=== PATIENT | female | born 1955 | race Caucasian/White ===

== ENCOUNTER 2017-06-11 20:12 | Inpatient (IN) | payer MEDICAID ==
[~2017-06-11] VITALS: Ht 162.6 cm; Wt 59.0 kg
[~2017-06-11 20:12] MED LIST: AMLO-512 PO; ASPI-825 PO; ATOR20TA86 PO; CITA20TA9 PO; DOCU100C33 PO
[2017-06-11 20:52] LABS: GLUCOSE,POINT OF CARE 261 MG/DL (70-110)
[2017-06-11 21:36] LABS: AMPHET/METH SCREEN,URINE NEGATIVE (NEGATIVE); BARBITURATE SCREEN, URINE NEGATIVE (NEGATIVE); BENZODIAZEPINES SCREEN,URINE NEGATIVE (NEGATIVE); CANNABINOID SCREEN,URINE NEGATIVE (NEGATIVE); COCAINE SCREEN,URINE NEGATIVE (NEGATIVE); METHADONE SCREEN, URINE NEGATIVE (NEGATIVE); OPIATE SCREEN,URINE NEGATIVE (NEGATIVE)
[2017-06-11 21:36] LABS: BASOPHILS % (AUTO) 1.1 % (0.0-2.0); EOSINOPHILS % (AUTO) 0.8 % (1.0-6.0); HEMATOCRIT 38.9 % (36-46); HEMOGLOBIN 12.9 g/dL (12.0-16.0); LYMPHOCYTES # (AUTO) 2.1 K/uL (1.0-4.8); LYMPHOCYTES % (AUTO) 23.9 % (22.0-44.0); MEAN CORPUSCULAR HEMOGLOBIN 28.7 pg (26.0-34.0); MEAN CORPUSCULAR HGB CONC 33.2 G/dL (31.0-37.0); MEAN CORPUSCULAR VOLUME 87 fL (80-100); MONOCYTES # (AUTO) 0.6 K/uL (0.1-1.0); MONOCYTES % (AUTO) 6.6 % (2.0-9.0); NEUTROPHILS # (AUTO) 5.8 K/uL (1.8-7.7); NEUTROPHILS % (AUTO) 67.6 % (40.0-70.0); PLATELET COUNT (AUTO) 253 K/uL (150-450); RED BLOOD CELL COUNT(AUTO) 4.49 MIL/uL (4.00-5.20); RED CELL DISTRIBUTION WIDTH 13.9 % (11.5-14.5)
[2017-06-11 21:40] LABS: PHENCYCLIDINE SCREEN,URINE NEGATIVE (NEGATIVE)
[2017-06-11 21:57] LABS: ANION GAP 9 mmol/L (8-16); CARBON DIOXIDE 27 mmol/L (22-29); CHLORIDE 102 mmol/L (98-107); CREATININE 0.93 mg/dL (0.60-1.30); GLOMERULAR FILTR. RATE CALC > 60 mL/min (>60); GLUCOSE,RANDOM 253 mg/dL (70-110); POTASSIUM 3.8 mmol/L (3.5-5.1); SODIUM SERUM 138 mmol/L (136-145); UREA NITROGEN, BLOOD 14 mg/dL (7-18)
[2017-06-11 22:01] LABS: ALANINE AMINOTRANSFERASE 14 U/L (12-78); ALBUMIN 3.6 g/dL (3.4-5.0); ALKALINE PHOSPHATASE 107 U/L (46-116); ASPARTATE AMINOTRANSFERASE 17 U/L (15-37); BILIRUBIN,TOTAL 0.3 mg/dL (0.1-1.0); TOTAL PROTEIN, SERUM 7.7 g/dL (6.4-8.2)
[2017-06-11 23:35] LABS: APPEARANCE,URINE CLOUDY (CLEAR); BILIRUBIN,URINE NEGATIVE (NEGATIVE); GLUCOSE, URINE (UA) >=1000 mg/dL (NEGATIVE); KETONES,URINE TRACE mg/dL (NEGATIVE); NITRATE,URINE POSITIVE (NEGATIVE); PROTEIN,URINE SEE CONFIRM (NEGATIVE); UROBILINOGEN,URINE 0.2 mg/dL (<=1.0)
[2017-06-11 23:38] LABS: GLUCOSE,POINT OF CARE 238 MG/DL (70-110)
[2017-06-11 23:38] LABS: LEUKOCYTE ESTERASE ,URINE MODERATE (NEGATIVE); OCCULT BLOOD,URINE SMALL (NEGATIVE)
[2017-06-11 23:39] LABS: BACTERIA,URINE Many /HPF (None Seen); SQUAMOUS EPITHELIAL CELL,UR Moderate /LPF (None Seen); SULFOSALICYLIC ACID,URINE 3+ (Negative); WBC,URINE 26-50 /HPF (0-5)
[2017-06-12] MEDS ORDERED: CefTRIAXone SODIUM 1 GM/VIAL IM ONE (00:15)
[2017-06-12] MEDS ORDERED: LIDOCAINE HCL/PF 1% 2 ML VIAL IM ONE (00:15)
[2017-06-12 00:31] LABS: CHOL/HDL RATIO 3.8 (3.9-5.7); CHOLESTEROL 227 mg/dL (131-200); FREE T4 (FREE THYROXINE) 0.98 ng/dL (0.76-1.46); HDL CHOLESTEROL 60 mg/dL (40-60); LDL CHOL (CALC.) 144 mg/dL (0-130); THYROID STIMULATING HORMONE 5.51 uIU/mL (0.36-3.74); TRIGLYCERIDES 115 mg/dL (15-150)
[2017-06-12 05:37] LABS: GLUCOSE,POINT OF CARE 245 MG/DL (70-110)
[2017-06-12] MEDS ORDERED: INSULIN REGULAR, HUMAN 100 UNITS/ML SQ ONE (05:45)
[2017-06-12 06:49] VITALS: BP 128/76
[2017-06-12] MEDS ORDERED: -PHARMACY VACCINE NOTE- MISC ONE (07:30)
[2017-06-12] MEDS ORDERED: PNEUMOCOCCAL VACCINE POLYVALENT 0.5 ML VIAL [PPSV23] IM ONE (07:30)
[2017-06-12] MEDS ORDERED: INFLUENZA VIRUS VACCINE QVS 2017-18 (3YR+)/PF 60 MCG/0.5 ML SYRINGE IM ONE (07:30)
[2017-06-12 08:06] VITALS: BP 104/68
[2017-06-12] MEDS ORDERED: MAG HYDROX/AL HYDROX/SIMETH ES 30 ML SUSPENSION UDCUP PO PRN (09:30)
[2017-06-12] MEDS ORDERED: ALBUTEROL SULFATE HFA 90 MCG/PUFF 8 GM INHALER IH PRN (09:30)
[2017-06-12] MEDS ORDERED: IBUPROFEN 600 MG TABLET PO PRN (09:30)
[2017-06-12] MEDS ORDERED: PETROLATUM,WHITE 71 GM JELLY TP PRN (09:30)
[2017-06-12] MEDS ORDERED: GLUCAGON,HUMAN RECOMBINANT 1 MG VIAL IM PRN (09:30)
[2017-06-12] MEDS ORDERED: ONDANSETRON HCL 4 MG TABLET PO PRN (09:30)
[2017-06-12] MEDS ORDERED: ACETAMINOPHEN 325 MG TABLET PO PRN (09:30)
[2017-06-12] MEDS ORDERED: BACITRACIN 28.4 GM OINTMENT TP PRN (09:30)
[2017-06-12] MEDS ORDERED: MAGNESIUM HYDROXIDE SUSPENSION 30 ML UDCUP PO PRN (09:30)
[2017-06-12] MEDS ORDERED: CloNIDine HCL 0.1 MG TABLET PO PRN (09:30)
[2017-06-12] MEDS ORDERED: BENZOCAINE/MENTHOL LOZENGE MM PRN (09:30)
[2017-06-12] MEDS: AmLODIPine BESYLATE 10 MG TABLET PO SCH (09:56)
[2017-06-12] MEDS: CIPROFLOXACIN HCL 500 MG TABLET PO SCH ×2 (09:56→17:00)
[2017-06-12] MEDS: ASPIRIN 81 MG CHEWABLE TABLET PO SCH (09:56)
[2017-06-12] MEDS: INSULIN ASPART 100 UNITS/ML - NON-FORMULARY SQ PRN ×3 (10:55→20:47)
[2017-06-12 12:43] LABS: GLUCOMETER DEV NAME(LOC) BV2N3; GLUCOSE,POINT OF CARE 338 MG/DL (70-110)
[2017-06-12] MEDS: CITALOPRAM HYDROBROMIDE 20 MG TABLET PO SCH (13:52)
[2017-06-12 16:00] VITALS: BP 130/66
[2017-06-12 16:32] LABS: GLUCOMETER DEV NAME(LOC) BV2N3; GLUCOSE,POINT OF CARE 256 MG/DL (70-110)
[2017-06-12] MEDS: MetFORMIN HCL 500 MG TABLET PO SCH (17:00)
[2017-06-12] MEDS: ATORVASTATIN CALCIUM 20 MG TABLET PO SCH (20:38)
[2017-06-12 20:57] LABS: GLUCOMETER DEV NAME(LOC) BV2N3; GLUCOSE,POINT OF CARE 336 MG/DL (70-110)
[2017-06-13] MEDS: INSULIN ASPART 100 UNITS/ML - NON-FORMULARY SQ PRN ×4 (06:21→20:46)
[2017-06-13 06:22] LABS: GLUCOMETER DEV NAME(LOC) BV2N3; GLUCOSE,POINT OF CARE 333 MG/DL (70-110)
[2017-06-13] MEDS: LEVOTHYROXINE SODIUM 50 MCG TABLET PO SCH (06:41)
[2017-06-13 07:02] VITALS: BP 140/86
[2017-06-13] MEDS: MetFORMIN HCL 500 MG TABLET PO SCH ×2 (07:07→16:31)
[2017-06-13 08:07] VITALS: BP 106/73
[2017-06-13] MEDS: CIPROFLOXACIN HCL 500 MG TABLET PO SCH ×2 (08:18→16:31)
[2017-06-13] MEDS: ASPIRIN 81 MG CHEWABLE TABLET PO SCH (08:18)
[2017-06-13] MEDS: OMEPRAZOLE 20 MG CAPSULE PO SCH (08:18)
[2017-06-13] MEDS: DOCUSATE SODIUM 100 MG CAPSULE PO SCH (08:18)
[2017-06-13] MEDS: CITALOPRAM HYDROBROMIDE 20 MG TABLET PO SCH (08:18)
[2017-06-13] MEDS: AmLODIPine BESYLATE 10 MG TABLET PO SCH (08:18)
[2017-06-13 11:02] LABS: GLUCOMETER DEV NAME(LOC) BV2N3; GLUCOSE,POINT OF CARE 306 MG/DL (70-110)
[2017-06-13 16:05] VITALS: BP 106/60
[2017-06-13 18:57] LABS: GLUCOMETER DEV NAME(LOC) BV2N3; GLUCOSE,POINT OF CARE 284 MG/DL (70-110)
[2017-06-13 20:33] LABS: GLUCOMETER DEV NAME(LOC) BV2N3; GLUCOSE,POINT OF CARE 231 MG/DL (70-110)
[2017-06-13] MEDS: ATORVASTATIN CALCIUM 20 MG TABLET PO SCH (20:39)
[2017-06-14 05:10] VITALS: BP 105/70
[2017-06-14] MEDS: LEVOTHYROXINE SODIUM 50 MCG TABLET PO SCH (06:27)
[2017-06-14] MEDS: MetFORMIN HCL 500 MG TABLET PO SCH ×2 (06:27→17:05)
[2017-06-14 06:33] LABS: GLUCOMETER DEV NAME(LOC) BV2N3; GLUCOSE,POINT OF CARE 242 MG/DL (70-110)
[2017-06-14] MEDS: INSULIN ASPART 100 UNITS/ML - NON-FORMULARY SQ PRN ×3 (06:39→16:46)
[2017-06-14] MEDS: AmLODIPine BESYLATE 10 MG TABLET PO SCH (08:23)
[2017-06-14] MEDS: CIPROFLOXACIN HCL 500 MG TABLET PO SCH ×2 (08:23→17:05)
[2017-06-14] MEDS: CITALOPRAM HYDROBROMIDE 20 MG TABLET PO SCH (08:23)
[2017-06-14] MEDS: OMEPRAZOLE 20 MG CAPSULE PO SCH (08:23)
[2017-06-14] MEDS: ASPIRIN 81 MG CHEWABLE TABLET PO SCH (08:23)
[2017-06-14] MEDS: DOCUSATE SODIUM 100 MG CAPSULE PO SCH (08:23)
[2017-06-14 08:37] VITALS: BP 105/60
[2017-06-14 11:43] LABS: GLUCOMETER DEV NAME(LOC) BV2S; GLUCOSE,POINT OF CARE 197 MG/DL (70-110)
[2017-06-14 16:01] VITALS: BP 135/69
[2017-06-14 16:48] LABS: GLUCOMETER DEV NAME(LOC) BV2N3; GLUCOSE,POINT OF CARE 209 MG/DL (70-110)
[2017-06-14] MEDS: ATORVASTATIN CALCIUM 20 MG TABLET PO SCH (20:22)
[2017-06-14 20:38] LABS: GLUCOMETER DEV NAME(LOC) BV2N3; GLUCOSE,POINT OF CARE 136 MG/DL (70-110)
[2017-06-15 05:15] VITALS: BP 122/61
[2017-06-15] MEDS: LEVOTHYROXINE SODIUM 50 MCG TABLET PO SCH (06:35)
[2017-06-15] MEDS: MetFORMIN HCL 500 MG TABLET PO SCH ×2 (06:36→16:21)
[2017-06-15] MEDS: INSULIN ASPART 100 UNITS/ML - NON-FORMULARY SQ PRN ×3 (06:43→17:09)
[2017-06-15 07:07] LABS: GLUCOMETER DEV NAME(LOC) BV2N3; GLUCOSE,POINT OF CARE 213 MG/DL (70-110)
[2017-06-15 08:18] VITALS: BP 118/67
[2017-06-15] MEDS: ASPIRIN 81 MG CHEWABLE TABLET PO SCH (08:30)
[2017-06-15] MEDS: OMEPRAZOLE 20 MG CAPSULE PO SCH (08:30)
[2017-06-15] MEDS: DOCUSATE SODIUM 100 MG CAPSULE PO SCH (08:30)
[2017-06-15] MEDS: CIPROFLOXACIN HCL 500 MG TABLET PO SCH ×2 (08:30→16:09)
[2017-06-15] MEDS: CITALOPRAM HYDROBROMIDE 20 MG TABLET PO SCH (08:30)
[2017-06-15] MEDS: AmLODIPine BESYLATE 10 MG TABLET PO SCH (08:30)
[2017-06-15 11:12] LABS: GLUCOMETER DEV NAME(LOC) BV2N3; GLUCOSE,POINT OF CARE 213 MG/DL (70-110)
[2017-06-15 16:04] VITALS: BP 131/68
[2017-06-15 16:22] LABS: GLUCOMETER DEV NAME(LOC) BV2N3; GLUCOSE,POINT OF CARE 174 MG/DL (70-110)
[2017-06-15] MEDS: ATORVASTATIN CALCIUM 20 MG TABLET PO SCH (20:20)
[2017-06-15 20:33] LABS: GLUCOMETER DEV NAME(LOC) BV2N3; GLUCOSE,POINT OF CARE 132 MG/DL (70-110)
[2017-06-16 01:01] VITALS: BP 121/62
[2017-06-16 06:33] LABS: GLUCOMETER DEV NAME(LOC) BV2N3; GLUCOSE,POINT OF CARE 192 MG/DL (70-110)
[2017-06-16] MEDS: LEVOTHYROXINE SODIUM 50 MCG TABLET PO SCH (06:35)
[2017-06-16] MEDS: MetFORMIN HCL 500 MG TABLET PO SCH ×2 (06:35→16:28)
[2017-06-16] MEDS: INSULIN ASPART 100 UNITS/ML - NON-FORMULARY SQ PRN ×2 (06:38→11:13)
[2017-06-16 08:11] VITALS: BP 123/81
[2017-06-16] MEDS: CIPROFLOXACIN HCL 500 MG TABLET PO SCH ×2 (08:22→16:27)
[2017-06-16] MEDS: ASPIRIN 81 MG CHEWABLE TABLET PO SCH (08:22)
[2017-06-16] MEDS: OMEPRAZOLE 20 MG CAPSULE PO SCH (08:22)
[2017-06-16] MEDS: CITALOPRAM HYDROBROMIDE 20 MG TABLET PO SCH (08:22)
[2017-06-16] MEDS: DOCUSATE SODIUM 100 MG CAPSULE PO SCH (08:22)
[2017-06-16] MEDS: AmLODIPine BESYLATE 10 MG TABLET PO SCH (08:22)
[2017-06-16 10:53] LABS: GLUCOMETER DEV NAME(LOC) BV2N3; GLUCOSE,POINT OF CARE 215 MG/DL (70-110)
[2017-06-16 16:05] VITALS: BP 127/82
[2017-06-16 16:28] LABS: GLUCOMETER DEV NAME(LOC) BV2N3; GLUCOSE,POINT OF CARE 128 MG/DL (70-110)
[2017-06-16] MEDS: ATORVASTATIN CALCIUM 20 MG TABLET PO SCH (20:03)
[2017-06-16 21:22] LABS: GLUCOMETER DEV NAME(LOC) BV2N3; GLUCOSE,POINT OF CARE 128 MG/DL (70-110)
[2017-06-17 04:37] VITALS: BP 114/66
[2017-06-17 06:23] LABS: GLUCOMETER DEV NAME(LOC) BV2N3; GLUCOSE,POINT OF CARE 143 MG/DL (70-110)
[2017-06-17] MEDS: LEVOTHYROXINE SODIUM 50 MCG TABLET PO SCH (06:37)
[2017-06-17] MEDS: MetFORMIN HCL 500 MG TABLET PO SCH ×2 (06:38→16:25)
[2017-06-17] MEDS: INSULIN ASPART 100 UNITS/ML - NON-FORMULARY SQ PRN ×2 (06:57→11:19)
[2017-06-17 08:08] VITALS: BP 125/60
[2017-06-17] MEDS: OMEPRAZOLE 20 MG CAPSULE PO SCH (08:11)
[2017-06-17] MEDS: CIPROFLOXACIN HCL 500 MG TABLET PO SCH ×2 (08:11→16:11)
[2017-06-17] MEDS: CITALOPRAM HYDROBROMIDE 20 MG TABLET PO SCH (08:11)
[2017-06-17] MEDS: DOCUSATE SODIUM 100 MG CAPSULE PO SCH (08:11)
[2017-06-17] MEDS: ASPIRIN 81 MG CHEWABLE TABLET PO SCH (08:11)
[2017-06-17] MEDS: AmLODIPine BESYLATE 10 MG TABLET PO SCH (08:12)
[2017-06-17 11:23] LABS: GLUCOMETER DEV NAME(LOC) BV2N3; GLUCOSE,POINT OF CARE 152 MG/DL (70-110)
[2017-06-17 16:22] VITALS: BP 125/77
[2017-06-17 16:33] LABS: GLUCOMETER DEV NAME(LOC) BV2N3; GLUCOSE,POINT OF CARE 128 MG/DL (70-110)
[2017-06-17] MEDS: ATORVASTATIN CALCIUM 20 MG TABLET PO SCH (20:12)
[2017-06-17 20:27] LABS: GLUCOMETER DEV NAME(LOC) BV2N3; GLUCOSE,POINT OF CARE 113 MG/DL (70-110)
[2017-06-18 01:51] VITALS: BP 120/60
[2017-06-18 05:49] LABS: GLUCOMETER DEV NAME(LOC) BV2N3; GLUCOSE,POINT OF CARE 158 MG/DL (70-110)
[2017-06-18] MEDS: LEVOTHYROXINE SODIUM 50 MCG TABLET PO SCH (06:52)
[2017-06-18] MEDS: MetFORMIN HCL 500 MG TABLET PO SCH ×2 (06:52→17:02)
[2017-06-18] MEDS: INSULIN ASPART 100 UNITS/ML - NON-FORMULARY SQ PRN ×2 (06:55→20:46)
[2017-06-18 08:10] VITALS: BP 116/60
[2017-06-18] MEDS: OMEPRAZOLE 20 MG CAPSULE PO SCH (08:15)
[2017-06-18] MEDS: CIPROFLOXACIN HCL 500 MG TABLET PO SCH ×2 (08:15→17:02)
[2017-06-18] MEDS: DOCUSATE SODIUM 100 MG CAPSULE PO SCH (08:15)
[2017-06-18] MEDS: ASPIRIN 81 MG CHEWABLE TABLET PO SCH (08:16)
[2017-06-18] MEDS: CITALOPRAM HYDROBROMIDE 20 MG TABLET PO SCH (08:16)
[2017-06-18] MEDS: AmLODIPine BESYLATE 10 MG TABLET PO SCH (08:16)
[2017-06-18 11:07] LABS: GLUCOMETER DEV NAME(LOC) BV2N3; GLUCOSE,POINT OF CARE 122 MG/DL (70-110)
[2017-06-18 16:33] LABS: GLUCOMETER DEV NAME(LOC) BV2N3; GLUCOSE,POINT OF CARE 127 MG/DL (70-110)
[2017-06-18 16:37] VITALS: BP 112/60
[2017-06-18] MEDS: ATORVASTATIN CALCIUM 20 MG TABLET PO SCH (20:36)
[2017-06-18 20:47] LABS: GLUCOMETER DEV NAME(LOC) BV2N3; GLUCOSE,POINT OF CARE 150 MG/DL (70-110)
[2017-06-19 05:54] VITALS: BP 108/62
[2017-06-19 06:34] LABS: GLUCOMETER DEV NAME(LOC) BV2N3; GLUCOSE,POINT OF CARE 150 MG/DL (70-110)
[2017-06-19] MEDS: INSULIN ASPART 100 UNITS/ML - NON-FORMULARY SQ PRN ×3 (06:40→21:05)
[2017-06-19] MEDS: LEVOTHYROXINE SODIUM 50 MCG TABLET PO SCH (06:41)
[2017-06-19] MEDS: MetFORMIN HCL 500 MG TABLET PO SCH ×2 (07:10→16:37)
[2017-06-19 08:00] VITALS: BP 111/59
[2017-06-19] MEDS: MEGESTROL ACETATE 400 MG/10 ML SUSPENSION UDCUP PO SCH (08:35)
[2017-06-19] MEDS: DOCUSATE SODIUM 100 MG CAPSULE PO SCH (08:35)
[2017-06-19] MEDS: ASPIRIN 81 MG CHEWABLE TABLET PO SCH (08:36)
[2017-06-19] MEDS: CITALOPRAM HYDROBROMIDE 20 MG TABLET PO SCH (08:36)
[2017-06-19] MEDS: AmLODIPine BESYLATE 10 MG TABLET PO SCH (08:36)
[2017-06-19] MEDS: OMEPRAZOLE 20 MG CAPSULE PO SCH (08:36)
[2017-06-19 11:43] LABS: GLUCOMETER DEV NAME(LOC) BV2N3; GLUCOSE,POINT OF CARE 136 MG/DL (70-110)
[2017-06-19 16:28] VITALS: BP 102/60
[2017-06-19 16:47] LABS: GLUCOMETER DEV NAME(LOC) BV2N3; GLUCOSE,POINT OF CARE 306 MG/DL (70-110)
[2017-06-19] MEDS: ATORVASTATIN CALCIUM 20 MG TABLET PO SCH (20:56)
[2017-06-19 21:02] LABS: GLUCOMETER DEV NAME(LOC) BV2N3; GLUCOSE,POINT OF CARE 277 MG/DL (70-110)
[2017-06-20 01:09] VITALS: BP 106/61
[2017-06-20] MEDS: LEVOTHYROXINE SODIUM 50 MCG TABLET PO SCH (06:06)
[2017-06-20] MEDS: INSULIN ASPART 100 UNITS/ML - NON-FORMULARY SQ PRN ×4 (06:28→21:03)
[2017-06-20 06:38] LABS: GLUCOMETER DEV NAME(LOC) BV2N3; GLUCOSE,POINT OF CARE 220 MG/DL (70-110)
[2017-06-20] MEDS: MetFORMIN HCL 500 MG TABLET PO SCH ×2 (07:06→16:40)
[2017-06-20 08:27] VITALS: BP 108/64
[2017-06-20] MEDS: ASPIRIN 81 MG CHEWABLE TABLET PO SCH (09:11)
[2017-06-20] MEDS: CITALOPRAM HYDROBROMIDE 20 MG TABLET PO SCH (09:11)
[2017-06-20] MEDS: DOCUSATE SODIUM 100 MG CAPSULE PO SCH (09:11)
[2017-06-20] MEDS: OMEPRAZOLE 20 MG CAPSULE PO SCH (09:11)
[2017-06-20] MEDS: AmLODIPine BESYLATE 10 MG TABLET PO SCH (09:11)
[2017-06-20] MEDS: MEGESTROL ACETATE 400 MG/10 ML SUSPENSION UDCUP PO SCH (09:12)
[2017-06-20 11:27] LABS: GLUCOMETER DEV NAME(LOC) BV2N3; GLUCOSE,POINT OF CARE 159 MG/DL (70-110)
[2017-06-20 16:04] VITALS: BP 126/68
[2017-06-20 16:38] LABS: GLUCOMETER DEV NAME(LOC) BV2N3; GLUCOSE,POINT OF CARE 259 MG/DL (70-110)
[2017-06-20] MEDS: ATORVASTATIN CALCIUM 20 MG TABLET PO SCH (20:46)
[2017-06-20 20:58] LABS: GLUCOMETER DEV NAME(LOC) BV2N3; GLUCOSE,POINT OF CARE 203 MG/DL (70-110)
[2017-06-21 06:31] VITALS: BP 119/68
[2017-06-21 06:43] LABS: GLUCOMETER DEV NAME(LOC) BV2N3; GLUCOSE,POINT OF CARE 182 MG/DL (70-110)
[2017-06-21] MEDS: INSULIN ASPART 100 UNITS/ML - NON-FORMULARY SQ PRN ×4 (07:03→20:54)
[2017-06-21] MEDS: MetFORMIN HCL 500 MG TABLET PO SCH ×2 (07:04→16:31)
[2017-06-21] MEDS: LEVOTHYROXINE SODIUM 50 MCG TABLET PO SCH (07:05)
[2017-06-21 08:10] VITALS: BP 121/63
[2017-06-21] MEDS: CITALOPRAM HYDROBROMIDE 20 MG TABLET PO SCH (08:53)
[2017-06-21] MEDS: OMEPRAZOLE 20 MG CAPSULE PO SCH (08:53)
[2017-06-21] MEDS: ASPIRIN 81 MG CHEWABLE TABLET PO SCH (08:53)
[2017-06-21] MEDS: DOCUSATE SODIUM 100 MG CAPSULE PO SCH (08:53)
[2017-06-21] MEDS: AmLODIPine BESYLATE 10 MG TABLET PO SCH (08:53)
[2017-06-21] MEDS: MEGESTROL ACETATE 400 MG/10 ML SUSPENSION UDCUP PO SCH (08:54)
[2017-06-21 11:53] LABS: GLUCOMETER DEV NAME(LOC) BV2N3; GLUCOSE,POINT OF CARE 153 MG/DL (70-110)
[2017-06-21 16:07] VITALS: BP 118/65
[2017-06-21 16:43] LABS: GLUCOMETER DEV NAME(LOC) BV2N3; GLUCOSE,POINT OF CARE 205 MG/DL (70-110)
[2017-06-21] MEDS: ATORVASTATIN CALCIUM 20 MG TABLET PO SCH (20:35)
[2017-06-21 20:43] LABS: GLUCOMETER DEV NAME(LOC) BV2N3; GLUCOSE,POINT OF CARE 182 MG/DL (70-110)
[2017-06-22] MEDS: LEVOTHYROXINE SODIUM 50 MCG TABLET PO SCH (06:31)
[2017-06-22] MEDS: MetFORMIN HCL 500 MG TABLET PO SCH ×2 (06:32→16:28)
[2017-06-22 06:38] LABS: GLUCOMETER DEV NAME(LOC) BV2N3; GLUCOSE,POINT OF CARE 229 MG/DL (70-110)
[2017-06-22] MEDS: INSULIN ASPART 100 UNITS/ML - NON-FORMULARY SQ PRN ×4 (06:38→20:55)
[2017-06-22 07:07] VITALS: BP 136/75
[2017-06-22 08:23] VITALS: BP_SYST 105; BP_SYST 120; BP_DIAS 54; BP_DIAS 77
[2017-06-22] MEDS: CITALOPRAM HYDROBROMIDE 20 MG TABLET PO SCH (08:55)
[2017-06-22] MEDS: OMEPRAZOLE 20 MG CAPSULE PO SCH (08:55)
[2017-06-22] MEDS: AmLODIPine BESYLATE 10 MG TABLET PO SCH (08:55)
[2017-06-22] MEDS: MEGESTROL ACETATE 400 MG/10 ML SUSPENSION UDCUP PO SCH (08:56)
[2017-06-22] MEDS: DOCUSATE SODIUM 100 MG CAPSULE PO SCH (08:56)
[2017-06-22] MEDS: ASPIRIN 81 MG CHEWABLE TABLET PO SCH (08:56)
[2017-06-22 11:02] LABS: GLUCOMETER DEV NAME(LOC) BV2N3; GLUCOSE,POINT OF CARE 171 MG/DL (70-110)
[2017-06-22 16:17] VITALS: BP 123/67
[2017-06-22 16:33] LABS: GLUCOMETER DEV NAME(LOC) BV2N3; GLUCOSE,POINT OF CARE 240 MG/DL (70-110)
[2017-06-22] MEDS: ATORVASTATIN CALCIUM 20 MG TABLET PO SCH (20:44)
[2017-06-22 20:52] LABS: GLUCOMETER DEV NAME(LOC) BV2N3; GLUCOSE,POINT OF CARE 148 MG/DL (70-110)
[2017-06-23 06:31] VITALS: BP 121/71
[2017-06-23] MEDS: MetFORMIN HCL 500 MG TABLET PO SCH ×2 (06:44→16:32)
[2017-06-23] MEDS: LEVOTHYROXINE SODIUM 50 MCG TABLET PO SCH (06:44)
[2017-06-23] MEDS: INSULIN ASPART 100 UNITS/ML - NON-FORMULARY SQ PRN ×4 (06:48→20:28)
[2017-06-23 07:08] LABS: GLUCOMETER DEV NAME(LOC) BV2N3; GLUCOSE,POINT OF CARE 147 MG/DL (70-110)
[2017-06-23 08:19] VITALS: BP 116/78
[2017-06-23] MEDS: ASPIRIN 81 MG CHEWABLE TABLET PO SCH (08:26)
[2017-06-23] MEDS: OMEPRAZOLE 20 MG CAPSULE PO SCH (08:26)
[2017-06-23] MEDS: CITALOPRAM HYDROBROMIDE 20 MG TABLET PO SCH (08:26)
[2017-06-23] MEDS: AmLODIPine BESYLATE 10 MG TABLET PO SCH (08:26)
[2017-06-23] MEDS: DOCUSATE SODIUM 100 MG CAPSULE PO SCH (08:26)
[2017-06-23] MEDS: MEGESTROL ACETATE 400 MG/10 ML SUSPENSION UDCUP PO SCH (08:27)
[2017-06-23 11:38] LABS: GLUCOMETER DEV NAME(LOC) BV2N3; GLUCOSE,POINT OF CARE 175 MG/DL (70-110)
[2017-06-23 16:26] VITALS: BP 116/74
[2017-06-23 16:38] LABS: GLUCOMETER DEV NAME(LOC) BV2N3; GLUCOSE,POINT OF CARE 146 MG/DL (70-110)
[2017-06-23] MEDS: ATORVASTATIN CALCIUM 20 MG TABLET PO SCH (20:26)
[2017-06-23 20:33] LABS: GLUCOMETER DEV NAME(LOC) BV2N3; GLUCOSE,POINT OF CARE 163 MG/DL (70-110)
[2017-06-24 01:15] VITALS: BP 114/63
[2017-06-24] MEDS: ZOLPIDEM TARTRATE 10 MG TABLET PO PRN (01:15)
[2017-06-24 06:28] LABS: GLUCOMETER DEV NAME(LOC) BV2N3; GLUCOSE,POINT OF CARE 143 MG/DL (70-110)
[2017-06-24] MEDS: MetFORMIN HCL 500 MG TABLET PO SCH ×2 (06:48→17:08)
[2017-06-24] MEDS: LEVOTHYROXINE SODIUM 50 MCG TABLET PO SCH (06:48)
[2017-06-24] MEDS: INSULIN ASPART 100 UNITS/ML - NON-FORMULARY SQ PRN ×4 (06:53→20:30)
[2017-06-24] MEDS: AmLODIPine BESYLATE 10 MG TABLET PO SCH (08:19)
[2017-06-24] MEDS: DOCUSATE SODIUM 100 MG CAPSULE PO SCH (08:19)
[2017-06-24] MEDS: ASPIRIN 81 MG CHEWABLE TABLET PO SCH (08:20)
[2017-06-24] MEDS: CITALOPRAM HYDROBROMIDE 20 MG TABLET PO SCH (08:20)
[2017-06-24] MEDS: MEGESTROL ACETATE 400 MG/10 ML SUSPENSION UDCUP PO SCH (08:24)
[2017-06-24] MEDS: OMEPRAZOLE 20 MG CAPSULE PO SCH (08:24)
[2017-06-24 09:03] VITALS: BP 128/76
[2017-06-24 11:18] LABS: GLUCOMETER DEV NAME(LOC) BV2N3; GLUCOSE,POINT OF CARE 204 MG/DL (70-110)
[2017-06-24 16:04] VITALS: BP 123/62
[2017-06-24 16:53] LABS: GLUCOMETER DEV NAME(LOC) BV2N3; GLUCOSE,POINT OF CARE 229 MG/DL (70-110)
[2017-06-24] MEDS: ATORVASTATIN CALCIUM 20 MG TABLET PO SCH (20:31)
[2017-06-24 20:43] LABS: GLUCOMETER DEV NAME(LOC) BV2N3; GLUCOSE,POINT OF CARE 145 MG/DL (70-110)
[2017-06-25 06:09] VITALS: BP 114/62
[2017-06-25 06:23] LABS: GLUCOMETER DEV NAME(LOC) BV2N3; GLUCOSE,POINT OF CARE 138 MG/DL (70-110)
[2017-06-25] MEDS: LEVOTHYROXINE SODIUM 50 MCG TABLET PO SCH (06:36)
[2017-06-25] MEDS: MetFORMIN HCL 500 MG TABLET PO SCH ×2 (06:36→16:34)
[2017-06-25 08:28] VITALS: BP 123/70
[2017-06-25] MEDS: OMEPRAZOLE 20 MG CAPSULE PO SCH (08:37)
[2017-06-25] MEDS: AmLODIPine BESYLATE 10 MG TABLET PO SCH (08:37)
[2017-06-25] MEDS: ASPIRIN 81 MG CHEWABLE TABLET PO SCH (08:37)
[2017-06-25] MEDS: CITALOPRAM HYDROBROMIDE 20 MG TABLET PO SCH (08:37)
[2017-06-25] MEDS: DOCUSATE SODIUM 100 MG CAPSULE PO SCH (08:37)
[2017-06-25] MEDS: MEGESTROL ACETATE 400 MG/10 ML SUSPENSION UDCUP PO SCH (08:38)
[2017-06-25 11:17] LABS: GLUCOMETER DEV NAME(LOC) BV2N3; GLUCOSE,POINT OF CARE 133 MG/DL (70-110)
[2017-06-25 16:18] VITALS: BP 121/68
[2017-06-25 17:03] LABS: GLUCOMETER DEV NAME(LOC) BV2N3; GLUCOSE,POINT OF CARE 156 MG/DL (70-110)
[2017-06-25] MEDS: INSULIN ASPART 100 UNITS/ML - NON-FORMULARY SQ PRN (17:05)
[2017-06-25 20:38] LABS: GLUCOMETER DEV NAME(LOC) BV2N3; GLUCOSE,POINT OF CARE 84 MG/DL (70-110)
[2017-06-25] MEDS: ATORVASTATIN CALCIUM 20 MG TABLET PO SCH (20:43)
[2017-06-26 06:23] LABS: GLUCOMETER DEV NAME(LOC) BV2N3; GLUCOSE,POINT OF CARE 116 MG/DL (70-110)
[2017-06-26] MEDS: LEVOTHYROXINE SODIUM 50 MCG TABLET PO SCH (06:35)
[2017-06-26] MEDS: MetFORMIN HCL 500 MG TABLET PO SCH ×2 (06:35→16:37)
[2017-06-26 06:39] VITALS: BP 138/70
[2017-06-26 08:43] VITALS: BP 138/71
[2017-06-26] MEDS: DOCUSATE SODIUM 100 MG CAPSULE PO SCH (08:48)
[2017-06-26] MEDS: MEGESTROL ACETATE 400 MG/10 ML SUSPENSION UDCUP PO SCH (08:48)
[2017-06-26] MEDS: CITALOPRAM HYDROBROMIDE 20 MG TABLET PO SCH (08:48)
[2017-06-26] MEDS: ASPIRIN 81 MG CHEWABLE TABLET PO SCH (08:48)
[2017-06-26] MEDS: AmLODIPine BESYLATE 10 MG TABLET PO SCH (08:48)
[2017-06-26] MEDS: OMEPRAZOLE 20 MG CAPSULE PO SCH (08:48)
[2017-06-26 11:08] LABS: GLUCOMETER DEV NAME(LOC) BV2N3; GLUCOSE,POINT OF CARE 134 MG/DL (70-110)
[2017-06-26] MEDS: INSULIN ASPART 100 UNITS/ML - NON-FORMULARY SQ PRN ×2 (17:00→20:40)
[2017-06-26 17:44] VITALS: BP 116/64
[2017-06-26 17:59] LABS: GLUCOMETER DEV NAME(LOC) BV2N3; GLUCOSE,POINT OF CARE 204 MG/DL (70-110)
[2017-06-26] MEDS: ATORVASTATIN CALCIUM 20 MG TABLET PO SCH (20:33)
[2017-06-26 21:28] LABS: GLUCOMETER DEV NAME(LOC) BV2N3; GLUCOSE,POINT OF CARE 155 MG/DL (70-110)
[2017-06-27 02:43] VITALS: BP 121/68
[2017-06-27] MEDS: INSULIN ASPART 100 UNITS/ML - NON-FORMULARY SQ PRN ×3 (06:51→20:40)
[2017-06-27] MEDS: LEVOTHYROXINE SODIUM 50 MCG TABLET PO SCH (06:52)
[2017-06-27 06:53] LABS: GLUCOMETER DEV NAME(LOC) BV2N3; GLUCOSE,POINT OF CARE 150 MG/DL (70-110)
[2017-06-27] MEDS: MetFORMIN HCL 500 MG TABLET PO SCH ×2 (06:53→16:29)
[2017-06-27 08:36] VITALS: BP 148/77
[2017-06-27] MEDS: CITALOPRAM HYDROBROMIDE 20 MG TABLET PO SCH (09:11)
[2017-06-27] MEDS: AmLODIPine BESYLATE 10 MG TABLET PO SCH (09:11)
[2017-06-27] MEDS: ASPIRIN 81 MG CHEWABLE TABLET PO SCH (09:11)
[2017-06-27] MEDS: OMEPRAZOLE 20 MG CAPSULE PO SCH (09:11)
[2017-06-27] MEDS: DOCUSATE SODIUM 100 MG CAPSULE PO SCH (09:11)
[2017-06-27] MEDS: MEGESTROL ACETATE 400 MG/10 ML SUSPENSION UDCUP PO SCH (09:11)
[2017-06-27 11:27] LABS: GLUCOMETER DEV NAME(LOC) BV2N3; GLUCOSE,POINT OF CARE 134 MG/DL (70-110)
[2017-06-27 16:26] VITALS: BP 114/63
[2017-06-27 17:08] LABS: GLUCOMETER DEV NAME(LOC) BV2N3; GLUCOSE,POINT OF CARE 255 MG/DL (70-110)
[2017-06-27] MEDS: ATORVASTATIN CALCIUM 20 MG TABLET PO SCH (20:11)
[2017-06-27 20:43] LABS: GLUCOMETER DEV NAME(LOC) BV2N3; GLUCOSE,POINT OF CARE 161 MG/DL (70-110)
[2017-06-28 02:30] VITALS: BP 123/76
[2017-06-28] MEDS: ZOLPIDEM TARTRATE 10 MG TABLET PO PRN (02:39)
[2017-06-28 06:29] LABS: GLUCOMETER DEV NAME(LOC) BV2N3; GLUCOSE,POINT OF CARE 214 MG/DL (70-110)
[2017-06-28] MEDS: MetFORMIN HCL 500 MG TABLET PO SCH ×2 (06:35→16:21)
[2017-06-28] MEDS: LEVOTHYROXINE SODIUM 50 MCG TABLET PO SCH (06:35)
[2017-06-28] MEDS: INSULIN ASPART 100 UNITS/ML - NON-FORMULARY SQ PRN ×4 (06:59→20:22)
[2017-06-28] MEDS: MEGESTROL ACETATE 400 MG/10 ML SUSPENSION UDCUP PO SCH (08:27)
[2017-06-28] MEDS: OMEPRAZOLE 20 MG CAPSULE PO SCH (08:28)
[2017-06-28] MEDS: ASPIRIN 81 MG CHEWABLE TABLET PO SCH (08:28)
[2017-06-28] MEDS: DOCUSATE SODIUM 100 MG CAPSULE PO SCH (08:28)
[2017-06-28] MEDS: CITALOPRAM HYDROBROMIDE 20 MG TABLET PO SCH (08:28)
[2017-06-28 08:29] VITALS: BP 108/60
[2017-06-28] MEDS: AmLODIPine BESYLATE 10 MG TABLET PO SCH (08:29)
[2017-06-28 11:08] LABS: GLUCOMETER DEV NAME(LOC) BV2N3; GLUCOSE,POINT OF CARE 191 MG/DL (70-110)
[2017-06-28 16:04] VITALS: BP 117/65
[2017-06-28 16:13] LABS: GLUCOMETER DEV NAME(LOC) BV2N3; GLUCOSE,POINT OF CARE 197 MG/DL (70-110)
[2017-06-28] MEDS: ATORVASTATIN CALCIUM 20 MG TABLET PO SCH (20:03)
[2017-06-28 20:12] LABS: GLUCOMETER DEV NAME(LOC) BV2N3; GLUCOSE,POINT OF CARE 186 MG/DL (70-110)
[2017-06-29 01:26] VITALS: BP 127/68
[2017-06-29] MEDS: LEVOTHYROXINE SODIUM 50 MCG TABLET PO SCH (06:38)
[2017-06-29] MEDS: MetFORMIN HCL 500 MG TABLET PO SCH ×2 (06:38→16:22)
[2017-06-29] MEDS: INSULIN ASPART 100 UNITS/ML - NON-FORMULARY SQ PRN ×3 (06:40→21:12)
[2017-06-29 06:48] LABS: GLUCOMETER DEV NAME(LOC) BV2N3; GLUCOSE,POINT OF CARE 159 MG/DL (70-110)
[2017-06-29 08:01] VITALS: BP 127/75
[2017-06-29] MEDS: OMEPRAZOLE 20 MG CAPSULE PO SCH (08:41)
[2017-06-29] MEDS: AmLODIPine BESYLATE 10 MG TABLET PO SCH (08:42)
[2017-06-29] MEDS: MEGESTROL ACETATE 400 MG/10 ML SUSPENSION UDCUP PO SCH (08:42)
[2017-06-29] MEDS: ASPIRIN 81 MG CHEWABLE TABLET PO SCH (08:42)
[2017-06-29] MEDS: LORazepam 1 MG TABLET PO PRN (08:42)
[2017-06-29] MEDS: DOCUSATE SODIUM 100 MG CAPSULE PO SCH (08:42)
[2017-06-29] MEDS: CITALOPRAM HYDROBROMIDE 20 MG TABLET PO SCH (08:42)
[2017-06-29 10:42] LABS: GLUCOMETER DEV NAME(LOC) BV2N3; GLUCOSE,POINT OF CARE 126 MG/DL (70-110)
[2017-06-29 16:13] LABS: GLUCOMETER DEV NAME(LOC) BV2N3; GLUCOSE,POINT OF CARE 335 MG/DL (70-110)
[2017-06-29 16:18] VITALS: BP 121/68
[2017-06-29] MEDS: ATORVASTATIN CALCIUM 20 MG TABLET PO SCH (20:16)
[2017-06-29 20:43] LABS: GLUCOMETER DEV NAME(LOC) BV2N3; GLUCOSE,POINT OF CARE 157 MG/DL (70-110)
[2017-06-29] MEDS: LOPERAMIDE HCL 2 MG CAPSULE PO PRN (20:45)
[2017-06-30 06:22] LABS: GLUCOMETER DEV NAME(LOC) BV2N3; GLUCOSE,POINT OF CARE 167 MG/DL (70-110)
[2017-06-30 06:24] VITALS: BP 109/69
[2017-06-30] MEDS: MetFORMIN HCL 500 MG TABLET PO SCH ×2 (06:49→16:28)
[2017-06-30] MEDS: LEVOTHYROXINE SODIUM 50 MCG TABLET PO SCH (06:49)
[2017-06-30] MEDS: INSULIN ASPART 100 UNITS/ML - NON-FORMULARY SQ PRN ×2 (06:55→17:00)
[2017-06-30 08:30] VITALS: BP 103/70
[2017-06-30] MEDS: CITALOPRAM HYDROBROMIDE 20 MG TABLET PO SCH (08:35)
[2017-06-30] MEDS: OMEPRAZOLE 20 MG CAPSULE PO SCH (08:36)
[2017-06-30] MEDS: MEGESTROL ACETATE 400 MG/10 ML SUSPENSION UDCUP PO SCH (08:36)
[2017-06-30] MEDS: LORazepam 1 MG TABLET PO PRN (08:36)
[2017-06-30] MEDS: DOCUSATE SODIUM 100 MG CAPSULE PO SCH (08:36)
[2017-06-30] MEDS: ASPIRIN 81 MG CHEWABLE TABLET PO SCH (08:36)
[2017-06-30] MEDS: AmLODIPine BESYLATE 10 MG TABLET PO SCH (08:36)
[2017-06-30 11:15] LABS: GLUCOMETER DEV NAME(LOC) BV2N3; GLUCOSE,POINT OF CARE 118 MG/DL (70-110)
[2017-06-30 16:12] LABS: GLUCOMETER DEV NAME(LOC) BV2N3; GLUCOSE,POINT OF CARE 210 MG/DL (70-110)
[2017-06-30 16:21] VITALS: BP 128/77
[2017-06-30] MEDS: ATORVASTATIN CALCIUM 20 MG TABLET PO SCH (20:17)
[2017-06-30 20:28] LABS: GLUCOMETER DEV NAME(LOC) BV2N3; GLUCOSE,POINT OF CARE 97 MG/DL (70-110)
[2017-07-01 00:54] VITALS: BP 123/61
[2017-07-01 06:23] LABS: GLUCOMETER DEV NAME(LOC) BV2N3; GLUCOSE,POINT OF CARE 163 MG/DL (70-110)
[2017-07-01] MEDS: MetFORMIN HCL 500 MG TABLET PO SCH ×2 (06:32→16:49)
[2017-07-01] MEDS: LEVOTHYROXINE SODIUM 50 MCG TABLET PO SCH (06:32)
[2017-07-01] MEDS: INSULIN ASPART 100 UNITS/ML - NON-FORMULARY SQ PRN ×3 (06:52→20:37)
[2017-07-01 08:08] VITALS: BP 125/71
[2017-07-01] MEDS: AmLODIPine BESYLATE 10 MG TABLET PO SCH (09:14)
[2017-07-01] MEDS: MEGESTROL ACETATE 400 MG/10 ML SUSPENSION UDCUP PO SCH (09:14)
[2017-07-01] MEDS: DOCUSATE SODIUM 100 MG CAPSULE PO SCH (09:14)
[2017-07-01] MEDS: OMEPRAZOLE 20 MG CAPSULE PO SCH (09:14)
[2017-07-01] MEDS: ASPIRIN 81 MG CHEWABLE TABLET PO SCH (09:15)
[2017-07-01] MEDS: CITALOPRAM HYDROBROMIDE 20 MG TABLET PO SCH (09:15)
[2017-07-01 11:07] LABS: GLUCOMETER DEV NAME(LOC) BV2N3; GLUCOSE,POINT OF CARE 99 MG/DL (70-110)
[2017-07-01 16:38] VITALS: BP 128/71
[2017-07-01 16:42] LABS: GLUCOMETER DEV NAME(LOC) BV2N3; GLUCOSE,POINT OF CARE 171 MG/DL (70-110)
[2017-07-01] MEDS: ATORVASTATIN CALCIUM 20 MG TABLET PO SCH (20:32)
[2017-07-01 20:37] LABS: GLUCOMETER DEV NAME(LOC) BV2N3; GLUCOSE,POINT OF CARE 146 MG/DL (70-110)
[2017-07-02 06:14] LABS: GLUCOMETER DEV NAME(LOC) BV2N3; GLUCOSE,POINT OF CARE 139 MG/DL (70-110)
[2017-07-02] MEDS: MetFORMIN HCL 500 MG TABLET PO SCH ×2 (06:33→17:05)
[2017-07-02] MEDS: LEVOTHYROXINE SODIUM 50 MCG TABLET PO SCH (06:33)
[2017-07-02 06:34] VITALS: BP 124/65
[2017-07-02 08:02] VITALS: BP 120/72
[2017-07-02] MEDS: MEGESTROL ACETATE 400 MG/10 ML SUSPENSION UDCUP PO SCH (08:39)
[2017-07-02] MEDS: AmLODIPine BESYLATE 10 MG TABLET PO SCH (08:39)
[2017-07-02] MEDS: CITALOPRAM HYDROBROMIDE 20 MG TABLET PO SCH (08:39)
[2017-07-02] MEDS: OMEPRAZOLE 20 MG CAPSULE PO SCH (08:39)
[2017-07-02] MEDS: DOCUSATE SODIUM 100 MG CAPSULE PO SCH (08:40)
[2017-07-02] MEDS: ASPIRIN 81 MG CHEWABLE TABLET PO SCH (08:40)
[2017-07-02] MEDS: INSULIN ASPART 100 UNITS/ML - NON-FORMULARY SQ PRN ×3 (11:46→20:19)
[2017-07-02] MEDS: LOPERAMIDE HCL 2 MG CAPSULE PO PRN (13:41)
[2017-07-02 16:18] VITALS: BP 122/72
[2017-07-02] MEDS: ATORVASTATIN CALCIUM 20 MG TABLET PO SCH (20:27)
[2017-07-02 23:42] LABS: GLUCOMETER DEV NAME(LOC) BV2N3; GLUCOSE,POINT OF CARE 248 MG/DL (70-110)
[2017-07-02 23:42] LABS: GLUCOMETER DEV NAME(LOC) BV2N3; GLUCOSE,POINT OF CARE 226 MG/DL (70-110)
[2017-07-02 23:42] LABS: GLUCOMETER DEV NAME(LOC) BV2N3; GLUCOSE,POINT OF CARE 250 MG/DL (70-110)
[2017-07-02 23:42] LABS: GLUCOMETER DEV NAME(LOC) BV2N3; GLUCOSE,POINT OF CARE 165 MG/DL (70-110)
[2017-07-03 01:20] VITALS: BP 117/64
[2017-07-03] MEDS: LEVOTHYROXINE SODIUM 50 MCG TABLET PO SCH (06:34)
[2017-07-03 06:48] LABS: GLUCOMETER DEV NAME(LOC) BV2N3; GLUCOSE,POINT OF CARE 126 MG/DL (70-110)
[2017-07-03] MEDS: MetFORMIN HCL 500 MG TABLET PO SCH ×2 (07:08→16:38)
[2017-07-03 08:30] VITALS: BP 124/74
[2017-07-03] MEDS: MEGESTROL ACETATE 400 MG/10 ML SUSPENSION UDCUP PO SCH (08:31)
[2017-07-03] MEDS: AmLODIPine BESYLATE 10 MG TABLET PO SCH (08:31)
[2017-07-03] MEDS: ASPIRIN 81 MG CHEWABLE TABLET PO SCH (08:31)
[2017-07-03] MEDS: OMEPRAZOLE 20 MG CAPSULE PO SCH (08:31)
[2017-07-03] MEDS: CITALOPRAM HYDROBROMIDE 20 MG TABLET PO SCH (08:31)
[2017-07-03] MEDS: DOCUSATE SODIUM 100 MG CAPSULE PO SCH (08:31)
[2017-07-03 11:18] LABS: GLUCOMETER DEV NAME(LOC) BV2N3; GLUCOSE,POINT OF CARE 101 MG/DL (70-110)
[2017-07-03 16:53] LABS: GLUCOMETER DEV NAME(LOC) BV2N3; GLUCOSE,POINT OF CARE 128 MG/DL (70-110)
[2017-07-03 17:36] VITALS: BP 111/63
[2017-07-03] MEDS: ATORVASTATIN CALCIUM 20 MG TABLET PO SCH (20:20)
[2017-07-03 20:38] LABS: GLUCOMETER DEV NAME(LOC) BV2N3; GLUCOSE,POINT OF CARE 155 MG/DL (70-110)
[2017-07-03] MEDS: INSULIN ASPART 100 UNITS/ML - NON-FORMULARY SQ PRN (21:51)
[2017-07-04 05:41] VITALS: BP 116/74
[2017-07-04] MEDS: LEVOTHYROXINE SODIUM 50 MCG TABLET PO SCH (06:33)
[2017-07-04 06:43] LABS: GLUCOMETER DEV NAME(LOC) BV2N3; GLUCOSE,POINT OF CARE 142 MG/DL (70-110)
[2017-07-04] MEDS: INSULIN ASPART 100 UNITS/ML - NON-FORMULARY SQ PRN ×2 (06:43→17:01)
[2017-07-04] MEDS: MetFORMIN HCL 500 MG TABLET PO SCH ×2 (07:08→16:35)
[2017-07-04 08:11] VITALS: BP 121/58
[2017-07-04] MEDS: CITALOPRAM HYDROBROMIDE 20 MG TABLET PO SCH (09:34)
[2017-07-04] MEDS: OMEPRAZOLE 20 MG CAPSULE PO SCH (09:34)
[2017-07-04] MEDS: AmLODIPine BESYLATE 10 MG TABLET PO SCH (09:34)
[2017-07-04] MEDS: MEGESTROL ACETATE 400 MG/10 ML SUSPENSION UDCUP PO SCH (09:35)
[2017-07-04] MEDS: ASPIRIN 81 MG CHEWABLE TABLET PO SCH (09:35)
[2017-07-04 11:43] LABS: GLUCOMETER DEV NAME(LOC) BV2N3; GLUCOSE,POINT OF CARE 81 MG/DL (70-110)
[2017-07-04] MEDS: LORazepam 1 MG TABLET PO PRN ×2 (13:14→17:15)
[2017-07-04 16:03] VITALS: BP 129/79
[2017-07-04 16:47] LABS: GLUCOMETER DEV NAME(LOC) BV2N3; GLUCOSE,POINT OF CARE 148 MG/DL (70-110)
[2017-07-04] MEDS: ATORVASTATIN CALCIUM 20 MG TABLET PO SCH (20:16)
[2017-07-05 01:37] LABS: GLUCOMETER DEV NAME(LOC) BV2N3; GLUCOSE,POINT OF CARE 264 MG/DL (70-110)
[2017-07-05 03:48] VITALS: BP 117/69
[2017-07-05 06:28] LABS: GLUCOMETER DEV NAME(LOC) BV2N3; GLUCOSE,POINT OF CARE 209 MG/DL (70-110)
[2017-07-05] MEDS: LEVOTHYROXINE SODIUM 50 MCG TABLET PO SCH (07:00)
[2017-07-05] MEDS: MetFORMIN HCL 500 MG TABLET PO SCH ×2 (07:00→16:35)
[2017-07-05] MEDS: INSULIN ASPART 100 UNITS/ML - NON-FORMULARY SQ PRN ×3 (07:18→21:00)
[2017-07-05] MEDS: ASPIRIN 81 MG CHEWABLE TABLET PO SCH (08:24)
[2017-07-05] MEDS: MEGESTROL ACETATE 400 MG/10 ML SUSPENSION UDCUP PO SCH (08:24)
[2017-07-05] MEDS: AmLODIPine BESYLATE 10 MG TABLET PO SCH (08:24)
[2017-07-05] MEDS: CITALOPRAM HYDROBROMIDE 20 MG TABLET PO SCH (08:24)
[2017-07-05] MEDS: OMEPRAZOLE 20 MG CAPSULE PO SCH (08:24)
[2017-07-05 09:23] VITALS: BP 126/89
[2017-07-05 11:03] LABS: GLUCOMETER DEV NAME(LOC) BV2N3; GLUCOSE,POINT OF CARE 124 MG/DL (70-110)
[2017-07-05 16:06] VITALS: BP 128/80
[2017-07-05 16:43] LABS: GLUCOMETER DEV NAME(LOC) BV2N3; GLUCOSE,POINT OF CARE 206 MG/DL (70-110)
[2017-07-05] MEDS: ATORVASTATIN CALCIUM 20 MG TABLET PO SCH (20:07)
[2017-07-05] MEDS: ZOLPIDEM TARTRATE 10 MG TABLET PO PRN (20:21)
[2017-07-05 20:37] LABS: GLUCOMETER DEV NAME(LOC) BV2N3; GLUCOSE,POINT OF CARE 183 MG/DL (70-110)
[2017-07-06 06:00] VITALS: BP 102/63
[2017-07-06 06:28] LABS: GLUCOMETER DEV NAME(LOC) BV2N3; GLUCOSE,POINT OF CARE 126 MG/DL (70-110)
[2017-07-06] MEDS: MetFORMIN HCL 500 MG TABLET PO SCH ×2 (06:39→16:26)
[2017-07-06] MEDS: LEVOTHYROXINE SODIUM 50 MCG TABLET PO SCH (06:39)
[2017-07-06 08:28] VITALS: BP 124/86
[2017-07-06] MEDS: AmLODIPine BESYLATE 10 MG TABLET PO SCH (09:30)
[2017-07-06] MEDS: ASPIRIN 81 MG CHEWABLE TABLET PO SCH (09:30)
[2017-07-06] MEDS: OMEPRAZOLE 20 MG CAPSULE PO SCH (09:30)
[2017-07-06] MEDS: MEGESTROL ACETATE 400 MG/10 ML SUSPENSION UDCUP PO SCH (09:31)
[2017-07-06] MEDS: CITALOPRAM HYDROBROMIDE 20 MG TABLET PO SCH (09:31)
[2017-07-06 12:12] LABS: GLUCOMETER DEV NAME(LOC) BV2N3; GLUCOSE,POINT OF CARE 120 MG/DL (70-110)
[2017-07-06] MEDS: LORazepam 1 MG TABLET PO PRN (15:58)
[2017-07-06 16:00] VITALS: BP 112/60
[2017-07-06 16:32] LABS: GLUCOMETER DEV NAME(LOC) BV2N3; GLUCOSE,POINT OF CARE 212 MG/DL (70-110)
[2017-07-06] MEDS: INSULIN ASPART 100 UNITS/ML - NON-FORMULARY SQ PRN ×2 (17:04→20:02)
[2017-07-06] MEDS: ATORVASTATIN CALCIUM 20 MG TABLET PO SCH (20:01)
[2017-07-06 20:42] LABS: GLUCOMETER DEV NAME(LOC) BV2N3; GLUCOSE,POINT OF CARE 159 MG/DL (70-110)
[2017-07-07 05:46] VITALS: BP 110/70
[2017-07-07] MEDS: LEVOTHYROXINE SODIUM 50 MCG TABLET PO SCH (06:43)
[2017-07-07] MEDS: MetFORMIN HCL 500 MG TABLET PO SCH ×2 (06:43→16:31)
[2017-07-07] MEDS: INSULIN ASPART 100 UNITS/ML - NON-FORMULARY SQ PRN ×2 (06:44→17:06)
[2017-07-07 06:53] LABS: GLUCOMETER DEV NAME(LOC) BV2N3; GLUCOSE,POINT OF CARE 165 MG/DL (70-110)
[2017-07-07] MEDS: CITALOPRAM HYDROBROMIDE 20 MG TABLET PO SCH (08:23)
[2017-07-07] MEDS: OMEPRAZOLE 20 MG CAPSULE PO SCH (08:23)
[2017-07-07] MEDS: AmLODIPine BESYLATE 10 MG TABLET PO SCH (08:23)
[2017-07-07] MEDS: ASPIRIN 81 MG CHEWABLE TABLET PO SCH (08:23)
[2017-07-07] MEDS: MEGESTROL ACETATE 400 MG/10 ML SUSPENSION UDCUP PO SCH (08:23)
[2017-07-07 09:29] VITALS: BP 114/69
[2017-07-07 14:17] LABS: GLUCOMETER DEV NAME(LOC) BV2N3; GLUCOSE,POINT OF CARE 127 MG/DL (70-110)
[2017-07-07 16:14] VITALS: BP 121/74
[2017-07-07 16:28] LABS: GLUCOMETER DEV NAME(LOC) BV2N3; GLUCOSE,POINT OF CARE 156 MG/DL (70-110)
[2017-07-07] MEDS: ATORVASTATIN CALCIUM 20 MG TABLET PO SCH (20:08)
[2017-07-07 20:18] LABS: GLUCOMETER DEV NAME(LOC) BV2N3; GLUCOSE,POINT OF CARE 123 MG/DL (70-110)
[2017-07-08 04:44] VITALS: BP 116/70
[2017-07-08] MEDS: LEVOTHYROXINE SODIUM 50 MCG TABLET PO SCH (06:41)
[2017-07-08] MEDS: MetFORMIN HCL 500 MG TABLET PO SCH ×2 (07:17→16:52)
[2017-07-08] MEDS: INSULIN ASPART 100 UNITS/ML - NON-FORMULARY SQ PRN ×3 (07:31→20:08)
[2017-07-08 08:08] LABS: GLUCOMETER DEV NAME(LOC) BV2N3; GLUCOSE,POINT OF CARE 142 MG/DL (70-110)
[2017-07-08 08:26] VITALS: BP 128/70
[2017-07-08] MEDS: ASPIRIN 81 MG CHEWABLE TABLET PO SCH (08:34)
[2017-07-08] MEDS: MEGESTROL ACETATE 400 MG/10 ML SUSPENSION UDCUP PO SCH (08:34)
[2017-07-08] MEDS: AmLODIPine BESYLATE 10 MG TABLET PO SCH (08:34)
[2017-07-08] MEDS: CITALOPRAM HYDROBROMIDE 20 MG TABLET PO SCH (08:34)
[2017-07-08] MEDS: OMEPRAZOLE 20 MG CAPSULE PO SCH (08:34)
[2017-07-08 10:58] LABS: GLUCOMETER DEV NAME(LOC) BV2N3; GLUCOSE,POINT OF CARE 78 MG/DL (70-110)
[2017-07-08 16:13] LABS: GLUCOMETER DEV NAME(LOC) BV2N3; GLUCOSE,POINT OF CARE 154 MG/DL (70-110)
[2017-07-08 16:27] VITALS: BP 125/81
[2017-07-08] MEDS: ATORVASTATIN CALCIUM 20 MG TABLET PO SCH (20:05)
[2017-07-08 20:13] LABS: GLUCOMETER DEV NAME(LOC) BV2N3; GLUCOSE,POINT OF CARE 166 MG/DL (70-110)
[2017-07-09 03:03] VITALS: BP 130/86
[2017-07-09 06:34] LABS: GLUCOMETER DEV NAME(LOC) BV2N3; GLUCOSE,POINT OF CARE 132 MG/DL (70-110)
[2017-07-09] MEDS: LEVOTHYROXINE SODIUM 50 MCG TABLET PO SCH (06:45)
[2017-07-09] MEDS: MetFORMIN HCL 500 MG TABLET PO SCH ×2 (06:45→16:18)
[2017-07-09] MEDS: CITALOPRAM HYDROBROMIDE 20 MG TABLET PO SCH (08:14)
[2017-07-09] MEDS: ASPIRIN 81 MG CHEWABLE TABLET PO SCH (08:14)
[2017-07-09] MEDS: OMEPRAZOLE 20 MG CAPSULE PO SCH (08:14)
[2017-07-09] MEDS: MEGESTROL ACETATE 400 MG/10 ML SUSPENSION UDCUP PO SCH (08:15)
[2017-07-09] MEDS: AmLODIPine BESYLATE 10 MG TABLET PO SCH (08:15)
[2017-07-09 08:20] VITALS: BP 146/73
[2017-07-09 10:32] VITALS: BP 125/76
[2017-07-09 11:08] LABS: GLUCOMETER DEV NAME(LOC) BV2N3; GLUCOSE,POINT OF CARE 120 MG/DL (70-110)
[2017-07-09 16:11] VITALS: BP 124/72
[2017-07-09 16:37] LABS: GLUCOMETER DEV NAME(LOC) BV2N3; GLUCOSE,POINT OF CARE 153 MG/DL (70-110)
[2017-07-09] MEDS: INSULIN ASPART 100 UNITS/ML - NON-FORMULARY SQ PRN (16:41)
[2017-07-09] MEDS: ATORVASTATIN CALCIUM 20 MG TABLET PO SCH (20:14)
[2017-07-09 22:27] LABS: GLUCOMETER DEV NAME(LOC) BV2N3; GLUCOSE,POINT OF CARE 134 MG/DL (70-110)
[2017-07-10 06:17] LABS: GLUCOMETER DEV NAME(LOC) BV2N3; GLUCOSE,POINT OF CARE 173 MG/DL (70-110)
[2017-07-10 06:23] VITALS: BP 118/70
[2017-07-10] MEDS: MetFORMIN HCL 500 MG TABLET PO SCH ×2 (06:47→16:52)
[2017-07-10] MEDS: LEVOTHYROXINE SODIUM 50 MCG TABLET PO SCH (06:47)
[2017-07-10] MEDS: INSULIN ASPART 100 UNITS/ML - NON-FORMULARY SQ PRN ×3 (06:51→21:07)
[2017-07-10] MEDS: AmLODIPine BESYLATE 10 MG TABLET PO SCH (08:13)
[2017-07-10] MEDS: OMEPRAZOLE 20 MG CAPSULE PO SCH (08:13)
[2017-07-10] MEDS: CITALOPRAM HYDROBROMIDE 20 MG TABLET PO SCH (08:13)
[2017-07-10] MEDS: ASPIRIN 81 MG CHEWABLE TABLET PO SCH (08:14)
[2017-07-10] MEDS: MEGESTROL ACETATE 400 MG/10 ML SUSPENSION UDCUP PO SCH (08:14)
[2017-07-10 08:25] VITALS: BP 118/60
[2017-07-10 11:21] LABS: GLUCOMETER DEV NAME(LOC) BV2N3; GLUCOSE,POINT OF CARE 106 MG/DL (70-110)
[2017-07-10 16:09] VITALS: BP 115/66
[2017-07-10] MEDS: ATORVASTATIN CALCIUM 20 MG TABLET PO SCH (20:15)
[2017-07-10 23:26] LABS: GLUCOMETER DEV NAME(LOC) BV2N3; GLUCOSE,POINT OF CARE 245 MG/DL (70-110)
[2017-07-10 23:26] LABS: GLUCOMETER DEV NAME(LOC) BV2N3; GLUCOSE,POINT OF CARE 157 MG/DL (70-110)
[2017-07-11 02:11] VITALS: BP 130/86
[2017-07-11 06:22] LABS: GLUCOMETER DEV NAME(LOC) BV2N3; GLUCOSE,POINT OF CARE 171 MG/DL (70-110)
[2017-07-11] MEDS: LEVOTHYROXINE SODIUM 50 MCG TABLET PO SCH (06:44)
[2017-07-11] MEDS: MetFORMIN HCL 500 MG TABLET PO SCH (06:45)
[2017-07-11] MEDS: INSULIN ASPART 100 UNITS/ML - NON-FORMULARY SQ PRN ×2 (06:51→10:52)
[2017-07-11 08:15] VITALS: BP 124/65
[2017-07-11] MEDS: CITALOPRAM HYDROBROMIDE 20 MG TABLET PO SCH (08:33)
[2017-07-11] MEDS: OMEPRAZOLE 20 MG CAPSULE PO SCH (08:33)
[2017-07-11] MEDS: AmLODIPine BESYLATE 10 MG TABLET PO SCH (08:34)
[2017-07-11] MEDS: MEGESTROL ACETATE 400 MG/10 ML SUSPENSION UDCUP PO SCH (08:34)
[2017-07-11] MEDS: ASPIRIN 81 MG CHEWABLE TABLET PO SCH (08:34)
[2017-07-11] MEDS ORDERED: LEVO50 PO (10:23)
[2017-07-11] MEDS ORDERED: METF500T4 PO (10:23)
[2017-07-11] MEDS ORDERED: MEGE400O4 PO (10:24)
[2017-07-11] MEDS ORDERED: OMEP20 PO (10:24)
[2017-07-11 10:56] LABS: GLUCOMETER DEV NAME(LOC) BV2N3; GLUCOSE,POINT OF CARE 141 MG/DL (70-110)
== END 2017-07-11 14:45 | disposition home or self-care (01) | DRG 751 ==
LOC: EMS 20:17 → B2S 06-12 00:38
DX: F32.1 Major depressive disorder, single episode, moderate (principal); E11.65 Type 2 diabetes mellitus with hyperglycemia; I10 Essential (primary) hypertension; E03.9 Hypothyroidism, unspecified; E78.00 Pure hypercholesterolemia, unspecified; E78.5 Hyperlipidemia, unspecified; F17.200 Nicotine dependence, unspecified, uncomplicated; F79 Unspecified intellectual disabilities; I25.10 Atherosclerotic heart disease of native coronary artery without angina pectoris; J44.9 Chronic obstructive pulmonary disease, unspecified; K59.00 Constipation, unspecified; N39.0 Urinary tract infection, site not specified; G47.00 Insomnia, unspecified; Z71.6 Tobacco abuse counseling; Z79.899 Other long term (current) drug therapy; Z79.82 Long term (current) use of aspirin
CPT/HCPCS: 82962; 84439; 84443; 87081; 87086; 96372; 99285; G0480; J1815

== ENCOUNTER 2017-07-23 17:14 | Emergency (ER) | payer MEDICAID ==
[~2017-07-23] VITALS: Ht 162.6 cm; Wt 77.0 kg
[~2017-07-23 17:14] MED LIST changes: -DOCU100C33 PO; +LEVO50 PO; +MEGE400O4 PO; +METF500T4 PO; +OMEP20 PO
[2017-07-23 17:41] LABS: GLUCOSE,POINT OF CARE 329 MG/DL (70-110)
[2017-07-23] MEDS ORDERED: SODIUM CHLORIDE 0.9% 1,000 ML IV ONE (18:15)
[2017-07-23 18:59] LABS: BASOPHILS % (AUTO) 0.6 % (0.0-2.0); EOSINOPHILS % (AUTO) 2.3 % (1.0-6.0); HEMATOCRIT 34.3 % (36-46); HEMOGLOBIN 11.5 g/dL (12.0-16.0); LYMPHOCYTES # (AUTO) 1.7 K/uL (1.0-4.8); LYMPHOCYTES % (AUTO) 24.1 % (22.0-44.0); MEAN CORPUSCULAR HEMOGLOBIN 28.7 pg (26.0-34.0); MEAN CORPUSCULAR HGB CONC 33.6 G/dL (31.0-37.0); MEAN CORPUSCULAR VOLUME 85 fL (80-100); MONOCYTES # (AUTO) 0.6 K/uL (0.1-1.0); MONOCYTES % (AUTO) 7.8 % (2.0-9.0); NEUTROPHILS # (AUTO) 4.7 K/uL (1.8-7.7); NEUTROPHILS % (AUTO) 65.2 % (40.0-70.0); PLATELET COUNT (AUTO) 253 K/uL (150-450); RED BLOOD CELL COUNT(AUTO) 4.02 MIL/uL (4.00-5.20); RED CELL DISTRIBUTION WIDTH 13.7 % (11.5-14.5)
[2017-07-23 19:19] LABS: ANION GAP 9 mmol/L (8-16); CALCIUM, TOTAL 9.3 mg/dL (8.8-10.5); CARBON DIOXIDE 24 mmol/L (22-29); CHLORIDE 98 mmol/L (98-107); CREATININE 1.21 mg/dL (0.60-1.30); GLOMERULAR FILTR. RATE CALC 45 mL/min (>60); GLUCOSE,RANDOM 300 mg/dL (70-110); POTASSIUM 4.2 mmol/L (3.5-5.1); SODIUM SERUM 131 mmol/L (136-145); UREA NITROGEN, BLOOD 18 mg/dL (7-18)
[2017-07-23 19:22] LABS: GLUCOSE,POINT OF CARE 228 MG/DL (70-110)
[2017-07-23 19:22] LABS: AMPHET/METH SCREEN,URINE NEGATIVE (NEGATIVE); BARBITURATE SCREEN, URINE NEGATIVE (NEGATIVE); BENZODIAZEPINES SCREEN,URINE NEGATIVE (NEGATIVE); CANNABINOID SCREEN,URINE NEGATIVE (NEGATIVE); COCAINE SCREEN,URINE NEGATIVE (NEGATIVE); METHADONE SCREEN, URINE NEGATIVE (NEGATIVE); OPIATE SCREEN,URINE NEGATIVE (NEGATIVE); PHENCYCLIDINE SCREEN,URINE NEGATIVE (NEGATIVE)
[2017-07-23 19:26] LABS: ALANINE AMINOTRANSFERASE 15 U/L (12-78); ALBUMIN 3.8 g/dL (3.4-5.0); ALKALINE PHOSPHATASE 71 U/L (46-116); ASPARTATE AMINOTRANSFERASE 17 U/L (15-37); BILIRUBIN,TOTAL 0.3 mg/dL (0.1-1.0); THYROID STIMULATING HORMONE 3.04 uIU/mL (0.36-3.74); TOTAL PROTEIN, SERUM 7.8 g/dL (6.4-8.2)
[2017-07-23 20:39] LABS: APPEARANCE,URINE CLEAR (CLEAR); BILIRUBIN,URINE NEGATIVE (NEGATIVE); GLUCOSE, URINE (UA) >=1000 mg/dL (NEGATIVE); KETONES,URINE NEGATIVE (NEGATIVE); LEUKOCYTE ESTERASE ,URINE SMALL (NEGATIVE); NITRATE,URINE NEGATIVE (NEGATIVE); OCCULT BLOOD,URINE NEGATIVE (NEGATIVE); PROTEIN,URINE POS 1+ (NEGATIVE); UROBILINOGEN,URINE 0.2 mg/dL (<=1.0)
[2017-07-23 20:54] LABS: RBC,URINE 0-2 /HPF (0-2)
[2017-07-23 20:55] LABS: BACTERIA,URINE Few /HPF (None Seen); RENAL EPITHELIAL CELLS,URINE Rare /LPF (None Seen); SQUAMOUS EPITHELIAL CELL,UR Many /LPF (None Seen)
[2017-07-23] MEDS ORDERED: INSULIN REGULAR, HUMAN 100 UNITS/ML SQ ONE (21:30)
[2017-07-23 21:47] LABS: GLUCOSE,POINT OF CARE 167 MG/DL (70-110)
[2017-07-23] MEDS ORDERED: LORazepam 2 MG TABLET PO ONE (23:15)
[2017-07-24 07:28] VITALS: BP 128/80
== END 2017-07-24 07:32 | disposition home or self-care (01) ==
LOC: EMS 17:18
DX: R46.89 Other symptoms and signs involving appearance and behavior (principal); J06.9 Acute upper respiratory infection, unspecified; E11.65 Type 2 diabetes mellitus with hyperglycemia; I10 Essential (primary) hypertension; E78.00 Pure hypercholesterolemia, unspecified
CPT/HCPCS: 36415; 80053; 80307; 81001; 82962; 84443; 85025; 96360; 96372; 99284; G0480; J1815; J7030

== ENCOUNTER 2017-07-24 18:26 | Inpatient (IN) | payer MEDICAID ==
[~2017-07-24] VITALS: Ht 152.4 cm; Wt 61.7 kg
[2017-07-24] MEDS ORDERED: INFLUENZA VIRUS VACCINE QVS 2017-18 (3YR+)/PF 60 MCG/0.5 ML SYRINGE IM ONE (19:30)
[2017-07-24 20:20] VITALS: BP 113/82
[2017-07-24] MEDS ORDERED: GLUCAGON,HUMAN RECOMBINANT 1 MG VIAL IM PRN (21:00)
[2017-07-24] MEDS: ZOLPIDEM TARTRATE 10 MG TABLET PO PRN (21:10)
[2017-07-24] MEDS: ATORVASTATIN CALCIUM 20 MG TABLET PO SCH (21:15)
[2017-07-24] MEDS: INSULIN ASPART 100 UNITS/ML - NON-FORMULARY SQ PRN (21:17)
[2017-07-25 00:01] VITALS: BP 120/85
[2017-07-25] MEDS: LORazepam 2 MG TABLET PO PRN ×2 (00:02→18:37)
[2017-07-25] MEDS: MetFORMIN HCL 500 MG TABLET PO SCH ×2 (06:34→17:32)
[2017-07-25] MEDS: LEVOTHYROXINE SODIUM 50 MCG TABLET PO SCH (06:34)
[2017-07-25] MEDS: INSULIN ASPART 100 UNITS/ML - NON-FORMULARY SQ PRN ×4 (06:40→21:58)
[2017-07-25] MEDS ORDERED: MAGNESIUM HYDROXIDE SUSPENSION 30 ML UDCUP PO PRN (07:15)
[2017-07-25] MEDS ORDERED: ACETAMINOPHEN 325 MG TABLET PO PRN (07:15)
[2017-07-25] MEDS ORDERED: BACITRACIN 28.4 GM OINTMENT TP PRN (07:15)
[2017-07-25] MEDS ORDERED: ALBUTEROL SULFATE HFA 90 MCG/PUFF 8 GM INHALER IH PRN (07:15)
[2017-07-25] MEDS ORDERED: BENZOCAINE/MENTHOL LOZENGE [8 LOZENGES/PACKET] MM PRN (07:15)
[2017-07-25] MEDS ORDERED: ONDANSETRON HCL 4 MG TABLET PO PRN (07:15)
[2017-07-25] MEDS ORDERED: PETROLATUM,WHITE 71 GM JELLY TP PRN (07:15)
[2017-07-25] MEDS ORDERED: IBUPROFEN 600 MG TABLET PO PRN (07:15)
[2017-07-25] MEDS ORDERED: CloNIDine HCL 0.1 MG TABLET PO PRN (07:15)
[2017-07-25] MEDS ORDERED: MAG HYDROX/AL HYDROX/SIMETH ES 30 ML SUSPENSION UDCUP PO PRN (07:15)
[2017-07-25] MEDS: DOCUSATE SODIUM 100 MG CAPSULE PO SCH (08:05)
[2017-07-25] MEDS: MEGESTROL ACETATE 400 MG/10 ML SUSPENSION UDCUP PO SCH (08:05)
[2017-07-25] MEDS: OMEPRAZOLE 20 MG CAPSULE PO SCH (08:05)
[2017-07-25] MEDS: ASPIRIN 81 MG CHEWABLE TABLET PO SCH (08:05)
[2017-07-25 08:07] LABS: BASOPHILS % (AUTO) 0.8 % (0.0-2.0); EOSINOPHILS % (AUTO) 3.2 % (1.0-6.0); HEMATOCRIT 34.2 % (36-46); HEMOGLOBIN 11.5 g/dL (12.0-16.0); LYMPHOCYTES # (AUTO) 1.9 K/uL (1.0-4.8); LYMPHOCYTES % (AUTO) 26.4 % (22.0-44.0); MEAN CORPUSCULAR HEMOGLOBIN 28.9 pg (26.0-34.0); MEAN CORPUSCULAR HGB CONC 33.6 G/dL (31.0-37.0); MEAN CORPUSCULAR VOLUME 86 fL (80-100); MONOCYTES # (AUTO) 0.5 K/uL (0.1-1.0); MONOCYTES % (AUTO) 7.3 % (2.0-9.0); NEUTROPHILS # (AUTO) 4.4 K/uL (1.8-7.7); NEUTROPHILS % (AUTO) 62.3 % (40.0-70.0); PLATELET COUNT (AUTO) 246 K/uL (150-450); RED BLOOD CELL COUNT(AUTO) 3.98 MIL/uL (4.00-5.20); RED CELL DISTRIBUTION WIDTH 13.5 % (11.5-14.5)
[2017-07-25] MEDS: AmLODIPine BESYLATE 10 MG TABLET PO SCH (08:07)
[2017-07-25 08:22] VITALS: BP 121/85
[2017-07-25 08:56] LABS: ALBUMIN 3.5 g/dL (3.4-5.0); BILIRUBIN,TOTAL 0.4 mg/dL (0.1-1.0); CREATININE 1.04 mg/dL (0.60-1.30); FREE T4 (FREE THYROXINE) 0.72 ng/dL (0.76-1.46); POTASSIUM 4.6 mmol/L (3.5-5.1); THYROID STIMULATING HORMONE 1.8 uIU/mL (0.36-3.74); TOTAL PROTEIN, SERUM 7.1 g/dL (6.4-8.2)
[2017-07-25] MEDS: CITALOPRAM HYDROBROMIDE 20 MG TABLET PO SCH (12:18)
[2017-07-25 14:05] LABS: GLUCOMETER DEV NAME(LOC) BV2N3; GLUCOSE,POINT OF CARE 240 MG/DL (70-110)
[2017-07-25 14:05] LABS: GLUCOMETER DEV NAME(LOC) BV2N3; GLUCOSE,POINT OF CARE 307 MG/DL (70-110)
[2017-07-25 14:05] LABS: GLUCOMETER DEV NAME(LOC) BV2N3; GLUCOSE,POINT OF CARE 250 MG/DL (70-110)
[2017-07-25 16:00] VITALS: BP 127/81
[2017-07-25 17:27] LABS: GLUCOMETER DEV NAME(LOC) BV3S 2; GLUCOSE,POINT OF CARE 344 MG/DL (70-110)
[2017-07-25] MEDS: ATORVASTATIN CALCIUM 20 MG TABLET PO SCH (20:25)
[2017-07-25] MEDS: RisperiDONE 0.5 MG TABLET PO SCH (20:25)
[2017-07-26 01:58] VITALS: BP 129/82
[2017-07-26] MEDS: LEVOTHYROXINE SODIUM 50 MCG TABLET PO SCH (05:47)
[2017-07-26] MEDS: MetFORMIN HCL 500 MG TABLET PO SCH ×2 (06:30→16:39)
[2017-07-26] MEDS: INSULIN ASPART 100 UNITS/ML - NON-FORMULARY SQ PRN ×4 (06:30→21:00)
[2017-07-26 08:52] VITALS: BP 137/92
[2017-07-26] MEDS: MEGESTROL ACETATE 400 MG/10 ML SUSPENSION UDCUP PO SCH (09:17)
[2017-07-26] MEDS: DOCUSATE SODIUM 100 MG CAPSULE PO SCH (09:18)
[2017-07-26] MEDS: AmLODIPine BESYLATE 10 MG TABLET PO SCH (09:18)
[2017-07-26] MEDS: CITALOPRAM HYDROBROMIDE 20 MG TABLET PO SCH (09:18)
[2017-07-26] MEDS: ASPIRIN 81 MG CHEWABLE TABLET PO SCH (09:18)
[2017-07-26] MEDS: LORazepam 2 MG TABLET PO PRN ×2 (09:19→16:01)
[2017-07-26] MEDS: OMEPRAZOLE 20 MG CAPSULE PO SCH (09:19)
[2017-07-26 12:18] LABS: GLUCOMETER DEV NAME(LOC) BV3S 2; GLUCOSE,POINT OF CARE 211 MG/DL (70-110)
[2017-07-26 12:18] LABS: GLUCOMETER DEV NAME(LOC) BV3S 2; GLUCOSE,POINT OF CARE 293 MG/DL (70-110)
[2017-07-26 12:18] LABS: GLUCOMETER DEV NAME(LOC) BV3S 2; GLUCOSE,POINT OF CARE 230 MG/DL (70-110)
[2017-07-26 17:42] VITALS: BP 139/74
[2017-07-26 17:58] LABS: GLUCOMETER DEV NAME(LOC) BV3S 2; GLUCOSE,POINT OF CARE 206 MG/DL (70-110)
[2017-07-26] MEDS: RisperiDONE 0.5 MG TABLET PO SCH (20:16)
[2017-07-26] MEDS: ATORVASTATIN CALCIUM 20 MG TABLET PO SCH (20:16)
[2017-07-26 21:07] LABS: GLUCOMETER DEV NAME(LOC) BV3S 2; GLUCOSE,POINT OF CARE 173 MG/DL (70-110)
[2017-07-27 00:10] VITALS: BP 137/88
[2017-07-27] MEDS: ZOLPIDEM TARTRATE 10 MG TABLET PO PRN ×2 (01:05→21:03)
[2017-07-27] MEDS: LEVOTHYROXINE SODIUM 50 MCG TABLET PO SCH (06:33)
[2017-07-27] MEDS: MetFORMIN HCL 500 MG TABLET PO SCH ×2 (06:33→16:57)
[2017-07-27] MEDS: INSULIN ASPART 100 UNITS/ML - NON-FORMULARY SQ PRN ×4 (07:06→21:06)
[2017-07-27 07:22] LABS: GLUCOMETER DEV NAME(LOC) BV3S 2; GLUCOSE,POINT OF CARE 223 MG/DL (70-110)
[2017-07-27] MEDS: OMEPRAZOLE 20 MG CAPSULE PO SCH (08:27)
[2017-07-27] MEDS: ASPIRIN 81 MG CHEWABLE TABLET PO SCH (08:27)
[2017-07-27] MEDS: MEGESTROL ACETATE 400 MG/10 ML SUSPENSION UDCUP PO SCH (08:28)
[2017-07-27] MEDS: CITALOPRAM HYDROBROMIDE 20 MG TABLET PO SCH (08:28)
[2017-07-27] MEDS: AmLODIPine BESYLATE 10 MG TABLET PO SCH (08:28)
[2017-07-27] MEDS: DOCUSATE SODIUM 100 MG CAPSULE PO SCH (08:28)
[2017-07-27 08:42] LABS: % IRON SATURATION 24.6 % (22-44)
[2017-07-27 15:12] LABS: GLUCOMETER DEV NAME(LOC) BV3S 2; GLUCOSE,POINT OF CARE 319 MG/DL (70-110)
[2017-07-27 16:35] VITALS: BP 135/78
[2017-07-27] MEDS: LORazepam 2 MG TABLET PO PRN (16:58)
[2017-07-27 17:58] LABS: GLUCOMETER DEV NAME(LOC) BV3S 2; GLUCOSE,POINT OF CARE 267 MG/DL (70-110)
[2017-07-27] MEDS: ATORVASTATIN CALCIUM 20 MG TABLET PO SCH (20:09)
[2017-07-27] MEDS: RisperiDONE 0.5 MG TABLET PO SCH (20:09)
[2017-07-27 21:02] LABS: GLUCOMETER DEV NAME(LOC) BV3S 2; GLUCOSE,POINT OF CARE 211 MG/DL (70-110)
[2017-07-28 05:25] VITALS: BP 138/75
[2017-07-28] MEDS: LEVOTHYROXINE SODIUM 50 MCG TABLET PO SCH (06:43)
[2017-07-28] MEDS: MetFORMIN HCL 500 MG TABLET PO SCH ×2 (06:44→16:52)
[2017-07-28] MEDS: INSULIN ASPART 100 UNITS/ML - NON-FORMULARY SQ PRN ×4 (07:06→21:20)
[2017-07-28] MEDS: MEGESTROL ACETATE 400 MG/10 ML SUSPENSION UDCUP PO SCH (08:17)
[2017-07-28] MEDS: DOCUSATE SODIUM 100 MG CAPSULE PO SCH (08:17)
[2017-07-28] MEDS: AmLODIPine BESYLATE 10 MG TABLET PO SCH (08:17)
[2017-07-28] MEDS: OMEPRAZOLE 20 MG CAPSULE PO SCH (08:17)
[2017-07-28] MEDS: CITALOPRAM HYDROBROMIDE 20 MG TABLET PO SCH (08:17)
[2017-07-28] MEDS: ASPIRIN 81 MG CHEWABLE TABLET PO SCH (08:17)
[2017-07-28 08:27] VITALS: BP 139/86
[2017-07-28 11:12] LABS: GLUCOMETER DEV NAME(LOC) BV3S 2; GLUCOSE,POINT OF CARE 258 MG/DL (70-110)
[2017-07-28 11:12] LABS: GLUCOMETER DEV NAME(LOC) BV3S 2; GLUCOSE,POINT OF CARE 224 MG/DL (70-110)
[2017-07-28 16:30] VITALS: BP 138/81
[2017-07-28 16:42] LABS: GLUCOMETER DEV NAME(LOC) BV3S 2; GLUCOSE,POINT OF CARE 230 MG/DL (70-110)
[2017-07-28] MEDS: LORazepam 2 MG TABLET PO PRN (16:52)
[2017-07-28] MEDS: RisperiDONE 0.5 MG TABLET PO SCH (21:12)
[2017-07-28] MEDS: ATORVASTATIN CALCIUM 20 MG TABLET PO SCH (21:12)
[2017-07-28 21:18] LABS: GLUCOMETER DEV NAME(LOC) BV3S 2; GLUCOSE,POINT OF CARE 147 MG/DL (70-110)
[2017-07-29 02:06] VITALS: BP 131/86
[2017-07-29 06:17] LABS: GLUCOMETER DEV NAME(LOC) BV3S 2; GLUCOSE,POINT OF CARE 194 MG/DL (70-110)
[2017-07-29] MEDS: MetFORMIN HCL 500 MG TABLET PO SCH ×2 (06:32→17:00)
[2017-07-29] MEDS: LEVOTHYROXINE SODIUM 50 MCG TABLET PO SCH (06:32)
[2017-07-29] MEDS: INSULIN ASPART 100 UNITS/ML - NON-FORMULARY SQ PRN ×3 (06:53→17:46)
[2017-07-29 08:30] VITALS: BP 128/86
[2017-07-29] MEDS: ASPIRIN 81 MG CHEWABLE TABLET PO SCH (09:54)
[2017-07-29] MEDS: MEGESTROL ACETATE 400 MG/10 ML SUSPENSION UDCUP PO SCH (09:54)
[2017-07-29] MEDS: AmLODIPine BESYLATE 10 MG TABLET PO SCH (09:54)
[2017-07-29] MEDS: CITALOPRAM HYDROBROMIDE 20 MG TABLET PO SCH (09:54)
[2017-07-29] MEDS: DOCUSATE SODIUM 100 MG CAPSULE PO SCH (09:54)
[2017-07-29] MEDS: LORazepam 2 MG TABLET PO PRN ×3 (09:55→23:46)
[2017-07-29] MEDS: OMEPRAZOLE 20 MG CAPSULE PO SCH (09:55)
[2017-07-29 09:58] LABS: GLUCOMETER DEV NAME(LOC) BV3S 2; GLUCOSE,POINT OF CARE 206 MG/DL (70-110)
[2017-07-29] MEDS: HALOPERIDOL 5 MG TABLET PO PRN (16:28)
[2017-07-29 16:30] VITALS: BP 128/93
[2017-07-29] MEDS: GlipiZIDE 5 MG TABLET PO SCH (17:00)
[2017-07-29 17:32] LABS: GLUCOMETER DEV NAME(LOC) BV3S 2; GLUCOSE,POINT OF CARE 319 MG/DL (70-110)
[2017-07-29] MEDS: ATORVASTATIN CALCIUM 20 MG TABLET PO SCH (20:29)
[2017-07-29] MEDS: RisperiDONE 1 MG TABLET PO SCH (20:29)
[2017-07-29 22:07] LABS: GLUCOMETER DEV NAME(LOC) BV3S 2; GLUCOSE,POINT OF CARE 70 MG/DL (70-110)
[2017-07-29] MEDS: LOPERAMIDE HCL 2 MG CAPSULE PO PRN (23:46)
[2017-07-30 04:13] VITALS: BP 130/88
[2017-07-30] MEDS: LEVOTHYROXINE SODIUM 50 MCG TABLET PO SCH (06:44)
[2017-07-30] MEDS: MetFORMIN HCL 500 MG TABLET PO SCH ×2 (06:44→17:25)
[2017-07-30] MEDS: GlipiZIDE 5 MG TABLET PO SCH ×2 (06:44→16:04)
[2017-07-30] MEDS: INSULIN ASPART 100 UNITS/ML - NON-FORMULARY SQ PRN ×3 (07:10→17:26)
[2017-07-30 08:17] VITALS: BP 139/74
[2017-07-30] MEDS: CITALOPRAM HYDROBROMIDE 20 MG TABLET PO SCH (08:21)
[2017-07-30] MEDS: ASPIRIN 81 MG CHEWABLE TABLET PO SCH (08:21)
[2017-07-30] MEDS: AmLODIPine BESYLATE 10 MG TABLET PO SCH (08:21)
[2017-07-30] MEDS: OMEPRAZOLE 20 MG CAPSULE PO SCH (08:21)
[2017-07-30] MEDS: MEGESTROL ACETATE 400 MG/10 ML SUSPENSION UDCUP PO SCH (08:22)
[2017-07-30] MEDS: DOCUSATE SODIUM 100 MG CAPSULE PO SCH (08:22)
[2017-07-30] MEDS: LORazepam 2 MG TABLET PO PRN ×2 (08:23→16:46)
[2017-07-30] MEDS: HALOPERIDOL 5 MG TABLET PO PRN ×2 (11:45→16:46)
[2017-07-30 17:00] VITALS: BP 133/78
[2017-07-30 17:12] LABS: GLUCOMETER DEV NAME(LOC) BV3S 2; GLUCOSE,POINT OF CARE 215 MG/DL (70-110)
[2017-07-30 17:12] LABS: GLUCOMETER DEV NAME(LOC) BV3S 2; GLUCOSE,POINT OF CARE 299 MG/DL (70-110)
[2017-07-30 17:12] LABS: GLUCOMETER DEV NAME(LOC) BV3S 2; GLUCOSE,POINT OF CARE 172 MG/DL (70-110)
[2017-07-30] MEDS: ATORVASTATIN CALCIUM 20 MG TABLET PO SCH (21:17)
[2017-07-30] MEDS: RisperiDONE 1 MG TABLET PO SCH (21:17)
[2017-07-30 21:58] LABS: GLUCOMETER DEV NAME(LOC) BV3S 2; GLUCOSE,POINT OF CARE 103 MG/DL (70-110)
[2017-07-30] MEDS: LOPERAMIDE HCL 2 MG CAPSULE PO PRN (22:05)
[2017-07-31] MEDS: MetFORMIN HCL 500 MG TABLET PO SCH ×2 (06:26→16:58)
[2017-07-31] MEDS: LEVOTHYROXINE SODIUM 50 MCG TABLET PO SCH (06:26)
[2017-07-31] MEDS: GlipiZIDE 5 MG TABLET PO SCH ×2 (06:26→16:14)
[2017-07-31] MEDS: INSULIN ASPART 100 UNITS/ML - NON-FORMULARY SQ PRN ×4 (06:49→21:19)
[2017-07-31 07:17] LABS: GLUCOMETER DEV NAME(LOC) BV3S 2; GLUCOSE,POINT OF CARE 204 MG/DL (70-110)
[2017-07-31 07:22] VITALS: BP 135/75
[2017-07-31 08:07] VITALS: BP 132/92
[2017-07-31] MEDS: OMEPRAZOLE 20 MG CAPSULE PO SCH (09:59)
[2017-07-31] MEDS: MEGESTROL ACETATE 400 MG/10 ML SUSPENSION UDCUP PO SCH (09:59)
[2017-07-31] MEDS: LORazepam 2 MG TABLET PO PRN (09:59)
[2017-07-31] MEDS: HALOPERIDOL 5 MG TABLET PO PRN (09:59)
[2017-07-31] MEDS: LOPERAMIDE HCL 2 MG CAPSULE PO PRN (10:00)
[2017-07-31] MEDS: AmLODIPine BESYLATE 10 MG TABLET PO SCH (10:00)
[2017-07-31] MEDS: CITALOPRAM HYDROBROMIDE 20 MG TABLET PO SCH (10:00)
[2017-07-31] MEDS: ASPIRIN 81 MG CHEWABLE TABLET PO SCH (10:00)
[2017-07-31 11:58] LABS: GLUCOMETER DEV NAME(LOC) BV3S 2; GLUCOSE,POINT OF CARE 258 MG/DL (70-110)
[2017-07-31 16:00] VITALS: BP 142/88
[2017-07-31 18:22] LABS: GLUCOMETER DEV NAME(LOC) BV3S 2; GLUCOSE,POINT OF CARE 274 MG/DL (70-110)
[2017-07-31] MEDS: ATORVASTATIN CALCIUM 20 MG TABLET PO SCH (20:51)
[2017-07-31] MEDS: RisperiDONE 1 MG TABLET PO SCH (20:51)
[2017-07-31 23:47] LABS: GLUCOMETER DEV NAME(LOC) BV2N3; GLUCOSE,POINT OF CARE 220 MG/DL (70-110)
[2017-08-01] MEDS: LOPERAMIDE HCL 2 MG CAPSULE PO PRN (02:11)
[2017-08-01 06:27] LABS: GLUCOMETER DEV NAME(LOC) BV2N3; GLUCOSE,POINT OF CARE 102 MG/DL (70-110)
[2017-08-01] MEDS: GlipiZIDE 5 MG TABLET PO SCH ×2 (06:36→16:01)
[2017-08-01] MEDS: MetFORMIN HCL 500 MG TABLET PO SCH ×2 (06:36→16:25)
[2017-08-01] MEDS: LEVOTHYROXINE SODIUM 50 MCG TABLET PO SCH (06:36)
[2017-08-01 07:07] VITALS: BP 117/78
[2017-08-01 08:45] VITALS: BP 150/89
[2017-08-01] MEDS: OMEPRAZOLE 20 MG CAPSULE PO SCH (08:56)
[2017-08-01] MEDS: ASPIRIN 81 MG CHEWABLE TABLET PO SCH (08:56)
[2017-08-01] MEDS: MEGESTROL ACETATE 400 MG/10 ML SUSPENSION UDCUP PO SCH (08:56)
[2017-08-01] MEDS: AmLODIPine BESYLATE 10 MG TABLET PO SCH (08:56)
[2017-08-01] MEDS: CITALOPRAM HYDROBROMIDE 20 MG TABLET PO SCH (08:56)
[2017-08-01] MEDS: LORazepam 2 MG TABLET PO PRN ×2 (08:56→14:02)
[2017-08-01] MEDS: HALOPERIDOL 5 MG TABLET PO PRN ×2 (08:56→14:02)
[2017-08-01 16:22] LABS: GLUCOMETER DEV NAME(LOC) BV2N3; GLUCOSE,POINT OF CARE 323 MG/DL (70-110)
[2017-08-01 16:28] VITALS: BP 112/67
[2017-08-01] MEDS: INSULIN ASPART 100 UNITS/ML - NON-FORMULARY SQ PRN ×2 (17:02→20:47)
[2017-08-01] MEDS: ATORVASTATIN CALCIUM 20 MG TABLET PO SCH (20:41)
[2017-08-01] MEDS: RisperiDONE 1 MG TABLET PO SCH (20:41)
[2017-08-01 20:43] LABS: GLUCOMETER DEV NAME(LOC) BV2N3; GLUCOSE,POINT OF CARE 309 MG/DL (70-110)
[2017-08-01] MEDS ORDERED: BENZTROPINE MESYLATE 0.5 MG TABLET PO SCH (21:00)
[2017-08-02] MEDS: LOPERAMIDE HCL 2 MG CAPSULE PO PRN (01:54)
[2017-08-02] MEDS: ZOLPIDEM TARTRATE 10 MG TABLET PO PRN (01:54)
[2017-08-02 06:27] LABS: GLUCOMETER DEV NAME(LOC) BV2N3; GLUCOSE,POINT OF CARE 169 MG/DL (70-110)
[2017-08-02] MEDS: GlipiZIDE 5 MG TABLET PO SCH (06:56)
[2017-08-02] MEDS: MetFORMIN HCL 500 MG TABLET PO SCH (06:56)
[2017-08-02] MEDS: LEVOTHYROXINE SODIUM 50 MCG TABLET PO SCH (06:56)
[2017-08-02] MEDS: INSULIN ASPART 100 UNITS/ML - NON-FORMULARY SQ PRN ×2 (06:59→11:48)
[2017-08-02 07:11] VITALS: BP 134/86
[2017-08-02 08:14] VITALS: BP 127/76
[2017-08-02] MEDS: AmLODIPine BESYLATE 10 MG TABLET PO SCH (08:31)
[2017-08-02] MEDS: ASPIRIN 81 MG CHEWABLE TABLET PO SCH (08:31)
[2017-08-02] MEDS: OMEPRAZOLE 20 MG CAPSULE PO SCH (08:31)
[2017-08-02] MEDS: MEGESTROL ACETATE 400 MG/10 ML SUSPENSION UDCUP PO SCH (08:31)
[2017-08-02] MEDS: CITALOPRAM HYDROBROMIDE 20 MG TABLET PO SCH (08:32)
[2017-08-02] MEDS: LACTOBACILLUS ACIDOPHILUS/BULGARICUS GRANULES PACKET PO SCH ×3 (09:00→12:46)
[2017-08-02 11:37] LABS: GLUCOMETER DEV NAME(LOC) BV2N3; GLUCOSE,POINT OF CARE 161 MG/DL (70-110)
[2017-08-02] MEDS: HALOPERIDOL 5 MG TABLET PO PRN (11:58)
[2017-08-02] MEDS: LORazepam 2 MG TABLET PO PRN (11:58)
[2017-08-02] MEDS ORDERED: RISP1 PO (14:29)
[2017-08-02] MEDS ORDERED: CITA20TA17 PO (14:29)
[2017-08-02] MEDS ORDERED: BENZ0.5T6 PO (14:29)
[2017-08-02] MEDS ORDERED: GLIP5 PO (14:35)
== END 2017-08-02 16:20 | disposition home or self-care (01) | DRG 750 ==
LOC: B2S 19:08 → B3A 07-25 12:30 → B2S 07-31 17:44
PROC: 3E0234Z Introduction of Serum, Toxoid and Vaccine into Muscle, Percutaneous Approach (ICD-10-PCS; principal; 2017-07-25)
DX: F20.0 Paranoid schizophrenia (principal); E11.65 Type 2 diabetes mellitus with hyperglycemia; I10 Essential (primary) hypertension; G47.00 Insomnia, unspecified; F17.200 Nicotine dependence, unspecified, uncomplicated; F41.9 Anxiety disorder, unspecified; E03.9 Hypothyroidism, unspecified; J44.9 Chronic obstructive pulmonary disease, unspecified; K21.9 Gastro-esophageal reflux disease without esophagitis; Z79.899 Other long term (current) drug therapy; Z79.84 Long term (current) use of oral hypoglycemic drugs; Z79.82 Long term (current) use of aspirin; Z23 Encounter for immunization
CPT/HCPCS: 82962; 83036; 83540; 83550; 84439; 84443; 87045; 87081; 90471

== ENCOUNTER 2017-11-17 19:23 | Inpatient (IN) | payer MEDICAID ==
[~2017-11-17] VITALS: Ht 162.6 cm; Wt 64.9 kg
[~2017-11-17 19:23] MED LIST changes: +BENZ0.5T44 PO; +CITA20TA17 PO; -CITA20TA9 PO; +GLIP5 PO; -METF500T4 PO; +METF500T6 PO; +RISP1 PO
[2017-11-17 20:39] LABS: BASOPHILS % (AUTO) 1.1 % (0.0-2.0); EOSINOPHILS % (AUTO) 1.2 % (1.0-6.0); HEMATOCRIT 38.4 % (36-46); HEMOGLOBIN 12.5 g/dL (12.0-16.0); LYMPHOCYTES # (AUTO) 2.1 K/uL (1.0-4.8); LYMPHOCYTES % (AUTO) 28.9 % (22.0-44.0); MEAN CORPUSCULAR HEMOGLOBIN 28.2 pg (26.0-34.0); MEAN CORPUSCULAR HGB CONC 32.7 G/dL (31.0-37.0); MEAN CORPUSCULAR VOLUME 86 fL (80-100); MONOCYTES # (AUTO) 0.4 K/uL (0.1-1.0); MONOCYTES % (AUTO) 6.3 % (2.0-9.0); NEUTROPHILS # (AUTO) 4.4 K/uL (1.8-7.7); NEUTROPHILS % (AUTO) 62.5 % (40.0-70.0); PLATELET COUNT (AUTO) 280 K/uL (150-450); RED BLOOD CELL COUNT(AUTO) 4.45 MIL/uL (4.00-5.20); RED CELL DISTRIBUTION WIDTH 14.1 % (11.5-14.5)
[2017-11-17 20:49] LABS: ANION GAP 11 mmol/L (8-16); CALCIUM, TOTAL 9.3 mg/dL (8.8-10.5); CARBON DIOXIDE 24 mmol/L (22-29); CHLORIDE 99 mmol/L (98-107); GLOMERULAR FILTR. RATE CALC 50 mL/min (>60); GLUCOSE,RANDOM 327 mg/dL (70-110); SODIUM SERUM 134 mmol/L (136-145); UREA NITROGEN, BLOOD 14 mg/dL (7-18)
[2017-11-17 20:56] LABS: ALANINE AMINOTRANSFERASE 17 U/L (12-78); ALBUMIN 3.8 g/dL (3.4-5.0); ALKALINE PHOSPHATASE 79 U/L (46-116); ASPARTATE AMINOTRANSFERASE 16 U/L (15-37); BILIRUBIN,TOTAL 0.4 mg/dL (0.1-1.0); TOTAL PROTEIN, SERUM 8.1 g/dL (6.4-8.2)
[2017-11-17] MEDS ORDERED: DiphenhydrAMINE HCL 50 MG/ML VIAL IM ONE (22:45)
[2017-11-17] MEDS ORDERED: HALOPERIDOL LACTATE 5 MG/ML VIAL IM ONE (22:45)
[2017-11-17] MEDS ORDERED: LORazepam 2 MG/ML VIAL IM ONE (22:45)
[2017-11-18] MEDS ORDERED: HALOPERIDOL 5 MG TABLET PO PRN
[2017-11-18 01:28] LABS: GLUCOSE,POINT OF CARE 341 MG/DL (70-110)
[2017-11-18 01:43] LABS: GLUCOSE,POINT OF CARE 326 MG/DL (70-110)
[2017-11-18] MEDS ORDERED: GlipiZIDE 5 MG TABLET PO ONE (02:30)
[2017-11-18] MEDS ORDERED: MetFORMIN HCL 500 MG TABLET PO ONE (02:30)
[2017-11-18 02:35] LABS: AMPHET/METH SCREEN,URINE NEGATIVE (NEGATIVE); BARBITURATE SCREEN, URINE NEGATIVE (NEGATIVE); BENZODIAZEPINES SCREEN,URINE NEGATIVE (NEGATIVE); CANNABINOID SCREEN,URINE NEGATIVE (NEGATIVE); COCAINE SCREEN,URINE NEGATIVE (NEGATIVE); METHADONE SCREEN, URINE NEGATIVE (NEGATIVE); OPIATE SCREEN,URINE NEGATIVE (NEGATIVE)
[2017-11-18 02:37] LABS: PHENCYCLIDINE SCREEN,URINE NEGATIVE (NEGATIVE)
[2017-11-18 02:59] LABS: GLUCOSE,POINT OF CARE 371 MG/DL (70-110)
[2017-11-18] MEDS ORDERED: INSULIN REGULAR, HUMAN 100 UNITS/ML SQ ONE (03:00)
[2017-11-18 04:18] LABS: GLUCOSE,POINT OF CARE 248 MG/DL (70-110)
[2017-11-18 05:34] VITALS: BP 128/76
[2017-11-18 07:49] LABS: GLUCOMETER DEV NAME(LOC) BV2S 2; GLUCOSE,POINT OF CARE 76 MG/DL (70-110)
[2017-11-18 07:49] LABS: GLUCOMETER DEV NAME(LOC) BV2S 2; GLUCOSE,POINT OF CARE 67 MG/DL (70-110)
[2017-11-18 08:00] VITALS: BP 138/73
[2017-11-18] MEDS ORDERED: GLUCAGON,HUMAN RECOMBINANT 1 MG VIAL IM PRN (09:30)
[2017-11-18] MEDS: AmLODIPine BESYLATE 10 MG TABLET PO SCH (10:16)
[2017-11-18] MEDS: ASPIRIN 81 MG CHEWABLE TABLET PO SCH (10:16)
[2017-11-18] MEDS: OMEPRAZOLE 20 MG CAPSULE PO SCH (10:16)
[2017-11-18] MEDS: CITALOPRAM HYDROBROMIDE 20 MG TABLET PO SCH (10:18)
[2017-11-18] MEDS: MEGESTROL ACETATE 400 MG/10 ML SUSPENSION UDCUP PO SCH (10:49)
[2017-11-18 11:34] LABS: GLUCOMETER DEV NAME(LOC) BV2S 2; GLUCOSE,POINT OF CARE 101 MG/DL (70-110)
[2017-11-18] MEDS: MetFORMIN HCL 500 MG TABLET PO SCH (16:10)
[2017-11-18] MEDS: GlipiZIDE 5 MG TABLET PO SCH (16:12)
[2017-11-18 16:14] LABS: GLUCOMETER DEV NAME(LOC) BV2S 2; GLUCOSE,POINT OF CARE 145 MG/DL (70-110)
[2017-11-18 16:25] VITALS: BP 119/62
[2017-11-18] MEDS: INSULIN LISPRO 100 UNITS/ML SQ PRN (17:44)
[2017-11-18] MEDS: ATORVASTATIN CALCIUM 20 MG TABLET PO SCH (21:03)
[2017-11-18] MEDS: RisperiDONE 1 MG TABLET PO SCH (21:03)
[2017-11-18 21:13] LABS: GLUCOMETER DEV NAME(LOC) BV2S 2; GLUCOSE,POINT OF CARE 95 MG/DL (70-110)
[2017-11-18] MEDS: BENZTROPINE MESYLATE 0.5 MG TABLET PO SCH (21:17)
[2017-11-19] MEDS ORDERED: PNEUMOCOCCAL VACCINE POLYVALENT 0.5 ML VIAL [PPSV23] IM ONE (05:30)
[2017-11-19] MEDS ORDERED: -PHARMACY VACCINE NOTE- MISC ONE (05:30)
[2017-11-19 06:20] LABS: GLUCOMETER DEV NAME(LOC) BV2S 2; GLUCOSE,POINT OF CARE 119 MG/DL (70-110)
[2017-11-19 06:31] VITALS: BP 130/75
[2017-11-19] MEDS: MetFORMIN HCL 500 MG TABLET PO SCH ×2 (07:12→17:15)
[2017-11-19] MEDS: GlipiZIDE 5 MG TABLET PO SCH ×2 (07:12→16:34)
[2017-11-19] MEDS: LEVOTHYROXINE SODIUM 50 MCG TABLET PO SCH (07:12)
[2017-11-19 08:37] VITALS: BP 133/72
[2017-11-19] MEDS: AmLODIPine BESYLATE 10 MG TABLET PO SCH (09:26)
[2017-11-19] MEDS: CITALOPRAM HYDROBROMIDE 20 MG TABLET PO SCH (09:26)
[2017-11-19] MEDS: MEGESTROL ACETATE 400 MG/10 ML SUSPENSION UDCUP PO SCH (09:26)
[2017-11-19] MEDS: ASPIRIN 81 MG CHEWABLE TABLET PO SCH (09:26)
[2017-11-19] MEDS: OMEPRAZOLE 20 MG CAPSULE PO SCH (09:26)
[2017-11-19] MEDS: INSULIN LISPRO 100 UNITS/ML SQ PRN ×2 (11:49→16:32)
[2017-11-19 13:04] LABS: GLUCOMETER DEV NAME(LOC) BV2S 2; GLUCOSE,POINT OF CARE 146 MG/DL (70-110)
[2017-11-19 16:06] VITALS: BP 108/66
[2017-11-19 16:44] LABS: GLUCOMETER DEV NAME(LOC) BV2S 2; GLUCOSE,POINT OF CARE 256 MG/DL (70-110)
[2017-11-19] MEDS: BENZTROPINE MESYLATE 0.5 MG TABLET PO SCH (20:15)
[2017-11-19] MEDS: RisperiDONE 1 MG TABLET PO SCH (20:15)
[2017-11-19] MEDS: ATORVASTATIN CALCIUM 20 MG TABLET PO SCH (20:15)
[2017-11-19 21:12] LABS: GLUCOMETER DEV NAME(LOC) BV2S 2; GLUCOSE,POINT OF CARE 139 MG/DL (70-110)
[2017-11-20 06:01] VITALS: BP 132/73
[2017-11-20] MEDS: LEVOTHYROXINE SODIUM 50 MCG TABLET PO SCH (07:11)
[2017-11-20] MEDS: MetFORMIN HCL 500 MG TABLET PO SCH ×2 (07:11→16:34)
[2017-11-20] MEDS: GlipiZIDE 5 MG TABLET PO SCH ×2 (07:12→16:34)
[2017-11-20 07:28] LABS: GLUCOMETER DEV NAME(LOC) BV2S 2; GLUCOSE,POINT OF CARE 122 MG/DL (70-110)
[2017-11-20 08:27] VITALS: BP 121/70
[2017-11-20] MEDS: OMEPRAZOLE 20 MG CAPSULE PO SCH (08:50)
[2017-11-20] MEDS: AmLODIPine BESYLATE 10 MG TABLET PO SCH (08:50)
[2017-11-20] MEDS: MEGESTROL ACETATE 400 MG/10 ML SUSPENSION UDCUP PO SCH (08:51)
[2017-11-20] MEDS: CITALOPRAM HYDROBROMIDE 20 MG TABLET PO SCH (08:51)
[2017-11-20] MEDS: ASPIRIN 81 MG CHEWABLE TABLET PO SCH (08:51)
[2017-11-20 13:24] LABS: GLUCOMETER DEV NAME(LOC) BV2S 2; GLUCOSE,POINT OF CARE 123 MG/DL (70-110)
[2017-11-20 16:05] VITALS: BP 139/73
[2017-11-20 16:59] LABS: GLUCOMETER DEV NAME(LOC) BV2S 2; GLUCOSE,POINT OF CARE 310 MG/DL (70-110)
[2017-11-20] MEDS: INSULIN LISPRO 100 UNITS/ML SQ PRN ×2 (17:04→21:15)
[2017-11-20 20:18] LABS: GLUCOMETER DEV NAME(LOC) BV2S 2; GLUCOSE,POINT OF CARE 266 MG/DL (70-110)
[2017-11-20] MEDS: ATORVASTATIN CALCIUM 20 MG TABLET PO SCH (20:24)
[2017-11-20] MEDS: BENZTROPINE MESYLATE 0.5 MG TABLET PO SCH (20:24)
[2017-11-20] MEDS: RisperiDONE 1 MG TABLET PO SCH (20:24)
[2017-11-20] MEDS ORDERED: BISMUTH SUBSALICYLATE 524 MG/30 ML SUSPENSION UDCUP PO PRN (22:00)
[2017-11-20] MEDS ORDERED: LOPERAMIDE HCL 2 MG CAPSULE PO ONE (22:15)
[2017-11-21 00:04] VITALS: BP 141/83
[2017-11-21] MEDS: ZOLPIDEM TARTRATE 10 MG TABLET PO PRN (00:05)
[2017-11-21 06:10] VITALS: BP 138/72
[2017-11-21] MEDS: LEVOTHYROXINE SODIUM 50 MCG TABLET PO SCH (07:03)
[2017-11-21] MEDS: MetFORMIN HCL 500 MG TABLET PO SCH ×2 (07:03→16:49)
[2017-11-21] MEDS: GlipiZIDE 5 MG TABLET PO SCH ×2 (07:04→16:19)
[2017-11-21 07:17] LABS: GLUCOMETER DEV NAME(LOC) BV2S 2; GLUCOSE,POINT OF CARE 102 MG/DL (70-110)
[2017-11-21] MEDS ORDERED: ONDANSETRON HCL 4 MG TABLET PO PRN (08:15)
[2017-11-21 08:34] VITALS: BP 126/67
[2017-11-21] MEDS: MEGESTROL ACETATE 400 MG/10 ML SUSPENSION UDCUP PO SCH (08:58)
[2017-11-21] MEDS: CITALOPRAM HYDROBROMIDE 20 MG TABLET PO SCH (08:58)
[2017-11-21] MEDS: AmLODIPine BESYLATE 10 MG TABLET PO SCH (08:58)
[2017-11-21] MEDS: ASPIRIN 81 MG CHEWABLE TABLET PO SCH (08:58)
[2017-11-21] MEDS: OMEPRAZOLE 20 MG CAPSULE PO SCH (08:58)
[2017-11-21 09:39] LABS: ANION GAP 9 mmol/L (8-16); CALCIUM, TOTAL 8.5 mg/dL (8.8-10.5); CARBON DIOXIDE 23 mmol/L (22-29); CHLORIDE 97 mmol/L (98-107); CREATININE 0.87 mg/dL (0.60-1.30); GLOMERULAR FILTR. RATE CALC > 60 mL/min (>60); GLUCOSE,RANDOM 93 mg/dL (70-110); PHOSPHORUS 2.4 mg/dL (2.5-4.9); POTASSIUM 4.1 mmol/L (3.5-5.1); SODIUM SERUM 129 mmol/L (136-145); UREA NITROGEN, BLOOD 23 mg/dL (7-18)
[2017-11-21 09:42] LABS: BASOPHILS % (AUTO) 0.4 % (0.0-2.0); EOSINOPHILS % (AUTO) 1.4 % (1.0-6.0); LYMPHOCYTES # (AUTO) 1.9 K/uL (1.0-4.8); LYMPHOCYTES % (AUTO) 26.6 % (22.0-44.0); MEAN CORPUSCULAR HEMOGLOBIN 28.1 pg (26.0-34.0); MEAN CORPUSCULAR HGB CONC 33.2 G/dL (31.0-37.0); MEAN CORPUSCULAR VOLUME 85 fL (80-100); MONOCYTES # (AUTO) 0.4 K/uL (0.1-1.0); MONOCYTES % (AUTO) 6.3 % (2.0-9.0); NEUTROPHILS # (AUTO) 4.6 K/uL (1.8-7.7); NEUTROPHILS % (AUTO) 65.3 % (40.0-70.0); PLATELET COUNT (AUTO) 234 K/uL (150-450); RED BLOOD CELL COUNT(AUTO) 3.89 MIL/uL (4.00-5.20); RED CELL DISTRIBUTION WIDTH 13.7 % (11.5-14.5)
[2017-11-21 11:49] LABS: GLUCOMETER DEV NAME(LOC) BV2S 2; GLUCOSE,POINT OF CARE 79 MG/DL (70-110)
[2017-11-21 16:26] VITALS: BP 116/70
[2017-11-21] MEDS: INSULIN LISPRO 100 UNITS/ML SQ PRN ×2 (17:03→21:02)
[2017-11-21 17:48] LABS: GLUCOMETER DEV NAME(LOC) BV2S 2; GLUCOSE,POINT OF CARE 227 MG/DL (70-110)
[2017-11-21] MEDS: RisperiDONE 1 MG TABLET PO SCH (20:26)
[2017-11-21] MEDS: MAGNESIUM OXIDE 400 MG TABLET PO SCH (20:26)
[2017-11-21] MEDS: BENZTROPINE MESYLATE 0.5 MG TABLET PO SCH (20:26)
[2017-11-21] MEDS: ATORVASTATIN CALCIUM 20 MG TABLET PO SCH (20:26)
[2017-11-21 23:39] LABS: GLUCOMETER DEV NAME(LOC) BV2S 2; GLUCOSE,POINT OF CARE 233 MG/DL (70-110)
[2017-11-22 03:28] VITALS: BP 129/69
[2017-11-22] MEDS: LOPERAMIDE HCL 2 MG CAPSULE PO PRN (03:40)
[2017-11-22 06:28] LABS: GLUCOMETER DEV NAME(LOC) BV2S 2; GLUCOSE,POINT OF CARE 151 MG/DL (70-110)
[2017-11-22] MEDS: LEVOTHYROXINE SODIUM 50 MCG TABLET PO SCH (06:59)
[2017-11-22] MEDS: GlipiZIDE 5 MG TABLET PO SCH ×2 (06:59→16:07)
[2017-11-22] MEDS: MetFORMIN HCL 500 MG TABLET PO SCH ×2 (07:00→16:41)
[2017-11-22] MEDS: INSULIN LISPRO 100 UNITS/ML SQ PRN ×4 (07:04→20:16)
[2017-11-22 08:24] VITALS: BP 130/80
[2017-11-22] MEDS: MEGESTROL ACETATE 400 MG/10 ML SUSPENSION UDCUP PO SCH (08:48)
[2017-11-22] MEDS: SODIUM CHLORIDE 1 GM TABLET PO SCH ×3 (08:49→16:07)
[2017-11-22] MEDS: MAGNESIUM OXIDE 400 MG TABLET PO SCH ×2 (08:49→16:07)
[2017-11-22] MEDS: CITALOPRAM HYDROBROMIDE 20 MG TABLET PO SCH (08:49)
[2017-11-22] MEDS: OMEPRAZOLE 20 MG CAPSULE PO SCH (08:49)
[2017-11-22] MEDS: AmLODIPine BESYLATE 10 MG TABLET PO SCH (08:49)
[2017-11-22] MEDS: ASPIRIN 81 MG CHEWABLE TABLET PO SCH (08:49)
[2017-11-22 11:13] LABS: GLUCOMETER DEV NAME(LOC) BV2S 2; GLUCOSE,POINT OF CARE 153 MG/DL (70-110)
[2017-11-22 16:05] VITALS: BP 134/70
[2017-11-22 16:54] LABS: GLUCOMETER DEV NAME(LOC) BV2S 2; GLUCOSE,POINT OF CARE 268 MG/DL (70-110)
[2017-11-22] MEDS: RisperiDONE 1 MG TABLET PO SCH (20:09)
[2017-11-22] MEDS: BENZTROPINE MESYLATE 0.5 MG TABLET PO SCH (20:09)
[2017-11-22] MEDS: ATORVASTATIN CALCIUM 20 MG TABLET PO SCH (20:10)
[2017-11-22 20:49] LABS: GLUCOMETER DEV NAME(LOC) BV2S 2; GLUCOSE,POINT OF CARE 194 MG/DL (70-110)
[2017-11-23 00:59] VITALS: BP 139/75
[2017-11-23 06:25] LABS: GLUCOMETER DEV NAME(LOC) BV2S 2; GLUCOSE,POINT OF CARE 140 MG/DL (70-110)
[2017-11-23] MEDS: LEVOTHYROXINE SODIUM 50 MCG TABLET PO SCH (06:36)
[2017-11-23] MEDS: MetFORMIN HCL 500 MG TABLET PO SCH ×2 (06:36→17:08)
[2017-11-23] MEDS: GlipiZIDE 5 MG TABLET PO SCH ×2 (06:36→16:45)
[2017-11-23 08:10] VITALS: BP 140/84
[2017-11-23] MEDS: AmLODIPine BESYLATE 10 MG TABLET PO SCH (08:11)
[2017-11-23] MEDS: MEGESTROL ACETATE 400 MG/10 ML SUSPENSION UDCUP PO SCH (08:11)
[2017-11-23] MEDS: CITALOPRAM HYDROBROMIDE 20 MG TABLET PO SCH (08:11)
[2017-11-23] MEDS: SODIUM CHLORIDE 1 GM TABLET PO SCH ×3 (08:11→17:09)
[2017-11-23] MEDS: OMEPRAZOLE 20 MG CAPSULE PO SCH (08:12)
[2017-11-23] MEDS: MAGNESIUM OXIDE 400 MG TABLET PO SCH ×2 (08:12→17:09)
[2017-11-23] MEDS: ASPIRIN 81 MG CHEWABLE TABLET PO SCH (08:12)
[2017-11-23 08:30] LABS: BAND NEUTROPHILS % (MANUAL) 0 % (0-5)
[2017-11-23 08:39] LABS: HEMATOCRIT 35.3 % (36-46); HEMOGLOBIN 11.7 g/dL (12.0-16.0); MEAN CORPUSCULAR HEMOGLOBIN 28.3 pg (26.0-34.0); MEAN CORPUSCULAR HGB CONC 33.1 G/dL (31.0-37.0); MEAN CORPUSCULAR VOLUME 85 fL (80-100); PLATELET COUNT (AUTO) 260 K/uL (150-450); RED BLOOD CELL COUNT(AUTO) 4.13 MIL/uL (4.00-5.20); RED CELL DISTRIBUTION WIDTH 13.9 % (11.5-14.5)
[2017-11-23 09:20] LABS: CALCIUM, TOTAL 9.4 mg/dL (8.8-10.5); CREATININE 0.95 mg/dL (0.60-1.30); POTASSIUM 4.8 mmol/L (3.5-5.1)
[2017-11-23 09:29] LABS: EOSINOPHILS % (MANUAL) 1 % (1-6); LYMPHOCYTES % (MANUAL) 28 % (22-44); MONOCYTES % (MANUAL) 8 % (2-9); SEGMENTED NEUTROPHILS % 63 % (40-70)
[2017-11-23 10:59] LABS: GLUCOMETER DEV NAME(LOC) BV2S 2; GLUCOSE,POINT OF CARE 242 MG/DL (70-110)
[2017-11-23] MEDS: INSULIN LISPRO 100 UNITS/ML SQ PRN (11:42)
[2017-11-23 16:26] VITALS: BP 134/78
[2017-11-23] MEDS: BENZTROPINE MESYLATE 0.5 MG TABLET PO SCH (21:00)
[2017-11-23] MEDS: ATORVASTATIN CALCIUM 20 MG TABLET PO SCH (21:00)
[2017-11-23] MEDS: RisperiDONE 1 MG TABLET PO SCH (21:00)
[2017-11-24] MEDS: LEVOTHYROXINE SODIUM 50 MCG TABLET PO SCH (06:01)
[2017-11-24] MEDS: GlipiZIDE 5 MG TABLET PO SCH ×2 (06:01→16:30)
[2017-11-24 06:09] LABS: GLUCOMETER DEV NAME(LOC) BV2S 2; GLUCOSE,POINT OF CARE 125 MG/DL (70-110)
[2017-11-24 06:35] VITALS: BP 142/79
[2017-11-24] MEDS: MetFORMIN HCL 500 MG TABLET PO SCH ×2 (06:54→17:35)
[2017-11-24] MEDS: AmLODIPine BESYLATE 10 MG TABLET PO SCH (08:28)
[2017-11-24] MEDS: MEGESTROL ACETATE 400 MG/10 ML SUSPENSION UDCUP PO SCH (08:28)
[2017-11-24] MEDS: OMEPRAZOLE 20 MG CAPSULE PO SCH (08:28)
[2017-11-24] MEDS: SODIUM CHLORIDE 1 GM TABLET PO SCH ×3 (08:28→17:35)
[2017-11-24] MEDS: ASPIRIN 81 MG CHEWABLE TABLET PO SCH (08:28)
[2017-11-24] MEDS: MAGNESIUM OXIDE 400 MG TABLET PO SCH ×2 (08:28→17:35)
[2017-11-24] MEDS: CITALOPRAM HYDROBROMIDE 20 MG TABLET PO SCH (08:28)
[2017-11-24 08:40] VITALS: BP 132/78
[2017-11-24 11:08] LABS: GLUCOMETER DEV NAME(LOC) BV2S 2; GLUCOSE,POINT OF CARE 186 MG/DL (70-110)
[2017-11-24] MEDS: INSULIN LISPRO 100 UNITS/ML SQ PRN ×3 (11:25→20:07)
[2017-11-24 16:08] VITALS: BP 133/89
[2017-11-24 17:59] LABS: GLUCOMETER DEV NAME(LOC) BV2S 2; GLUCOSE,POINT OF CARE 186 MG/DL (70-110)
[2017-11-24] MEDS: RisperiDONE 1 MG TABLET PO SCH (20:06)
[2017-11-24] MEDS: BENZTROPINE MESYLATE 0.5 MG TABLET PO SCH (20:06)
[2017-11-24] MEDS: ATORVASTATIN CALCIUM 20 MG TABLET PO SCH (20:06)
[2017-11-24 20:24] LABS: GLUCOMETER DEV NAME(LOC) BV2S 2; GLUCOSE,POINT OF CARE 220 MG/DL (70-110)
[2017-11-25 06:49] VITALS: BP 124/65
[2017-11-25] MEDS: GlipiZIDE 5 MG TABLET PO SCH ×2 (07:08→16:12)
[2017-11-25] MEDS: LEVOTHYROXINE SODIUM 50 MCG TABLET PO SCH (07:08)
[2017-11-25] MEDS: MetFORMIN HCL 500 MG TABLET PO SCH ×2 (07:08→16:56)
[2017-11-25 07:13] LABS: GLUCOMETER DEV NAME(LOC) BV2S 2; GLUCOSE,POINT OF CARE 120 MG/DL (70-110)
[2017-11-25] MEDS: SODIUM CHLORIDE 1 GM TABLET PO SCH ×3 (08:36→16:12)
[2017-11-25] MEDS: ASPIRIN 81 MG CHEWABLE TABLET PO SCH (08:36)
[2017-11-25] MEDS: AmLODIPine BESYLATE 10 MG TABLET PO SCH (08:36)
[2017-11-25] MEDS: MAGNESIUM OXIDE 400 MG TABLET PO SCH ×2 (08:36→16:12)
[2017-11-25] MEDS: OMEPRAZOLE 20 MG CAPSULE PO SCH (08:36)
[2017-11-25] MEDS: CITALOPRAM HYDROBROMIDE 20 MG TABLET PO SCH (08:37)
[2017-11-25] MEDS: MEGESTROL ACETATE 400 MG/10 ML SUSPENSION UDCUP PO SCH (08:37)
[2017-11-25 08:47] VITALS: BP 134/89
[2017-11-25 09:50] LABS: CALCIUM, TOTAL 9.1 mg/dL (8.8-10.5); CHOL/HDL RATIO 2.3 (3.9-5.7); CREATININE 1.03 mg/dL (0.60-1.30); PHOSPHORUS 3.2 mg/dL (2.5-4.9); POTASSIUM 5.2 mmol/L (3.5-5.1)
[2017-11-25] MEDS: RisperiDONE 1 MG TABLET PO SCH ×2 (09:59→20:22)
[2017-11-25] MEDS ORDERED: SODIUM POLYSTYRENE SULFONATE 15 GM/60 ML SUSPENSION BOTTLE PO ONE (10:30)
[2017-11-25 11:13] LABS: GLUCOMETER DEV NAME(LOC) BV2S 2; GLUCOSE,POINT OF CARE 134 MG/DL (70-110)
[2017-11-25] MEDS: LORazepam 2 MG TABLET PO PRN (16:17)
[2017-11-25] MEDS: INSULIN LISPRO 100 UNITS/ML SQ PRN ×2 (17:04→20:30)
[2017-11-25 17:26] LABS: GLUCOMETER DEV NAME(LOC) BV2S 2; GLUCOSE,POINT OF CARE 236 MG/DL (70-110)
[2017-11-25 18:25] VITALS: BP 122/80
[2017-11-25] MEDS: BENZTROPINE MESYLATE 0.5 MG TABLET PO SCH (20:22)
[2017-11-25] MEDS: ATORVASTATIN CALCIUM 20 MG TABLET PO SCH (20:22)
[2017-11-25 20:54] LABS: GLUCOMETER DEV NAME(LOC) BV2S 2; GLUCOSE,POINT OF CARE 286 MG/DL (70-110)
[2017-11-26] MEDS: LOPERAMIDE HCL 2 MG CAPSULE PO PRN (05:48)
[2017-11-26 06:03] VITALS: BP 138/89
[2017-11-26 06:23] LABS: GLUCOMETER DEV NAME(LOC) BV2S 2; GLUCOSE,POINT OF CARE 146 MG/DL (70-110)
[2017-11-26] MEDS: GlipiZIDE 5 MG TABLET PO SCH ×2 (06:38→16:07)
[2017-11-26] MEDS: LEVOTHYROXINE SODIUM 50 MCG TABLET PO SCH (06:38)
[2017-11-26] MEDS: MetFORMIN HCL 500 MG TABLET PO SCH ×2 (06:39→17:07)
[2017-11-26] MEDS: INSULIN LISPRO 100 UNITS/ML SQ PRN ×3 (06:40→20:41)
[2017-11-26 08:54] LABS: CALCIUM, TOTAL 9.5 mg/dL (8.8-10.5); CREATININE 1.02 mg/dL (0.60-1.30); POTASSIUM 4.8 mmol/L (3.5-5.1)
[2017-11-26] MEDS: ASPIRIN 81 MG CHEWABLE TABLET PO SCH (08:56)
[2017-11-26] MEDS: MAGNESIUM OXIDE 400 MG TABLET PO SCH ×2 (08:57→16:07)
[2017-11-26] MEDS: CITALOPRAM HYDROBROMIDE 20 MG TABLET PO SCH (08:57)
[2017-11-26] MEDS: AmLODIPine BESYLATE 10 MG TABLET PO SCH (08:57)
[2017-11-26] MEDS: OMEPRAZOLE 20 MG CAPSULE PO SCH (08:58)
[2017-11-26] MEDS: RisperiDONE 1 MG TABLET PO SCH ×2 (08:58→20:41)
[2017-11-26] MEDS: MEGESTROL ACETATE 400 MG/10 ML SUSPENSION UDCUP PO SCH (09:01)
[2017-11-26 09:13] VITALS: BP 109/68
[2017-11-26 12:36] LABS: GLUCOMETER DEV NAME(LOC) BV2S 2; GLUCOSE,POINT OF CARE 136 MG/DL (70-110)
[2017-11-26 16:13] LABS: GLUCOMETER DEV NAME(LOC) BV2S 2; GLUCOSE,POINT OF CARE 195 MG/DL (70-110)
[2017-11-26 16:41] VITALS: BP 121/88
[2017-11-26] MEDS: BENZTROPINE MESYLATE 0.5 MG TABLET PO SCH (20:42)
[2017-11-26] MEDS: ATORVASTATIN CALCIUM 20 MG TABLET PO SCH (20:42)
[2017-11-26] MEDS: ZOLPIDEM TARTRATE 10 MG TABLET PO PRN (21:21)
[2017-11-26 21:24] LABS: GLUCOMETER DEV NAME(LOC) BV2S 2; GLUCOSE,POINT OF CARE 183 MG/DL (70-110)
[2017-11-27 06:05] VITALS: BP 132/80
[2017-11-27] MEDS: LEVOTHYROXINE SODIUM 50 MCG TABLET PO SCH (06:15)
[2017-11-27] MEDS: GlipiZIDE 5 MG TABLET PO SCH ×2 (06:15→16:18)
[2017-11-27] MEDS: INSULIN LISPRO 100 UNITS/ML SQ PRN ×4 (06:38→20:55)
[2017-11-27 06:39] LABS: GLUCOMETER DEV NAME(LOC) BV2S 2; GLUCOSE,POINT OF CARE 157 MG/DL (70-110)
[2017-11-27] MEDS: MetFORMIN HCL 500 MG TABLET PO SCH ×2 (07:08→16:18)
[2017-11-27 08:09] VITALS: BP 124/77
[2017-11-27] MEDS: CITALOPRAM HYDROBROMIDE 20 MG TABLET PO SCH (08:30)
[2017-11-27] MEDS: ASPIRIN 81 MG CHEWABLE TABLET PO SCH (08:30)
[2017-11-27] MEDS: OMEPRAZOLE 20 MG CAPSULE PO SCH (08:30)
[2017-11-27] MEDS: RisperiDONE 1 MG TABLET PO SCH ×2 (08:30→20:31)
[2017-11-27] MEDS: SODIUM CHLORIDE 1 GM TABLET PO SCH ×3 (08:30→16:18)
[2017-11-27] MEDS: MAGNESIUM OXIDE 400 MG TABLET PO SCH ×2 (08:31→16:18)
[2017-11-27] MEDS: AmLODIPine BESYLATE 10 MG TABLET PO SCH (08:31)
[2017-11-27] MEDS: MEGESTROL ACETATE 400 MG/10 ML SUSPENSION UDCUP PO SCH (08:34)
[2017-11-27 15:24] LABS: GLUCOMETER DEV NAME(LOC) BV2S 2; GLUCOSE,POINT OF CARE 203 MG/DL (70-110)
[2017-11-27 16:09] VITALS: BP 136/82
[2017-11-27 16:49] LABS: GLUCOMETER DEV NAME(LOC) BV2S 2; GLUCOSE,POINT OF CARE 199 MG/DL (70-110)
[2017-11-27] MEDS: ZOLPIDEM TARTRATE 10 MG TABLET PO PRN (20:31)
[2017-11-27] MEDS: ATORVASTATIN CALCIUM 20 MG TABLET PO SCH (20:31)
[2017-11-27] MEDS: BENZTROPINE MESYLATE 0.5 MG TABLET PO SCH (20:31)
[2017-11-27 20:44] LABS: GLUCOMETER DEV NAME(LOC) BV2S 2; GLUCOSE,POINT OF CARE 171 MG/DL (70-110)
[2017-11-28 06:26] VITALS: BP 126/69
[2017-11-28 06:29] LABS: GLUCOMETER DEV NAME(LOC) BV2S 2; GLUCOSE,POINT OF CARE 122 MG/DL (70-110)
[2017-11-28] MEDS: GlipiZIDE 5 MG TABLET PO SCH ×2 (06:31→16:24)
[2017-11-28] MEDS: LEVOTHYROXINE SODIUM 50 MCG TABLET PO SCH (06:31)
[2017-11-28] MEDS: MetFORMIN HCL 500 MG TABLET PO SCH ×2 (06:32→16:24)
[2017-11-28 08:17] VITALS: BP 125/67
[2017-11-28] MEDS: CITALOPRAM HYDROBROMIDE 20 MG TABLET PO SCH (08:35)
[2017-11-28] MEDS: OMEPRAZOLE 20 MG CAPSULE PO SCH (08:35)
[2017-11-28] MEDS: ASPIRIN 81 MG CHEWABLE TABLET PO SCH (08:35)
[2017-11-28] MEDS: MAGNESIUM OXIDE 400 MG TABLET PO SCH ×2 (08:35→16:24)
[2017-11-28] MEDS: AmLODIPine BESYLATE 10 MG TABLET PO SCH (08:35)
[2017-11-28] MEDS: RisperiDONE 1 MG TABLET PO SCH ×2 (08:35→21:19)
[2017-11-28] MEDS: SODIUM CHLORIDE 1 GM TABLET PO SCH ×3 (08:35→16:24)
[2017-11-28] MEDS: MEGESTROL ACETATE 400 MG/10 ML SUSPENSION UDCUP PO SCH (08:36)
[2017-11-28 09:17] LABS: CALCIUM, TOTAL 9.3 mg/dL (8.8-10.5); CREATININE 1.14 mg/dL (0.60-1.30); MAGNESIUM 1.9 mg/dL (1.80-2.40)
[2017-11-28 09:59] LABS: BASOPHILS % (AUTO) 0.9 % (0.0-2.0); EOSINOPHILS % (AUTO) 2.7 % (1.0-6.0); HEMATOCRIT 33.3 % (36-46); LYMPHOCYTES # (AUTO) 2.5 K/uL (1.0-4.8); MEAN CORPUSCULAR HEMOGLOBIN 28.3 pg (26.0-34.0); MEAN CORPUSCULAR HGB CONC 33.1 G/dL (31.0-37.0); MEAN CORPUSCULAR VOLUME 86 fL (80-100); MONOCYTES # (AUTO) 0.8 K/uL (0.1-1.0); MONOCYTES % (AUTO) 10.4 % (2.0-9.0); NEUTROPHILS # (AUTO) 4.2 K/uL (1.8-7.7); PLATELET COUNT (AUTO) 284 K/uL (150-450); RED BLOOD CELL COUNT(AUTO) 3.89 MIL/uL (4.00-5.20); RED CELL DISTRIBUTION WIDTH 14.5 % (11.5-14.5)
[2017-11-28 11:39] LABS: GLUCOMETER DEV NAME(LOC) BV2S 2; GLUCOSE,POINT OF CARE 116 MG/DL (70-110)
[2017-11-28 16:16] VITALS: BP 117/71
[2017-11-28] MEDS: INSULIN LISPRO 100 UNITS/ML SQ PRN (16:56)
[2017-11-28 17:38] LABS: GLUCOMETER DEV NAME(LOC) BV2S 2; GLUCOSE,POINT OF CARE 160 MG/DL (70-110)
[2017-11-28] MEDS: ATORVASTATIN CALCIUM 20 MG TABLET PO SCH (21:19)
[2017-11-28] MEDS: BENZTROPINE MESYLATE 0.5 MG TABLET PO SCH (21:19)
[2017-11-28] MEDS: ZOLPIDEM TARTRATE 10 MG TABLET PO PRN (21:23)
[2017-11-28 22:29] LABS: GLUCOMETER DEV NAME(LOC) BV2S 2; GLUCOSE,POINT OF CARE 103 MG/DL (70-110)
[2017-11-29 05:28] VITALS: BP 140/80
[2017-11-29] MEDS: INSULIN LISPRO 100 UNITS/ML SQ PRN ×2 (06:11→16:46)
[2017-11-29 06:19] LABS: GLUCOMETER DEV NAME(LOC) BV2S 2; GLUCOSE,POINT OF CARE 159 MG/DL (70-110)
[2017-11-29] MEDS: GlipiZIDE 5 MG TABLET PO SCH ×2 (06:31→16:18)
[2017-11-29] MEDS: LEVOTHYROXINE SODIUM 50 MCG TABLET PO SCH (06:31)
[2017-11-29] MEDS: MetFORMIN HCL 500 MG TABLET PO SCH ×2 (06:32→16:18)
[2017-11-29 08:34] VITALS: BP 157/100
[2017-11-29] MEDS: MEGESTROL ACETATE 400 MG/10 ML SUSPENSION UDCUP PO SCH (08:40)
[2017-11-29] MEDS: SODIUM CHLORIDE 1 GM TABLET PO SCH ×3 (08:40→16:06)
[2017-11-29] MEDS: CITALOPRAM HYDROBROMIDE 20 MG TABLET PO SCH (08:40)
[2017-11-29] MEDS: OMEPRAZOLE 20 MG CAPSULE PO SCH (08:40)
[2017-11-29] MEDS: AmLODIPine BESYLATE 10 MG TABLET PO SCH (08:41)
[2017-11-29] MEDS: RisperiDONE 1 MG TABLET PO SCH ×2 (08:41→20:49)
[2017-11-29] MEDS: ASPIRIN 81 MG CHEWABLE TABLET PO SCH (08:41)
[2017-11-29] MEDS: MAGNESIUM OXIDE 400 MG TABLET PO SCH (08:41)
[2017-11-29 10:53] LABS: GLUCOMETER DEV NAME(LOC) BV2S 2; GLUCOSE,POINT OF CARE 126 MG/DL (70-110)
[2017-11-29 14:26] VITALS: BP 100/69
[2017-11-29 16:53] VITALS: BP 154/94
[2017-11-29 16:53] LABS: GLUCOMETER DEV NAME(LOC) BV2S 2; GLUCOSE,POINT OF CARE 164 MG/DL (70-110)
[2017-11-29 18:00] VITALS: BP 127/86
[2017-11-29] MEDS: ATORVASTATIN CALCIUM 20 MG TABLET PO SCH (20:49)
[2017-11-29] MEDS: BENZTROPINE MESYLATE 0.5 MG TABLET PO SCH (20:49)
[2017-11-29 21:03] LABS: GLUCOMETER DEV NAME(LOC) BV2S 2; GLUCOSE,POINT OF CARE 126 MG/DL (70-110)
[2017-11-29] MEDS: ZOLPIDEM TARTRATE 10 MG TABLET PO PRN (22:31)
[2017-11-30 05:44] VITALS: BP 140/65
[2017-11-30 07:03] LABS: GLUCOMETER DEV NAME(LOC) BV2S 2; GLUCOSE,POINT OF CARE 101 MG/DL (70-110)
[2017-11-30] MEDS: LEVOTHYROXINE SODIUM 50 MCG TABLET PO SCH (07:03)
[2017-11-30] MEDS: GlipiZIDE 5 MG TABLET PO SCH ×2 (07:03→16:53)
[2017-11-30] MEDS: MetFORMIN HCL 500 MG TABLET PO SCH ×2 (07:03→17:07)
[2017-11-30 07:27] LABS: BASOPHILS % (AUTO) 0.6 % (0.0-2.0); EOSINOPHILS % (AUTO) 1.4 % (1.0-6.0); HEMATOCRIT 32.1 % (36-46); HEMOGLOBIN 10.6 g/dL (12.0-16.0); LYMPHOCYTES # (AUTO) 2.5 K/uL (1.0-4.8); LYMPHOCYTES % (AUTO) 33.4 % (22.0-44.0); MEAN CORPUSCULAR HEMOGLOBIN 28.1 pg (26.0-34.0); MEAN CORPUSCULAR VOLUME 85 fL (80-100); MONOCYTES # (AUTO) 0.7 K/uL (0.1-1.0); MONOCYTES % (AUTO) 9.8 % (2.0-9.0); NEUTROPHILS # (AUTO) 4.1 K/uL (1.8-7.7); NEUTROPHILS % (AUTO) 54.8 % (40.0-70.0); PLATELET COUNT (AUTO) 295 K/uL (150-450); RED BLOOD CELL COUNT(AUTO) 3.78 MIL/uL (4.00-5.20); RED CELL DISTRIBUTION WIDTH 14.6 % (11.5-14.5)
[2017-11-30 07:50] LABS: ALBUMIN 3.3 g/dL (3.4-5.0); BILIRUBIN,TOTAL 0.3 mg/dL (0.1-1.0); CALCIUM, TOTAL 8.9 mg/dL (8.8-10.5); CREATININE 1.11 mg/dL (0.60-1.30); TOTAL PROTEIN, SERUM 6.3 g/dL (6.4-8.2)
[2017-11-30 08:28] VITALS: BP 156/75
[2017-11-30] MEDS: OMEPRAZOLE 20 MG CAPSULE PO SCH (08:47)
[2017-11-30] MEDS: CITALOPRAM HYDROBROMIDE 20 MG TABLET PO SCH (08:47)
[2017-11-30] MEDS: RisperiDONE 1 MG TABLET PO SCH ×2 (08:48→21:36)
[2017-11-30] MEDS: MAGNESIUM OXIDE 400 MG TABLET PO SCH (08:48)
[2017-11-30] MEDS: MEGESTROL ACETATE 400 MG/10 ML SUSPENSION UDCUP PO SCH (08:48)
[2017-11-30] MEDS: ASPIRIN 81 MG CHEWABLE TABLET PO SCH (08:48)
[2017-11-30] MEDS: AmLODIPine BESYLATE 10 MG TABLET PO SCH (08:48)
[2017-11-30] MEDS: INSULIN LISPRO 100 UNITS/ML SQ PRN ×2 (11:40→17:29)
[2017-11-30 15:28] LABS: GLUCOMETER DEV NAME(LOC) BV2S 2; GLUCOSE,POINT OF CARE 148 MG/DL (70-110)
[2017-11-30 16:27] VITALS: BP 139/67
[2017-11-30 16:50] VITALS: BP 140/80
[2017-11-30 17:13] LABS: GLUCOMETER DEV NAME(LOC) BV2S 2; GLUCOSE,POINT OF CARE 248 MG/DL (70-110)
[2017-11-30] MEDS: LORazepam 2 MG TABLET PO PRN (17:38)
[2017-11-30] MEDS: RIVAROXABAN 15 MG TABLET PO SCH (21:00)
[2017-11-30] MEDS: ATORVASTATIN CALCIUM 20 MG TABLET PO SCH (21:36)
[2017-11-30] MEDS: BENZTROPINE MESYLATE 0.5 MG TABLET PO SCH (21:36)
[2017-11-30 22:23] LABS: GLUCOMETER DEV NAME(LOC) BV2S 2; GLUCOSE,POINT OF CARE 132 MG/DL (70-110)
[2017-12-01 00:05] VITALS: BP 120/66
[2017-12-01 06:18] LABS: GLUCOMETER DEV NAME(LOC) BV2S 2; GLUCOSE,POINT OF CARE 180 MG/DL (70-110)
[2017-12-01] MEDS: LEVOTHYROXINE SODIUM 50 MCG TABLET PO SCH (06:36)
[2017-12-01] MEDS: GlipiZIDE 5 MG TABLET PO SCH ×2 (06:36→16:30)
[2017-12-01] MEDS: MetFORMIN HCL 500 MG TABLET PO SCH ×2 (06:37→16:30)
[2017-12-01] MEDS: INSULIN LISPRO 100 UNITS/ML SQ PRN ×4 (06:38→20:53)
[2017-12-01 06:45] VITALS: BP 132/72
[2017-12-01] MEDS: RIVAROXABAN 15 MG TABLET PO SCH ×2 (07:11→16:30)
[2017-12-01 08:25] VITALS: BP 156/68
[2017-12-01] MEDS: MEGESTROL ACETATE 400 MG/10 ML SUSPENSION UDCUP PO SCH (08:40)
[2017-12-01] MEDS: CITALOPRAM HYDROBROMIDE 20 MG TABLET PO SCH (08:41)
[2017-12-01] MEDS: ASPIRIN 81 MG CHEWABLE TABLET PO SCH (08:41)
[2017-12-01] MEDS: MAGNESIUM OXIDE 400 MG TABLET PO SCH (08:41)
[2017-12-01] MEDS: OMEPRAZOLE 20 MG CAPSULE PO SCH (08:41)
[2017-12-01] MEDS: AmLODIPine BESYLATE 10 MG TABLET PO SCH (08:41)
[2017-12-01] MEDS: RisperiDONE 1 MG TABLET PO SCH ×2 (08:41→20:12)
[2017-12-01 11:43] LABS: GLUCOMETER DEV NAME(LOC) BV2S 2; GLUCOSE,POINT OF CARE 217 MG/DL (70-110)
[2017-12-01 14:36] VITALS: BP 119/68
[2017-12-01 16:21] VITALS: BP 127/80
[2017-12-01 16:54] LABS: GLUCOMETER DEV NAME(LOC) BV2S 2; GLUCOSE,POINT OF CARE 238 MG/DL (70-110)
[2017-12-01] MEDS: ATORVASTATIN CALCIUM 20 MG TABLET PO SCH (20:12)
[2017-12-01] MEDS: BENZTROPINE MESYLATE 0.5 MG TABLET PO SCH (20:12)
[2017-12-01 21:03] LABS: GLUCOMETER DEV NAME(LOC) BV2S 2; GLUCOSE,POINT OF CARE 206 MG/DL (70-110)
[2017-12-02 00:05] VITALS: BP 138/76
[2017-12-02] MEDS: ZOLPIDEM TARTRATE 10 MG TABLET PO PRN ×2 (00:29→21:23)
[2017-12-02 01:03] VITALS: BP 138/76
[2017-12-02 06:09] LABS: GLUCOMETER DEV NAME(LOC) BV2S 2; GLUCOSE,POINT OF CARE 161 MG/DL (70-110)
[2017-12-02 07:00] VITALS: BP 123/72
[2017-12-02] MEDS: LEVOTHYROXINE SODIUM 50 MCG TABLET PO SCH (07:03)
[2017-12-02] MEDS: GlipiZIDE 5 MG TABLET PO SCH ×2 (07:03→16:06)
[2017-12-02] MEDS: MetFORMIN HCL 500 MG TABLET PO SCH ×2 (07:04→17:03)
[2017-12-02] MEDS: RIVAROXABAN 15 MG TABLET PO SCH ×2 (07:04→17:03)
[2017-12-02] MEDS: INSULIN LISPRO 100 UNITS/ML SQ PRN ×3 (07:05→21:08)
[2017-12-02 08:00] VITALS: BP 124/80
[2017-12-02] MEDS: CITALOPRAM HYDROBROMIDE 20 MG TABLET PO SCH (08:33)
[2017-12-02] MEDS: AmLODIPine BESYLATE 10 MG TABLET PO SCH (08:33)
[2017-12-02] MEDS: MEGESTROL ACETATE 400 MG/10 ML SUSPENSION UDCUP PO SCH (08:33)
[2017-12-02] MEDS: RisperiDONE 1 MG TABLET PO SCH ×2 (08:33→20:46)
[2017-12-02] MEDS: OMEPRAZOLE 20 MG CAPSULE PO SCH (08:34)
[2017-12-02] MEDS: MAGNESIUM OXIDE 400 MG TABLET PO SCH (08:34)
[2017-12-02] MEDS: ASPIRIN 81 MG CHEWABLE TABLET PO SCH (08:34)
[2017-12-02] MEDS ORDERED: RIVA20TA PO (14:22)
[2017-12-02] MEDS ORDERED: MAGOX PO (14:22)
[2017-12-02] MEDS ORDERED: RIVA15T PO (14:22)
[2017-12-02 16:00] VITALS: BP 130/78
[2017-12-02 16:24] LABS: GLUCOMETER DEV NAME(LOC) BV2S 2; GLUCOSE,POINT OF CARE 95 MG/DL (70-110)
[2017-12-02 16:24] LABS: GLUCOMETER DEV NAME(LOC) BV2S 2; GLUCOSE,POINT OF CARE 172 MG/DL (70-110)
[2017-12-02] MEDS: FUROSEMIDE 20 MG TABLET PO SCH (17:02)
[2017-12-02] MEDS: BENZTROPINE MESYLATE 0.5 MG TABLET PO SCH (20:46)
[2017-12-02] MEDS: ATORVASTATIN CALCIUM 20 MG TABLET PO SCH (20:46)
[2017-12-02 21:14] LABS: GLUCOMETER DEV NAME(LOC) BV2S 2; GLUCOSE,POINT OF CARE 167 MG/DL (70-110)
[2017-12-03 00:40] VITALS: BP 121/68
[2017-12-03] MEDS: LORazepam 2 MG TABLET PO PRN (02:19)
[2017-12-03 02:20] VITALS: BP 122/87
[2017-12-03 06:19] LABS: GLUCOMETER DEV NAME(LOC) BV2S 2; GLUCOSE,POINT OF CARE 131 MG/DL (70-110)
[2017-12-03] MEDS: MetFORMIN HCL 500 MG TABLET PO SCH ×2 (06:32→17:32)
[2017-12-03] MEDS: RIVAROXABAN 15 MG TABLET PO SCH ×2 (06:32→17:32)
[2017-12-03] MEDS: LEVOTHYROXINE SODIUM 50 MCG TABLET PO SCH (06:32)
[2017-12-03] MEDS: GlipiZIDE 5 MG TABLET PO SCH ×2 (06:32→16:14)
[2017-12-03 07:24] VITALS: BP 136/83
[2017-12-03] MEDS: ASPIRIN 81 MG CHEWABLE TABLET PO SCH (08:04)
[2017-12-03] MEDS: RisperiDONE 1 MG TABLET PO SCH ×2 (08:04→20:46)
[2017-12-03] MEDS: MAGNESIUM OXIDE 400 MG TABLET PO SCH (08:04)
[2017-12-03] MEDS: FUROSEMIDE 20 MG TABLET PO SCH ×2 (08:04→16:14)
[2017-12-03] MEDS: MEGESTROL ACETATE 400 MG/10 ML SUSPENSION UDCUP PO SCH (08:04)
[2017-12-03] MEDS: AmLODIPine BESYLATE 10 MG TABLET PO SCH (08:04)
[2017-12-03] MEDS: POTASSIUM CHLORIDE 10 MEQ ER TABLET PO SCH (08:04)
[2017-12-03] MEDS: OMEPRAZOLE 20 MG CAPSULE PO SCH (08:04)
[2017-12-03] MEDS: CITALOPRAM HYDROBROMIDE 20 MG TABLET PO SCH (08:04)
[2017-12-03 08:24] VITALS: BP 152/77
[2017-12-03 11:43] LABS: GLUCOMETER DEV NAME(LOC) BV2S 2; GLUCOSE,POINT OF CARE 94 MG/DL (70-110)
[2017-12-03 16:09] VITALS: BP 114/73
[2017-12-03 16:48] LABS: GLUCOMETER DEV NAME(LOC) BV2S 2; GLUCOSE,POINT OF CARE 126 MG/DL (70-110)
[2017-12-03] MEDS: BENZTROPINE MESYLATE 0.5 MG TABLET PO SCH (20:46)
[2017-12-03] MEDS: ATORVASTATIN CALCIUM 20 MG TABLET PO SCH (20:46)
[2017-12-03 21:13] LABS: GLUCOMETER DEV NAME(LOC) BV2S 2; GLUCOSE,POINT OF CARE 128 MG/DL (70-110)
[2017-12-03] MEDS: ZOLPIDEM TARTRATE 10 MG TABLET PO PRN (22:38)
[2017-12-04 04:15] VITALS: BP 125/68
[2017-12-04] MEDS: GlipiZIDE 5 MG TABLET PO SCH ×2 (06:14→16:44)
[2017-12-04] MEDS: LEVOTHYROXINE SODIUM 50 MCG TABLET PO SCH (06:14)
[2017-12-04 06:34] LABS: GLUCOMETER DEV NAME(LOC) BV2S 2; GLUCOSE,POINT OF CARE 116 MG/DL (70-110)
[2017-12-04] MEDS: RIVAROXABAN 15 MG TABLET PO SCH ×2 (07:02→16:44)
[2017-12-04] MEDS: MetFORMIN HCL 500 MG TABLET PO SCH ×2 (07:02→16:45)
[2017-12-04] MEDS: FUROSEMIDE 20 MG TABLET PO SCH ×2 (08:09→16:44)
[2017-12-04] MEDS: ASPIRIN 81 MG CHEWABLE TABLET PO SCH (08:09)
[2017-12-04] MEDS: CITALOPRAM HYDROBROMIDE 20 MG TABLET PO SCH (08:09)
[2017-12-04] MEDS: POTASSIUM CHLORIDE 10 MEQ ER TABLET PO SCH (08:09)
[2017-12-04] MEDS: RisperiDONE 1 MG TABLET PO SCH (08:09)
[2017-12-04] MEDS: MAGNESIUM OXIDE 400 MG TABLET PO SCH (08:09)
[2017-12-04] MEDS: OMEPRAZOLE 20 MG CAPSULE PO SCH (08:09)
[2017-12-04] MEDS: AmLODIPine BESYLATE 10 MG TABLET PO SCH (08:09)
[2017-12-04] MEDS: MEGESTROL ACETATE 400 MG/10 ML SUSPENSION UDCUP PO SCH (08:10)
[2017-12-04 08:28] VITALS: BP 152/93
[2017-12-04 08:46] VITALS: BP 140/81
[2017-12-04 11:29] LABS: GLUCOMETER DEV NAME(LOC) PVLAB139; GLUCOSE,POINT OF CARE 114 MG/DL (70-110)
[2017-12-04] MEDS: INSULIN LISPRO 100 UNITS/ML SQ PRN (16:41)
[2017-12-04 16:53] LABS: GLUCOMETER DEV NAME(LOC) PVLAB139; GLUCOSE,POINT OF CARE 215 MG/DL (70-110)
[2017-12-04 17:43] VITALS: BP 149/79
[2017-12-04] MEDS ORDERED: HEPARIN SODIUM 25000 UNITS/D5W 250 ML IV PRN (19:57)
[2017-12-04] MEDS ORDERED: HEPARIN SODIUM,PORCINE 5,000 UNITS/ML VIAL IVP ONE (20:00)
[2017-12-04] MEDS ORDERED: HEPARIN SODIUM,PORCINE 5,000 UNITS/ML VIAL IVP PRN ×3 (20:00→20:07)
[2017-12-04 20:18] LABS: GLUCOMETER DEV NAME(LOC) PVLAB139; GLUCOSE,POINT OF CARE 104 MG/DL (70-110)
[2017-12-04 20:32] LABS: BASOPHILS % (AUTO) 0.6 % (0.0-2.0); EOSINOPHILS % (AUTO) 0.9 % (1.0-6.0); HEMATOCRIT 31.4 % (36-46); HEMOGLOBIN 10.5 g/dL (12.0-16.0); LYMPHOCYTES # (AUTO) 2.3 K/uL (1.0-4.8); LYMPHOCYTES % (AUTO) 23.5 % (22.0-44.0); MEAN CORPUSCULAR HEMOGLOBIN 28.6 pg (26.0-34.0); MEAN CORPUSCULAR HGB CONC 33.6 G/dL (31.0-37.0); MEAN CORPUSCULAR VOLUME 85 fL (80-100); MONOCYTES % (AUTO) 9.8 % (2.0-9.0); NEUTROPHILS # (AUTO) 6.4 K/uL (1.8-7.7); NEUTROPHILS % (AUTO) 65.2 % (40.0-70.0); PLATELET COUNT (AUTO) 270 K/uL (150-450); RED BLOOD CELL COUNT(AUTO) 3.69 MIL/uL (4.00-5.20); RED CELL DISTRIBUTION WIDTH 15.2 % (11.5-14.5)
[2017-12-04 20:37] LABS: INR 1.2 (0.9-1.1); PROTHROMBIN TIME 12.7 SEC (9.4-11.6)
[2017-12-22] MEDS ORDERED: RIVAROXABAN 20 MG TABLET PO SCH (17:00)
== END 2017-12-04 21:11 | disposition short-term general hospital (02) | DRG 750 ==
LOC: EMS 19:27 → B2S 11-18 01:49 → 3EI 12-04 09:30
DX: F25.1 Schizoaffective disorder, depressive type (principal); E11.65 Type 2 diabetes mellitus with hyperglycemia; I10 Essential (primary) hypertension; E03.9 Hypothyroidism, unspecified; E78.00 Pure hypercholesterolemia, unspecified; E83.42 Hypomagnesemia; E83.51 Hypocalcemia; E87.1 Hypo-osmolality and hyponatremia; F17.200 Nicotine dependence, unspecified, uncomplicated; F32.9 Major depressive disorder, single episode, unspecified; G47.00 Insomnia, unspecified; H91.90 Unspecified hearing loss, unspecified ear; J44.9 Chronic obstructive pulmonary disease, unspecified; K21.9 Gastro-esophageal reflux disease without esophagitis; M79.669 Pain in unspecified lower leg; Z91.14 Patient's other noncompliance with medication regimen; Z71.6 Tobacco abuse counseling; Z79.899 Other long term (current) drug therapy; Z79.82 Long term (current) use of aspirin; Z79.890 Hormone replacement therapy; Z56.0 Unemployment, unspecified; Z79.4 Long term (current) use of insulin; Z79.84 Long term (current) use of oral hypoglycemic drugs; Z28.21 Immunization not carried out because of patient refusal
CPT/HCPCS: 82306; 83036; 83735; 84100; 85007; 85379; 90471; 93971; 96372; 99285; G0480; J1200; J1630; J1644; J1815; J2060

== ENCOUNTER 2017-12-02 13:53 | Emergency (ER) | payer MEDICAID ==
[~2017-12-02] VITALS: Ht 152.4 cm; Wt 63.6 kg
[2017-12-02] MEDS ORDERED: MAGOX PO (14:22)
[2017-12-02] MEDS ORDERED: RIVA15T PO (14:22)
[2017-12-02] MEDS ORDERED: RIVA20TA PO (14:22)
[2017-12-02] MEDS ORDERED: ACETAMINOPHEN 325 MG TABLET PO ONE (14:30)
[2017-12-02 15:11] VITALS: BP 136/64
== END 2017-12-02 15:14 | disposition other institution (70) ==
LOC: EMS 13:54
DX: I82.492 Acute embolism and thrombosis of other specified deep vein of left lower extremity (principal); F20.9 Schizophrenia, unspecified; F32.9 Major depressive disorder, single episode, unspecified; E11.9 Type 2 diabetes mellitus without complications; E78.00 Pure hypercholesterolemia, unspecified; I10 Essential (primary) hypertension; Z79.82 Long term (current) use of aspirin; Z79.899 Other long term (current) drug therapy
CPT/HCPCS: 99285

== ENCOUNTER 2017-12-04 21:20 | Inpatient (IN) | payer MEDICAID ==
[~2017-12-04] VITALS: Ht 152.4 cm; Wt 64.5 kg
[~2017-12-04 21:20] MED LIST changes: +MAGOX PO; +RIVA15T PO; +RIVA20TA PO
[2017-12-04 22:19] VITALS: BP 149/76
[2017-12-04] MEDS ORDERED: HEPARIN SODIUM,PORCINE 5,000 UNITS/ML VIAL IVP ONE (22:30)
[2017-12-04] MEDS ORDERED: ONDANSETRON HCL 4 MG/2 ML VIAL IVP PRN (22:30)
[2017-12-04] MEDS ORDERED: GLUCAGON,HUMAN RECOMBINANT 1 MG VIAL IM PRN (22:30)
[2017-12-04] MEDS ORDERED: LOPERAMIDE HCL 2 MG CAPSULE PO PRN (22:30)
[2017-12-04] MEDS ORDERED: ZOLPIDEM TARTRATE 10 MG TABLET PO PRN (22:30)
[2017-12-04] MEDS ORDERED: HEPARIN SODIUM,PORCINE 5,000 UNITS/ML VIAL IVP PRN ×2 (22:30)
[2017-12-04] MEDS ORDERED: HEPARIN SODIUM 25000 UNITS/D5W 250 ML IV PRN (22:30)
[2017-12-04] MEDS ORDERED: HALOPERIDOL 5 MG TABLET PO PRN (22:30)
[2017-12-04] MEDS ORDERED: LORazepam 2 MG TABLET PO PRN (22:30)
[2017-12-04] MEDS ORDERED: DEXTROSE 50%-WATER 25 GM/50 ML SYRINGE IVP PRN (23:00)
[2017-12-04] MEDS ORDERED: INSULIN LISPRO 100 UNITS/ML SQ PRN (23:00)
[2017-12-04 23:42] LABS: BASOPHILS % (AUTO) 0.5 % (0.0-2.0); EOSINOPHILS % (AUTO) 0.9 % (1.0-6.0); HEMATOCRIT 29.3 % (36-46); HEMOGLOBIN 9.7 g/dL (12.0-16.0); LYMPHOCYTES # (AUTO) 2.4 K/uL (1.0-4.8); LYMPHOCYTES % (AUTO) 24.4 % (22.0-44.0); MEAN CORPUSCULAR HEMOGLOBIN 28.3 pg (26.0-34.0); MEAN CORPUSCULAR HGB CONC 33.2 G/dL (31.0-37.0); MEAN CORPUSCULAR VOLUME 85 fL (80-100); MONOCYTES % (AUTO) 10.2 % (2.0-9.0); NEUTROPHILS # (AUTO) 6.3 K/uL (1.8-7.7); PLATELET COUNT (AUTO) 255 K/uL (150-450); RED BLOOD CELL COUNT(AUTO) 3.43 MIL/uL (4.00-5.20); RED CELL DISTRIBUTION WIDTH 14.8 % (11.5-14.5)
[2017-12-04] MEDS: ATORVASTATIN CALCIUM 20 MG TABLET PO SCH (23:53)
[2017-12-04] MEDS: BENZTROPINE MESYLATE 0.5 MG TABLET PO SCH (23:53)
[2017-12-04 23:54] LABS: INR 1.2 (0.9-1.1); PROTHROMBIN TIME 12.5 SEC (9.4-11.6)
[2017-12-05] VITALS (8 sets, daily range): BP systolic 119–146; BP diastolic 51–95
[2017-12-05 06:08] LABS: GLUCOMETER DEV NAME(LOC) 5S 2Q; GLUCOSE,POINT OF CARE 98 MG/DL (70-110)
[2017-12-05] MEDS: LEVOTHYROXINE SODIUM 50 MCG TABLET PO SCH (06:22)
[2017-12-05 06:53] LABS: BASOPHILS % (AUTO) 0.7 % (0.0-2.0); EOSINOPHILS % (AUTO) 1.5 % (1.0-6.0); HEMATOCRIT 28.8 % (36-46); HEMOGLOBIN 9.8 g/dL (12.0-16.0); LYMPHOCYTES # (AUTO) 2.5 K/uL (1.0-4.8); MEAN CORPUSCULAR HEMOGLOBIN 28.8 pg (26.0-34.0); MEAN CORPUSCULAR HGB CONC 34.1 G/dL (31.0-37.0); MEAN CORPUSCULAR VOLUME 85 fL (80-100); MONOCYTES # (AUTO) 0.9 K/uL (0.1-1.0); MONOCYTES % (AUTO) 10.7 % (2.0-9.0); NEUTROPHILS # (AUTO) 4.7 K/uL (1.8-7.7); NEUTROPHILS % (AUTO) 57.1 % (40.0-70.0); PLATELET COUNT (AUTO) 254 K/uL (150-450); RED BLOOD CELL COUNT(AUTO) 3.41 MIL/uL (4.00-5.20); RED CELL DISTRIBUTION WIDTH 14.9 % (11.5-14.5)
[2017-12-05] MEDS: GlipiZIDE 5 MG TABLET PO SCH ×2 (08:23→17:33)
[2017-12-05] MEDS: MetFORMIN HCL 500 MG TABLET PO SCH ×2 (08:24→17:33)
[2017-12-05] MEDS: FUROSEMIDE 20 MG/2 ML VIAL IVP SCH ×2 (08:24→21:20)
[2017-12-05] MEDS: RIVAROXABAN 15 MG TABLET PO SCH ×2 (08:24→17:33)
[2017-12-05] MEDS: POTASSIUM CHLORIDE 10 MEQ ER TABLET PO SCH (08:25)
[2017-12-05] MEDS: ASPIRIN 81 MG CHEWABLE TABLET PO SCH (08:25)
[2017-12-05] MEDS: MAGNESIUM OXIDE 400 MG TABLET PO SCH (08:25)
[2017-12-05] MEDS: CITALOPRAM HYDROBROMIDE 20 MG TABLET PO SCH (08:25)
[2017-12-05] MEDS: MEGESTROL ACETATE 400 MG/10 ML SUSPENSION UDCUP PO SCH (08:26)
[2017-12-05] MEDS: OMEPRAZOLE 20 MG CAPSULE PO SCH (08:26)
[2017-12-05] MEDS: RisperiDONE 1 MG TABLET PO SCH ×2 (08:26→21:20)
[2017-12-05] MEDS: AmLODIPine BESYLATE 10 MG TABLET PO SCH (08:26)
[2017-12-05 19:39] LABS: GLUCOMETER DEV NAME(LOC) 5S 2Q; GLUCOSE,POINT OF CARE 160 MG/DL (70-110)
[2017-12-05] MEDS: ATORVASTATIN CALCIUM 20 MG TABLET PO SCH (21:19)
[2017-12-05] MEDS: BENZTROPINE MESYLATE 0.5 MG TABLET PO SCH (21:20)
[2017-12-06 01:08] LABS: GLUCOMETER DEV NAME(LOC) 5S 2Q; GLUCOSE,POINT OF CARE 93 MG/DL (70-110)
[2017-12-06 04:15] VITALS: BP 142/68
[2017-12-06] MEDS: GlipiZIDE 5 MG TABLET PO SCH ×2 (06:42→17:57)
[2017-12-06] MEDS: LEVOTHYROXINE SODIUM 50 MCG TABLET PO SCH (06:42)
[2017-12-06 07:34] VITALS: BP 145/80
[2017-12-06] MEDS: CITALOPRAM HYDROBROMIDE 20 MG TABLET PO SCH (08:32)
[2017-12-06] MEDS: MetFORMIN HCL 500 MG TABLET PO SCH ×2 (08:32→17:58)
[2017-12-06] MEDS: OMEPRAZOLE 20 MG CAPSULE PO SCH (08:33)
[2017-12-06] MEDS: POTASSIUM CHLORIDE 10 MEQ ER TABLET PO SCH (08:33)
[2017-12-06] MEDS: MAGNESIUM OXIDE 400 MG TABLET PO SCH (08:33)
[2017-12-06] MEDS: ASPIRIN 81 MG CHEWABLE TABLET PO SCH (08:34)
[2017-12-06] MEDS: RisperiDONE 1 MG TABLET PO SCH (08:34)
[2017-12-06] MEDS: MEGESTROL ACETATE 400 MG/10 ML SUSPENSION UDCUP PO SCH (08:35)
[2017-12-06] MEDS: AmLODIPine BESYLATE 10 MG TABLET PO SCH (08:37)
[2017-12-06] MEDS: RIVAROXABAN 15 MG TABLET PO SCH ×2 (08:38→17:58)
[2017-12-06] MEDS: FUROSEMIDE 20 MG/2 ML VIAL IVP SCH (09:56)
[2017-12-06 10:08] LABS: BASOPHILS % (AUTO) 0.6 % (0.0-2.0); EOSINOPHILS % (AUTO) 0.8 % (1.0-6.0); HEMATOCRIT 34.8 % (36-46); LYMPHOCYTES # (AUTO) 2.2 K/uL (1.0-4.8); LYMPHOCYTES % (AUTO) 26.4 % (22.0-44.0); MEAN CORPUSCULAR HEMOGLOBIN 28.2 pg (26.0-34.0); MEAN CORPUSCULAR HGB CONC 31.7 G/dL (31.0-37.0); MEAN CORPUSCULAR VOLUME 89 fL (80-100); MONOCYTES % (AUTO) 11.2 % (2.0-9.0); NEUTROPHILS # (AUTO) 5.2 K/uL (1.8-7.7); PLATELET COUNT (AUTO) 260 K/uL (150-450); RED BLOOD CELL COUNT(AUTO) 3.91 MIL/uL (4.00-5.20); RED CELL DISTRIBUTION WIDTH 15.3 % (11.5-14.5)
[2017-12-06 10:24] LABS: ALBUMIN 3.8 g/dL (3.4-5.0); BILIRUBIN,TOTAL 0.2 mg/dL (0.1-1.0); CALCIUM, TOTAL 9.2 mg/dL (8.8-10.5); CREATININE 1.14 mg/dL (0.60-1.30); MAGNESIUM 1.7 mg/dL (1.80-2.40); POTASSIUM 4.7 mmol/L (3.5-5.1); TOTAL PROTEIN, SERUM 7.5 g/dL (6.4-8.2)
[2017-12-06 11:30] VITALS: BP 151/77
[2017-12-06 11:43] LABS: GLUCOMETER DEV NAME(LOC) 5S 1M; GLUCOSE,POINT OF CARE 143 MG/DL (70-110)
[2017-12-06 11:43] LABS: GLUCOMETER DEV NAME(LOC) 5S 1M; GLUCOSE,POINT OF CARE 103 MG/DL (70-110)
[2017-12-06 11:44] LABS: GLUCOMETER DEV NAME(LOC) 5S 1M; GLUCOSE,POINT OF CARE 149 MG/DL (70-110)
[2017-12-06 15:06] VITALS: BP 146/53
[2017-12-06] MEDS ORDERED: CITA-106 PO (18:15)
[2017-12-06] MEDS ORDERED: FURO20 PO (18:15)
[2017-12-06] MEDS ORDERED: BENZ0.5T44 PO (18:16)
[2017-12-22] MEDS ORDERED: RIVAROXABAN 20 MG TABLET PO SCH (18:00)
== END 2017-12-06 18:41 | DRG 197 ==
LOC: 5S 21:20
PROVIDERS: ADMIT Internal Medicine; ATTEND Internal Medicine
PROC: 3E033GC Introduction of Other Therapeutic Substance into Peripheral Vein, Percutaneous Approach (ICD-10-PCS; principal; 2017-12-06)
DX: I82.412 Acute embolism and thrombosis of left femoral vein (principal); I82.432 Acute embolism and thrombosis of left popliteal vein; I10 Essential (primary) hypertension; E11.65 Type 2 diabetes mellitus with hyperglycemia; D64.9 Anemia, unspecified; J44.9 Chronic obstructive pulmonary disease, unspecified; E03.9 Hypothyroidism, unspecified; K21.9 Gastro-esophageal reflux disease without esophagitis; E78.5 Hyperlipidemia, unspecified; F17.200 Nicotine dependence, unspecified, uncomplicated; F25.1 Schizoaffective disorder, depressive type; G47.00 Insomnia, unspecified; F79 Unspecified intellectual disabilities; Z71.6 Tobacco abuse counseling; Z79.01 Long term (current) use of anticoagulants; Z79.82 Long term (current) use of aspirin; Z79.899 Other long term (current) drug therapy
CPT/HCPCS: 83735; 93005; 93306; J1644; J1940

== ENCOUNTER 2017-12-06 18:15 | Inpatient (IN) | payer MEDICAID ==
[~2017-12-06] VITALS: Ht 157.5 cm; Wt 71.8 kg
[~2017-12-06 18:15] MED LIST changes: +CITA-106 PO; +FURO20 PO; +METF-960 PO; -METF500T6 PO
[2017-12-06] MEDS ORDERED: BENZ0.5T44 PO (18:16)
[2017-12-06] MEDS ORDERED: DEXTROSE 50%-WATER 25 GM/50 ML SYRINGE IVP PRN (19:15)
[2017-12-06] MEDS ORDERED: LOPERAMIDE HCL 2 MG CAPSULE PO PRN (19:15)
[2017-12-06 19:20] VITALS: BP 135/83
[2017-12-06] MEDS ORDERED: CloNIDine HCL 0.1 MG TABLET PO PRN (19:45)
[2017-12-06] MEDS ORDERED: ALBUTEROL SULFATE HFA 90 MCG/PUFF 8 GM INHALER IH PRN (19:45)
[2017-12-06] MEDS ORDERED: PETROLATUM,WHITE 71 GM JELLY TP PRN (19:45)
[2017-12-06] MEDS ORDERED: BENZOCAINE/MENTHOL LOZENGE MM PRN (19:45)
[2017-12-06] MEDS ORDERED: ONDANSETRON HCL 4 MG TABLET PO PRN (19:45)
[2017-12-06] MEDS ORDERED: MAGNESIUM HYDROXIDE SUSPENSION 30 ML UDCUP PO PRN (19:45)
[2017-12-06] MEDS ORDERED: IBUPROFEN 600 MG TABLET PO PRN (19:45)
[2017-12-06] MEDS ORDERED: BACITRACIN 28.4 GM OINTMENT TP PRN (19:45)
[2017-12-06] MEDS ORDERED: MAG HYDROX/AL HYDROX/SIMETH ES 30 ML SUSPENSION UDCUP PO PRN (19:45)
[2017-12-06] MEDS: ATORVASTATIN CALCIUM 20 MG TABLET PO SCH (20:40)
[2017-12-06] MEDS: BENZTROPINE MESYLATE 0.5 MG TABLET PO SCH (20:40)
[2017-12-06] MEDS: INSULIN LISPRO 100 UNITS/ML SQ PRN (20:53)
[2017-12-06] MEDS: FUROSEMIDE 20 MG TABLET PO SCH (21:19)
[2017-12-06] MEDS: RisperiDONE 1 MG TABLET PO SCH (21:21)
[2017-12-07 00:20] VITALS: BP 161/84
[2017-12-07] MEDS: LORazepam 2 MG TABLET PO PRN (00:32)
[2017-12-07] MEDS: ZOLPIDEM TARTRATE 10 MG TABLET PO PRN (00:32)
[2017-12-07 05:59] LABS: GLUCOMETER DEV NAME(LOC) PVLAB139; GLUCOSE,POINT OF CARE 139 MG/DL (70-110)
[2017-12-07 06:35] LABS: BASOPHILS % (AUTO) 0.6 % (0.0-2.0); HEMATOCRIT 28.1 % (36-46); HEMOGLOBIN 9.5 g/dL (12.0-16.0); LYMPHOCYTES # (AUTO) 2.2 K/uL (1.0-4.8); LYMPHOCYTES % (AUTO) 25.6 % (22.0-44.0); MEAN CORPUSCULAR HEMOGLOBIN 28.5 pg (26.0-34.0); MEAN CORPUSCULAR HGB CONC 33.7 G/dL (31.0-37.0); MEAN CORPUSCULAR VOLUME 85 fL (80-100); MONOCYTES % (AUTO) 11.7 % (2.0-9.0); NEUTROPHILS # (AUTO) 5.3 K/uL (1.8-7.7); NEUTROPHILS % (AUTO) 61.1 % (40.0-70.0); PLATELET COUNT (AUTO) 242 K/uL (150-450); RED BLOOD CELL COUNT(AUTO) 3.32 MIL/uL (4.00-5.20); RED CELL DISTRIBUTION WIDTH 14.5 % (11.5-14.5)
[2017-12-07] MEDS: GlipiZIDE 5 MG TABLET PO SCH ×2 (07:03→16:47)
[2017-12-07] MEDS: LEVOTHYROXINE SODIUM 50 MCG TABLET PO SCH (07:04)
[2017-12-07] MEDS: MetFORMIN HCL 500 MG TABLET PO SCH ×2 (07:04→16:48)
[2017-12-07] MEDS: INSULIN LISPRO 100 UNITS/ML SQ PRN ×3 (07:28→16:49)
[2017-12-07] MEDS: CITALOPRAM HYDROBROMIDE 20 MG TABLET PO SCH (08:28)
[2017-12-07] MEDS: OMEPRAZOLE 20 MG CAPSULE PO SCH (08:28)
[2017-12-07] MEDS: POTASSIUM CHLORIDE 10 MEQ ER TABLET PO SCH (08:28)
[2017-12-07] MEDS: ASPIRIN 81 MG CHEWABLE TABLET PO SCH (08:28)
[2017-12-07] MEDS: AmLODIPine BESYLATE 10 MG TABLET PO SCH (08:28)
[2017-12-07] MEDS: DOCUSATE SODIUM 100 MG CAPSULE PO SCH (08:28)
[2017-12-07] MEDS: FUROSEMIDE 20 MG TABLET PO SCH ×2 (08:28→16:47)
[2017-12-07] MEDS: MAGNESIUM OXIDE 400 MG TABLET PO SCH (08:28)
[2017-12-07] MEDS: MEGESTROL ACETATE 400 MG/10 ML SUSPENSION UDCUP PO SCH (08:28)
[2017-12-07] MEDS: RisperiDONE 1 MG TABLET PO SCH ×2 (08:28→20:12)
[2017-12-07 08:47] VITALS: BP 153/65
[2017-12-07] MEDS ORDERED: OMEPRAZOLE 20 MG CAPSULE PO SCH (09:00)
[2017-12-07 11:39] LABS: GLUCOMETER DEV NAME(LOC) PVLAB139; GLUCOSE,POINT OF CARE 221 MG/DL (70-110)
[2017-12-07] MEDS: RIVAROXABAN 15 MG TABLET PO SCH (16:47)
[2017-12-07 16:48] LABS: GLUCOMETER DEV NAME(LOC) 3EC; GLUCOSE,POINT OF CARE 145 MG/DL (70-110)
[2017-12-07 17:51] VITALS: BP 169/95
[2017-12-07] MEDS: ATORVASTATIN CALCIUM 20 MG TABLET PO SCH (20:12)
[2017-12-07] MEDS: BENZTROPINE MESYLATE 0.5 MG TABLET PO SCH (20:12)
[2017-12-07 20:14] LABS: GLUCOMETER DEV NAME(LOC) 3EC; GLUCOSE,POINT OF CARE 115 MG/DL (70-110)
[2017-12-08 05:54] VITALS: BP 143/86
[2017-12-08 06:40] LABS: GLUCOMETER DEV NAME(LOC) 3EC; GLUCOSE,POINT OF CARE 193 MG/DL (70-110)
[2017-12-08] MEDS: GlipiZIDE 5 MG TABLET PO SCH ×2 (06:46→16:26)
[2017-12-08] MEDS: LEVOTHYROXINE SODIUM 50 MCG TABLET PO SCH (06:46)
[2017-12-08] MEDS: RIVAROXABAN 15 MG TABLET PO SCH ×2 (06:46→16:30)
[2017-12-08] MEDS: MetFORMIN HCL 500 MG TABLET PO SCH ×2 (06:47→16:30)
[2017-12-08] MEDS: INSULIN LISPRO 100 UNITS/ML SQ PRN ×2 (06:55→16:27)
[2017-12-08 08:37] VITALS: BP 128/77
[2017-12-08] MEDS: POTASSIUM CHLORIDE 10 MEQ ER TABLET PO SCH (08:47)
[2017-12-08] MEDS: RisperiDONE 1 MG TABLET PO SCH ×2 (08:47→20:38)
[2017-12-08] MEDS: AmLODIPine BESYLATE 10 MG TABLET PO SCH (08:47)
[2017-12-08] MEDS: FUROSEMIDE 20 MG TABLET PO SCH ×2 (08:47→16:25)
[2017-12-08] MEDS: MAGNESIUM OXIDE 400 MG TABLET PO SCH (08:47)
[2017-12-08] MEDS: CITALOPRAM HYDROBROMIDE 20 MG TABLET PO SCH (08:47)
[2017-12-08] MEDS: ASPIRIN 81 MG CHEWABLE TABLET PO SCH (08:47)
[2017-12-08] MEDS: OMEPRAZOLE 20 MG CAPSULE PO SCH (08:47)
[2017-12-08] MEDS: DOCUSATE SODIUM 100 MG CAPSULE PO SCH (08:47)
[2017-12-08] MEDS: MEGESTROL ACETATE 400 MG/10 ML SUSPENSION UDCUP PO SCH (08:47)
[2017-12-08 11:43] LABS: GLUCOMETER DEV NAME(LOC) 3EC; GLUCOSE,POINT OF CARE 89 MG/DL (70-110)
[2017-12-08 16:29] LABS: GLUCOMETER DEV NAME(LOC) 3EC; GLUCOSE,POINT OF CARE 296 MG/DL (70-110)
[2017-12-08 16:43] VITALS: BP 143/76
[2017-12-08] MEDS: BENZTROPINE MESYLATE 0.5 MG TABLET PO SCH (20:38)
[2017-12-08] MEDS: ATORVASTATIN CALCIUM 20 MG TABLET PO SCH (20:38)
[2017-12-08 20:48] LABS: GLUCOMETER DEV NAME(LOC) 3EX 1; GLUCOSE,POINT OF CARE 106 MG/DL (70-110)
[2017-12-08] MEDS: ZOLPIDEM TARTRATE 10 MG TABLET PO PRN (21:38)
[2017-12-09 06:09] LABS: GLUCOMETER DEV NAME(LOC) 3EX 1; GLUCOSE,POINT OF CARE 133 MG/DL (70-110)
[2017-12-09] MEDS: MetFORMIN HCL 500 MG TABLET PO SCH ×2 (06:57→16:08)
[2017-12-09] MEDS: RIVAROXABAN 15 MG TABLET PO SCH ×2 (06:57→16:08)
[2017-12-09] MEDS: GlipiZIDE 5 MG TABLET PO SCH ×2 (06:57→16:08)
[2017-12-09] MEDS: LEVOTHYROXINE SODIUM 50 MCG TABLET PO SCH (06:57)
[2017-12-09 07:08] LABS: CALCIUM, TOTAL 8.5 mg/dL (8.8-10.5); CREATININE 1.28 mg/dL (0.60-1.30); POTASSIUM 5.1 mmol/L (3.5-5.1)
[2017-12-09] MEDS: AmLODIPine BESYLATE 10 MG TABLET PO SCH (08:59)
[2017-12-09] MEDS: FUROSEMIDE 20 MG TABLET PO SCH ×2 (08:59→16:08)
[2017-12-09] MEDS: DOCUSATE SODIUM 100 MG CAPSULE PO SCH (08:59)
[2017-12-09] MEDS: CITALOPRAM HYDROBROMIDE 20 MG TABLET PO SCH (08:59)
[2017-12-09] MEDS: ASPIRIN 81 MG CHEWABLE TABLET PO SCH (08:59)
[2017-12-09] MEDS: OMEPRAZOLE 20 MG CAPSULE PO SCH (08:59)
[2017-12-09] MEDS: MAGNESIUM OXIDE 400 MG TABLET PO SCH (09:00)
[2017-12-09] MEDS: RisperiDONE 1 MG TABLET PO SCH ×2 (09:00→20:38)
[2017-12-09] MEDS: MEGESTROL ACETATE 400 MG/10 ML SUSPENSION UDCUP PO SCH (09:00)
[2017-12-09] MEDS: POTASSIUM CHLORIDE 10 MEQ ER TABLET PO SCH (09:00)
[2017-12-09 09:12] VITALS: BP 156/86
[2017-12-09 11:03] LABS: GLUCOMETER DEV NAME(LOC) PVLAB139; GLUCOSE,POINT OF CARE 235 MG/DL (70-110)
[2017-12-09 11:39] LABS: GLUCOMETER DEV NAME(LOC) 3EX 1; GLUCOSE,POINT OF CARE 165 MG/DL (70-110)
[2017-12-09] MEDS: INSULIN LISPRO 100 UNITS/ML SQ PRN ×2 (11:43→17:37)
[2017-12-09 16:14] LABS: GLUCOMETER DEV NAME(LOC) 3EX 1; GLUCOSE,POINT OF CARE 221 MG/DL (70-110)
[2017-12-09 17:21] VITALS: BP 124/70
[2017-12-09] MEDS: ATORVASTATIN CALCIUM 20 MG TABLET PO SCH (20:37)
[2017-12-09] MEDS: BENZTROPINE MESYLATE 0.5 MG TABLET PO SCH (20:37)
[2017-12-09 20:44] LABS: GLUCOMETER DEV NAME(LOC) 3EX 1; GLUCOSE,POINT OF CARE 56 MG/DL (70-110)
[2017-12-09 20:54] LABS: GLUCOMETER DEV NAME(LOC) 3EX 1; GLUCOSE,POINT OF CARE 80 MG/DL (70-110)
[2017-12-09] MEDS: ZOLPIDEM TARTRATE 10 MG TABLET PO PRN (22:12)
[2017-12-09] MEDS: LORazepam 2 MG TABLET PO PRN (22:20)
[2017-12-09] MEDS: HALOPERIDOL 5 MG TABLET PO PRN (22:21)
[2017-12-10 03:10] VITALS: BP 149/104
[2017-12-10] MEDS: GlipiZIDE 5 MG TABLET PO SCH ×2 (06:36→16:29)
[2017-12-10] MEDS: LEVOTHYROXINE SODIUM 50 MCG TABLET PO SCH (06:36)
[2017-12-10] MEDS: INSULIN LISPRO 100 UNITS/ML SQ PRN ×2 (06:37→17:42)
[2017-12-10] MEDS: MetFORMIN HCL 500 MG TABLET PO SCH ×2 (06:54→16:30)
[2017-12-10] MEDS: RIVAROXABAN 15 MG TABLET PO SCH ×2 (07:36→16:30)
[2017-12-10 08:44] VITALS: BP 116/66
[2017-12-10] MEDS: OMEPRAZOLE 20 MG CAPSULE PO SCH (09:19)
[2017-12-10] MEDS: AmLODIPine BESYLATE 10 MG TABLET PO SCH (09:19)
[2017-12-10] MEDS: ASPIRIN 81 MG CHEWABLE TABLET PO SCH (09:19)
[2017-12-10] MEDS: CITALOPRAM HYDROBROMIDE 20 MG TABLET PO SCH (09:19)
[2017-12-10] MEDS: POTASSIUM CHLORIDE 10 MEQ ER TABLET PO SCH (09:19)
[2017-12-10] MEDS: DOCUSATE SODIUM 100 MG CAPSULE PO SCH (09:19)
[2017-12-10] MEDS: MEGESTROL ACETATE 400 MG/10 ML SUSPENSION UDCUP PO SCH (09:20)
[2017-12-10] MEDS: FUROSEMIDE 20 MG TABLET PO SCH ×2 (09:20→16:28)
[2017-12-10] MEDS: MAGNESIUM OXIDE 400 MG TABLET PO SCH (09:20)
[2017-12-10] MEDS: RisperiDONE 1 MG TABLET PO SCH ×2 (09:21→21:00)
[2017-12-10 14:55] LABS: GLUCOMETER DEV NAME(LOC) 3EI C; GLUCOSE,POINT OF CARE 85 MG/DL (70-110)
[2017-12-10 14:55] LABS: GLUCOMETER DEV NAME(LOC) 3EX 1; GLUCOSE,POINT OF CARE 94 MG/DL (70-110)
[2017-12-10] MEDS: LORazepam 2 MG TABLET PO PRN (16:04)
[2017-12-10 16:09] LABS: GLUCOMETER DEV NAME(LOC) 3EI C; GLUCOSE,POINT OF CARE 212 MG/DL (70-110)
[2017-12-10 16:58] VITALS: BP 128/68
[2017-12-10] MEDS: ATORVASTATIN CALCIUM 20 MG TABLET PO SCH (21:00)
[2017-12-10] MEDS: BENZTROPINE MESYLATE 0.5 MG TABLET PO SCH (21:00)
[2017-12-10 21:40] LABS: GLUCOMETER DEV NAME(LOC) 3EI C; GLUCOSE,POINT OF CARE 95 MG/DL (70-110)
[2017-12-11 05:39] LABS: GLUCOMETER DEV NAME(LOC) 3EI C; GLUCOSE,POINT OF CARE 123 MG/DL (70-110)
[2017-12-11 06:46] LABS: HEMATOCRIT 31.6 % (36-46); HEMOGLOBIN 10.5 g/dL (12.0-16.0); MEAN CORPUSCULAR HEMOGLOBIN 28.5 pg (26.0-34.0); MEAN CORPUSCULAR HGB CONC 33.2 G/dL (31.0-37.0); MEAN CORPUSCULAR VOLUME 86 fL (80-100); PLATELET COUNT (AUTO) 248 K/uL (150-450); RED BLOOD CELL COUNT(AUTO) 3.68 MIL/uL (4.00-5.20); RED CELL DISTRIBUTION WIDTH 15.3 % (11.5-14.5)
[2017-12-11] MEDS: GlipiZIDE 5 MG TABLET PO SCH ×2 (06:50→16:06)
[2017-12-11] MEDS: MetFORMIN HCL 500 MG TABLET PO SCH ×2 (06:51→17:25)
[2017-12-11] MEDS: LEVOTHYROXINE SODIUM 50 MCG TABLET PO SCH (06:51)
[2017-12-11] MEDS: RIVAROXABAN 15 MG TABLET PO SCH ×2 (06:51→17:25)
[2017-12-11] MEDS: INSULIN LISPRO 100 UNITS/ML SQ PRN ×3 (07:01→17:27)
[2017-12-11 07:08] LABS: CALCIUM, TOTAL 8.9 mg/dL (8.8-10.5); CREATININE 1.2 mg/dL (0.60-1.30); PHOSPHORUS 3.6 mg/dL (2.5-4.9); POTASSIUM 4.9 mmol/L (3.5-5.1)
[2017-12-11 07:40] LABS: BAND NEUTROPHILS % (MANUAL) 1 % (0-5); LYMPHOCYTES % (MANUAL) 29 % (22-44); MONOCYTES % (MANUAL) 2 % (2-9); SEGMENTED NEUTROPHILS % 68 % (40-70)
[2017-12-11] MEDS: PROPRANOLOL HCL 10 MG TABLET PO SCH (08:35)
[2017-12-11] MEDS: FUROSEMIDE 20 MG TABLET PO SCH ×2 (08:35→16:06)
[2017-12-11] MEDS: RisperiDONE 1 MG TABLET PO SCH ×2 (08:35→20:24)
[2017-12-11] MEDS: POTASSIUM CHLORIDE 10 MEQ ER TABLET PO SCH (08:35)
[2017-12-11] MEDS: AmLODIPine BESYLATE 10 MG TABLET PO SCH (08:36)
[2017-12-11] MEDS: DOCUSATE SODIUM 100 MG CAPSULE PO SCH (08:36)
[2017-12-11] MEDS: OMEPRAZOLE 20 MG CAPSULE PO SCH (08:36)
[2017-12-11] MEDS: ASPIRIN 81 MG CHEWABLE TABLET PO SCH (08:38)
[2017-12-11] MEDS: CITALOPRAM HYDROBROMIDE 20 MG TABLET PO SCH (08:38)
[2017-12-11 09:07] VITALS: BP 106/88
[2017-12-11 11:18] LABS: GLUCOMETER DEV NAME(LOC) 3EI C; GLUCOSE,POINT OF CARE 111 MG/DL (70-110)
[2017-12-11] MEDS: LORazepam 2 MG TABLET PO PRN (16:06)
[2017-12-11 16:14] LABS: GLUCOMETER DEV NAME(LOC) 3EI C; GLUCOSE,POINT OF CARE 152 MG/DL (70-110)
[2017-12-11 19:08] VITALS: BP 160/76
[2017-12-11] MEDS: ATORVASTATIN CALCIUM 20 MG TABLET PO SCH (20:24)
[2017-12-11] MEDS: BENZTROPINE MESYLATE 0.5 MG TABLET PO SCH (20:24)
[2017-12-11 21:30] LABS: GLUCOMETER DEV NAME(LOC) 3EI C; GLUCOSE,POINT OF CARE 78 MG/DL (70-110)
[2017-12-12] MEDS: LOPERAMIDE HCL 2 MG CAPSULE PO PRN ×2 (02:28→21:01)
[2017-12-12 04:40] VITALS: BP 132/79
[2017-12-12 05:35] LABS: GLUCOMETER DEV NAME(LOC) 3EI C; GLUCOSE,POINT OF CARE 166 MG/DL (70-110)
[2017-12-12] MEDS: GlipiZIDE 5 MG TABLET PO SCH ×2 (06:47→17:04)
[2017-12-12] MEDS: MetFORMIN HCL 500 MG TABLET PO SCH ×2 (06:47→17:04)
[2017-12-12] MEDS: RIVAROXABAN 15 MG TABLET PO SCH ×2 (06:47→17:05)
[2017-12-12] MEDS: LEVOTHYROXINE SODIUM 50 MCG TABLET PO SCH (06:48)
[2017-12-12] MEDS: INSULIN LISPRO 100 UNITS/ML SQ PRN ×3 (07:00→17:37)
[2017-12-12] MEDS: ASPIRIN 81 MG CHEWABLE TABLET PO SCH (08:28)
[2017-12-12] MEDS: DOCUSATE SODIUM 100 MG CAPSULE PO SCH (08:28)
[2017-12-12] MEDS: CITALOPRAM HYDROBROMIDE 20 MG TABLET PO SCH (08:28)
[2017-12-12] MEDS: OMEPRAZOLE 20 MG CAPSULE PO SCH (08:29)
[2017-12-12] MEDS: AmLODIPine BESYLATE 10 MG TABLET PO SCH (08:29)
[2017-12-12] MEDS: FUROSEMIDE 20 MG TABLET PO SCH ×2 (08:29→17:04)
[2017-12-12] MEDS: PROPRANOLOL HCL 10 MG TABLET PO SCH (08:29)
[2017-12-12] MEDS: POTASSIUM CHLORIDE 10 MEQ ER TABLET PO SCH (08:29)
[2017-12-12] MEDS: RisperiDONE 1 MG TABLET PO SCH ×2 (08:29→20:50)
[2017-12-12 08:50] VITALS: BP 167/92
[2017-12-12 11:19] LABS: GLUCOMETER DEV NAME(LOC) 3EI C; GLUCOSE,POINT OF CARE 158 MG/DL (70-110)
[2017-12-12 16:46] VITALS: BP 160/88
[2017-12-12 17:08] LABS: GLUCOMETER DEV NAME(LOC) 3EI C; GLUCOSE,POINT OF CARE 157 MG/DL (70-110)
[2017-12-12 20:48] LABS: GLUCOMETER DEV NAME(LOC) 3EI C; GLUCOSE,POINT OF CARE 86 MG/DL (70-110)
[2017-12-12] MEDS: ATORVASTATIN CALCIUM 20 MG TABLET PO SCH (20:49)
[2017-12-12] MEDS: ZOLPIDEM TARTRATE 10 MG TABLET PO PRN (20:49)
[2017-12-12] MEDS: BENZTROPINE MESYLATE 0.5 MG TABLET PO SCH (20:49)
[2017-12-13] MEDS: LORazepam 2 MG TABLET PO PRN (00:29)
[2017-12-13 05:43] VITALS: BP 141/91
[2017-12-13 06:35] LABS: GLUCOMETER DEV NAME(LOC) 3EI C; GLUCOSE,POINT OF CARE 100 MG/DL (70-110)
[2017-12-13] MEDS: MetFORMIN HCL 500 MG TABLET PO SCH ×2 (06:55→16:39)
[2017-12-13] MEDS: RIVAROXABAN 15 MG TABLET PO SCH ×2 (06:56→16:39)
[2017-12-13] MEDS: GlipiZIDE 5 MG TABLET PO SCH ×2 (06:56→16:39)
[2017-12-13] MEDS: LEVOTHYROXINE SODIUM 50 MCG TABLET PO SCH (06:56)
[2017-12-13 08:00] VITALS: BP 161/58
[2017-12-13] MEDS: AmLODIPine BESYLATE 10 MG TABLET PO SCH (08:27)
[2017-12-13] MEDS: FUROSEMIDE 20 MG TABLET PO SCH ×2 (08:28→16:40)
[2017-12-13] MEDS: PROPRANOLOL HCL 10 MG TABLET PO SCH (08:28)
[2017-12-13] MEDS: RisperiDONE 1 MG TABLET PO SCH ×2 (08:28→20:58)
[2017-12-13] MEDS: DOCUSATE SODIUM 100 MG CAPSULE PO SCH (08:28)
[2017-12-13] MEDS: CITALOPRAM HYDROBROMIDE 20 MG TABLET PO SCH (08:29)
[2017-12-13] MEDS: POTASSIUM CHLORIDE 10 MEQ ER TABLET PO SCH (08:29)
[2017-12-13] MEDS: ASPIRIN 81 MG CHEWABLE TABLET PO SCH (08:29)
[2017-12-13] MEDS: OMEPRAZOLE 20 MG CAPSULE PO SCH (08:29)
[2017-12-13 09:40] VITALS: BP 125/55
[2017-12-13] MEDS: INSULIN LISPRO 100 UNITS/ML SQ PRN ×2 (11:05→17:45)
[2017-12-13 11:08] LABS: GLUCOMETER DEV NAME(LOC) 3EI C; GLUCOSE,POINT OF CARE 143 MG/DL (70-110)
[2017-12-13] MEDS: LOPERAMIDE HCL 2 MG CAPSULE PO PRN (16:39)
[2017-12-13 17:04] LABS: GLUCOMETER DEV NAME(LOC) 3EI C; GLUCOSE,POINT OF CARE 147 MG/DL (70-110)
[2017-12-13 18:11] VITALS: BP 165/80
[2017-12-13 18:42] LABS: C.DIFF GDH ANTIGEN, Stool Negative (Negative); C.DIFF TOXINS A&B, Stool Negative (Negative)
[2017-12-13] MEDS: ATORVASTATIN CALCIUM 20 MG TABLET PO SCH (20:58)
[2017-12-13] MEDS: BENZTROPINE MESYLATE 0.5 MG TABLET PO SCH (20:59)
[2017-12-13 21:14] LABS: GLUCOMETER DEV NAME(LOC) 3EI C; GLUCOSE,POINT OF CARE 78 MG/DL (70-110)
[2017-12-14] MEDS: ZOLPIDEM TARTRATE 10 MG TABLET PO PRN (01:13)
[2017-12-14] MEDS: LORazepam 2 MG TABLET PO PRN ×2 (01:49→08:55)
[2017-12-14 06:29] LABS: GLUCOMETER DEV NAME(LOC) 3EI C; GLUCOSE,POINT OF CARE 120 MG/DL (70-110)
[2017-12-14] MEDS: LEVOTHYROXINE SODIUM 50 MCG TABLET PO SCH (06:32)
[2017-12-14] MEDS: RIVAROXABAN 15 MG TABLET PO SCH ×2 (06:32→16:09)
[2017-12-14] MEDS: GlipiZIDE 5 MG TABLET PO SCH ×2 (06:32→16:09)
[2017-12-14] MEDS: MetFORMIN HCL 500 MG TABLET PO SCH ×2 (06:32→16:10)
[2017-12-14 07:10] VITALS: BP 135/86
[2017-12-14] MEDS: ASPIRIN 81 MG CHEWABLE TABLET PO SCH (08:43)
[2017-12-14] MEDS: POTASSIUM CHLORIDE 10 MEQ ER TABLET PO SCH (08:43)
[2017-12-14] MEDS: FUROSEMIDE 20 MG TABLET PO SCH ×2 (08:43→16:09)
[2017-12-14] MEDS: AmLODIPine BESYLATE 10 MG TABLET PO SCH (08:43)
[2017-12-14] MEDS: PROPRANOLOL HCL 10 MG TABLET PO SCH (08:44)
[2017-12-14] MEDS: OMEPRAZOLE 20 MG CAPSULE PO SCH (08:44)
[2017-12-14] MEDS: CITALOPRAM HYDROBROMIDE 20 MG TABLET PO SCH (08:44)
[2017-12-14] MEDS: RisperiDONE 1 MG TABLET PO SCH ×2 (08:44→20:21)
[2017-12-14] MEDS: HALOPERIDOL 5 MG TABLET PO PRN (08:55)
[2017-12-14 09:28] VITALS: BP 134/80
[2017-12-14] MEDS: INSULIN LISPRO 100 UNITS/ML SQ PRN ×2 (11:21→17:25)
[2017-12-14 11:23] LABS: GLUCOMETER DEV NAME(LOC) 3EI C; GLUCOSE,POINT OF CARE 171 MG/DL (70-110)
[2017-12-14 16:00] VITALS: BP 148/49
[2017-12-14 16:19] LABS: GLUCOMETER DEV NAME(LOC) 3EI C; GLUCOSE,POINT OF CARE 142 MG/DL (70-110)
[2017-12-14] MEDS: ATORVASTATIN CALCIUM 20 MG TABLET PO SCH (20:21)
[2017-12-14] MEDS: BENZTROPINE MESYLATE 0.5 MG TABLET PO SCH (20:21)
[2017-12-14] MEDS: LOPERAMIDE HCL 2 MG CAPSULE PO PRN (20:29)
[2017-12-14 20:38] LABS: GLUCOMETER DEV NAME(LOC) 3EI C; GLUCOSE,POINT OF CARE 54 MG/DL (70-110)
[2017-12-14 21:03] LABS: GLUCOMETER DEV NAME(LOC) 3EI C; GLUCOSE,POINT OF CARE 52 MG/DL (70-110)
[2017-12-14 21:24] LABS: GLUCOMETER DEV NAME(LOC) 3EI C; GLUCOSE,POINT OF CARE 64 MG/DL (70-110)
[2017-12-14 22:28] LABS: GLUCOMETER DEV NAME(LOC) 3EI C; GLUCOSE,POINT OF CARE 115 MG/DL (70-110)
[2017-12-15 06:34] LABS: GLUCOMETER DEV NAME(LOC) 3EI C; GLUCOSE,POINT OF CARE 82 MG/DL (70-110)
[2017-12-15] MEDS: LEVOTHYROXINE SODIUM 50 MCG TABLET PO SCH (06:59)
[2017-12-15] MEDS: GlipiZIDE 5 MG TABLET PO SCH ×2 (07:00→16:39)
[2017-12-15] MEDS: MetFORMIN HCL 500 MG TABLET PO SCH ×2 (07:00→17:44)
[2017-12-15] MEDS: RIVAROXABAN 15 MG TABLET PO SCH ×2 (07:00→16:39)
[2017-12-15 08:00] VITALS: BP 149/65
[2017-12-15 08:11] LABS: CALCIUM, TOTAL 8.5 mg/dL (8.8-10.5); CREATININE 1.22 mg/dL (0.60-1.30); POTASSIUM 4.1 mmol/L (3.5-5.1)
[2017-12-15 08:14] LABS: HEMOGLOBIN A1C 10.4 % (4.5-6.2)
[2017-12-15] MEDS: CITALOPRAM HYDROBROMIDE 20 MG TABLET PO SCH (09:27)
[2017-12-15] MEDS: FUROSEMIDE 20 MG TABLET PO SCH ×2 (09:27→16:39)
[2017-12-15] MEDS: RisperiDONE 1 MG TABLET PO SCH ×2 (09:27→20:16)
[2017-12-15] MEDS: ASPIRIN 81 MG CHEWABLE TABLET PO SCH (09:27)
[2017-12-15] MEDS: POTASSIUM CHLORIDE 10 MEQ ER TABLET PO SCH (09:27)
[2017-12-15] MEDS: OMEPRAZOLE 20 MG CAPSULE PO SCH (09:27)
[2017-12-15] MEDS: PROPRANOLOL HCL 10 MG TABLET PO SCH (09:28)
[2017-12-15] MEDS: AmLODIPine BESYLATE 10 MG TABLET PO SCH (09:28)
[2017-12-15] MEDS: SODIUM CHLORIDE 1 GM TABLET PO SCH ×3 (11:24→16:38)
[2017-12-15 11:28] LABS: GLUCOMETER DEV NAME(LOC) 3EI C; GLUCOSE,POINT OF CARE 136 MG/DL (70-110)
[2017-12-15] MEDS: LOPERAMIDE HCL 2 MG CAPSULE PO PRN (16:01)
[2017-12-15] MEDS: LORazepam 2 MG TABLET PO PRN (16:01)
[2017-12-15 16:03] LABS: GLUCOMETER DEV NAME(LOC) 3EI C; GLUCOSE,POINT OF CARE 140 MG/DL (70-110)
[2017-12-15 16:56] VITALS: BP 150/84
[2017-12-15] MEDS: ATORVASTATIN CALCIUM 20 MG TABLET PO SCH (20:16)
[2017-12-15] MEDS: BENZTROPINE MESYLATE 0.5 MG TABLET PO SCH (20:16)
[2017-12-15] MEDS: INSULIN LISPRO 100 UNITS/ML SQ PRN (22:00)
[2017-12-15 22:03] LABS: GLUCOMETER DEV NAME(LOC) 3EI C; GLUCOSE,POINT OF CARE 154 MG/DL (70-110)
[2017-12-16 02:15] VITALS: BP 134/60
[2017-12-16] MEDS: LOPERAMIDE HCL 2 MG CAPSULE PO PRN ×2 (04:50→16:33)
[2017-12-16] MEDS: LORazepam 2 MG TABLET PO PRN ×2 (04:50→16:33)
[2017-12-16 05:44] LABS: GLUCOMETER DEV NAME(LOC) 3EI C; GLUCOSE,POINT OF CARE 124 MG/DL (70-110)
[2017-12-16] MEDS: RIVAROXABAN 15 MG TABLET PO SCH ×2 (06:42→17:27)
[2017-12-16] MEDS: MetFORMIN HCL 500 MG TABLET PO SCH ×2 (06:42→17:27)
[2017-12-16] MEDS: LEVOTHYROXINE SODIUM 50 MCG TABLET PO SCH (06:42)
[2017-12-16] MEDS: GlipiZIDE 5 MG TABLET PO SCH ×2 (06:42→16:26)
[2017-12-16] MEDS: PROPRANOLOL HCL 10 MG TABLET PO SCH (08:49)
[2017-12-16] MEDS: POTASSIUM CHLORIDE 10 MEQ ER TABLET PO SCH (08:49)
[2017-12-16] MEDS: OMEPRAZOLE 20 MG CAPSULE PO SCH (08:49)
[2017-12-16] MEDS: AmLODIPine BESYLATE 10 MG TABLET PO SCH (08:49)
[2017-12-16] MEDS: RisperiDONE 1 MG TABLET PO SCH ×2 (08:49→20:58)
[2017-12-16] MEDS: FUROSEMIDE 20 MG TABLET PO SCH ×2 (08:49→16:26)
[2017-12-16] MEDS: ASPIRIN 81 MG CHEWABLE TABLET PO SCH (08:49)
[2017-12-16] MEDS: SODIUM CHLORIDE 1 GM TABLET PO SCH ×3 (08:49→16:27)
[2017-12-16] MEDS: CITALOPRAM HYDROBROMIDE 20 MG TABLET PO SCH (08:49)
[2017-12-16 11:23] LABS: GLUCOMETER DEV NAME(LOC) 3EI C; GLUCOSE,POINT OF CARE 150 MG/DL (70-110)
[2017-12-16] MEDS: INSULIN LISPRO 100 UNITS/ML SQ PRN ×2 (11:35→17:37)
[2017-12-16 12:39] VITALS: BP 141/82
[2017-12-16 16:56] VITALS: BP 145/95
[2017-12-16] MEDS: HALOPERIDOL 5 MG TABLET PO PRN (17:32)
[2017-12-16 17:44] LABS: GLUCOMETER DEV NAME(LOC) 3EI C; GLUCOSE,POINT OF CARE 188 MG/DL (70-110)
[2017-12-16] MEDS: BENZTROPINE MESYLATE 0.5 MG TABLET PO SCH (20:58)
[2017-12-16] MEDS: ATORVASTATIN CALCIUM 20 MG TABLET PO SCH (20:58)
[2017-12-16 21:44] LABS: GLUCOMETER DEV NAME(LOC) 3EI C; GLUCOSE,POINT OF CARE 68 MG/DL (70-110)
[2017-12-17] MEDS: ZOLPIDEM TARTRATE 10 MG TABLET PO PRN ×2 (00:04→23:32)
[2017-12-17] MEDS: LOPERAMIDE HCL 2 MG CAPSULE PO PRN ×3 (05:41→23:32)
[2017-12-17 05:49] VITALS: BP 140/86
[2017-12-17 05:54] LABS: GLUCOMETER DEV NAME(LOC) 3EI C; GLUCOSE,POINT OF CARE 112 MG/DL (70-110)
[2017-12-17] MEDS: RIVAROXABAN 15 MG TABLET PO SCH ×2 (06:51→16:13)
[2017-12-17] MEDS: MetFORMIN HCL 500 MG TABLET PO SCH (06:52)
[2017-12-17] MEDS: LEVOTHYROXINE SODIUM 50 MCG TABLET PO SCH (06:52)
[2017-12-17] MEDS: GlipiZIDE 5 MG TABLET PO SCH ×2 (06:52→16:13)
[2017-12-17 08:00] VITALS: BP 133/74
[2017-12-17] MEDS: LORazepam 2 MG TABLET PO PRN ×2 (08:07→23:31)
[2017-12-17] MEDS: FUROSEMIDE 20 MG TABLET PO SCH ×2 (08:37→16:13)
[2017-12-17] MEDS: SODIUM CHLORIDE 1 GM TABLET PO SCH ×3 (08:37→16:13)
[2017-12-17] MEDS: CITALOPRAM HYDROBROMIDE 20 MG TABLET PO SCH (08:37)
[2017-12-17] MEDS: PROPRANOLOL HCL 10 MG TABLET PO SCH (08:37)
[2017-12-17] MEDS: OMEPRAZOLE 20 MG CAPSULE PO SCH (08:37)
[2017-12-17] MEDS: RisperiDONE 1 MG TABLET PO SCH ×2 (08:38→20:54)
[2017-12-17] MEDS: ASPIRIN 81 MG CHEWABLE TABLET PO SCH (08:38)
[2017-12-17] MEDS: AmLODIPine BESYLATE 10 MG TABLET PO SCH (08:38)
[2017-12-17] MEDS: POTASSIUM CHLORIDE 10 MEQ ER TABLET PO SCH (08:38)
[2017-12-17 11:39] LABS: GLUCOMETER DEV NAME(LOC) 3EI C; GLUCOSE,POINT OF CARE 241 MG/DL (70-110)
[2017-12-17] MEDS: INSULIN LISPRO 100 UNITS/ML SQ PRN ×2 (11:45→17:39)
[2017-12-17] MEDS: HALOPERIDOL 5 MG TABLET PO PRN ×2 (16:13→20:55)
[2017-12-17 17:18] LABS: GLUCOMETER DEV NAME(LOC) 3EI C; GLUCOSE,POINT OF CARE 146 MG/DL (70-110)
[2017-12-17 18:00] VITALS: BP 137/74
[2017-12-17] MEDS: BENZTROPINE MESYLATE 0.5 MG TABLET PO SCH (20:54)
[2017-12-17] MEDS: ATORVASTATIN CALCIUM 20 MG TABLET PO SCH (20:54)
[2017-12-17 21:08] LABS: GLUCOMETER DEV NAME(LOC) 3EI C; GLUCOSE,POINT OF CARE 132 MG/DL (70-110)
[2017-12-17 23:25] VITALS: BP 157/81
[2017-12-18] VITALS: BP 157/81
[2017-12-18] MEDS: LOPERAMIDE HCL 2 MG CAPSULE PO PRN ×2 (04:00→17:56)
[2017-12-18 05:44] LABS: GLUCOMETER DEV NAME(LOC) 3EI C; GLUCOSE,POINT OF CARE 119 MG/DL (70-110)
[2017-12-18] MEDS: GlipiZIDE 5 MG TABLET PO SCH ×2 (06:34→16:25)
[2017-12-18] MEDS: LEVOTHYROXINE SODIUM 50 MCG TABLET PO SCH (06:34)
[2017-12-18] MEDS: RIVAROXABAN 15 MG TABLET PO SCH ×2 (06:34→16:26)
[2017-12-18] MEDS: MetFORMIN HCL 500 MG TABLET PO SCH (06:34)
[2017-12-18] MEDS: OMEPRAZOLE 20 MG CAPSULE PO SCH (07:53)
[2017-12-18] MEDS: AmLODIPine BESYLATE 10 MG TABLET PO SCH (07:53)
[2017-12-18] MEDS: SODIUM CHLORIDE 1 GM TABLET PO SCH ×3 (07:54→16:25)
[2017-12-18] MEDS: CITALOPRAM HYDROBROMIDE 20 MG TABLET PO SCH (07:54)
[2017-12-18] MEDS: PROPRANOLOL HCL 10 MG TABLET PO SCH (07:54)
[2017-12-18] MEDS: RisperiDONE 1 MG TABLET PO SCH ×2 (07:54→21:11)
[2017-12-18] MEDS: ASPIRIN 81 MG CHEWABLE TABLET PO SCH (07:54)
[2017-12-18] MEDS: FUROSEMIDE 20 MG TABLET PO SCH ×2 (07:54→16:25)
[2017-12-18] MEDS: POTASSIUM CHLORIDE 10 MEQ ER TABLET PO SCH (07:55)
[2017-12-18] MEDS: LORazepam 2 MG TABLET PO PRN ×2 (07:56→17:56)
[2017-12-18 09:08] VITALS: BP 159/87
[2017-12-18] MEDS: LACTOBAC ACID/BULG/BIFID/THERM TABLET PO SCH (09:55)
[2017-12-18 11:39] LABS: GLUCOMETER DEV NAME(LOC) 3EI C; GLUCOSE,POINT OF CARE 117 MG/DL (70-110)
[2017-12-18 12:31] LABS: APPEARANCE,URINE CLEAR (CLEAR); BILIRUBIN,URINE NEGATIVE (NEGATIVE); GLUCOSE, URINE (UA) NEGATIVE (NEGATIVE); KETONES,URINE NEGATIVE (NEGATIVE); LEUKOCYTE ESTERASE ,URINE NEGATIVE (NEGATIVE); NITRATE,URINE NEGATIVE (NEGATIVE); OCCULT BLOOD,URINE NEGATIVE (NEGATIVE); PROTEIN,URINE NEGATIVE (NEGATIVE); UROBILINOGEN,URINE 0.2 mg/dL (<=1.0)
[2017-12-18 16:33] LABS: GLUCOMETER DEV NAME(LOC) 3EI C; GLUCOSE,POINT OF CARE 184 MG/DL (70-110)
[2017-12-18] MEDS: INSULIN LISPRO 100 UNITS/ML SQ PRN (17:31)
[2017-12-18] MEDS: HALOPERIDOL 5 MG TABLET PO PRN (17:56)
[2017-12-18] MEDS: BENZTROPINE MESYLATE 0.5 MG TABLET PO SCH (21:11)
[2017-12-18] MEDS: ATORVASTATIN CALCIUM 20 MG TABLET PO SCH (21:11)
[2017-12-18] MEDS: ZOLPIDEM TARTRATE 10 MG TABLET PO PRN (21:13)
[2017-12-18 21:23] LABS: GLUCOMETER DEV NAME(LOC) 3EI C; GLUCOSE,POINT OF CARE 85 MG/DL (70-110)
[2017-12-18 21:40] VITALS: BP 148/88
[2017-12-19 00:20] VITALS: BP 137/62
[2017-12-19] MEDS: LORazepam 2 MG TABLET PO PRN ×2 (00:27→18:25)
[2017-12-19] MEDS: LOPERAMIDE HCL 2 MG CAPSULE PO PRN (00:27)
[2017-12-19 04:15] VITALS: BP 126/72
[2017-12-19 05:02] VITALS: BP 126/72
[2017-12-19 06:19] LABS: GLUCOMETER DEV NAME(LOC) 3EI C; GLUCOSE,POINT OF CARE 87 MG/DL (70-110)
[2017-12-19] MEDS: LEVOTHYROXINE SODIUM 50 MCG TABLET PO SCH (06:39)
[2017-12-19] MEDS: GlipiZIDE 5 MG TABLET PO SCH ×2 (06:39→17:35)
[2017-12-19] MEDS: RIVAROXABAN 15 MG TABLET PO SCH ×2 (06:39→17:35)
[2017-12-19 08:02] VITALS: BP 140/83
[2017-12-19] MEDS: LACTOBAC ACID/BULG/BIFID/THERM TABLET PO SCH (08:06)
[2017-12-19] MEDS: FUROSEMIDE 20 MG TABLET PO SCH ×2 (08:07→17:35)
[2017-12-19] MEDS: RisperiDONE 1 MG TABLET PO SCH ×2 (08:07→20:09)
[2017-12-19] MEDS: SODIUM CHLORIDE 1 GM TABLET PO SCH ×3 (08:07→17:34)
[2017-12-19] MEDS: CITALOPRAM HYDROBROMIDE 20 MG TABLET PO SCH (08:07)
[2017-12-19] MEDS: PROPRANOLOL HCL 10 MG TABLET PO SCH (08:07)
[2017-12-19] MEDS: ASPIRIN 81 MG CHEWABLE TABLET PO SCH (08:07)
[2017-12-19] MEDS: POTASSIUM CHLORIDE 10 MEQ ER TABLET PO SCH (08:07)
[2017-12-19] MEDS: OMEPRAZOLE 20 MG CAPSULE PO SCH (08:07)
[2017-12-19] MEDS: AmLODIPine BESYLATE 10 MG TABLET PO SCH (08:07)
[2017-12-19 11:24] LABS: GLUCOMETER DEV NAME(LOC) 3EI C; GLUCOSE,POINT OF CARE 173 MG/DL (70-110)
[2017-12-19] MEDS: INSULIN LISPRO 100 UNITS/ML SQ PRN ×3 (12:40→20:10)
[2017-12-19 17:44] LABS: GLUCOMETER DEV NAME(LOC) 3EI C; GLUCOSE,POINT OF CARE 165 MG/DL (70-110)
[2017-12-19] MEDS: HALOPERIDOL 5 MG TABLET PO PRN (18:25)
[2017-12-19 19:35] VITALS: BP 131/82
[2017-12-19] MEDS: BENZTROPINE MESYLATE 0.5 MG TABLET PO SCH (20:09)
[2017-12-19] MEDS: ATORVASTATIN CALCIUM 20 MG TABLET PO SCH (20:09)
[2017-12-19 20:13] LABS: GLUCOMETER DEV NAME(LOC) 3EI C; GLUCOSE,POINT OF CARE 187 MG/DL (70-110)
[2017-12-20 05:09] VITALS: BP 113/67
[2017-12-20] MEDS: RIVAROXABAN 15 MG TABLET PO SCH ×2 (06:49→17:25)
[2017-12-20] MEDS: GlipiZIDE 5 MG TABLET PO SCH ×2 (06:49→16:15)
[2017-12-20] MEDS: LEVOTHYROXINE SODIUM 50 MCG TABLET PO SCH (06:49)
[2017-12-20] MEDS: CITALOPRAM HYDROBROMIDE 20 MG TABLET PO SCH (09:04)
[2017-12-20] MEDS: ASPIRIN 81 MG CHEWABLE TABLET PO SCH (09:04)
[2017-12-20] MEDS: HALOPERIDOL 5 MG TABLET PO PRN ×2 (09:04→16:15)
[2017-12-20] MEDS: OMEPRAZOLE 20 MG CAPSULE PO SCH (09:04)
[2017-12-20] MEDS: LORazepam 2 MG TABLET PO PRN ×2 (09:04→17:25)
[2017-12-20] MEDS: FUROSEMIDE 20 MG TABLET PO SCH ×2 (09:04→16:16)
[2017-12-20] MEDS: AmLODIPine BESYLATE 10 MG TABLET PO SCH (09:04)
[2017-12-20] MEDS: SODIUM CHLORIDE 1 GM TABLET PO SCH ×3 (09:04→16:15)
[2017-12-20] MEDS: POTASSIUM CHLORIDE 10 MEQ ER TABLET PO SCH (09:04)
[2017-12-20] MEDS: DOCUSATE SODIUM 100 MG CAPSULE PO PRN (09:04)
[2017-12-20] MEDS: RisperiDONE 1 MG TABLET PO SCH ×2 (09:04→21:41)
[2017-12-20] MEDS: LACTOBAC ACID/BULG/BIFID/THERM TABLET PO SCH (09:05)
[2017-12-20] MEDS: PROPRANOLOL HCL 10 MG TABLET PO SCH (09:05)
[2017-12-20 09:21] VITALS: BP 142/82
[2017-12-20 11:33] LABS: GLUCOMETER DEV NAME(LOC) 3EI C; GLUCOSE,POINT OF CARE 223 MG/DL (70-110)
[2017-12-20] MEDS: INSULIN LISPRO 100 UNITS/ML SQ PRN ×2 (12:59→17:26)
[2017-12-20 16:48] LABS: GLUCOMETER DEV NAME(LOC) 3EI C; GLUCOSE,POINT OF CARE 164 MG/DL (70-110)
[2017-12-20] MEDS: LOPERAMIDE HCL 2 MG CAPSULE PO PRN (17:24)
[2017-12-20 17:35] VITALS: BP 111/50
[2017-12-20] MEDS: BENZTROPINE MESYLATE 0.5 MG TABLET PO SCH (21:41)
[2017-12-20] MEDS: ATORVASTATIN CALCIUM 20 MG TABLET PO SCH (21:41)
[2017-12-20 22:08] LABS: GLUCOMETER DEV NAME(LOC) 3EI C; GLUCOSE,POINT OF CARE 105 MG/DL (70-110)
[2017-12-21] MEDS: LORazepam 2 MG TABLET PO PRN ×3 (01:04→20:49)
[2017-12-21] MEDS: ZOLPIDEM TARTRATE 10 MG TABLET PO PRN ×2 (01:06→20:49)
[2017-12-21 02:10] LABS: OVA AND PARASITES EXAM Final report
[2017-12-21 03:03] VITALS: BP 127/63
[2017-12-21 05:48] LABS: GLUCOMETER DEV NAME(LOC) 3EI C; GLUCOSE,POINT OF CARE 100 MG/DL (70-110)
[2017-12-21] MEDS: RIVAROXABAN 15 MG TABLET PO SCH ×2 (06:31→16:31)
[2017-12-21] MEDS: LEVOTHYROXINE SODIUM 50 MCG TABLET PO SCH (06:31)
[2017-12-21] MEDS: GlipiZIDE 5 MG TABLET PO SCH ×2 (06:31→16:31)
[2017-12-21] MEDS: OMEPRAZOLE 20 MG CAPSULE PO SCH (08:15)
[2017-12-21] MEDS: RisperiDONE 1 MG TABLET PO SCH ×2 (08:15→20:16)
[2017-12-21] MEDS: POTASSIUM CHLORIDE 10 MEQ ER TABLET PO SCH (08:15)
[2017-12-21] MEDS: CITALOPRAM HYDROBROMIDE 20 MG TABLET PO SCH (08:15)
[2017-12-21] MEDS: AmLODIPine BESYLATE 10 MG TABLET PO SCH (08:15)
[2017-12-21] MEDS: FUROSEMIDE 20 MG TABLET PO SCH ×2 (08:15→16:31)
[2017-12-21] MEDS: ASPIRIN 81 MG CHEWABLE TABLET PO SCH (08:15)
[2017-12-21] MEDS: PROPRANOLOL HCL 10 MG TABLET PO SCH (08:16)
[2017-12-21] MEDS: LACTOBAC ACID/BULG/BIFID/THERM TABLET PO SCH (08:16)
[2017-12-21] MEDS: SODIUM CHLORIDE 1 GM TABLET PO SCH ×3 (08:16→16:31)
[2017-12-21] MEDS: HALOPERIDOL 5 MG TABLET PO PRN ×2 (08:33→22:01)
[2017-12-21 08:37] VITALS: BP 127/80
[2017-12-21 11:43] LABS: GLUCOMETER DEV NAME(LOC) 3EI C; GLUCOSE,POINT OF CARE 276 MG/DL (70-110)
[2017-12-21] MEDS: INSULIN LISPRO 100 UNITS/ML SQ PRN ×2 (13:18→17:35)
[2017-12-21 16:39] LABS: GLUCOMETER DEV NAME(LOC) 3EI C; GLUCOSE,POINT OF CARE 164 MG/DL (70-110)
[2017-12-21 18:30] VITALS: BP 132/66
[2017-12-21] MEDS: BENZTROPINE MESYLATE 0.5 MG TABLET PO SCH (20:16)
[2017-12-21] MEDS: ATORVASTATIN CALCIUM 20 MG TABLET PO SCH (20:16)
[2017-12-21 20:29] LABS: GLUCOMETER DEV NAME(LOC) 3EI C; GLUCOSE,POINT OF CARE 125 MG/DL (70-110)
[2017-12-22 05:02] VITALS: BP 132/59
[2017-12-22] MEDS: LORazepam 2 MG TABLET PO PRN ×3 (05:09→19:30)
[2017-12-22 06:29] LABS: GLUCOMETER DEV NAME(LOC) 3EI C; GLUCOSE,POINT OF CARE 87 MG/DL (70-110)
[2017-12-22] MEDS: GlipiZIDE 5 MG TABLET PO SCH ×2 (06:56→16:09)
[2017-12-22] MEDS: LEVOTHYROXINE SODIUM 50 MCG TABLET PO SCH (06:57)
[2017-12-22 08:11] VITALS: BP 128/67
[2017-12-22] MEDS: POTASSIUM CHLORIDE 10 MEQ ER TABLET PO SCH (08:58)
[2017-12-22] MEDS: CITALOPRAM HYDROBROMIDE 20 MG TABLET PO SCH (08:58)
[2017-12-22] MEDS: AmLODIPine BESYLATE 10 MG TABLET PO SCH (08:58)
[2017-12-22] MEDS: OMEPRAZOLE 20 MG CAPSULE PO SCH (08:58)
[2017-12-22] MEDS: FUROSEMIDE 20 MG TABLET PO SCH ×2 (08:58→16:10)
[2017-12-22] MEDS: ASPIRIN 81 MG CHEWABLE TABLET PO SCH (08:59)
[2017-12-22] MEDS: SODIUM CHLORIDE 1 GM TABLET PO SCH ×3 (08:59→16:10)
[2017-12-22] MEDS: LACTOBAC ACID/BULG/BIFID/THERM TABLET PO SCH (08:59)
[2017-12-22] MEDS: RisperiDONE 1 MG TABLET PO SCH ×2 (08:59→21:13)
[2017-12-22] MEDS: PROPRANOLOL HCL 10 MG TABLET PO SCH (09:00)
[2017-12-22] MEDS: HALOPERIDOL 5 MG TABLET PO PRN ×2 (10:40→16:41)
[2017-12-22 11:43] LABS: GLUCOMETER DEV NAME(LOC) 3EI C; GLUCOSE,POINT OF CARE 179 MG/DL (70-110)
[2017-12-22] MEDS: INSULIN LISPRO 100 UNITS/ML SQ PRN ×2 (12:45→17:20)
[2017-12-22 16:14] LABS: GLUCOMETER DEV NAME(LOC) 3EI C; GLUCOSE,POINT OF CARE 242 MG/DL (70-110)
[2017-12-22 16:54] VITALS: BP 144/78
[2017-12-22] MEDS: RIVAROXABAN 20 MG TABLET PO SCH (17:19)
[2017-12-22] MEDS: LOPERAMIDE HCL 2 MG CAPSULE PO PRN (19:30)
[2017-12-22] MEDS: ATORVASTATIN CALCIUM 20 MG TABLET PO SCH (21:13)
[2017-12-22] MEDS: BENZTROPINE MESYLATE 0.5 MG TABLET PO SCH (21:13)
[2017-12-22 21:53] LABS: GLUCOMETER DEV NAME(LOC) 3EI C; GLUCOSE,POINT OF CARE 108 MG/DL (70-110)
[2017-12-23 00:02] VITALS: BP 142/79
[2017-12-23] MEDS: LORazepam 2 MG TABLET PO PRN ×2 (00:04→21:59)
[2017-12-23] MEDS: ZOLPIDEM TARTRATE 10 MG TABLET PO PRN ×2 (00:05→21:59)
[2017-12-23] MEDS: LOPERAMIDE HCL 2 MG CAPSULE PO PRN (01:59)
[2017-12-23 05:29] LABS: GLUCOMETER DEV NAME(LOC) 3EI C; GLUCOSE,POINT OF CARE 187 MG/DL (70-110)
[2017-12-23] MEDS: LEVOTHYROXINE SODIUM 50 MCG TABLET PO SCH (06:58)
[2017-12-23] MEDS: GlipiZIDE 5 MG TABLET PO SCH ×2 (06:58→16:15)
[2017-12-23] MEDS: INSULIN LISPRO 100 UNITS/ML SQ PRN ×2 (07:05→17:09)
[2017-12-23 08:00] VITALS: BP 128/68
[2017-12-23] MEDS: LACTOBAC ACID/BULG/BIFID/THERM TABLET PO SCH (08:39)
[2017-12-23] MEDS: ASPIRIN 81 MG CHEWABLE TABLET PO SCH (08:39)
[2017-12-23] MEDS: POTASSIUM CHLORIDE 10 MEQ ER TABLET PO SCH (08:40)
[2017-12-23] MEDS: PROPRANOLOL HCL 10 MG TABLET PO SCH (08:40)
[2017-12-23] MEDS: CITALOPRAM HYDROBROMIDE 20 MG TABLET PO SCH (08:40)
[2017-12-23] MEDS: SODIUM CHLORIDE 1 GM TABLET PO SCH ×3 (08:41→16:16)
[2017-12-23] MEDS: AmLODIPine BESYLATE 10 MG TABLET PO SCH (08:41)
[2017-12-23] MEDS: FUROSEMIDE 20 MG TABLET PO SCH ×2 (08:41→16:15)
[2017-12-23] MEDS: RisperiDONE 1 MG TABLET PO SCH ×2 (08:41→20:29)
[2017-12-23] MEDS: OMEPRAZOLE 20 MG CAPSULE PO SCH (08:41)
[2017-12-23 11:13] LABS: BASOPHILS % (AUTO) 0.7 % (0.0-2.0); EOSINOPHILS % (AUTO) 3.4 % (1.0-6.0); HEMATOCRIT 31.1 % (36-46); HEMOGLOBIN 10.4 g/dL (12.0-16.0); LYMPHOCYTES # (AUTO) 1.6 K/uL (1.0-4.8); LYMPHOCYTES % (AUTO) 24.7 % (22.0-44.0); MEAN CORPUSCULAR HEMOGLOBIN 28.4 pg (26.0-34.0); MEAN CORPUSCULAR HGB CONC 33.5 G/dL (31.0-37.0); MEAN CORPUSCULAR VOLUME 85 fL (80-100); MONOCYTES # (AUTO) 0.6 K/uL (0.1-1.0); MONOCYTES % (AUTO) 10.1 % (2.0-9.0); NEUTROPHILS # (AUTO) 3.9 K/uL (1.8-7.7); NEUTROPHILS % (AUTO) 61.1 % (40.0-70.0); PLATELET COUNT (AUTO) 276 K/uL (150-450); RED BLOOD CELL COUNT(AUTO) 3.68 MIL/uL (4.00-5.20); RED CELL DISTRIBUTION WIDTH 16.1 % (11.5-14.5)
[2017-12-23 11:18] LABS: ALBUMIN 3.4 g/dL (3.4-5.0); BILIRUBIN,TOTAL 0.3 mg/dL (0.1-1.0); CREATININE 0.98 mg/dL (0.60-1.30); TOTAL PROTEIN, SERUM 7.2 g/dL (6.4-8.2)
[2017-12-23 11:34] LABS: GLUCOMETER DEV NAME(LOC) 3EI C; GLUCOSE,POINT OF CARE 113 MG/DL (70-110)
[2017-12-23 16:23] LABS: GLUCOMETER DEV NAME(LOC) 3EI C; GLUCOSE,POINT OF CARE 196 MG/DL (70-110)
[2017-12-23] MEDS: RIVAROXABAN 20 MG TABLET PO SCH (16:42)
[2017-12-23 17:04] VITALS: BP 138/70
[2017-12-23 18:00] VITALS: BP 155/89
[2017-12-23] MEDS: ATORVASTATIN CALCIUM 20 MG TABLET PO SCH (20:29)
[2017-12-23] MEDS: BENZTROPINE MESYLATE 0.5 MG TABLET PO SCH (20:29)
[2017-12-23 20:38] LABS: GLUCOMETER DEV NAME(LOC) 3EI C; GLUCOSE,POINT OF CARE 63 MG/DL (70-110)
[2017-12-23 21:48] LABS: GLUCOMETER DEV NAME(LOC) 3EI C; GLUCOSE,POINT OF CARE 150 MG/DL (70-110)
[2017-12-24] MEDS: HALOPERIDOL 5 MG TABLET PO PRN ×3 (03:29→21:44)
[2017-12-24 03:30] VITALS: BP 138/70
[2017-12-24] MEDS: LORazepam 2 MG TABLET PO PRN ×2 (03:30→16:30)
[2017-12-24] MEDS: GlipiZIDE 5 MG TABLET PO SCH ×2 (06:52→16:28)
[2017-12-24] MEDS: LEVOTHYROXINE SODIUM 50 MCG TABLET PO SCH (06:52)
[2017-12-24 06:54] LABS: GLUCOMETER DEV NAME(LOC) 3EI C; GLUCOSE,POINT OF CARE 183 MG/DL (70-110)
[2017-12-24] MEDS: INSULIN LISPRO 100 UNITS/ML SQ PRN ×3 (06:58→21:13)
[2017-12-24] MEDS: SODIUM CHLORIDE 1 GM TABLET PO SCH ×3 (08:33→16:29)
[2017-12-24] MEDS: LACTOBAC ACID/BULG/BIFID/THERM TABLET PO SCH (08:33)
[2017-12-24] MEDS: RisperiDONE 1 MG TABLET PO SCH ×2 (08:34→20:19)
[2017-12-24] MEDS: FUROSEMIDE 20 MG TABLET PO SCH ×2 (08:34→16:29)
[2017-12-24] MEDS: PROPRANOLOL HCL 10 MG TABLET PO SCH (08:34)
[2017-12-24] MEDS: AmLODIPine BESYLATE 10 MG TABLET PO SCH (08:34)
[2017-12-24] MEDS: ASPIRIN 81 MG CHEWABLE TABLET PO SCH (08:34)
[2017-12-24] MEDS: OMEPRAZOLE 20 MG CAPSULE PO SCH (08:35)
[2017-12-24] MEDS: CITALOPRAM HYDROBROMIDE 20 MG TABLET PO SCH (08:35)
[2017-12-24] MEDS: POTASSIUM CHLORIDE 10 MEQ ER TABLET PO SCH (08:35)
[2017-12-24 10:10] VITALS: BP 152/71
[2017-12-24 11:03] LABS: GLUCOMETER DEV NAME(LOC) 3EI C; GLUCOSE,POINT OF CARE 206 MG/DL (70-110)
[2017-12-24 16:45] LABS: GLUCOMETER DEV NAME(LOC) 3EI C; GLUCOSE,POINT OF CARE 140 MG/DL (70-110)
[2017-12-24] MEDS: RIVAROXABAN 20 MG TABLET PO SCH (17:06)
[2017-12-24 19:17] VITALS: BP 139/68
[2017-12-24 20:14] LABS: GLUCOMETER DEV NAME(LOC) 3EI C; GLUCOSE,POINT OF CARE 291 MG/DL (70-110)
[2017-12-24] MEDS: ATORVASTATIN CALCIUM 20 MG TABLET PO SCH (20:19)
[2017-12-24] MEDS: BENZTROPINE MESYLATE 0.5 MG TABLET PO SCH (20:19)
[2017-12-24] MEDS: ZOLPIDEM TARTRATE 10 MG TABLET PO PRN (21:44)
[2017-12-25 05:30] LABS: GLUCOMETER DEV NAME(LOC) 3EI C; GLUCOSE,POINT OF CARE 156 MG/DL (70-110)
[2017-12-25] MEDS: LEVOTHYROXINE SODIUM 50 MCG TABLET PO SCH (06:54)
[2017-12-25] MEDS: GlipiZIDE 5 MG TABLET PO SCH ×2 (06:54→16:16)
[2017-12-25] MEDS: INSULIN LISPRO 100 UNITS/ML SQ PRN ×4 (07:09→21:43)
[2017-12-25] MEDS: CITALOPRAM HYDROBROMIDE 20 MG TABLET PO SCH (08:01)
[2017-12-25] MEDS: LORazepam 2 MG TABLET PO PRN ×2 (08:01→18:11)
[2017-12-25] MEDS: RisperiDONE 1 MG TABLET PO SCH (08:01)
[2017-12-25] MEDS: ASPIRIN 81 MG CHEWABLE TABLET PO SCH (08:01)
[2017-12-25] MEDS: HALOPERIDOL 5 MG TABLET PO PRN ×2 (08:01→16:16)
[2017-12-25] MEDS: POTASSIUM CHLORIDE 10 MEQ ER TABLET PO SCH (08:01)
[2017-12-25] MEDS: AmLODIPine BESYLATE 10 MG TABLET PO SCH (08:01)
[2017-12-25] MEDS: FUROSEMIDE 20 MG TABLET PO SCH ×2 (08:01→16:17)
[2017-12-25] MEDS: OMEPRAZOLE 20 MG CAPSULE PO SCH (08:01)
[2017-12-25] MEDS: SODIUM CHLORIDE 1 GM TABLET PO SCH ×3 (08:02→16:17)
[2017-12-25] MEDS: PROPRANOLOL HCL 10 MG TABLET PO SCH (08:02)
[2017-12-25] MEDS: LACTOBAC ACID/BULG/BIFID/THERM TABLET PO SCH (08:02)
[2017-12-25] MEDS ORDERED: TUBERCULIN, PURIFIED PROTEIN DERIVATIVE 5 TU/0.1 ML SYG ID ONE (10:45)
[2017-12-25 11:29] LABS: GLUCOMETER DEV NAME(LOC) 3EI C; GLUCOSE,POINT OF CARE 158 MG/DL (70-110)
[2017-12-25 11:42] VITALS: BP 137/76
[2017-12-25] MEDS: LOPERAMIDE HCL 2 MG CAPSULE PO PRN (16:16)
[2017-12-25 16:19] LABS: GLUCOMETER DEV NAME(LOC) 3EI C; GLUCOSE,POINT OF CARE 216 MG/DL (70-110)
[2017-12-25] MEDS: RIVAROXABAN 20 MG TABLET PO SCH (18:11)
[2017-12-25 21:33] LABS: GLUCOMETER DEV NAME(LOC) 3EI C; GLUCOSE,POINT OF CARE 189 MG/DL (70-110)
[2017-12-25] MEDS: RisperiDONE 2 MG TABLET PO SCH (21:52)
[2017-12-25] MEDS: ATORVASTATIN CALCIUM 20 MG TABLET PO SCH (21:52)
[2017-12-25] MEDS: ZOLPIDEM TARTRATE 10 MG TABLET PO PRN (21:52)
[2017-12-25] MEDS: BENZTROPINE MESYLATE 0.5 MG TABLET PO SCH (21:52)
[2017-12-25 22:47] VITALS: BP 149/72
[2017-12-26 06:09] LABS: GLUCOMETER DEV NAME(LOC) 3EI C; GLUCOSE,POINT OF CARE 88 MG/DL (70-110)
[2017-12-26] MEDS: LEVOTHYROXINE SODIUM 50 MCG TABLET PO SCH (06:39)
[2017-12-26] MEDS: GlipiZIDE 5 MG TABLET PO SCH ×2 (06:39→16:58)
[2017-12-26] MEDS: OMEPRAZOLE 20 MG CAPSULE PO SCH (09:23)
[2017-12-26] MEDS: CITALOPRAM HYDROBROMIDE 20 MG TABLET PO SCH (09:23)
[2017-12-26] MEDS: FUROSEMIDE 20 MG TABLET PO SCH ×2 (09:23→16:58)
[2017-12-26] MEDS: AmLODIPine BESYLATE 10 MG TABLET PO SCH (09:23)
[2017-12-26] MEDS: SODIUM CHLORIDE 1 GM TABLET PO SCH ×3 (09:23→16:57)
[2017-12-26] MEDS: LACTOBAC ACID/BULG/BIFID/THERM TABLET PO SCH (09:23)
[2017-12-26] MEDS: POTASSIUM CHLORIDE 10 MEQ ER TABLET PO SCH (09:23)
[2017-12-26] MEDS: ASPIRIN 81 MG CHEWABLE TABLET PO SCH (09:23)
[2017-12-26] MEDS: RisperiDONE 2 MG TABLET PO SCH ×2 (09:23→20:25)
[2017-12-26] MEDS: PROPRANOLOL HCL 10 MG TABLET PO SCH (09:24)
[2017-12-26 11:34] LABS: GLUCOMETER DEV NAME(LOC) 3EI C; GLUCOSE,POINT OF CARE 284 MG/DL (70-110)
[2017-12-26] MEDS: INSULIN LISPRO 100 UNITS/ML SQ PRN ×2 (11:44→21:53)
[2017-12-26 12:05] VITALS: BP 136/70
[2017-12-26] MEDS: HALOPERIDOL 5 MG TABLET PO PRN (12:19)
[2017-12-26] MEDS: LORazepam 2 MG TABLET PO PRN ×2 (12:19→23:41)
[2017-12-26 16:39] VITALS: BP 145/79
[2017-12-26] MEDS: RIVAROXABAN 20 MG TABLET PO SCH (16:57)
[2017-12-26 17:30] LABS: GLUCOMETER DEV NAME(LOC) 3EI C; GLUCOSE,POINT OF CARE 138 MG/DL (70-110)
[2017-12-26 20:14] LABS: GLUCOMETER DEV NAME(LOC) 3EI C; GLUCOSE,POINT OF CARE 201 MG/DL (70-110)
[2017-12-26] MEDS: ATORVASTATIN CALCIUM 20 MG TABLET PO SCH (20:25)
[2017-12-26] MEDS: BENZTROPINE MESYLATE 0.5 MG TABLET PO SCH (20:25)
[2017-12-26] MEDS: ZOLPIDEM TARTRATE 10 MG TABLET PO PRN (22:14)
[2017-12-27 00:20] VITALS: BP 139/76
[2017-12-27 06:32] LABS: GLUCOMETER DEV NAME(LOC) 3EI C; GLUCOSE,POINT OF CARE 125 MG/DL (70-110)
[2017-12-27] MEDS: LEVOTHYROXINE SODIUM 50 MCG TABLET PO SCH (06:40)
[2017-12-27] MEDS: GlipiZIDE 5 MG TABLET PO SCH ×2 (06:40→16:47)
[2017-12-27] MEDS: INSULIN LISPRO 100 UNITS/ML SQ PRN ×4 (06:41→21:00)
[2017-12-27 08:05] VITALS: BP 129/72
[2017-12-27] MEDS: RisperiDONE 2 MG TABLET PO SCH ×2 (09:02→20:53)
[2017-12-27] MEDS: AmLODIPine BESYLATE 10 MG TABLET PO SCH (09:02)
[2017-12-27] MEDS: HALOPERIDOL 5 MG TABLET PO PRN ×2 (09:02→18:22)
[2017-12-27] MEDS: PROPRANOLOL HCL 10 MG TABLET PO SCH (09:02)
[2017-12-27] MEDS: FUROSEMIDE 20 MG TABLET PO SCH ×2 (09:02→16:47)
[2017-12-27] MEDS: LORazepam 2 MG TABLET PO PRN ×2 (09:02→18:22)
[2017-12-27] MEDS: SODIUM CHLORIDE 1 GM TABLET PO SCH ×3 (09:02→16:47)
[2017-12-27] MEDS: OMEPRAZOLE 20 MG CAPSULE PO SCH (09:02)
[2017-12-27] MEDS: LACTOBAC ACID/BULG/BIFID/THERM TABLET PO SCH (09:02)
[2017-12-27] MEDS: ASPIRIN 81 MG CHEWABLE TABLET PO SCH (09:03)
[2017-12-27] MEDS: POTASSIUM CHLORIDE 10 MEQ ER TABLET PO SCH (09:03)
[2017-12-27] MEDS: CITALOPRAM HYDROBROMIDE 20 MG TABLET PO SCH (09:03)
[2017-12-27 11:51] LABS: GLUCOMETER DEV NAME(LOC) 3EI C; GLUCOSE,POINT OF CARE 168 MG/DL (70-110)
[2017-12-27] MEDS: DIVALPROEX SODIUM 500 MG DR TABLET PO SCH ×2 (14:28→20:53)
[2017-12-27 16:30] VITALS: BP 142/81
[2017-12-27] MEDS: RIVAROXABAN 20 MG TABLET PO SCH (16:47)
[2017-12-27 16:58] LABS: GLUCOMETER DEV NAME(LOC) 3EI C; GLUCOSE,POINT OF CARE 179 MG/DL (70-110)
[2017-12-27] MEDS: ATORVASTATIN CALCIUM 20 MG TABLET PO SCH (20:53)
[2017-12-27] MEDS: BENZTROPINE MESYLATE 0.5 MG TABLET PO SCH (20:53)
[2017-12-27 21:03] LABS: GLUCOMETER DEV NAME(LOC) 3EI C; GLUCOSE,POINT OF CARE 164 MG/DL (70-110)
[2017-12-28 05:49] LABS: GLUCOMETER DEV NAME(LOC) 3EI C; GLUCOSE,POINT OF CARE 99 MG/DL (70-110)
[2017-12-28] MEDS: LEVOTHYROXINE SODIUM 50 MCG TABLET PO SCH (06:31)
[2017-12-28] MEDS: GlipiZIDE 5 MG TABLET PO SCH ×2 (06:31→16:01)
[2017-12-28 06:40] VITALS: BP 156/63
[2017-12-28] MEDS: OMEPRAZOLE 20 MG CAPSULE PO SCH (08:34)
[2017-12-28] MEDS: ASPIRIN 81 MG CHEWABLE TABLET PO SCH (08:34)
[2017-12-28] MEDS: DIVALPROEX SODIUM 500 MG DR TABLET PO SCH ×2 (08:35→20:44)
[2017-12-28] MEDS: CITALOPRAM HYDROBROMIDE 20 MG TABLET PO SCH (08:35)
[2017-12-28] MEDS: PROPRANOLOL HCL 10 MG TABLET PO SCH (08:35)
[2017-12-28] MEDS: SODIUM CHLORIDE 1 GM TABLET PO SCH ×3 (08:35→16:02)
[2017-12-28] MEDS: AmLODIPine BESYLATE 10 MG TABLET PO SCH (08:35)
[2017-12-28] MEDS: POTASSIUM CHLORIDE 10 MEQ ER TABLET PO SCH (08:38)
[2017-12-28] MEDS: RisperiDONE 2 MG TABLET PO SCH ×2 (08:38→20:44)
[2017-12-28] MEDS: FUROSEMIDE 20 MG TABLET PO SCH ×2 (08:38→16:02)
[2017-12-28 08:40] VITALS: BP 131/75
[2017-12-28] MEDS: LACTOBAC ACID/BULG/BIFID/THERM TABLET PO SCH (09:00)
[2017-12-28 11:28] LABS: GLUCOMETER DEV NAME(LOC) 3EI C; GLUCOSE,POINT OF CARE 231 MG/DL (70-110)
[2017-12-28] MEDS: INSULIN LISPRO 100 UNITS/ML SQ PRN ×2 (11:40→16:07)
[2017-12-28] MEDS: HALOPERIDOL 5 MG TABLET PO PRN ×2 (16:00→22:14)
[2017-12-28] MEDS: LORazepam 2 MG TABLET PO PRN ×2 (16:00→22:14)
[2017-12-28] MEDS: RIVAROXABAN 20 MG TABLET PO SCH (16:02)
[2017-12-28 16:14] LABS: GLUCOMETER DEV NAME(LOC) 3EI C; GLUCOSE,POINT OF CARE 152 MG/DL (70-110)
[2017-12-28 16:54] VITALS: BP 152/88
[2017-12-28] MEDS: ATORVASTATIN CALCIUM 20 MG TABLET PO SCH (20:42)
[2017-12-28] MEDS: BENZTROPINE MESYLATE 0.5 MG TABLET PO SCH (20:43)
[2017-12-28] MEDS: ZOLPIDEM TARTRATE 10 MG TABLET PO PRN (20:45)
[2017-12-28 21:33] LABS: GLUCOMETER DEV NAME(LOC) 3EI C; GLUCOSE,POINT OF CARE 91 MG/DL (70-110)
[2017-12-29] MEDS: LEVOTHYROXINE SODIUM 50 MCG TABLET PO SCH (06:45)
[2017-12-29] MEDS: GlipiZIDE 5 MG TABLET PO SCH ×2 (06:45→16:37)
[2017-12-29 06:48] LABS: GLUCOMETER DEV NAME(LOC) 3EI C; GLUCOSE,POINT OF CARE 73 MG/DL (70-110)
[2017-12-29] MEDS: SODIUM CHLORIDE 1 GM TABLET PO SCH ×3 (09:03→16:37)
[2017-12-29] MEDS: AmLODIPine BESYLATE 10 MG TABLET PO SCH (09:03)
[2017-12-29] MEDS: ASPIRIN 81 MG CHEWABLE TABLET PO SCH (09:03)
[2017-12-29] MEDS: FUROSEMIDE 20 MG TABLET PO SCH ×2 (09:03→16:37)
[2017-12-29] MEDS: CITALOPRAM HYDROBROMIDE 20 MG TABLET PO SCH (09:03)
[2017-12-29] MEDS: DIVALPROEX SODIUM 500 MG DR TABLET PO SCH ×2 (09:03→20:22)
[2017-12-29] MEDS: POTASSIUM CHLORIDE 10 MEQ ER TABLET PO SCH (09:03)
[2017-12-29] MEDS: LACTOBAC ACID/BULG/BIFID/THERM TABLET PO SCH (09:03)
[2017-12-29] MEDS: PROPRANOLOL HCL 10 MG TABLET PO SCH (09:03)
[2017-12-29] MEDS: OMEPRAZOLE 20 MG CAPSULE PO SCH (09:03)
[2017-12-29] MEDS: RisperiDONE 2 MG TABLET PO SCH ×2 (09:03→20:39)
[2017-12-29 09:14] VITALS: BP 126/76
[2017-12-29 11:38] LABS: GLUCOMETER DEV NAME(LOC) 3EI C; GLUCOSE,POINT OF CARE 89 MG/DL (70-110)
[2017-12-29] MEDS: RIVAROXABAN 20 MG TABLET PO SCH (16:37)
[2017-12-29 17:03] LABS: GLUCOMETER DEV NAME(LOC) 3EI C; GLUCOSE,POINT OF CARE 77 MG/DL (70-110)
[2017-12-29 17:46] VITALS: BP 161/82
[2017-12-29] MEDS: ATORVASTATIN CALCIUM 20 MG TABLET PO SCH (20:22)
[2017-12-29] MEDS: INSULIN LISPRO 100 UNITS/ML SQ PRN (20:22)
[2017-12-29] MEDS: LORazepam 2 MG TABLET PO PRN ×2 (20:25→23:56)
[2017-12-29] MEDS: HALOPERIDOL 5 MG TABLET PO PRN ×2 (20:25→23:56)
[2017-12-29] MEDS: BENZTROPINE MESYLATE 1 MG TABLET PO SCH (20:40)
[2017-12-29 21:03] LABS: GLUCOMETER DEV NAME(LOC) 3EI C; GLUCOSE,POINT OF CARE 170 MG/DL (70-110)
[2017-12-29] MEDS: ZOLPIDEM TARTRATE 10 MG TABLET PO PRN (23:55)
[2017-12-30] MEDS: GlipiZIDE 5 MG TABLET PO SCH ×2 (06:48→17:38)
[2017-12-30] MEDS: LEVOTHYROXINE SODIUM 50 MCG TABLET PO SCH (06:48)
[2017-12-30 06:53] LABS: GLUCOMETER DEV NAME(LOC) 3EI C; GLUCOSE,POINT OF CARE 85 MG/DL (70-110)
[2017-12-30] MEDS: AmLODIPine BESYLATE 10 MG TABLET PO SCH (08:03)
[2017-12-30] MEDS: BENZTROPINE MESYLATE 1 MG TABLET PO SCH ×2 (08:03→20:16)
[2017-12-30] MEDS: ASPIRIN 81 MG CHEWABLE TABLET PO SCH (08:04)
[2017-12-30] MEDS: FUROSEMIDE 20 MG TABLET PO SCH ×2 (08:04→17:38)
[2017-12-30] MEDS: OMEPRAZOLE 20 MG CAPSULE PO SCH (08:04)
[2017-12-30] MEDS: DIVALPROEX SODIUM 500 MG DR TABLET PO SCH ×2 (08:04→20:17)
[2017-12-30] MEDS: SODIUM CHLORIDE 1 GM TABLET PO SCH ×3 (08:04→17:37)
[2017-12-30] MEDS: PROPRANOLOL HCL 10 MG TABLET PO SCH (08:04)
[2017-12-30] MEDS: RisperiDONE 2 MG TABLET PO SCH ×2 (08:04→20:17)
[2017-12-30] MEDS: CITALOPRAM HYDROBROMIDE 20 MG TABLET PO SCH (08:05)
[2017-12-30] MEDS: POTASSIUM CHLORIDE 10 MEQ ER TABLET PO SCH (08:05)
[2017-12-30] MEDS: LACTOBAC ACID/BULG/BIFID/THERM TABLET PO SCH (08:05)
[2017-12-30] MEDS: LORazepam 2 MG TABLET PO PRN ×2 (08:05→18:15)
[2017-12-30 08:30] VITALS: BP 137/77
[2017-12-30 11:43] LABS: GLUCOMETER DEV NAME(LOC) 3EI C; GLUCOSE,POINT OF CARE 121 MG/DL (70-110)
[2017-12-30] MEDS: RIVAROXABAN 20 MG TABLET PO SCH (17:38)
[2017-12-30 17:44] LABS: GLUCOMETER DEV NAME(LOC) 3EI C; GLUCOSE,POINT OF CARE 174 MG/DL (70-110)
[2017-12-30] MEDS: INSULIN LISPRO 100 UNITS/ML SQ PRN ×2 (17:54→21:45)
[2017-12-30 20:17] LABS: GLUCOMETER DEV NAME(LOC) 3EI C; GLUCOSE,POINT OF CARE 156 MG/DL (70-110)
[2017-12-30] MEDS: ATORVASTATIN CALCIUM 20 MG TABLET PO SCH (20:17)
[2017-12-30] MEDS: ZOLPIDEM TARTRATE 10 MG TABLET PO PRN (21:06)
[2017-12-31 06:35] LABS: GLUCOMETER DEV NAME(LOC) 3EI C; GLUCOSE,POINT OF CARE 71 MG/DL (70-110)
[2017-12-31 06:47] VITALS: BP 128/82
[2017-12-31] MEDS: GlipiZIDE 5 MG TABLET PO SCH ×4 (06:53→19:26)
[2017-12-31] MEDS: LEVOTHYROXINE SODIUM 50 MCG TABLET PO SCH (06:54)
[2017-12-31 08:05] VITALS: BP 134/74
[2017-12-31] MEDS: DIVALPROEX SODIUM 500 MG DR TABLET PO SCH ×2 (08:22→20:31)
[2017-12-31] MEDS: ASPIRIN 81 MG CHEWABLE TABLET PO SCH (08:22)
[2017-12-31] MEDS: CITALOPRAM HYDROBROMIDE 20 MG TABLET PO SCH (08:22)
[2017-12-31] MEDS: FUROSEMIDE 20 MG TABLET PO SCH ×3 (08:22→19:27)
[2017-12-31] MEDS: HALOPERIDOL 5 MG TABLET PO PRN ×2 (08:22→13:08)
[2017-12-31] MEDS: DOCUSATE SODIUM 100 MG CAPSULE PO PRN (08:22)
[2017-12-31] MEDS: SODIUM CHLORIDE 1 GM TABLET PO SCH ×4 (08:22→19:27)
[2017-12-31] MEDS: RisperiDONE 2 MG TABLET PO SCH ×2 (08:22→20:31)
[2017-12-31] MEDS: LORazepam 2 MG TABLET PO PRN ×2 (08:22→13:08)
[2017-12-31] MEDS: OMEPRAZOLE 20 MG CAPSULE PO SCH (08:22)
[2017-12-31] MEDS: POTASSIUM CHLORIDE 10 MEQ ER TABLET PO SCH (08:22)
[2017-12-31] MEDS: BENZTROPINE MESYLATE 1 MG TABLET PO SCH ×2 (08:22→20:31)
[2017-12-31] MEDS: AmLODIPine BESYLATE 10 MG TABLET PO SCH (08:22)
[2017-12-31] MEDS: LACTOBAC ACID/BULG/BIFID/THERM TABLET PO SCH (08:23)
[2017-12-31] MEDS: PROPRANOLOL HCL 10 MG TABLET PO SCH (08:24)
[2017-12-31 12:44] LABS: GLUCOMETER DEV NAME(LOC) 3EI C; GLUCOSE,POINT OF CARE 143 MG/DL (70-110)
[2017-12-31 16:23] LABS: GLUCOMETER DEV NAME(LOC) 3EI C; GLUCOSE,POINT OF CARE 125 MG/DL (70-110)
[2017-12-31] MEDS: RIVAROXABAN 20 MG TABLET PO SCH ×2 (17:30→19:27)
[2017-12-31 19:46] VITALS: BP 141/79
[2017-12-31 20:13] LABS: GLUCOMETER DEV NAME(LOC) 3EI C; GLUCOSE,POINT OF CARE 90 MG/DL (70-110)
[2017-12-31] MEDS: ATORVASTATIN CALCIUM 20 MG TABLET PO SCH (20:31)
[2018-01-01] MEDS: LOPERAMIDE HCL 2 MG CAPSULE PO PRN (03:16)
[2018-01-01 06:49] VITALS: BP 138/75
[2018-01-01] MEDS: GlipiZIDE 5 MG TABLET PO SCH ×2 (06:52→19:22)
[2018-01-01] MEDS: LEVOTHYROXINE SODIUM 50 MCG TABLET PO SCH (06:52)
[2018-01-01 06:59] LABS: GLUCOMETER DEV NAME(LOC) 3EI C; GLUCOSE,POINT OF CARE 156 MG/DL (70-110)
[2018-01-01] MEDS: INSULIN LISPRO 100 UNITS/ML SQ PRN (07:07)
[2018-01-01] MEDS: BENZTROPINE MESYLATE 1 MG TABLET PO SCH ×2 (07:44→20:09)
[2018-01-01] MEDS: SODIUM CHLORIDE 1 GM TABLET PO SCH ×3 (07:44→17:00)
[2018-01-01] MEDS: FUROSEMIDE 20 MG TABLET PO SCH ×2 (07:44→17:00)
[2018-01-01] MEDS: OMEPRAZOLE 20 MG CAPSULE PO SCH (07:44)
[2018-01-01] MEDS: AmLODIPine BESYLATE 10 MG TABLET PO SCH (07:44)
[2018-01-01] MEDS: PROPRANOLOL HCL 10 MG TABLET PO SCH (07:45)
[2018-01-01] MEDS: DIVALPROEX SODIUM 500 MG DR TABLET PO SCH ×2 (07:45→20:10)
[2018-01-01] MEDS: LACTOBAC ACID/BULG/BIFID/THERM TABLET PO SCH (07:45)
[2018-01-01] MEDS: RisperiDONE 2 MG TABLET PO SCH ×2 (07:45→20:13)
[2018-01-01] MEDS: ASPIRIN 81 MG CHEWABLE TABLET PO SCH (07:45)
[2018-01-01] MEDS: POTASSIUM CHLORIDE 10 MEQ ER TABLET PO SCH (07:45)
[2018-01-01] MEDS: CITALOPRAM HYDROBROMIDE 20 MG TABLET PO SCH (07:46)
[2018-01-01 08:47] VITALS: BP 148/82
[2018-01-01 11:24] LABS: GLUCOMETER DEV NAME(LOC) 3EI C; GLUCOSE,POINT OF CARE 77 MG/DL (70-110)
[2018-01-01 18:19] LABS: GLUCOMETER DEV NAME(LOC) 3EI C; GLUCOSE,POINT OF CARE 61 MG/DL (70-110)
[2018-01-01 18:28] LABS: GLUCOMETER DEV NAME(LOC) 3EI C; GLUCOSE,POINT OF CARE 60 MG/DL (70-110)
[2018-01-01 18:48] LABS: GLUCOMETER DEV NAME(LOC) 3EI C; GLUCOSE,POINT OF CARE 63 MG/DL (70-110)
[2018-01-01 19:03] LABS: GLUCOMETER DEV NAME(LOC) 3EI C; GLUCOSE,POINT OF CARE 103 MG/DL (70-110)
[2018-01-01] MEDS: RIVAROXABAN 20 MG TABLET PO SCH (19:22)
[2018-01-01] MEDS: ATORVASTATIN CALCIUM 20 MG TABLET PO SCH (20:09)
[2018-01-01] MEDS: HALOPERIDOL 5 MG TABLET PO PRN (20:10)
[2018-01-01] MEDS: LORazepam 2 MG TABLET PO PRN (20:10)
[2018-01-01] MEDS: ZOLPIDEM TARTRATE 10 MG TABLET PO PRN (20:11)
[2018-01-01 20:14] LABS: GLUCOMETER DEV NAME(LOC) 3EI C; GLUCOSE,POINT OF CARE 137 MG/DL (70-110)
[2018-01-02] MEDS: LEVOTHYROXINE SODIUM 50 MCG TABLET PO SCH (06:52)
[2018-01-02] MEDS: GlipiZIDE 5 MG TABLET PO SCH ×2 (06:52→17:00)
[2018-01-02 07:04] LABS: GLUCOMETER DEV NAME(LOC) 3EI C; GLUCOSE,POINT OF CARE 97 MG/DL (70-110)
[2018-01-02 08:05] VITALS: BP 135/88
[2018-01-02] MEDS: DIVALPROEX SODIUM 500 MG DR TABLET PO SCH ×2 (08:12→22:14)
[2018-01-02] MEDS: PROPRANOLOL HCL 10 MG TABLET PO SCH (08:12)
[2018-01-02] MEDS: SODIUM CHLORIDE 1 GM TABLET PO SCH ×3 (08:13→17:00)
[2018-01-02] MEDS: FUROSEMIDE 20 MG TABLET PO SCH ×2 (08:13→17:00)
[2018-01-02] MEDS: LACTOBAC ACID/BULG/BIFID/THERM TABLET PO SCH (08:13)
[2018-01-02] MEDS: BENZTROPINE MESYLATE 1 MG TABLET PO SCH ×2 (08:13→22:13)
[2018-01-02] MEDS: ASPIRIN 81 MG CHEWABLE TABLET PO SCH (08:13)
[2018-01-02] MEDS: OMEPRAZOLE 20 MG CAPSULE PO SCH (08:13)
[2018-01-02] MEDS: AmLODIPine BESYLATE 10 MG TABLET PO SCH (08:13)
[2018-01-02] MEDS: CITALOPRAM HYDROBROMIDE 20 MG TABLET PO SCH (08:13)
[2018-01-02] MEDS: RisperiDONE 2 MG TABLET PO SCH ×2 (08:13→22:13)
[2018-01-02] MEDS: POTASSIUM CHLORIDE 10 MEQ ER TABLET PO SCH (08:13)
[2018-01-02 11:28] LABS: GLUCOMETER DEV NAME(LOC) 3EI C; GLUCOSE,POINT OF CARE 171 MG/DL (70-110)
[2018-01-02] MEDS: INSULIN LISPRO 100 UNITS/ML SQ PRN (11:32)
[2018-01-02] MEDS: RIVAROXABAN 20 MG TABLET PO SCH (17:30)
[2018-01-02 21:49] LABS: GLUCOMETER DEV NAME(LOC) 3EI C; GLUCOSE,POINT OF CARE 67 MG/DL (70-110)
[2018-01-02 22:14] LABS: GLUCOMETER DEV NAME(LOC) 3EI C; GLUCOSE,POINT OF CARE 75 MG/DL (70-110)
[2018-01-02] MEDS: ATORVASTATIN CALCIUM 20 MG TABLET PO SCH (22:14)
[2018-01-03 05:29] LABS: GLUCOMETER DEV NAME(LOC) 3EI C; GLUCOSE,POINT OF CARE 121 MG/DL (70-110)
[2018-01-03 05:50] VITALS: BP 130/78
[2018-01-03] MEDS: GlipiZIDE 5 MG TABLET PO SCH ×2 (06:48→16:45)
[2018-01-03] MEDS: LEVOTHYROXINE SODIUM 50 MCG TABLET PO SCH (06:48)
[2018-01-03] MEDS: INSULIN LISPRO 100 UNITS/ML SQ PRN ×3 (06:49→17:16)
[2018-01-03 08:00] VITALS: BP 138/100
[2018-01-03] MEDS: ASPIRIN 81 MG CHEWABLE TABLET PO SCH (08:54)
[2018-01-03] MEDS: POTASSIUM CHLORIDE 10 MEQ ER TABLET PO SCH (08:54)
[2018-01-03] MEDS: CITALOPRAM HYDROBROMIDE 20 MG TABLET PO SCH (08:54)
[2018-01-03] MEDS: LACTOBAC ACID/BULG/BIFID/THERM TABLET PO SCH (08:54)
[2018-01-03] MEDS: FUROSEMIDE 20 MG TABLET PO SCH ×2 (08:55→16:45)
[2018-01-03] MEDS: RisperiDONE 2 MG TABLET PO SCH ×2 (08:55→21:31)
[2018-01-03] MEDS: BENZTROPINE MESYLATE 1 MG TABLET PO SCH ×2 (08:55→21:31)
[2018-01-03] MEDS: SODIUM CHLORIDE 1 GM TABLET PO SCH ×3 (08:55→16:45)
[2018-01-03] MEDS: DIVALPROEX SODIUM 500 MG DR TABLET PO SCH ×2 (08:55→21:31)
[2018-01-03] MEDS: OMEPRAZOLE 20 MG CAPSULE PO SCH (08:56)
[2018-01-03] MEDS: PROPRANOLOL HCL 10 MG TABLET PO SCH (08:57)
[2018-01-03] MEDS: AmLODIPine BESYLATE 10 MG TABLET PO SCH (08:57)
[2018-01-03 10:00] VITALS: BP 138/64
[2018-01-03 11:33] LABS: GLUCOMETER DEV NAME(LOC) 3EI C; GLUCOSE,POINT OF CARE 150 MG/DL (70-110)
[2018-01-03] MEDS: RIVAROXABAN 20 MG TABLET PO SCH (16:45)
[2018-01-03 16:54] LABS: GLUCOMETER DEV NAME(LOC) 3EI C; GLUCOSE,POINT OF CARE 173 MG/DL (70-110)
[2018-01-03 17:00] VITALS: BP 157/87
[2018-01-03] MEDS: ATORVASTATIN CALCIUM 20 MG TABLET PO SCH (21:31)
[2018-01-03 21:43] LABS: GLUCOMETER DEV NAME(LOC) 3EI C; GLUCOSE,POINT OF CARE 87 MG/DL (70-110)
[2018-01-04] VITALS: BP 155/83
[2018-01-04] MEDS: ZOLPIDEM TARTRATE 10 MG TABLET PO PRN (00:02)
[2018-01-04] MEDS: LORazepam 2 MG TABLET PO PRN (00:02)
[2018-01-04] MEDS: GlipiZIDE 5 MG TABLET PO SCH ×2 (06:36→16:13)
[2018-01-04] MEDS: LEVOTHYROXINE SODIUM 50 MCG TABLET PO SCH (06:37)
[2018-01-04 06:39] LABS: GLUCOMETER DEV NAME(LOC) 3EI C; GLUCOSE,POINT OF CARE 93 MG/DL (70-110)
[2018-01-04 08:28] VITALS: BP 128/66
[2018-01-04] MEDS: AmLODIPine BESYLATE 10 MG TABLET PO SCH (09:24)
[2018-01-04] MEDS: FUROSEMIDE 20 MG TABLET PO SCH ×2 (09:24→16:13)
[2018-01-04] MEDS: CITALOPRAM HYDROBROMIDE 20 MG TABLET PO SCH (09:24)
[2018-01-04] MEDS: ASPIRIN 81 MG CHEWABLE TABLET PO SCH (09:24)
[2018-01-04] MEDS: DIVALPROEX SODIUM 500 MG DR TABLET PO SCH ×2 (09:24→21:00)
[2018-01-04] MEDS: OMEPRAZOLE 20 MG CAPSULE PO SCH (09:24)
[2018-01-04] MEDS: POTASSIUM CHLORIDE 10 MEQ ER TABLET PO SCH (09:24)
[2018-01-04] MEDS: BENZTROPINE MESYLATE 1 MG TABLET PO SCH ×2 (09:24→21:00)
[2018-01-04] MEDS: SODIUM CHLORIDE 1 GM TABLET PO SCH ×3 (09:25→16:13)
[2018-01-04] MEDS: LACTOBAC ACID/BULG/BIFID/THERM TABLET PO SCH (09:25)
[2018-01-04] MEDS: PROPRANOLOL HCL 10 MG TABLET PO SCH (09:25)
[2018-01-04] MEDS: RisperiDONE 2 MG TABLET PO SCH ×2 (09:25→21:00)
[2018-01-04 11:30] LABS: GLUCOMETER DEV NAME(LOC) 3EI C; GLUCOSE,POINT OF CARE 130 MG/DL (70-110)
[2018-01-04] MEDS: RIVAROXABAN 20 MG TABLET PO SCH (16:13)
[2018-01-04 16:23] LABS: GLUCOMETER DEV NAME(LOC) 3EI C; GLUCOSE,POINT OF CARE 153 MG/DL (70-110)
[2018-01-04 16:54] VITALS: BP 150/83
[2018-01-04] MEDS: INSULIN LISPRO 100 UNITS/ML SQ PRN (17:10)
[2018-01-04] MEDS: ATORVASTATIN CALCIUM 20 MG TABLET PO SCH (21:00)
[2018-01-05] MEDS: HALOPERIDOL 5 MG TABLET PO PRN (00:10)
[2018-01-05] MEDS: ZOLPIDEM TARTRATE 10 MG TABLET PO PRN (00:10)
[2018-01-05 01:03] VITALS: BP 129/77
[2018-01-05] MEDS: LORazepam 2 MG TABLET PO PRN (01:03)
[2018-01-05 05:54] LABS: GLUCOMETER DEV NAME(LOC) 3EI C; GLUCOSE,POINT OF CARE 132 MG/DL (70-110)
[2018-01-05] MEDS: GlipiZIDE 5 MG TABLET PO SCH ×2 (06:41→17:00)
[2018-01-05] MEDS: LEVOTHYROXINE SODIUM 50 MCG TABLET PO SCH (06:41)
[2018-01-05] MEDS: RisperiDONE 2 MG TABLET PO SCH ×2 (07:57→21:00)
[2018-01-05] MEDS: ASPIRIN 81 MG CHEWABLE TABLET PO SCH (07:57)
[2018-01-05] MEDS: POTASSIUM CHLORIDE 10 MEQ ER TABLET PO SCH (07:57)
[2018-01-05] MEDS: OMEPRAZOLE 20 MG CAPSULE PO SCH (07:57)
[2018-01-05] MEDS: AmLODIPine BESYLATE 10 MG TABLET PO SCH (07:57)
[2018-01-05] MEDS: FUROSEMIDE 20 MG TABLET PO SCH ×2 (07:57→17:00)
[2018-01-05] MEDS: CITALOPRAM HYDROBROMIDE 20 MG TABLET PO SCH (07:57)
[2018-01-05] MEDS: BENZTROPINE MESYLATE 1 MG TABLET PO SCH ×2 (07:57→21:00)
[2018-01-05] MEDS: LACTOBAC ACID/BULG/BIFID/THERM TABLET PO SCH (07:58)
[2018-01-05] MEDS: DIVALPROEX SODIUM 500 MG DR TABLET PO SCH ×2 (07:58→21:00)
[2018-01-05] MEDS: SODIUM CHLORIDE 1 GM TABLET PO SCH ×3 (07:58→17:00)
[2018-01-05] MEDS: PROPRANOLOL HCL 10 MG TABLET PO SCH (08:00)
[2018-01-05 08:07] VITALS: BP 130/64
[2018-01-05 11:18] LABS: GLUCOMETER DEV NAME(LOC) 3EI C; GLUCOSE,POINT OF CARE 126 MG/DL (70-110)
[2018-01-05] MEDS: RIVAROXABAN 20 MG TABLET PO SCH (17:30)
[2018-01-05] MEDS: ATORVASTATIN CALCIUM 20 MG TABLET PO SCH (21:00)
[2018-01-05 21:28] LABS: GLUCOMETER DEV NAME(LOC) 3EI C; GLUCOSE,POINT OF CARE 81 MG/DL (70-110)
[2018-01-06 00:01] VITALS: BP 138/78
[2018-01-06] MEDS: LORazepam 2 MG TABLET PO PRN (00:04)
[2018-01-06] MEDS: ZOLPIDEM TARTRATE 10 MG TABLET PO PRN (00:04)
[2018-01-06] MEDS: LEVOTHYROXINE SODIUM 50 MCG TABLET PO SCH (06:51)
[2018-01-06] MEDS: GlipiZIDE 5 MG TABLET PO SCH ×2 (06:51→16:14)
[2018-01-06 06:54] LABS: GLUCOMETER DEV NAME(LOC) 3EI C; GLUCOSE,POINT OF CARE 144 MG/DL (70-110)
[2018-01-06] MEDS: INSULIN LISPRO 100 UNITS/ML SQ PRN (06:57)
[2018-01-06 08:15] VITALS: BP 131/76
[2018-01-06] MEDS: ASPIRIN 81 MG CHEWABLE TABLET PO SCH (09:18)
[2018-01-06] MEDS: CITALOPRAM HYDROBROMIDE 20 MG TABLET PO SCH (09:19)
[2018-01-06] MEDS: BENZTROPINE MESYLATE 1 MG TABLET PO SCH ×2 (09:19→21:16)
[2018-01-06] MEDS: LACTOBAC ACID/BULG/BIFID/THERM TABLET PO SCH (09:19)
[2018-01-06] MEDS: PROPRANOLOL HCL 10 MG TABLET PO SCH (09:20)
[2018-01-06] MEDS: DIVALPROEX SODIUM 500 MG DR TABLET PO SCH ×2 (09:20→21:16)
[2018-01-06] MEDS: RisperiDONE 2 MG TABLET PO SCH ×2 (09:21→21:16)
[2018-01-06] MEDS: FUROSEMIDE 20 MG TABLET PO SCH ×2 (09:21→16:14)
[2018-01-06] MEDS: POTASSIUM CHLORIDE 10 MEQ ER TABLET PO SCH (09:21)
[2018-01-06] MEDS: AmLODIPine BESYLATE 10 MG TABLET PO SCH (09:21)
[2018-01-06] MEDS: OMEPRAZOLE 20 MG CAPSULE PO SCH (09:21)
[2018-01-06] MEDS: SODIUM CHLORIDE 1 GM TABLET PO SCH ×3 (09:21→16:14)
[2018-01-06 11:49] LABS: GLUCOMETER DEV NAME(LOC) 3EI C; GLUCOSE,POINT OF CARE 102 MG/DL (70-110)
[2018-01-06 16:23] LABS: GLUCOMETER DEV NAME(LOC) 3EI C; GLUCOSE,POINT OF CARE 108 MG/DL (70-110)
[2018-01-06] MEDS: RIVAROXABAN 20 MG TABLET PO SCH (16:42)
[2018-01-06 17:00] VITALS: BP 154/90
[2018-01-06] MEDS: ATORVASTATIN CALCIUM 20 MG TABLET PO SCH (21:16)
[2018-01-06 21:34] LABS: GLUCOMETER DEV NAME(LOC) 3EI C; GLUCOSE,POINT OF CARE 124 MG/DL (70-110)
[2018-01-07 00:22] VITALS: BP 135/65
[2018-01-07] MEDS: LORazepam 2 MG TABLET PO PRN ×2 (00:24→16:20)
[2018-01-07] MEDS: ZOLPIDEM TARTRATE 10 MG TABLET PO PRN (00:24)
[2018-01-07 06:00] LABS: GLUCOMETER DEV NAME(LOC) 3EI C; GLUCOSE,POINT OF CARE 110 MG/DL (70-110)
[2018-01-07] MEDS: LEVOTHYROXINE SODIUM 50 MCG TABLET PO SCH (06:37)
[2018-01-07] MEDS: GlipiZIDE 5 MG TABLET PO SCH ×2 (06:37→16:20)
[2018-01-07] MEDS: BENZTROPINE MESYLATE 1 MG TABLET PO SCH ×2 (08:14→20:03)
[2018-01-07] MEDS: LACTOBAC ACID/BULG/BIFID/THERM TABLET PO SCH (08:14)
[2018-01-07] MEDS: PROPRANOLOL HCL 10 MG TABLET PO SCH (08:14)
[2018-01-07] MEDS: DIVALPROEX SODIUM 500 MG DR TABLET PO SCH ×2 (08:14→20:03)
[2018-01-07] MEDS: ASPIRIN 81 MG CHEWABLE TABLET PO SCH (08:14)
[2018-01-07] MEDS: CITALOPRAM HYDROBROMIDE 20 MG TABLET PO SCH (08:14)
[2018-01-07] MEDS: POTASSIUM CHLORIDE 10 MEQ ER TABLET PO SCH (08:15)
[2018-01-07] MEDS: AmLODIPine BESYLATE 10 MG TABLET PO SCH (08:15)
[2018-01-07] MEDS: FUROSEMIDE 20 MG TABLET PO SCH ×2 (08:15→16:21)
[2018-01-07] MEDS: SODIUM CHLORIDE 1 GM TABLET PO SCH ×3 (08:15→16:20)
[2018-01-07] MEDS: RisperiDONE 2 MG TABLET PO SCH ×2 (08:15→20:03)
[2018-01-07] MEDS: OMEPRAZOLE 20 MG CAPSULE PO SCH (08:15)
[2018-01-07 08:30] VITALS: BP 155/82
[2018-01-07 11:28] LABS: GLUCOMETER DEV NAME(LOC) 3EI C; GLUCOSE,POINT OF CARE 146 MG/DL (70-110)
[2018-01-07] MEDS: INSULIN LISPRO 100 UNITS/ML SQ PRN (11:42)
[2018-01-07 16:18] LABS: GLUCOMETER DEV NAME(LOC) 3EI C; GLUCOSE,POINT OF CARE 128 MG/DL (70-110)
[2018-01-07] MEDS: RIVAROXABAN 20 MG TABLET PO SCH (17:14)
[2018-01-07 19:50] VITALS: BP 154/73
[2018-01-07] MEDS: ATORVASTATIN CALCIUM 20 MG TABLET PO SCH (20:03)
[2018-01-07 21:43] LABS: GLUCOMETER DEV NAME(LOC) 3EI C; GLUCOSE,POINT OF CARE 84 MG/DL (70-110)
[2018-01-08 00:05] VITALS: BP 106/67
[2018-01-08] MEDS: LORazepam 2 MG TABLET PO PRN (00:11)
[2018-01-08] MEDS: ZOLPIDEM TARTRATE 10 MG TABLET PO PRN (00:12)
[2018-01-08 05:59] LABS: GLUCOMETER DEV NAME(LOC) 3EI C; GLUCOSE,POINT OF CARE 82 MG/DL (70-110)
[2018-01-08] MEDS: LEVOTHYROXINE SODIUM 50 MCG TABLET PO SCH (06:50)
[2018-01-08] MEDS: GlipiZIDE 5 MG TABLET PO SCH ×2 (06:50→16:20)
[2018-01-08 08:30] VITALS: BP 140/68
[2018-01-08] MEDS: DIVALPROEX SODIUM 500 MG DR TABLET PO SCH ×2 (09:23→21:01)
[2018-01-08] MEDS: RisperiDONE 2 MG TABLET PO SCH ×2 (09:23→21:01)
[2018-01-08] MEDS: CITALOPRAM HYDROBROMIDE 20 MG TABLET PO SCH (09:23)
[2018-01-08] MEDS: BENZTROPINE MESYLATE 1 MG TABLET PO SCH ×2 (09:23→20:58)
[2018-01-08] MEDS: POTASSIUM CHLORIDE 10 MEQ ER TABLET PO SCH (09:24)
[2018-01-08] MEDS: AmLODIPine BESYLATE 10 MG TABLET PO SCH (09:24)
[2018-01-08] MEDS: FUROSEMIDE 20 MG TABLET PO SCH ×2 (09:24→16:20)
[2018-01-08] MEDS: ASPIRIN 81 MG CHEWABLE TABLET PO SCH (09:24)
[2018-01-08] MEDS: OMEPRAZOLE 20 MG CAPSULE PO SCH (09:24)
[2018-01-08] MEDS: SODIUM CHLORIDE 1 GM TABLET PO SCH ×3 (09:25→16:20)
[2018-01-08] MEDS: LACTOBAC ACID/BULG/BIFID/THERM TABLET PO SCH (09:26)
[2018-01-08] MEDS: PROPRANOLOL HCL 10 MG TABLET PO SCH (09:27)
[2018-01-08 11:59] LABS: GLUCOMETER DEV NAME(LOC) 3EI C; GLUCOSE,POINT OF CARE 75 MG/DL (70-110)
[2018-01-08] MEDS: INSULIN LISPRO 100 UNITS/ML SQ PRN (16:19)
[2018-01-08 16:54] LABS: GLUCOMETER DEV NAME(LOC) 3EI C; GLUCOSE,POINT OF CARE 146 MG/DL (70-110)
[2018-01-08 17:11] VITALS: BP 143/70
[2018-01-08] MEDS: RIVAROXABAN 20 MG TABLET PO SCH (17:12)
[2018-01-08] MEDS: ATORVASTATIN CALCIUM 20 MG TABLET PO SCH (20:59)
[2018-01-08 21:23] LABS: GLUCOMETER DEV NAME(LOC) 3EI C; GLUCOSE,POINT OF CARE 76 MG/DL (70-110)
[2018-01-09 06:35] LABS: GLUCOMETER DEV NAME(LOC) 3EI C; GLUCOSE,POINT OF CARE 88 MG/DL (70-110)
[2018-01-09] MEDS: LEVOTHYROXINE SODIUM 50 MCG TABLET PO SCH (06:56)
[2018-01-09] MEDS: GlipiZIDE 5 MG TABLET PO SCH ×2 (06:56→16:21)
[2018-01-09] MEDS: INSULIN LISPRO 100 UNITS/ML SQ PRN ×2 (07:03→17:29)
[2018-01-09 08:30] VITALS: BP 143/77
[2018-01-09] MEDS: LACTOBAC ACID/BULG/BIFID/THERM TABLET PO SCH (08:42)
[2018-01-09] MEDS: BENZTROPINE MESYLATE 1 MG TABLET PO SCH ×2 (08:42→21:17)
[2018-01-09] MEDS: ASPIRIN 81 MG CHEWABLE TABLET PO SCH (08:42)
[2018-01-09] MEDS: CITALOPRAM HYDROBROMIDE 20 MG TABLET PO SCH (08:42)
[2018-01-09] MEDS: DIVALPROEX SODIUM 500 MG DR TABLET PO SCH ×2 (08:43→21:17)
[2018-01-09] MEDS: SODIUM CHLORIDE 1 GM TABLET PO SCH ×3 (08:43→16:21)
[2018-01-09] MEDS: PROPRANOLOL HCL 10 MG TABLET PO SCH (08:43)
[2018-01-09] MEDS: POTASSIUM CHLORIDE 10 MEQ ER TABLET PO SCH (08:43)
[2018-01-09] MEDS: AmLODIPine BESYLATE 10 MG TABLET PO SCH (08:43)
[2018-01-09] MEDS: FUROSEMIDE 20 MG TABLET PO SCH ×2 (08:43→16:21)
[2018-01-09] MEDS: RisperiDONE 2 MG TABLET PO SCH ×2 (08:44→21:17)
[2018-01-09] MEDS: OMEPRAZOLE 20 MG CAPSULE PO SCH (08:44)
[2018-01-09 11:14] LABS: GLUCOMETER DEV NAME(LOC) 3EI C; GLUCOSE,POINT OF CARE 123 MG/DL (70-110)
[2018-01-09 16:24] LABS: GLUCOMETER DEV NAME(LOC) 3EI C; GLUCOSE,POINT OF CARE 190 MG/DL (70-110)
[2018-01-09] MEDS: RIVAROXABAN 20 MG TABLET PO SCH (16:36)
[2018-01-09 18:46] VITALS: BP 151/74
[2018-01-09 21:13] LABS: GLUCOMETER DEV NAME(LOC) 3EI C; GLUCOSE,POINT OF CARE 94 MG/DL (70-110)
[2018-01-09] MEDS: ATORVASTATIN CALCIUM 20 MG TABLET PO SCH (21:17)
[2018-01-10 00:10] VITALS: BP 136/71
[2018-01-10] MEDS: ZOLPIDEM TARTRATE 10 MG TABLET PO PRN (00:15)
[2018-01-10] MEDS: LORazepam 2 MG TABLET PO PRN ×2 (00:15→20:44)
[2018-01-10 05:44] LABS: GLUCOMETER DEV NAME(LOC) 3EI C; GLUCOSE,POINT OF CARE 87 MG/DL (70-110)
[2018-01-10] MEDS: GlipiZIDE 5 MG TABLET PO SCH ×2 (06:49→16:56)
[2018-01-10] MEDS: LEVOTHYROXINE SODIUM 50 MCG TABLET PO SCH (06:49)
[2018-01-10 08:00] VITALS: BP 148/62
[2018-01-10] MEDS: BENZTROPINE MESYLATE 1 MG TABLET PO SCH ×2 (08:20→20:45)
[2018-01-10] MEDS: CITALOPRAM HYDROBROMIDE 20 MG TABLET PO SCH (08:20)
[2018-01-10] MEDS: ASPIRIN 81 MG CHEWABLE TABLET PO SCH (08:20)
[2018-01-10] MEDS: DIVALPROEX SODIUM 500 MG DR TABLET PO SCH ×2 (08:20→20:44)
[2018-01-10] MEDS: OMEPRAZOLE 20 MG CAPSULE PO SCH (08:20)
[2018-01-10] MEDS: FUROSEMIDE 20 MG TABLET PO SCH ×2 (08:21→16:56)
[2018-01-10] MEDS: POTASSIUM CHLORIDE 10 MEQ ER TABLET PO SCH (08:21)
[2018-01-10] MEDS: RisperiDONE 2 MG TABLET PO SCH ×2 (08:21→20:45)
[2018-01-10] MEDS: SODIUM CHLORIDE 1 GM TABLET PO SCH ×3 (08:21→16:56)
[2018-01-10] MEDS: LACTOBAC ACID/BULG/BIFID/THERM TABLET PO SCH (08:21)
[2018-01-10] MEDS: PROPRANOLOL HCL 10 MG TABLET PO SCH (08:22)
[2018-01-10] MEDS: AmLODIPine BESYLATE 10 MG TABLET PO SCH (08:23)
[2018-01-10] MEDS: INSULIN LISPRO 100 UNITS/ML SQ PRN ×2 (11:37→17:27)
[2018-01-10 11:44] LABS: GLUCOMETER DEV NAME(LOC) 3EI C; GLUCOSE,POINT OF CARE 122 MG/DL (70-110)
[2018-01-10 16:08] LABS: GLUCOMETER DEV NAME(LOC) 3EI C; GLUCOSE,POINT OF CARE 157 MG/DL (70-110)
[2018-01-10] MEDS: RIVAROXABAN 20 MG TABLET PO SCH (16:57)
[2018-01-10] MEDS: ATORVASTATIN CALCIUM 20 MG TABLET PO SCH (20:44)
[2018-01-10 21:24] LABS: GLUCOMETER DEV NAME(LOC) 3EI C; GLUCOSE,POINT OF CARE 109 MG/DL (70-110)
[2018-01-10 23:04] VITALS: BP 139/71
[2018-01-11] MEDS: ZOLPIDEM TARTRATE 10 MG TABLET PO PRN ×2 (01:40→23:42)
[2018-01-11] MEDS: HALOPERIDOL 5 MG TABLET PO PRN (01:40)
[2018-01-11] MEDS: LEVOTHYROXINE SODIUM 50 MCG TABLET PO SCH (06:54)
[2018-01-11] MEDS: GlipiZIDE 5 MG TABLET PO SCH ×2 (06:54→17:24)
[2018-01-11 06:58] LABS: GLUCOMETER DEV NAME(LOC) 3EI C; GLUCOSE,POINT OF CARE 112 MG/DL (70-110)
[2018-01-11 08:30] VITALS: BP 135/76
[2018-01-11] MEDS: ASPIRIN 81 MG CHEWABLE TABLET PO SCH (09:05)
[2018-01-11] MEDS: LACTOBAC ACID/BULG/BIFID/THERM TABLET PO SCH (09:05)
[2018-01-11] MEDS: FUROSEMIDE 20 MG TABLET PO SCH ×2 (09:05→17:24)
[2018-01-11] MEDS: BENZTROPINE MESYLATE 1 MG TABLET PO SCH ×2 (09:05→21:09)
[2018-01-11] MEDS: CITALOPRAM HYDROBROMIDE 20 MG TABLET PO SCH (09:05)
[2018-01-11] MEDS: DIVALPROEX SODIUM 500 MG DR TABLET PO SCH ×2 (09:06→21:09)
[2018-01-11] MEDS: POTASSIUM CHLORIDE 10 MEQ ER TABLET PO SCH (09:06)
[2018-01-11] MEDS: PROPRANOLOL HCL 10 MG TABLET PO SCH (09:06)
[2018-01-11] MEDS: RisperiDONE 2 MG TABLET PO SCH ×2 (09:06→21:09)
[2018-01-11] MEDS: SODIUM CHLORIDE 1 GM TABLET PO SCH ×3 (09:06→17:24)
[2018-01-11] MEDS: OMEPRAZOLE 20 MG CAPSULE PO SCH (09:06)
[2018-01-11] MEDS: AmLODIPine BESYLATE 10 MG TABLET PO SCH (09:06)
[2018-01-11 11:29] LABS: GLUCOMETER DEV NAME(LOC) 3EI C; GLUCOSE,POINT OF CARE 116 MG/DL (70-110)
[2018-01-11] MEDS ORDERED: PALIPERIDONE PALMITATE 234 MG/1.5 ML SYRINGE IM ONE (11:30)
[2018-01-11 16:19] LABS: GLUCOMETER DEV NAME(LOC) 3EI C; GLUCOSE,POINT OF CARE 120 MG/DL (70-110)
[2018-01-11] MEDS: RIVAROXABAN 20 MG TABLET PO SCH (17:24)
[2018-01-11 18:35] VITALS: BP 115/66
[2018-01-11] MEDS: ATORVASTATIN CALCIUM 20 MG TABLET PO SCH (21:09)
[2018-01-11 21:19] LABS: GLUCOMETER DEV NAME(LOC) 3EI C; GLUCOSE,POINT OF CARE 81 MG/DL (70-110)
[2018-01-11 23:35] VITALS: BP 123/66
[2018-01-11] MEDS: LORazepam 2 MG TABLET PO PRN (23:43)
[2018-01-12 06:09] LABS: GLUCOMETER DEV NAME(LOC) 3EI C; GLUCOSE,POINT OF CARE 73 MG/DL (70-110)
[2018-01-12] MEDS: GlipiZIDE 5 MG TABLET PO SCH ×2 (06:29→16:26)
[2018-01-12] MEDS: LEVOTHYROXINE SODIUM 50 MCG TABLET PO SCH (06:29)
[2018-01-12] MEDS: SODIUM CHLORIDE 1 GM TABLET PO SCH ×3 (08:16→16:26)
[2018-01-12] MEDS: BENZTROPINE MESYLATE 1 MG TABLET PO SCH ×2 (08:17→21:07)
[2018-01-12] MEDS: LACTOBAC ACID/BULG/BIFID/THERM TABLET PO SCH (08:17)
[2018-01-12] MEDS: OMEPRAZOLE 20 MG CAPSULE PO SCH (08:17)
[2018-01-12] MEDS: DIVALPROEX SODIUM 500 MG DR TABLET PO SCH ×2 (08:17→21:07)
[2018-01-12] MEDS: ASPIRIN 81 MG CHEWABLE TABLET PO SCH (08:17)
[2018-01-12] MEDS: FUROSEMIDE 20 MG TABLET PO SCH ×2 (08:17→16:26)
[2018-01-12] MEDS: POTASSIUM CHLORIDE 10 MEQ ER TABLET PO SCH (08:17)
[2018-01-12] MEDS: PROPRANOLOL HCL 10 MG TABLET PO SCH (08:17)
[2018-01-12] MEDS: AmLODIPine BESYLATE 10 MG TABLET PO SCH (08:17)
[2018-01-12] MEDS: RisperiDONE 2 MG TABLET PO SCH ×2 (08:17→21:07)
[2018-01-12] MEDS: CITALOPRAM HYDROBROMIDE 20 MG TABLET PO SCH (08:17)
[2018-01-12 09:59] VITALS: BP 122/88
[2018-01-12] MEDS: INSULIN LISPRO 100 UNITS/ML SQ PRN (11:47)
[2018-01-12 12:04] LABS: GLUCOMETER DEV NAME(LOC) 3EI C; GLUCOSE,POINT OF CARE 171 MG/DL (70-110)
[2018-01-12] MEDS: LORazepam 2 MG TABLET PO PRN ×2 (16:26→21:05)
[2018-01-12 16:34] LABS: GLUCOMETER DEV NAME(LOC) 3EI C; GLUCOSE,POINT OF CARE 109 MG/DL (70-110)
[2018-01-12 16:49] VITALS: BP 155/70
[2018-01-12] MEDS: RIVAROXABAN 20 MG TABLET PO SCH (17:01)
[2018-01-12] MEDS: ZOLPIDEM TARTRATE 10 MG TABLET PO PRN (21:05)
[2018-01-12] MEDS: ATORVASTATIN CALCIUM 20 MG TABLET PO SCH (21:07)
[2018-01-12 21:08] LABS: GLUCOMETER DEV NAME(LOC) 3EI C; GLUCOSE,POINT OF CARE 88 MG/DL (70-110)
[2018-01-13 00:26] VITALS: BP 129/76
[2018-01-13 06:19] LABS: GLUCOMETER DEV NAME(LOC) 3EI C; GLUCOSE,POINT OF CARE 86 MG/DL (70-110)
[2018-01-13] MEDS: GlipiZIDE 5 MG TABLET PO SCH ×2 (06:46→16:55)
[2018-01-13] MEDS: LEVOTHYROXINE SODIUM 50 MCG TABLET PO SCH (06:46)
[2018-01-13] MEDS: PROPRANOLOL HCL 10 MG TABLET PO SCH (08:19)
[2018-01-13] MEDS: OMEPRAZOLE 20 MG CAPSULE PO SCH (08:19)
[2018-01-13] MEDS: LACTOBAC ACID/BULG/BIFID/THERM TABLET PO SCH (08:19)
[2018-01-13] MEDS: DIVALPROEX SODIUM 500 MG DR TABLET PO SCH ×2 (08:19→22:28)
[2018-01-13] MEDS: SODIUM CHLORIDE 1 GM TABLET PO SCH ×3 (08:19→16:55)
[2018-01-13] MEDS: AmLODIPine BESYLATE 10 MG TABLET PO SCH (08:19)
[2018-01-13] MEDS: RisperiDONE 2 MG TABLET PO SCH ×2 (08:19→22:28)
[2018-01-13] MEDS: ASPIRIN 81 MG CHEWABLE TABLET PO SCH (08:20)
[2018-01-13] MEDS: POTASSIUM CHLORIDE 10 MEQ ER TABLET PO SCH (08:20)
[2018-01-13] MEDS: BENZTROPINE MESYLATE 1 MG TABLET PO SCH ×2 (08:20→22:28)
[2018-01-13] MEDS: CITALOPRAM HYDROBROMIDE 20 MG TABLET PO SCH (08:20)
[2018-01-13] MEDS: FUROSEMIDE 20 MG TABLET PO SCH ×2 (08:20→16:55)
[2018-01-13] MEDS: LORazepam 2 MG TABLET PO PRN (08:22)
[2018-01-13 09:31] VITALS: BP 133/62
[2018-01-13 11:23] LABS: GLUCOMETER DEV NAME(LOC) 3EI C; GLUCOSE,POINT OF CARE 104 MG/DL (70-110)
[2018-01-13 16:33] LABS: GLUCOMETER DEV NAME(LOC) 3EI C; GLUCOSE,POINT OF CARE 98 MG/DL (70-110)
[2018-01-13] MEDS: RIVAROXABAN 20 MG TABLET PO SCH (16:55)
[2018-01-13 18:12] VITALS: BP 150/75
[2018-01-13] MEDS: ATORVASTATIN CALCIUM 20 MG TABLET PO SCH (22:28)
[2018-01-13 22:44] LABS: GLUCOMETER DEV NAME(LOC) 3EI C; GLUCOSE,POINT OF CARE 61 MG/DL (70-110)
[2018-01-13 23:04] LABS: GLUCOMETER DEV NAME(LOC) 3EI C; GLUCOSE,POINT OF CARE 57 MG/DL (70-110)
[2018-01-13 23:29] LABS: GLUCOMETER DEV NAME(LOC) 3EI C; GLUCOSE,POINT OF CARE 80 MG/DL (70-110)
[2018-01-14] VITALS: BP 149/65
[2018-01-14] MEDS: LORazepam 2 MG TABLET PO PRN (00:05)
[2018-01-14] MEDS: ZOLPIDEM TARTRATE 10 MG TABLET PO PRN (00:05)
[2018-01-14 05:44] LABS: GLUCOMETER DEV NAME(LOC) 3EI C; GLUCOSE,POINT OF CARE 75 MG/DL (70-110)
[2018-01-14 05:59] LABS: GLUCOMETER DEV NAME(LOC) 3EI C; GLUCOSE,POINT OF CARE 85 MG/DL (70-110)
[2018-01-14] MEDS: LEVOTHYROXINE SODIUM 50 MCG TABLET PO SCH (06:37)
[2018-01-14] MEDS: GlipiZIDE 5 MG TABLET PO SCH ×2 (06:37→16:24)
[2018-01-14 08:30] VITALS: BP 141/74
[2018-01-14] MEDS: SODIUM CHLORIDE 1 GM TABLET PO SCH ×3 (10:25→16:23)
[2018-01-14] MEDS: FUROSEMIDE 20 MG TABLET PO SCH ×2 (10:26→16:23)
[2018-01-14] MEDS: BENZTROPINE MESYLATE 1 MG TABLET PO SCH ×2 (10:26→20:56)
[2018-01-14] MEDS: POTASSIUM CHLORIDE 10 MEQ ER TABLET PO SCH (10:26)
[2018-01-14] MEDS: PROPRANOLOL HCL 10 MG TABLET PO SCH (10:26)
[2018-01-14] MEDS: AmLODIPine BESYLATE 10 MG TABLET PO SCH (10:26)
[2018-01-14] MEDS: ASPIRIN 81 MG CHEWABLE TABLET PO SCH (10:26)
[2018-01-14] MEDS: DIVALPROEX SODIUM 500 MG DR TABLET PO SCH ×2 (10:26→20:56)
[2018-01-14] MEDS: RisperiDONE 2 MG TABLET PO SCH ×2 (10:26→20:56)
[2018-01-14] MEDS: LACTOBAC ACID/BULG/BIFID/THERM TABLET PO SCH (10:26)
[2018-01-14] MEDS: CITALOPRAM HYDROBROMIDE 20 MG TABLET PO SCH (10:26)
[2018-01-14] MEDS: OMEPRAZOLE 20 MG CAPSULE PO SCH (10:27)
[2018-01-14 11:54] LABS: GLUCOMETER DEV NAME(LOC) 3EI C; GLUCOSE,POINT OF CARE 114 MG/DL (70-110)
[2018-01-14] MEDS: RIVAROXABAN 20 MG TABLET PO SCH (16:23)
[2018-01-14 16:30] VITALS: BP 134/76
[2018-01-14 16:54] LABS: GLUCOMETER DEV NAME(LOC) 3EI C; GLUCOSE,POINT OF CARE 125 MG/DL (70-110)
[2018-01-14] MEDS: ATORVASTATIN CALCIUM 20 MG TABLET PO SCH (20:56)
[2018-01-14 21:13] LABS: GLUCOMETER DEV NAME(LOC) 3EI C; GLUCOSE,POINT OF CARE 116 MG/DL (70-110)
[2018-01-15 00:30] VITALS: BP 136/72
[2018-01-15] MEDS: ZOLPIDEM TARTRATE 10 MG TABLET PO PRN (00:37)
[2018-01-15] MEDS: GlipiZIDE 5 MG TABLET PO SCH ×2 (07:00→16:37)
[2018-01-15] MEDS: LEVOTHYROXINE SODIUM 50 MCG TABLET PO SCH (07:18)
[2018-01-15 07:33] LABS: GLUCOMETER DEV NAME(LOC) 3EI C; GLUCOSE,POINT OF CARE 52 MG/DL (70-110)
[2018-01-15 07:33] LABS: GLUCOMETER DEV NAME(LOC) 3EI C; GLUCOSE,POINT OF CARE 45 MG/DL (70-110)
[2018-01-15 07:33] LABS: GLUCOMETER DEV NAME(LOC) 3EI C; GLUCOSE,POINT OF CARE 97 MG/DL (70-110)
[2018-01-15] MEDS: ASPIRIN 81 MG CHEWABLE TABLET PO SCH (08:57)
[2018-01-15] MEDS: LACTOBAC ACID/BULG/BIFID/THERM TABLET PO SCH (08:57)
[2018-01-15] MEDS: RisperiDONE 2 MG TABLET PO SCH ×2 (08:57→21:04)
[2018-01-15] MEDS: SODIUM CHLORIDE 1 GM TABLET PO SCH ×3 (08:58→16:37)
[2018-01-15] MEDS: PROPRANOLOL HCL 10 MG TABLET PO SCH (08:58)
[2018-01-15] MEDS: AmLODIPine BESYLATE 10 MG TABLET PO SCH (08:58)
[2018-01-15] MEDS: BENZTROPINE MESYLATE 1 MG TABLET PO SCH ×2 (08:58→21:04)
[2018-01-15] MEDS: POTASSIUM CHLORIDE 10 MEQ ER TABLET PO SCH (08:58)
[2018-01-15] MEDS: FUROSEMIDE 20 MG TABLET PO SCH ×2 (08:59→16:37)
[2018-01-15] MEDS: DIVALPROEX SODIUM 500 MG DR TABLET PO SCH ×2 (09:00→21:04)
[2018-01-15] MEDS: CITALOPRAM HYDROBROMIDE 20 MG TABLET PO SCH (09:00)
[2018-01-15] MEDS ORDERED: PALIPERIDONE PALMITATE 156 MG/ML SYRINGE IM ONE (09:00)
[2018-01-15] MEDS: OMEPRAZOLE 20 MG CAPSULE PO SCH (09:01)
[2018-01-15 09:59] VITALS: BP 138/67
[2018-01-15 11:39] LABS: GLUCOMETER DEV NAME(LOC) 3EI C; GLUCOSE,POINT OF CARE 160 MG/DL (70-110)
[2018-01-15] MEDS: INSULIN LISPRO 100 UNITS/ML SQ PRN ×2 (11:59→17:13)
[2018-01-15 16:28] LABS: GLUCOMETER DEV NAME(LOC) 3EI C; GLUCOSE,POINT OF CARE 174 MG/DL (70-110)
[2018-01-15] MEDS: RIVAROXABAN 20 MG TABLET PO SCH (16:38)
[2018-01-15 16:45] VITALS: BP 122/87
[2018-01-15] MEDS: ATORVASTATIN CALCIUM 20 MG TABLET PO SCH (21:04)
[2018-01-15 21:08] LABS: GLUCOMETER DEV NAME(LOC) 3EI C; GLUCOSE,POINT OF CARE 61 MG/DL (70-110)
[2018-01-15 21:38] LABS: GLUCOMETER DEV NAME(LOC) 3EI C; GLUCOSE,POINT OF CARE 45 MG/DL (70-110)
[2018-01-15 22:04] LABS: GLUCOMETER DEV NAME(LOC) 3EI C; GLUCOSE,POINT OF CARE 79 MG/DL (70-110)
[2018-01-16 03:35] VITALS: BP 141/64
[2018-01-16 05:34] LABS: GLUCOMETER DEV NAME(LOC) 3EI C; GLUCOSE,POINT OF CARE 162 MG/DL (70-110)
[2018-01-16] MEDS: LEVOTHYROXINE SODIUM 50 MCG TABLET PO SCH (05:55)
[2018-01-16] MEDS: GlipiZIDE 5 MG TABLET PO SCH (06:13)
[2018-01-16] MEDS: INSULIN LISPRO 100 UNITS/ML SQ PRN ×3 (07:04→21:38)
[2018-01-16] MEDS: LACTOBAC ACID/BULG/BIFID/THERM TABLET PO SCH (08:09)
[2018-01-16] MEDS: SODIUM CHLORIDE 1 GM TABLET PO SCH ×3 (08:09→16:50)
[2018-01-16] MEDS: PROPRANOLOL HCL 10 MG TABLET PO SCH (08:10)
[2018-01-16] MEDS: OMEPRAZOLE 20 MG CAPSULE PO SCH (08:12)
[2018-01-16] MEDS: POTASSIUM CHLORIDE 10 MEQ ER TABLET PO SCH (08:12)
[2018-01-16] MEDS: CITALOPRAM HYDROBROMIDE 20 MG TABLET PO SCH (08:13)
[2018-01-16] MEDS: DIVALPROEX SODIUM 500 MG DR TABLET PO SCH ×2 (08:13→21:07)
[2018-01-16] MEDS: RisperiDONE 2 MG TABLET PO SCH ×2 (08:13→21:07)
[2018-01-16] MEDS: BENZTROPINE MESYLATE 1 MG TABLET PO SCH ×2 (08:13→21:07)
[2018-01-16] MEDS: ASPIRIN 81 MG CHEWABLE TABLET PO SCH (08:13)
[2018-01-16] MEDS: AmLODIPine BESYLATE 10 MG TABLET PO SCH (08:13)
[2018-01-16] MEDS: FUROSEMIDE 20 MG TABLET PO SCH ×2 (08:13→16:50)
[2018-01-16 08:47] VITALS: BP 142/76
[2018-01-16 11:44] LABS: GLUCOMETER DEV NAME(LOC) 3EI C; GLUCOSE,POINT OF CARE 85 MG/DL (70-110)
[2018-01-16] MEDS: RIVAROXABAN 20 MG TABLET PO SCH (16:50)
[2018-01-16 16:57] VITALS: BP 143/70
[2018-01-16 17:19] LABS: GLUCOMETER DEV NAME(LOC) 3EI C; GLUCOSE,POINT OF CARE 159 MG/DL (70-110)
[2018-01-16] MEDS: ATORVASTATIN CALCIUM 20 MG TABLET PO SCH (21:07)
[2018-01-16 21:24] LABS: GLUCOMETER DEV NAME(LOC) 3EI C; GLUCOSE,POINT OF CARE 138 MG/DL (70-110)
[2018-01-17 02:15] VITALS: BP 121/68
[2018-01-17] MEDS: LORazepam 2 MG TABLET PO PRN (02:17)
[2018-01-17] MEDS: ZOLPIDEM TARTRATE 10 MG TABLET PO PRN (02:17)
[2018-01-17 05:24] LABS: GLUCOMETER DEV NAME(LOC) 3EI C; GLUCOSE,POINT OF CARE 122 MG/DL (70-110)
[2018-01-17] MEDS: LEVOTHYROXINE SODIUM 50 MCG TABLET PO SCH (06:54)
[2018-01-17] MEDS: INSULIN LISPRO 100 UNITS/ML SQ PRN ×2 (07:00→16:38)
[2018-01-17] MEDS: AmLODIPine BESYLATE 10 MG TABLET PO SCH (08:48)
[2018-01-17] MEDS: SODIUM CHLORIDE 1 GM TABLET PO SCH ×3 (08:48→16:40)
[2018-01-17] MEDS: BENZTROPINE MESYLATE 1 MG TABLET PO SCH ×2 (08:48→21:01)
[2018-01-17] MEDS: POTASSIUM CHLORIDE 10 MEQ ER TABLET PO SCH (08:48)
[2018-01-17] MEDS: DIVALPROEX SODIUM 500 MG DR TABLET PO SCH ×2 (08:48→21:01)
[2018-01-17] MEDS: FUROSEMIDE 20 MG TABLET PO SCH ×2 (08:49→16:40)
[2018-01-17] MEDS: OMEPRAZOLE 20 MG CAPSULE PO SCH (08:49)
[2018-01-17] MEDS: PROPRANOLOL HCL 10 MG TABLET PO SCH (08:49)
[2018-01-17] MEDS: LACTOBAC ACID/BULG/BIFID/THERM TABLET PO SCH (08:49)
[2018-01-17] MEDS: ASPIRIN 81 MG CHEWABLE TABLET PO SCH (08:49)
[2018-01-17] MEDS: CITALOPRAM HYDROBROMIDE 20 MG TABLET PO SCH (08:49)
[2018-01-17] MEDS: RisperiDONE 2 MG TABLET PO SCH ×2 (08:50→21:01)
[2018-01-17 10:16] VITALS: BP 144/72
[2018-01-17 11:24] LABS: GLUCOMETER DEV NAME(LOC) 3EI C; GLUCOSE,POINT OF CARE 141 MG/DL (70-110)
[2018-01-17] MEDS: RIVAROXABAN 20 MG TABLET PO SCH (16:40)
[2018-01-17 16:49] LABS: GLUCOMETER DEV NAME(LOC) 3EI C; GLUCOSE,POINT OF CARE 199 MG/DL (70-110)
[2018-01-17 19:45] VITALS: BP 149/72
[2018-01-17] MEDS: ATORVASTATIN CALCIUM 20 MG TABLET PO SCH (21:01)
[2018-01-17 21:03] LABS: GLUCOMETER DEV NAME(LOC) 3EI C; GLUCOSE,POINT OF CARE 118 MG/DL (70-110)
[2018-01-18 05:14] LABS: GLUCOMETER DEV NAME(LOC) 3EI C; GLUCOSE,POINT OF CARE 103 MG/DL (70-110)
[2018-01-18 06:13] VITALS: BP 140/67
[2018-01-18] MEDS: LEVOTHYROXINE SODIUM 50 MCG TABLET PO SCH (06:54)
[2018-01-18 07:20] LABS: BASOPHILS % (AUTO) 0.6 % (0.0-2.0); HEMATOCRIT 27.9 % (36-46); HEMOGLOBIN 9.1 g/dL (12.0-16.0); LYMPHOCYTES # (AUTO) 2.1 K/uL (1.0-4.8); LYMPHOCYTES % (AUTO) 28.7 % (22.0-44.0); MEAN CORPUSCULAR HEMOGLOBIN 28.5 pg (26.0-34.0); MEAN CORPUSCULAR HGB CONC 32.7 G/dL (31.0-37.0); MEAN CORPUSCULAR VOLUME 87 fL (80-100); MONOCYTES # (AUTO) 1.2 K/uL (0.1-1.0); MONOCYTES % (AUTO) 16.8 % (2.0-9.0); NEUTROPHILS # (AUTO) 3.7 K/uL (1.8-7.7); NEUTROPHILS % (AUTO) 50.9 % (40.0-70.0); PLATELET COUNT (AUTO) 222 K/uL (150-450); RED CELL DISTRIBUTION WIDTH 16.3 % (11.5-14.5)
[2018-01-18 07:56] LABS: BILIRUBIN,TOTAL 0.3 mg/dL (0.1-1.0); CALCIUM, TOTAL 8.3 mg/dL (8.8-10.5); CHOL/HDL RATIO 1.8 (3.9-5.7); CREATININE 1.38 mg/dL (0.60-1.30); PHOSPHORUS 4.5 mg/dL (2.5-4.9); POTASSIUM 3.8 mmol/L (3.5-5.1); THYROID STIMULATING HORMONE 7.19 uIU/mL (0.36-3.74); TOTAL PROTEIN, SERUM 7.1 g/dL (6.4-8.2)
[2018-01-18 08:31] VITALS: BP 128/66
[2018-01-18] MEDS: FUROSEMIDE 20 MG TABLET PO SCH ×2 (08:38→16:50)
[2018-01-18] MEDS: AmLODIPine BESYLATE 10 MG TABLET PO SCH (08:38)
[2018-01-18] MEDS: OMEPRAZOLE 20 MG CAPSULE PO SCH (08:38)
[2018-01-18] MEDS: POTASSIUM CHLORIDE 10 MEQ ER TABLET PO SCH (08:39)
[2018-01-18] MEDS: ASPIRIN 81 MG CHEWABLE TABLET PO SCH (08:39)
[2018-01-18] MEDS: DIVALPROEX SODIUM 500 MG DR TABLET PO SCH ×2 (08:39→21:06)
[2018-01-18] MEDS: RisperiDONE 2 MG TABLET PO SCH ×2 (08:39→21:06)
[2018-01-18] MEDS: SODIUM CHLORIDE 1 GM TABLET PO SCH ×3 (08:39→16:50)
[2018-01-18] MEDS: BENZTROPINE MESYLATE 1 MG TABLET PO SCH ×2 (08:39→21:06)
[2018-01-18] MEDS: PROPRANOLOL HCL 10 MG TABLET PO SCH (08:39)
[2018-01-18] MEDS: LACTOBAC ACID/BULG/BIFID/THERM TABLET PO SCH (08:39)
[2018-01-18] MEDS: LORazepam 2 MG TABLET PO PRN (08:39)
[2018-01-18] MEDS: CITALOPRAM HYDROBROMIDE 20 MG TABLET PO SCH (08:39)
[2018-01-18 11:29] LABS: GLUCOMETER DEV NAME(LOC) 3EI C; GLUCOSE,POINT OF CARE 135 MG/DL (70-110)
[2018-01-18] MEDS: INSULIN LISPRO 100 UNITS/ML SQ PRN ×2 (12:11→16:48)
[2018-01-18] MEDS: RIVAROXABAN 20 MG TABLET PO SCH (16:50)
[2018-01-18 17:03] LABS: GLUCOMETER DEV NAME(LOC) 3EI C; GLUCOSE,POINT OF CARE 159 MG/DL (70-110)
[2018-01-18 20:29] LABS: GLUCOMETER DEV NAME(LOC) 3EI C; GLUCOSE,POINT OF CARE 119 MG/DL (70-110)
[2018-01-18] MEDS: ATORVASTATIN CALCIUM 20 MG TABLET PO SCH (21:06)
[2018-01-18] MEDS: LOPERAMIDE HCL 2 MG CAPSULE PO PRN (21:26)
[2018-01-18 22:59] VITALS: BP 122/68
[2018-01-19 04:15] VITALS: BP 150/84
[2018-01-19] MEDS: LORazepam 2 MG TABLET PO PRN ×2 (04:16→23:37)
[2018-01-19] MEDS: HALOPERIDOL 5 MG TABLET PO PRN (04:16)
[2018-01-19 05:39] LABS: GLUCOMETER DEV NAME(LOC) 3EI C; GLUCOSE,POINT OF CARE 106 MG/DL (70-110)
[2018-01-19] MEDS: LEVOTHYROXINE SODIUM 50 MCG TABLET PO SCH (06:39)
[2018-01-19 08:00] VITALS: BP 140/75
[2018-01-19] MEDS: CITALOPRAM HYDROBROMIDE 20 MG TABLET PO SCH (08:25)
[2018-01-19] MEDS: ASPIRIN 81 MG CHEWABLE TABLET PO SCH (08:25)
[2018-01-19] MEDS: AmLODIPine BESYLATE 10 MG TABLET PO SCH (08:25)
[2018-01-19] MEDS: PROPRANOLOL HCL 10 MG TABLET PO SCH (08:25)
[2018-01-19] MEDS: FUROSEMIDE 20 MG TABLET PO SCH ×2 (08:25→16:37)
[2018-01-19] MEDS: RisperiDONE 2 MG TABLET PO SCH ×2 (08:25→21:45)
[2018-01-19] MEDS: LACTOBAC ACID/BULG/BIFID/THERM TABLET PO SCH (08:25)
[2018-01-19] MEDS: BENZTROPINE MESYLATE 1 MG TABLET PO SCH ×2 (08:25→21:45)
[2018-01-19] MEDS: OMEPRAZOLE 20 MG CAPSULE PO SCH (08:25)
[2018-01-19] MEDS: SODIUM CHLORIDE 1 GM TABLET PO SCH ×3 (08:25→16:37)
[2018-01-19] MEDS: POTASSIUM CHLORIDE 10 MEQ ER TABLET PO SCH (08:25)
[2018-01-19] MEDS: DIVALPROEX SODIUM 500 MG DR TABLET PO SCH ×2 (08:26→21:46)
[2018-01-19 11:24] LABS: GLUCOMETER DEV NAME(LOC) 3EI C; GLUCOSE,POINT OF CARE 152 MG/DL (70-110)
[2018-01-19] MEDS: INSULIN LISPRO 100 UNITS/ML SQ PRN (11:25)
[2018-01-19] MEDS: RIVAROXABAN 20 MG TABLET PO SCH (16:37)
[2018-01-19 17:00] VITALS: BP 145/74
[2018-01-19 17:49] LABS: GLUCOMETER DEV NAME(LOC) 3EI C; GLUCOSE,POINT OF CARE 150 MG/DL (70-110)
[2018-01-19] MEDS: ATORVASTATIN CALCIUM 20 MG TABLET PO SCH (21:45)
[2018-01-19 22:34] LABS: GLUCOMETER DEV NAME(LOC) 3EI C; GLUCOSE,POINT OF CARE 141 MG/DL (70-110)
[2018-01-19 23:37] VITALS: BP 136/73
[2018-01-19] MEDS: ZOLPIDEM TARTRATE 10 MG TABLET PO PRN (23:37)
[2018-01-20 05:40] LABS: GLUCOMETER DEV NAME(LOC) 3EI C; GLUCOSE,POINT OF CARE 104 MG/DL (70-110)
[2018-01-20] MEDS: LEVOTHYROXINE SODIUM 50 MCG TABLET PO SCH (06:05)
[2018-01-20] MEDS: LACTOBAC ACID/BULG/BIFID/THERM TABLET PO SCH (09:10)
[2018-01-20] MEDS: PROPRANOLOL HCL 10 MG TABLET PO SCH (09:11)
[2018-01-20] MEDS: HALOPERIDOL 5 MG TABLET PO PRN (09:11)
[2018-01-20] MEDS: OMEPRAZOLE 20 MG CAPSULE PO SCH (09:11)
[2018-01-20] MEDS: SODIUM CHLORIDE 1 GM TABLET PO SCH ×3 (09:11→16:31)
[2018-01-20] MEDS: ASPIRIN 81 MG CHEWABLE TABLET PO SCH (09:11)
[2018-01-20] MEDS: LORazepam 2 MG TABLET PO PRN (09:11)
[2018-01-20] MEDS: BENZTROPINE MESYLATE 1 MG TABLET PO SCH ×2 (09:11→21:13)
[2018-01-20] MEDS: RisperiDONE 2 MG TABLET PO SCH ×2 (09:12→21:13)
[2018-01-20] MEDS: POTASSIUM CHLORIDE 10 MEQ ER TABLET PO SCH (09:12)
[2018-01-20] MEDS: DIVALPROEX SODIUM 500 MG DR TABLET PO SCH ×2 (09:12→21:13)
[2018-01-20] MEDS: AmLODIPine BESYLATE 10 MG TABLET PO SCH (09:12)
[2018-01-20] MEDS: CITALOPRAM HYDROBROMIDE 20 MG TABLET PO SCH (09:12)
[2018-01-20] MEDS: FUROSEMIDE 20 MG TABLET PO SCH ×2 (09:12→16:31)
[2018-01-20 09:16] VITALS: BP 160/75
[2018-01-20 12:29] LABS: GLUCOMETER DEV NAME(LOC) 3EI C; GLUCOSE,POINT OF CARE 185 MG/DL (70-110)
[2018-01-20] MEDS: INSULIN LISPRO 100 UNITS/ML SQ PRN (12:44)
[2018-01-20] MEDS: RIVAROXABAN 20 MG TABLET PO SCH (16:31)
[2018-01-20 17:00] VITALS: BP 141/71
[2018-01-20 17:24] LABS: GLUCOMETER DEV NAME(LOC) 3EI C; GLUCOSE,POINT OF CARE 81 MG/DL (70-110)
[2018-01-20] MEDS: ATORVASTATIN CALCIUM 20 MG TABLET PO SCH (21:13)
[2018-01-20] MEDS: ZOLPIDEM TARTRATE 10 MG TABLET PO PRN (21:17)
[2018-01-20 21:19] LABS: GLUCOMETER DEV NAME(LOC) 3EI C; GLUCOSE,POINT OF CARE 134 MG/DL (70-110)
[2018-01-21 05:35] LABS: GLUCOMETER DEV NAME(LOC) 3EI C; GLUCOSE,POINT OF CARE 102 MG/DL (70-110)
[2018-01-21] MEDS: INSULIN LISPRO 100 UNITS/ML SQ PRN ×4 (06:45→21:54)
[2018-01-21] MEDS: LEVOTHYROXINE SODIUM 50 MCG TABLET PO SCH (06:45)
[2018-01-21 08:41] VITALS: BP 100/72
[2018-01-21] MEDS: FUROSEMIDE 20 MG TABLET PO SCH ×2 (08:48→16:43)
[2018-01-21] MEDS: AmLODIPine BESYLATE 10 MG TABLET PO SCH (08:48)
[2018-01-21] MEDS: POTASSIUM CHLORIDE 10 MEQ ER TABLET PO SCH (08:49)
[2018-01-21] MEDS: RisperiDONE 2 MG TABLET PO SCH ×2 (08:49→21:54)
[2018-01-21] MEDS: OMEPRAZOLE 20 MG CAPSULE PO SCH (08:49)
[2018-01-21] MEDS: PROPRANOLOL HCL 10 MG TABLET PO SCH (08:50)
[2018-01-21] MEDS: SODIUM CHLORIDE 1 GM TABLET PO SCH ×3 (08:50→16:43)
[2018-01-21] MEDS: LACTOBAC ACID/BULG/BIFID/THERM TABLET PO SCH (08:50)
[2018-01-21] MEDS: DIVALPROEX SODIUM 500 MG DR TABLET PO SCH ×2 (08:51→21:54)
[2018-01-21] MEDS: CITALOPRAM HYDROBROMIDE 20 MG TABLET PO SCH (08:51)
[2018-01-21] MEDS: ASPIRIN 81 MG CHEWABLE TABLET PO SCH (08:51)
[2018-01-21] MEDS: BENZTROPINE MESYLATE 1 MG TABLET PO SCH ×2 (08:51→21:54)
[2018-01-21 11:49] LABS: GLUCOMETER DEV NAME(LOC) 3EI C; GLUCOSE,POINT OF CARE 169 MG/DL (70-110)
[2018-01-21 16:23] LABS: GLUCOMETER DEV NAME(LOC) 3EI C; GLUCOSE,POINT OF CARE 142 MG/DL (70-110)
[2018-01-21] MEDS: RIVAROXABAN 20 MG TABLET PO SCH (16:43)
[2018-01-21 19:40] VITALS: BP 136/74
[2018-01-21] MEDS: ATORVASTATIN CALCIUM 20 MG TABLET PO SCH (21:54)
[2018-01-21 21:59] LABS: GLUCOMETER DEV NAME(LOC) 3EI C; GLUCOSE,POINT OF CARE 162 MG/DL (70-110)
[2018-01-22] MEDS: LOPERAMIDE HCL 2 MG CAPSULE PO PRN (04:21)
[2018-01-22 05:40] LABS: GLUCOMETER DEV NAME(LOC) 3EI C; GLUCOSE,POINT OF CARE 113 MG/DL (70-110)
[2018-01-22] MEDS: LEVOTHYROXINE SODIUM 50 MCG TABLET PO SCH (06:00)
[2018-01-22 08:22] VITALS: BP 133/63
[2018-01-22] MEDS: AmLODIPine BESYLATE 10 MG TABLET PO SCH (08:45)
[2018-01-22] MEDS: OMEPRAZOLE 20 MG CAPSULE PO SCH (08:45)
[2018-01-22] MEDS: DOCUSATE SODIUM 100 MG CAPSULE PO PRN (08:45)
[2018-01-22] MEDS: ASPIRIN 81 MG CHEWABLE TABLET PO SCH (08:45)
[2018-01-22] MEDS: PROPRANOLOL HCL 10 MG TABLET PO SCH (08:46)
[2018-01-22] MEDS: RisperiDONE 2 MG TABLET PO SCH ×2 (08:46→21:09)
[2018-01-22] MEDS: CITALOPRAM HYDROBROMIDE 20 MG TABLET PO SCH (08:46)
[2018-01-22] MEDS: BENZTROPINE MESYLATE 1 MG TABLET PO SCH ×2 (08:46→21:09)
[2018-01-22] MEDS: SODIUM CHLORIDE 1 GM TABLET PO SCH ×3 (08:46→16:14)
[2018-01-22] MEDS: DIVALPROEX SODIUM 500 MG DR TABLET PO SCH ×2 (08:48→21:09)
[2018-01-22] MEDS: POTASSIUM CHLORIDE 10 MEQ ER TABLET PO SCH (08:49)
[2018-01-22] MEDS: FUROSEMIDE 40 MG TABLET PO SCH ×2 (08:50→16:15)
[2018-01-22] MEDS: LACTOBAC ACID/BULG/BIFID/THERM TABLET PO SCH (09:00)
[2018-01-22 11:44] LABS: GLUCOMETER DEV NAME(LOC) 3EI C; GLUCOSE,POINT OF CARE 186 MG/DL (70-110)
[2018-01-22] MEDS: INSULIN LISPRO 100 UNITS/ML SQ PRN ×2 (12:09→17:20)
[2018-01-22 16:19] LABS: GLUCOMETER DEV NAME(LOC) 3EI C; GLUCOSE,POINT OF CARE 160 MG/DL (70-110)
[2018-01-22 16:30] VITALS: BP 104/61
[2018-01-22] MEDS: RIVAROXABAN 20 MG TABLET PO SCH (17:21)
[2018-01-22] MEDS: ATORVASTATIN CALCIUM 20 MG TABLET PO SCH (21:09)
[2018-01-22] MEDS: HALOPERIDOL 5 MG TABLET PO PRN (21:54)
[2018-01-22] MEDS: ZOLPIDEM TARTRATE 10 MG TABLET PO PRN (21:54)
[2018-01-22 21:59] LABS: GLUCOMETER DEV NAME(LOC) 3EI C; GLUCOSE,POINT OF CARE 126 MG/DL (70-110)
[2018-01-23 04:30] VITALS: BP 137/66
[2018-01-23 05:44] LABS: GLUCOMETER DEV NAME(LOC) 3EI C; GLUCOSE,POINT OF CARE 125 MG/DL (70-110)
[2018-01-23 06:10] LABS: POTASSIUM 4.3 mmol/L (3.5-5.1)
[2018-01-23] MEDS: LEVOTHYROXINE SODIUM 50 MCG TABLET PO SCH (06:36)
[2018-01-23] MEDS: DIVALPROEX SODIUM 500 MG DR TABLET PO SCH ×2 (08:12→20:08)
[2018-01-23] MEDS: FUROSEMIDE 40 MG TABLET PO SCH ×2 (08:12→16:51)
[2018-01-23] MEDS: POTASSIUM CHLORIDE 10 MEQ ER TABLET PO SCH (08:12)
[2018-01-23] MEDS: AmLODIPine BESYLATE 10 MG TABLET PO SCH (08:12)
[2018-01-23] MEDS: OMEPRAZOLE 20 MG CAPSULE PO SCH (08:12)
[2018-01-23] MEDS: BENZTROPINE MESYLATE 1 MG TABLET PO SCH ×2 (08:12→20:06)
[2018-01-23] MEDS: LACTOBAC ACID/BULG/BIFID/THERM TABLET PO SCH (08:12)
[2018-01-23] MEDS: ASPIRIN 81 MG CHEWABLE TABLET PO SCH (08:12)
[2018-01-23] MEDS: CITALOPRAM HYDROBROMIDE 20 MG TABLET PO SCH (08:12)
[2018-01-23] MEDS: RisperiDONE 2 MG TABLET PO SCH ×2 (08:12→20:06)
[2018-01-23] MEDS: PROPRANOLOL HCL 10 MG TABLET PO SCH (08:13)
[2018-01-23] MEDS: SODIUM CHLORIDE 1 GM TABLET PO SCH ×3 (08:13→16:51)
[2018-01-23 08:22] VITALS: BP 123/60
[2018-01-23 11:18] LABS: GLUCOMETER DEV NAME(LOC) 3EI C; GLUCOSE,POINT OF CARE 174 MG/DL (70-110)
[2018-01-23] MEDS: INSULIN LISPRO 100 UNITS/ML SQ PRN ×3 (12:59→20:13)
[2018-01-23 16:50] VITALS: BP 141/59
[2018-01-23] MEDS: RIVAROXABAN 20 MG TABLET PO SCH (16:51)
[2018-01-23 16:58] LABS: GLUCOMETER DEV NAME(LOC) 3EI C; GLUCOSE,POINT OF CARE 217 MG/DL (70-110)
[2018-01-23] MEDS: ATORVASTATIN CALCIUM 20 MG TABLET PO SCH (20:07)
[2018-01-23 20:18] LABS: GLUCOMETER DEV NAME(LOC) 3EI C; GLUCOSE,POINT OF CARE 192 MG/DL (70-110)
[2018-01-24] MEDS: ZOLPIDEM TARTRATE 10 MG TABLET PO PRN ×2 (00:22→20:23)
[2018-01-24 00:51] VITALS: BP 146/73
[2018-01-24 06:19] LABS: GLUCOMETER DEV NAME(LOC) 3EI C; GLUCOSE,POINT OF CARE 140 MG/DL (70-110)
[2018-01-24] MEDS: LEVOTHYROXINE SODIUM 50 MCG TABLET PO SCH (06:50)
[2018-01-24] MEDS: INSULIN LISPRO 100 UNITS/ML SQ PRN ×3 (06:50→17:29)
[2018-01-24] MEDS: DIVALPROEX SODIUM 500 MG DR TABLET PO SCH ×2 (08:00→20:23)
[2018-01-24] MEDS: SODIUM CHLORIDE 1 GM TABLET PO SCH ×3 (08:01→16:42)
[2018-01-24] MEDS: LACTOBAC ACID/BULG/BIFID/THERM TABLET PO SCH (08:01)
[2018-01-24] MEDS: OMEPRAZOLE 20 MG CAPSULE PO SCH (08:02)
[2018-01-24] MEDS: BENZTROPINE MESYLATE 1 MG TABLET PO SCH ×2 (08:02→20:23)
[2018-01-24] MEDS: FUROSEMIDE 40 MG TABLET PO SCH ×2 (08:02→16:42)
[2018-01-24] MEDS: CITALOPRAM HYDROBROMIDE 20 MG TABLET PO SCH (08:02)
[2018-01-24] MEDS: RisperiDONE 2 MG TABLET PO SCH ×2 (08:02→20:23)
[2018-01-24] MEDS: PROPRANOLOL HCL 10 MG TABLET PO SCH (08:02)
[2018-01-24] MEDS: POTASSIUM CHLORIDE 10 MEQ ER TABLET PO SCH (08:02)
[2018-01-24] MEDS: ASPIRIN 81 MG CHEWABLE TABLET PO SCH (08:03)
[2018-01-24] MEDS: AmLODIPine BESYLATE 10 MG TABLET PO SCH (08:03)
[2018-01-24 08:05] VITALS: BP 145/78
[2018-01-24 11:24] LABS: GLUCOMETER DEV NAME(LOC) 3EI C; GLUCOSE,POINT OF CARE 190 MG/DL (70-110)
[2018-01-24] MEDS: RIVAROXABAN 20 MG TABLET PO SCH (16:42)
[2018-01-24 16:44] LABS: GLUCOMETER DEV NAME(LOC) 3EI C; GLUCOSE,POINT OF CARE 153 MG/DL (70-110)
[2018-01-24 16:53] VITALS: BP 137/63
[2018-01-24] MEDS: ATORVASTATIN CALCIUM 20 MG TABLET PO SCH (20:22)
[2018-01-24] MEDS: DOCUSATE SODIUM 100 MG CAPSULE PO PRN (20:22)
[2018-01-24] MEDS: LORazepam 2 MG TABLET PO PRN (20:23)
[2018-01-24 21:38] LABS: GLUCOMETER DEV NAME(LOC) 3EI C; GLUCOSE,POINT OF CARE 159 MG/DL (70-110)
[2018-01-25] MEDS: LORazepam 2 MG TABLET PO PRN (03:51)
[2018-01-25 04:04] VITALS: BP 159/82
[2018-01-25 05:39] LABS: GLUCOMETER DEV NAME(LOC) 3EI C; GLUCOSE,POINT OF CARE 129 MG/DL (70-110)
[2018-01-25] MEDS: LEVOTHYROXINE SODIUM 50 MCG TABLET PO SCH (06:56)
[2018-01-25 09:42] VITALS: BP 141/76
[2018-01-25] MEDS: CITALOPRAM HYDROBROMIDE 20 MG TABLET PO SCH (09:51)
[2018-01-25] MEDS: AmLODIPine BESYLATE 10 MG TABLET PO SCH (09:51)
[2018-01-25] MEDS: FUROSEMIDE 40 MG TABLET PO SCH ×2 (09:51→16:38)
[2018-01-25] MEDS: BENZTROPINE MESYLATE 1 MG TABLET PO SCH ×2 (09:51→20:44)
[2018-01-25] MEDS: OMEPRAZOLE 20 MG CAPSULE PO SCH (09:51)
[2018-01-25] MEDS: LACTOBAC ACID/BULG/BIFID/THERM TABLET PO SCH (09:51)
[2018-01-25] MEDS: RisperiDONE 2 MG TABLET PO SCH ×2 (09:52→20:44)
[2018-01-25] MEDS: ASPIRIN 81 MG CHEWABLE TABLET PO SCH (09:52)
[2018-01-25] MEDS: DIVALPROEX SODIUM 500 MG DR TABLET PO SCH ×2 (09:52→20:44)
[2018-01-25] MEDS: PROPRANOLOL HCL 10 MG TABLET PO SCH (09:53)
[2018-01-25] MEDS: POTASSIUM CHLORIDE 10 MEQ ER TABLET PO SCH (09:53)
[2018-01-25] MEDS: SODIUM CHLORIDE 1 GM TABLET PO SCH ×3 (09:54→16:38)
[2018-01-25 11:29] LABS: GLUCOMETER DEV NAME(LOC) 3EX 1; GLUCOSE,POINT OF CARE 217 MG/DL (70-110)
[2018-01-25] MEDS: INSULIN LISPRO 100 UNITS/ML SQ PRN ×3 (11:34→22:50)
[2018-01-25] MEDS: RIVAROXABAN 20 MG TABLET PO SCH (16:38)
[2018-01-25 16:54] LABS: GLUCOMETER DEV NAME(LOC) 3EI C; GLUCOSE,POINT OF CARE 162 MG/DL (70-110)
[2018-01-25 17:56] VITALS: BP 143/70
[2018-01-25] MEDS: ATORVASTATIN CALCIUM 20 MG TABLET PO SCH (20:44)
[2018-01-25 22:59] LABS: GLUCOMETER DEV NAME(LOC) 3EI C; GLUCOSE,POINT OF CARE 170 MG/DL (70-110)
[2018-01-26] MEDS: LORazepam 2 MG TABLET PO PRN (00:03)
[2018-01-26] MEDS: ZOLPIDEM TARTRATE 10 MG TABLET PO PRN ×2 (00:03→23:04)
[2018-01-26 00:05] VITALS: BP 120/62
[2018-01-26 06:04] LABS: GLUCOMETER DEV NAME(LOC) 3EI C; GLUCOSE,POINT OF CARE 164 MG/DL (70-110)
[2018-01-26] MEDS: LEVOTHYROXINE SODIUM 50 MCG TABLET PO SCH (06:26)
[2018-01-26] MEDS: INSULIN LISPRO 100 UNITS/ML SQ PRN ×2 (07:04→17:26)
[2018-01-26 08:30] VITALS: BP 143/70
[2018-01-26] MEDS: LACTOBAC ACID/BULG/BIFID/THERM TABLET PO SCH (08:56)
[2018-01-26] MEDS: AmLODIPine BESYLATE 10 MG TABLET PO SCH (08:56)
[2018-01-26] MEDS: RisperiDONE 2 MG TABLET PO SCH ×2 (08:56→21:31)
[2018-01-26] MEDS: OMEPRAZOLE 20 MG CAPSULE PO SCH (08:57)
[2018-01-26] MEDS: SODIUM CHLORIDE 1 GM TABLET PO SCH ×3 (08:57→16:30)
[2018-01-26] MEDS: DIVALPROEX SODIUM 500 MG DR TABLET PO SCH ×2 (08:57→21:31)
[2018-01-26] MEDS: POTASSIUM CHLORIDE 10 MEQ ER TABLET PO SCH (08:58)
[2018-01-26] MEDS: PROPRANOLOL HCL 10 MG TABLET PO SCH (08:58)
[2018-01-26] MEDS: BENZTROPINE MESYLATE 1 MG TABLET PO SCH ×2 (08:58→21:31)
[2018-01-26] MEDS: CITALOPRAM HYDROBROMIDE 20 MG TABLET PO SCH (08:58)
[2018-01-26] MEDS: ASPIRIN 81 MG CHEWABLE TABLET PO SCH (08:58)
[2018-01-26] MEDS: FUROSEMIDE 40 MG TABLET PO SCH ×2 (08:58→16:30)
[2018-01-26 11:18] LABS: GLUCOMETER DEV NAME(LOC) 3EI C; GLUCOSE,POINT OF CARE 138 MG/DL (70-110)
[2018-01-26] MEDS: RIVAROXABAN 20 MG TABLET PO SCH (16:30)
[2018-01-26 17:28] LABS: GLUCOMETER DEV NAME(LOC) 3EI C; GLUCOSE,POINT OF CARE 221 MG/DL (70-110)
[2018-01-26 17:54] VITALS: BP 142/83
[2018-01-26] MEDS: ATORVASTATIN CALCIUM 20 MG TABLET PO SCH (21:31)
[2018-01-26 22:03] LABS: GLUCOMETER DEV NAME(LOC) 3EI C; GLUCOSE,POINT OF CARE 119 MG/DL (70-110)
[2018-01-27 06:15] LABS: GLUCOMETER DEV NAME(LOC) 3EI C; GLUCOSE,POINT OF CARE 142 MG/DL (70-110)
[2018-01-27] MEDS: LEVOTHYROXINE SODIUM 50 MCG TABLET PO SCH (06:54)
[2018-01-27] MEDS: INSULIN LISPRO 100 UNITS/ML SQ PRN ×2 (06:58→17:08)
[2018-01-27] MEDS: OMEPRAZOLE 20 MG CAPSULE PO SCH (08:12)
[2018-01-27] MEDS: SODIUM CHLORIDE 1 GM TABLET PO SCH ×3 (08:12→16:11)
[2018-01-27] MEDS: FUROSEMIDE 40 MG TABLET PO SCH ×2 (08:13→16:11)
[2018-01-27] MEDS: PROPRANOLOL HCL 10 MG TABLET PO SCH (08:13)
[2018-01-27] MEDS: ASPIRIN 81 MG CHEWABLE TABLET PO SCH (08:13)
[2018-01-27] MEDS: CITALOPRAM HYDROBROMIDE 20 MG TABLET PO SCH (08:13)
[2018-01-27] MEDS: RisperiDONE 2 MG TABLET PO SCH ×2 (08:13→20:34)
[2018-01-27] MEDS: LACTOBAC ACID/BULG/BIFID/THERM TABLET PO SCH (08:13)
[2018-01-27] MEDS: DIVALPROEX SODIUM 500 MG DR TABLET PO SCH ×2 (08:13→20:34)
[2018-01-27] MEDS: POTASSIUM CHLORIDE 10 MEQ ER TABLET PO SCH (08:14)
[2018-01-27] MEDS: BENZTROPINE MESYLATE 1 MG TABLET PO SCH ×2 (08:14→20:34)
[2018-01-27] MEDS: AmLODIPine BESYLATE 10 MG TABLET PO SCH (08:14)
[2018-01-27 08:30] VITALS: BP 129/69
[2018-01-27 11:13] LABS: GLUCOMETER DEV NAME(LOC) 3EI C; GLUCOSE,POINT OF CARE 130 MG/DL (70-110)
[2018-01-27] MEDS: RIVAROXABAN 20 MG TABLET PO SCH (16:11)
[2018-01-27 16:19] VITALS: BP 146/76
[2018-01-27 16:29] LABS: GLUCOMETER DEV NAME(LOC) 3EI C; GLUCOSE,POINT OF CARE 247 MG/DL (70-110)
[2018-01-27] MEDS: ATORVASTATIN CALCIUM 20 MG TABLET PO SCH (20:34)
[2018-01-27 20:44] LABS: GLUCOMETER DEV NAME(LOC) 3EI C; GLUCOSE,POINT OF CARE 98 MG/DL (70-110)
[2018-01-28 04:00] VITALS: BP 144/66
[2018-01-28 05:34] LABS: GLUCOMETER DEV NAME(LOC) 3EI C; GLUCOSE,POINT OF CARE 194 MG/DL (70-110)
[2018-01-28] MEDS: LEVOTHYROXINE SODIUM 50 MCG TABLET PO SCH (06:43)
[2018-01-28] MEDS: INSULIN LISPRO 100 UNITS/ML SQ PRN ×4 (06:46→20:52)
[2018-01-28 06:51] LABS: POTASSIUM 4.1 mmol/L (3.5-5.1)
[2018-01-28] MEDS: RIVAROXABAN 15 MG TABLET PO SCH ×2 (07:36→16:35)
[2018-01-28] MEDS: LORazepam 2 MG TABLET PO PRN (07:39)
[2018-01-28] MEDS: AmLODIPine BESYLATE 10 MG TABLET PO SCH (08:22)
[2018-01-28] MEDS: POTASSIUM CHLORIDE 10 MEQ ER TABLET PO SCH (08:22)
[2018-01-28] MEDS: PROPRANOLOL HCL 10 MG TABLET PO SCH (08:22)
[2018-01-28] MEDS: SODIUM CHLORIDE 1 GM TABLET PO SCH ×3 (08:22→16:35)
[2018-01-28] MEDS: BENZTROPINE MESYLATE 1 MG TABLET PO SCH ×2 (08:22→20:08)
[2018-01-28] MEDS: FUROSEMIDE 40 MG TABLET PO SCH ×2 (08:22→16:35)
[2018-01-28] MEDS: LACTOBAC ACID/BULG/BIFID/THERM TABLET PO SCH (08:22)
[2018-01-28] MEDS: RisperiDONE 2 MG TABLET PO SCH ×2 (08:22→20:08)
[2018-01-28] MEDS: OMEPRAZOLE 20 MG CAPSULE PO SCH (08:22)
[2018-01-28] MEDS: ASPIRIN 81 MG CHEWABLE TABLET PO SCH (08:22)
[2018-01-28] MEDS: DIVALPROEX SODIUM 500 MG DR TABLET PO SCH ×2 (08:23→20:08)
[2018-01-28] MEDS: CITALOPRAM HYDROBROMIDE 20 MG TABLET PO SCH (08:24)
[2018-01-28 09:00] VITALS: BP 149/60
[2018-01-28 11:29] LABS: GLUCOMETER DEV NAME(LOC) 3EI C; GLUCOSE,POINT OF CARE 189 MG/DL (70-110)
[2018-01-28 16:49] LABS: GLUCOMETER DEV NAME(LOC) 3EI C; GLUCOSE,POINT OF CARE 155 MG/DL (70-110)
[2018-01-28 17:06] VITALS: BP 134/77
[2018-01-28] MEDS: ATORVASTATIN CALCIUM 20 MG TABLET PO SCH (20:09)
[2018-01-28 21:35] LABS: GLUCOMETER DEV NAME(LOC) 3EI C; GLUCOSE,POINT OF CARE 174 MG/DL (70-110)
[2018-01-29] MEDS: ZOLPIDEM TARTRATE 10 MG TABLET PO PRN (02:18)
[2018-01-29 06:19] LABS: GLUCOMETER DEV NAME(LOC) 3EI C; GLUCOSE,POINT OF CARE 154 MG/DL (70-110)
[2018-01-29] MEDS: RIVAROXABAN 15 MG TABLET PO SCH ×2 (06:44→16:24)
[2018-01-29] MEDS: LEVOTHYROXINE SODIUM 75 MCG TABLET PO SCH (06:44)
[2018-01-29] MEDS: INSULIN LISPRO 100 UNITS/ML SQ PRN ×3 (06:58→17:40)
[2018-01-29] MEDS: ASPIRIN 81 MG CHEWABLE TABLET PO SCH (08:50)
[2018-01-29] MEDS: OMEPRAZOLE 20 MG CAPSULE PO SCH (08:50)
[2018-01-29] MEDS: RisperiDONE 2 MG TABLET PO SCH (08:50)
[2018-01-29] MEDS: CITALOPRAM HYDROBROMIDE 20 MG TABLET PO SCH (08:51)
[2018-01-29] MEDS: SODIUM CHLORIDE 1 GM TABLET PO SCH ×3 (08:51→16:24)
[2018-01-29] MEDS: BENZTROPINE MESYLATE 1 MG TABLET PO SCH ×2 (08:51→20:21)
[2018-01-29] MEDS: PROPRANOLOL HCL 10 MG TABLET PO SCH (08:51)
[2018-01-29] MEDS: AmLODIPine BESYLATE 10 MG TABLET PO SCH (08:51)
[2018-01-29] MEDS: POTASSIUM CHLORIDE 10 MEQ ER TABLET PO SCH (08:51)
[2018-01-29] MEDS: LACTOBAC ACID/BULG/BIFID/THERM TABLET PO SCH (08:51)
[2018-01-29] MEDS: FUROSEMIDE 40 MG TABLET PO SCH ×2 (08:51→16:24)
[2018-01-29 08:57] VITALS: BP 152/67
[2018-01-29] MEDS: DIVALPROEX SODIUM 500 MG DR TABLET PO SCH ×2 (09:18→20:21)
[2018-01-29 11:54] LABS: GLUCOMETER DEV NAME(LOC) 3EI C; GLUCOSE,POINT OF CARE 199 MG/DL (70-110)
[2018-01-29 16:34] LABS: GLUCOMETER DEV NAME(LOC) 3EI C; GLUCOSE,POINT OF CARE 153 MG/DL (70-110)
[2018-01-29] MEDS: ATORVASTATIN CALCIUM 20 MG TABLET PO SCH (20:21)
[2018-01-29 20:34] LABS: GLUCOMETER DEV NAME(LOC) 3EI C; GLUCOSE,POINT OF CARE 140 MG/DL (70-110)
[2018-01-29 21:51] VITALS: BP 138/65
[2018-01-30] MEDS: HALOPERIDOL 5 MG TABLET PO PRN (03:03)
[2018-01-30] MEDS: LORazepam 2 MG TABLET PO PRN (03:03)
[2018-01-30 04:00] VITALS: BP 152/74
[2018-01-30 05:34] LABS: GLUCOMETER DEV NAME(LOC) 3EI C; GLUCOSE,POINT OF CARE 155 MG/DL (70-110)
[2018-01-30] MEDS: RIVAROXABAN 15 MG TABLET PO SCH ×2 (06:50→16:30)
[2018-01-30] MEDS: LEVOTHYROXINE SODIUM 75 MCG TABLET PO SCH (06:50)
[2018-01-30] MEDS: INSULIN LISPRO 100 UNITS/ML SQ PRN ×4 (07:01→21:32)
[2018-01-30] MEDS: CITALOPRAM HYDROBROMIDE 20 MG TABLET PO SCH (08:19)
[2018-01-30] MEDS: PROPRANOLOL HCL 10 MG TABLET PO SCH (08:19)
[2018-01-30] MEDS: DIVALPROEX SODIUM 500 MG DR TABLET PO SCH ×2 (08:19→20:44)
[2018-01-30] MEDS: SODIUM CHLORIDE 1 GM TABLET PO SCH ×3 (08:19→16:29)
[2018-01-30] MEDS: FUROSEMIDE 40 MG TABLET PO SCH ×2 (08:20→16:29)
[2018-01-30] MEDS: LACTOBAC ACID/BULG/BIFID/THERM TABLET PO SCH (08:20)
[2018-01-30] MEDS: BENZTROPINE MESYLATE 1 MG TABLET PO SCH ×2 (08:20→20:44)
[2018-01-30] MEDS: POTASSIUM CHLORIDE 10 MEQ ER TABLET PO SCH (08:20)
[2018-01-30] MEDS: ASPIRIN 81 MG CHEWABLE TABLET PO SCH (08:20)
[2018-01-30] MEDS: AmLODIPine BESYLATE 10 MG TABLET PO SCH (08:20)
[2018-01-30] MEDS: OMEPRAZOLE 20 MG CAPSULE PO SCH (08:20)
[2018-01-30 08:23] VITALS: BP 122/71
[2018-01-30 11:44] LABS: GLUCOMETER DEV NAME(LOC) 3EI C; GLUCOSE,POINT OF CARE 186 MG/DL (70-110)
[2018-01-30 16:30] VITALS: BP 134/86
[2018-01-30 16:38] LABS: GLUCOMETER DEV NAME(LOC) 3EI C; GLUCOSE,POINT OF CARE 208 MG/DL (70-110)
[2018-01-30 20:25] LABS: GLUCOMETER DEV NAME(LOC) 3EI C; GLUCOSE,POINT OF CARE 253 MG/DL (70-110)
[2018-01-30] MEDS: ZOLPIDEM TARTRATE 10 MG TABLET PO PRN (20:44)
[2018-01-30] MEDS: ATORVASTATIN CALCIUM 20 MG TABLET PO SCH (20:44)
[2018-01-31 00:18] VITALS: BP 153/100
[2018-01-31] MEDS: HALOPERIDOL 5 MG TABLET PO PRN (00:20)
[2018-01-31] MEDS: LORazepam 2 MG TABLET PO PRN ×2 (00:20→09:17)
[2018-01-31 05:49] LABS: GLUCOMETER DEV NAME(LOC) 3EI C; GLUCOSE,POINT OF CARE 141 MG/DL (70-110)
[2018-01-31] MEDS: LEVOTHYROXINE SODIUM 75 MCG TABLET PO SCH (06:51)
[2018-01-31] MEDS: INSULIN LISPRO 100 UNITS/ML SQ PRN ×4 (07:14→21:36)
[2018-01-31] MEDS: POTASSIUM CHLORIDE 10 MEQ ER TABLET PO SCH (08:03)
[2018-01-31] MEDS: OMEPRAZOLE 20 MG CAPSULE PO SCH (08:03)
[2018-01-31] MEDS: RIVAROXABAN 15 MG TABLET PO SCH ×2 (08:03→17:35)
[2018-01-31] MEDS: PROPRANOLOL HCL 10 MG TABLET PO SCH (08:04)
[2018-01-31] MEDS: LACTOBAC ACID/BULG/BIFID/THERM TABLET PO SCH (08:04)
[2018-01-31] MEDS: SODIUM CHLORIDE 1 GM TABLET PO SCH ×3 (08:04→16:13)
[2018-01-31] MEDS: DIVALPROEX SODIUM 500 MG DR TABLET PO SCH ×2 (08:04→21:35)
[2018-01-31] MEDS: BENZTROPINE MESYLATE 1 MG TABLET PO SCH ×2 (08:04→21:35)
[2018-01-31] MEDS: ASPIRIN 81 MG CHEWABLE TABLET PO SCH (08:04)
[2018-01-31] MEDS: AmLODIPine BESYLATE 10 MG TABLET PO SCH (08:04)
[2018-01-31] MEDS: FUROSEMIDE 40 MG TABLET PO SCH ×2 (08:04→16:13)
[2018-01-31] MEDS: CITALOPRAM HYDROBROMIDE 20 MG TABLET PO SCH (09:17)
[2018-01-31 11:35] LABS: GLUCOMETER DEV NAME(LOC) 3EI C; GLUCOSE,POINT OF CARE 190 MG/DL (70-110)
[2018-01-31 13:46] VITALS: BP 131/62
[2018-01-31 16:19] LABS: GLUCOMETER DEV NAME(LOC) 3EI C; GLUCOSE,POINT OF CARE 161 MG/DL (70-110)
[2018-01-31 17:12] VITALS: BP 144/65
[2018-01-31] MEDS: ATORVASTATIN CALCIUM 20 MG TABLET PO SCH (21:36)
[2018-01-31 21:54] LABS: GLUCOMETER DEV NAME(LOC) 3EI C; GLUCOSE,POINT OF CARE 148 MG/DL (70-110)
[2018-02-01 06:44] LABS: GLUCOMETER DEV NAME(LOC) 3EI C; GLUCOSE,POINT OF CARE 173 MG/DL (70-110)
[2018-02-01] MEDS: LEVOTHYROXINE SODIUM 75 MCG TABLET PO SCH (07:13)
[2018-02-01] MEDS: RIVAROXABAN 15 MG TABLET PO SCH ×2 (07:13→16:46)
[2018-02-01] MEDS: INSULIN LISPRO 100 UNITS/ML SQ PRN ×4 (07:18→21:15)
[2018-02-01] MEDS: AmLODIPine BESYLATE 10 MG TABLET PO SCH (08:21)
[2018-02-01] MEDS: CITALOPRAM HYDROBROMIDE 20 MG TABLET PO SCH (08:21)
[2018-02-01] MEDS: LORazepam 2 MG TABLET PO PRN (08:21)
[2018-02-01] MEDS: ASPIRIN 81 MG CHEWABLE TABLET PO SCH (08:21)
[2018-02-01] MEDS: OMEPRAZOLE 20 MG CAPSULE PO SCH (08:21)
[2018-02-01] MEDS: POTASSIUM CHLORIDE 10 MEQ ER TABLET PO SCH (08:21)
[2018-02-01] MEDS: LACTOBAC ACID/BULG/BIFID/THERM TABLET PO SCH (08:22)
[2018-02-01] MEDS: FUROSEMIDE 40 MG TABLET PO SCH ×2 (08:22→16:46)
[2018-02-01] MEDS: PROPRANOLOL HCL 10 MG TABLET PO SCH (08:22)
[2018-02-01] MEDS: BENZTROPINE MESYLATE 1 MG TABLET PO SCH ×2 (08:22→21:12)
[2018-02-01] MEDS: SODIUM CHLORIDE 1 GM TABLET PO SCH ×3 (08:22→16:46)
[2018-02-01] MEDS: DIVALPROEX SODIUM 500 MG DR TABLET PO SCH ×2 (08:24→21:12)
[2018-02-01 09:34] VITALS: BP 145/70
[2018-02-01 11:34] LABS: GLUCOMETER DEV NAME(LOC) 3EI C; GLUCOSE,POINT OF CARE 163 MG/DL (70-110)
[2018-02-01 16:59] LABS: GLUCOMETER DEV NAME(LOC) 3EI C; GLUCOSE,POINT OF CARE 168 MG/DL (70-110)
[2018-02-01 18:00] VITALS: BP 145/56
[2018-02-01 21:09] LABS: GLUCOMETER DEV NAME(LOC) 3EI C; GLUCOSE,POINT OF CARE 243 MG/DL (70-110)
[2018-02-01] MEDS: ATORVASTATIN CALCIUM 20 MG TABLET PO SCH (21:12)
[2018-02-02] MEDS: LORazepam 2 MG TABLET PO PRN (03:46)
[2018-02-02] MEDS: LOPERAMIDE HCL 2 MG CAPSULE PO PRN (03:46)
[2018-02-02 03:47] VITALS: BP 139/68
[2018-02-02] MEDS: RIVAROXABAN 15 MG TABLET PO SCH ×2 (06:37→17:49)
[2018-02-02] MEDS: LEVOTHYROXINE SODIUM 75 MCG TABLET PO SCH (06:37)
[2018-02-02 06:39] LABS: GLUCOMETER DEV NAME(LOC) 3EI C; GLUCOSE,POINT OF CARE 128 MG/DL (70-110)
[2018-02-02] MEDS: OMEPRAZOLE 20 MG CAPSULE PO SCH (09:05)
[2018-02-02] MEDS: BENZTROPINE MESYLATE 1 MG TABLET PO SCH ×2 (09:05→20:52)
[2018-02-02] MEDS: DIVALPROEX SODIUM 500 MG DR TABLET PO SCH ×2 (09:05→20:54)
[2018-02-02] MEDS: AmLODIPine BESYLATE 10 MG TABLET PO SCH (09:05)
[2018-02-02] MEDS: POTASSIUM CHLORIDE 10 MEQ ER TABLET PO SCH (09:06)
[2018-02-02] MEDS: LACTOBAC ACID/BULG/BIFID/THERM TABLET PO SCH (09:06)
[2018-02-02] MEDS: ASPIRIN 81 MG CHEWABLE TABLET PO SCH (09:06)
[2018-02-02] MEDS: CITALOPRAM HYDROBROMIDE 20 MG TABLET PO SCH (09:06)
[2018-02-02] MEDS: PROPRANOLOL HCL 10 MG TABLET PO SCH (09:06)
[2018-02-02] MEDS: FUROSEMIDE 40 MG TABLET PO SCH ×2 (09:07→16:11)
[2018-02-02] MEDS: SODIUM CHLORIDE 1 GM TABLET PO SCH ×3 (09:07→16:11)
[2018-02-02 11:34] LABS: GLUCOMETER DEV NAME(LOC) 3EI C; GLUCOSE,POINT OF CARE 276 MG/DL (70-110)
[2018-02-02 12:03] VITALS: BP 132/87
[2018-02-02] MEDS: INSULIN LISPRO 100 UNITS/ML SQ PRN ×2 (12:26→21:39)
[2018-02-02 16:13] LABS: GLUCOMETER DEV NAME(LOC) 3EI C; GLUCOSE,POINT OF CARE 120 MG/DL (70-110)
[2018-02-02 16:44] VITALS: BP 137/90
[2018-02-02] MEDS: ATORVASTATIN CALCIUM 20 MG TABLET PO SCH (20:52)
[2018-02-02 21:34] LABS: GLUCOMETER DEV NAME(LOC) 3EI C; GLUCOSE,POINT OF CARE 229 MG/DL (70-110)
[2018-02-02] MEDS: ZOLPIDEM TARTRATE 10 MG TABLET PO PRN (23:52)
[2018-02-03] VITALS: BP 139/69
[2018-02-03 02:20] VITALS: BP 127/65
[2018-02-03] MEDS: LEVOTHYROXINE SODIUM 75 MCG TABLET PO SCH (06:30)
[2018-02-03] MEDS: RIVAROXABAN 15 MG TABLET PO SCH ×2 (06:30→16:40)
[2018-02-03 06:34] LABS: GLUCOMETER DEV NAME(LOC) 3EI C; GLUCOSE,POINT OF CARE 158 MG/DL (70-110)
[2018-02-03] MEDS: INSULIN LISPRO 100 UNITS/ML SQ PRN ×4 (07:18→20:50)
[2018-02-03] MEDS: AmLODIPine BESYLATE 10 MG TABLET PO SCH (08:25)
[2018-02-03] MEDS: LACTOBAC ACID/BULG/BIFID/THERM TABLET PO SCH (08:25)
[2018-02-03] MEDS: POTASSIUM CHLORIDE 10 MEQ ER TABLET PO SCH (08:25)
[2018-02-03] MEDS: FUROSEMIDE 40 MG TABLET PO SCH ×2 (08:25→16:39)
[2018-02-03] MEDS: DIVALPROEX SODIUM 500 MG DR TABLET PO SCH ×2 (08:26→20:49)
[2018-02-03] MEDS: SODIUM CHLORIDE 1 GM TABLET PO SCH ×3 (08:26→16:39)
[2018-02-03] MEDS: PROPRANOLOL HCL 10 MG TABLET PO SCH (08:26)
[2018-02-03] MEDS: BENZTROPINE MESYLATE 1 MG TABLET PO SCH ×2 (08:26→20:49)
[2018-02-03] MEDS: CITALOPRAM HYDROBROMIDE 20 MG TABLET PO SCH (08:26)
[2018-02-03] MEDS: ASPIRIN 81 MG CHEWABLE TABLET PO SCH (08:26)
[2018-02-03] MEDS: OMEPRAZOLE 20 MG CAPSULE PO SCH (08:26)
[2018-02-03 10:24] VITALS: BP 134/72
[2018-02-03 11:29] LABS: GLUCOMETER DEV NAME(LOC) 3EI C; GLUCOSE,POINT OF CARE 186 MG/DL (70-110)
[2018-02-03 16:49] LABS: GLUCOMETER DEV NAME(LOC) 3EI C; GLUCOSE,POINT OF CARE 203 MG/DL (70-110)
[2018-02-03 18:57] VITALS: BP 134/78
[2018-02-03] MEDS: ATORVASTATIN CALCIUM 20 MG TABLET PO SCH (20:49)
[2018-02-04 06:22] VITALS: BP 137/60
[2018-02-04] MEDS: LEVOTHYROXINE SODIUM 75 MCG TABLET PO SCH (06:46)
[2018-02-04] MEDS: RIVAROXABAN 15 MG TABLET PO SCH ×2 (06:52→16:26)
[2018-02-04] MEDS: INSULIN LISPRO 100 UNITS/ML SQ PRN ×4 (06:53→21:47)
[2018-02-04] MEDS: FUROSEMIDE 40 MG TABLET PO SCH ×2 (08:00→16:27)
[2018-02-04] MEDS: OMEPRAZOLE 20 MG CAPSULE PO SCH (08:00)
[2018-02-04] MEDS: ASPIRIN 81 MG CHEWABLE TABLET PO SCH (08:00)
[2018-02-04] MEDS: CITALOPRAM HYDROBROMIDE 20 MG TABLET PO SCH (08:00)
[2018-02-04] MEDS: BENZTROPINE MESYLATE 1 MG TABLET PO SCH ×2 (08:00→21:46)
[2018-02-04] MEDS: DIVALPROEX SODIUM 500 MG DR TABLET PO SCH ×2 (08:00→21:46)
[2018-02-04] MEDS: POTASSIUM CHLORIDE 10 MEQ ER TABLET PO SCH (08:00)
[2018-02-04] MEDS: LACTOBAC ACID/BULG/BIFID/THERM TABLET PO SCH (08:00)
[2018-02-04] MEDS: PROPRANOLOL HCL 10 MG TABLET PO SCH (08:01)
[2018-02-04] MEDS: SODIUM CHLORIDE 1 GM TABLET PO SCH ×3 (08:01→16:26)
[2018-02-04] MEDS: AmLODIPine BESYLATE 10 MG TABLET PO SCH (08:01)
[2018-02-04 09:12] VITALS: BP 117/68
[2018-02-04 11:26] LABS: GLUCOMETER DEV NAME(LOC) 3EI C; GLUCOSE,POINT OF CARE 262 MG/DL (70-110)
[2018-02-04 11:31] LABS: GLUCOMETER DEV NAME(LOC) 3EI C; GLUCOSE,POINT OF CARE 166 MG/DL (70-110)
[2018-02-04 11:32] LABS: GLUCOMETER DEV NAME(LOC) 3EI C; GLUCOSE,POINT OF CARE 189 MG/DL (70-110)
[2018-02-04 16:24] LABS: GLUCOMETER DEV NAME(LOC) 3EI C; GLUCOSE,POINT OF CARE 171 MG/DL (70-110)
[2018-02-04 19:36] VITALS: BP 126/72
[2018-02-04] MEDS: ATORVASTATIN CALCIUM 20 MG TABLET PO SCH (21:46)
[2018-02-04 21:59] LABS: GLUCOMETER DEV NAME(LOC) 3EI C; GLUCOSE,POINT OF CARE 141 MG/DL (70-110)
[2018-02-05 06:54] LABS: GLUCOMETER DEV NAME(LOC) 3EI C; GLUCOSE,POINT OF CARE 146 MG/DL (70-110)
[2018-02-05] MEDS: RIVAROXABAN 15 MG TABLET PO SCH ×2 (07:06→16:25)
[2018-02-05] MEDS: LEVOTHYROXINE SODIUM 75 MCG TABLET PO SCH (07:06)
[2018-02-05] MEDS: INSULIN LISPRO 100 UNITS/ML SQ PRN ×4 (07:12→21:25)
[2018-02-05] MEDS: POTASSIUM CHLORIDE 10 MEQ ER TABLET PO SCH (08:27)
[2018-02-05] MEDS: CITALOPRAM HYDROBROMIDE 20 MG TABLET PO SCH (08:27)
[2018-02-05] MEDS: BENZTROPINE MESYLATE 1 MG TABLET PO SCH ×2 (08:27→20:28)
[2018-02-05] MEDS: FUROSEMIDE 40 MG TABLET PO SCH ×2 (08:27→16:25)
[2018-02-05] MEDS: PROPRANOLOL HCL 10 MG TABLET PO SCH (08:27)
[2018-02-05] MEDS: ASPIRIN 81 MG CHEWABLE TABLET PO SCH (08:27)
[2018-02-05] MEDS: SODIUM CHLORIDE 1 GM TABLET PO SCH ×3 (08:27→16:25)
[2018-02-05] MEDS: LACTOBAC ACID/BULG/BIFID/THERM TABLET PO SCH (08:27)
[2018-02-05] MEDS: OMEPRAZOLE 20 MG CAPSULE PO SCH (08:27)
[2018-02-05] MEDS: AmLODIPine BESYLATE 10 MG TABLET PO SCH (08:28)
[2018-02-05] MEDS: DIVALPROEX SODIUM 500 MG DR TABLET PO SCH ×2 (08:28→20:28)
[2018-02-05 11:25] LABS: GLUCOMETER DEV NAME(LOC) 3EI C; GLUCOSE,POINT OF CARE 178 MG/DL (70-110)
[2018-02-05 12:52] VITALS: BP 136/78
[2018-02-05 16:53] VITALS: BP 138/68
[2018-02-05 17:20] LABS: GLUCOMETER DEV NAME(LOC) 3EI C; GLUCOSE,POINT OF CARE 257 MG/DL (70-110)
[2018-02-05] MEDS: ATORVASTATIN CALCIUM 20 MG TABLET PO SCH (20:28)
[2018-02-05 22:04] LABS: GLUCOMETER DEV NAME(LOC) 3EI C; GLUCOSE,POINT OF CARE 177 MG/DL (70-110)
[2018-02-06 05:44] LABS: GLUCOMETER DEV NAME(LOC) 3EI C; GLUCOSE,POINT OF CARE 178 MG/DL (70-110)
[2018-02-06] MEDS: RIVAROXABAN 15 MG TABLET PO SCH ×2 (06:52→17:13)
[2018-02-06] MEDS: LEVOTHYROXINE SODIUM 75 MCG TABLET PO SCH (06:52)
[2018-02-06] MEDS: INSULIN LISPRO 100 UNITS/ML SQ PRN ×4 (07:07→21:22)
[2018-02-06 08:45] VITALS: BP 143/65
[2018-02-06] MEDS: ASPIRIN 81 MG CHEWABLE TABLET PO SCH (09:00)
[2018-02-06] MEDS: OMEPRAZOLE 20 MG CAPSULE PO SCH (09:00)
[2018-02-06] MEDS: BENZTROPINE MESYLATE 1 MG TABLET PO SCH ×2 (09:00→21:20)
[2018-02-06] MEDS: POTASSIUM CHLORIDE 10 MEQ ER TABLET PO SCH (09:00)
[2018-02-06] MEDS: CITALOPRAM HYDROBROMIDE 20 MG TABLET PO SCH (09:00)
[2018-02-06] MEDS: DIVALPROEX SODIUM 500 MG DR TABLET PO SCH ×2 (09:01→21:20)
[2018-02-06] MEDS: AmLODIPine BESYLATE 10 MG TABLET PO SCH (09:01)
[2018-02-06] MEDS: LACTOBAC ACID/BULG/BIFID/THERM TABLET PO SCH (09:01)
[2018-02-06] MEDS: PROPRANOLOL HCL 10 MG TABLET PO SCH (09:02)
[2018-02-06] MEDS: FUROSEMIDE 40 MG TABLET PO SCH ×2 (09:03→16:18)
[2018-02-06] MEDS: SODIUM CHLORIDE 1 GM TABLET PO SCH ×3 (09:03→16:18)
[2018-02-06 11:55] LABS: GLUCOMETER DEV NAME(LOC) 3EI C; GLUCOSE,POINT OF CARE 201 MG/DL (70-110)
[2018-02-06] MEDS: CARBIDOPA/LEVODOPA 25-100 MG TABLET PO SCH ×2 (13:16→16:18)
[2018-02-06 16:51] VITALS: BP 140/65
[2018-02-06 20:58] LABS: GLUCOMETER DEV NAME(LOC) 3EI C; GLUCOSE,POINT OF CARE 148 MG/DL (70-110)
[2018-02-06] MEDS: ATORVASTATIN CALCIUM 20 MG TABLET PO SCH (21:20)
[2018-02-07 01:40] LABS: GLUCOMETER DEV NAME(LOC) 3EI C; GLUCOSE,POINT OF CARE 269 MG/DL (70-110)
[2018-02-07 01:50] VITALS: BP 140/76
[2018-02-07] MEDS: ZOLPIDEM TARTRATE 10 MG TABLET PO PRN (01:51)
[2018-02-07] MEDS: LEVOTHYROXINE SODIUM 75 MCG TABLET PO SCH (06:52)
[2018-02-07] MEDS: RIVAROXABAN 15 MG TABLET PO SCH ×2 (06:52→16:45)
[2018-02-07] MEDS: INSULIN LISPRO 100 UNITS/ML SQ PRN ×4 (07:04→21:16)
[2018-02-07] MEDS: CARBIDOPA/LEVODOPA 25-100 MG TABLET PO SCH ×3 (08:56→16:45)
[2018-02-07] MEDS: LACTOBAC ACID/BULG/BIFID/THERM TABLET PO SCH (08:57)
[2018-02-07] MEDS: SODIUM CHLORIDE 1 GM TABLET PO SCH ×3 (08:57→16:45)
[2018-02-07] MEDS: AmLODIPine BESYLATE 10 MG TABLET PO SCH (08:57)
[2018-02-07] MEDS: CITALOPRAM HYDROBROMIDE 20 MG TABLET PO SCH (08:57)
[2018-02-07] MEDS: FUROSEMIDE 40 MG TABLET PO SCH ×2 (08:57→16:45)
[2018-02-07] MEDS: ASPIRIN 81 MG CHEWABLE TABLET PO SCH (08:57)
[2018-02-07] MEDS: BENZTROPINE MESYLATE 1 MG TABLET PO SCH ×2 (08:58→20:19)
[2018-02-07] MEDS: POTASSIUM CHLORIDE 10 MEQ ER TABLET PO SCH (08:58)
[2018-02-07] MEDS: PROPRANOLOL HCL 10 MG TABLET PO SCH (08:58)
[2018-02-07] MEDS: DIVALPROEX SODIUM 500 MG DR TABLET PO SCH ×2 (08:58→20:19)
[2018-02-07] MEDS: OMEPRAZOLE 20 MG CAPSULE PO SCH (09:00)
[2018-02-07 09:59] LABS: GLUCOMETER DEV NAME(LOC) 3EI C; GLUCOSE,POINT OF CARE 157 MG/DL (70-110)
[2018-02-07 10:33] VITALS: BP 132/67
[2018-02-07 18:52] VITALS: BP 134/72
[2018-02-07] MEDS: ATORVASTATIN CALCIUM 20 MG TABLET PO SCH (20:19)
[2018-02-07 22:00] LABS: GLUCOMETER DEV NAME(LOC) 3EI C; GLUCOSE,POINT OF CARE 157 MG/DL (70-110)
[2018-02-08] MEDS: ZOLPIDEM TARTRATE 10 MG TABLET PO PRN ×2 (00:20→21:45)
[2018-02-08 00:23] VITALS: BP 133/84
[2018-02-08 06:05] LABS: GLUCOMETER DEV NAME(LOC) 3EI C; GLUCOSE,POINT OF CARE 233 MG/DL (70-110)
[2018-02-08] MEDS: LEVOTHYROXINE SODIUM 75 MCG TABLET PO SCH (07:05)
[2018-02-08] MEDS: RIVAROXABAN 15 MG TABLET PO SCH ×2 (07:05→16:52)
[2018-02-08] MEDS: INSULIN LISPRO 100 UNITS/ML SQ PRN ×3 (07:06→20:40)
[2018-02-08] MEDS: SODIUM CHLORIDE 1 GM TABLET PO SCH ×3 (08:06→16:53)
[2018-02-08] MEDS: FUROSEMIDE 40 MG TABLET PO SCH ×2 (08:06→16:52)
[2018-02-08] MEDS: PROPRANOLOL HCL 10 MG TABLET PO SCH (08:06)
[2018-02-08] MEDS: LACTOBAC ACID/BULG/BIFID/THERM TABLET PO SCH (08:06)
[2018-02-08] MEDS: DIVALPROEX SODIUM 500 MG DR TABLET PO SCH ×2 (08:06→20:15)
[2018-02-08] MEDS: BENZTROPINE MESYLATE 1 MG TABLET PO SCH ×2 (08:07→20:15)
[2018-02-08] MEDS: POTASSIUM CHLORIDE 10 MEQ ER TABLET PO SCH (08:07)
[2018-02-08] MEDS: ASPIRIN 81 MG CHEWABLE TABLET PO SCH (08:07)
[2018-02-08] MEDS: CITALOPRAM HYDROBROMIDE 20 MG TABLET PO SCH (08:07)
[2018-02-08] MEDS: OMEPRAZOLE 20 MG CAPSULE PO SCH (08:07)
[2018-02-08] MEDS: CARBIDOPA/LEVODOPA 25-100 MG TABLET PO SCH ×3 (08:07→16:52)
[2018-02-08] MEDS: AmLODIPine BESYLATE 10 MG TABLET PO SCH (08:07)
[2018-02-08 09:02] VITALS: BP 133/97
[2018-02-08 13:35] LABS: GLUCOMETER DEV NAME(LOC) 3EI C; GLUCOSE,POINT OF CARE 169 MG/DL (70-110)
[2018-02-08 16:35] VITALS: BP 137/71
[2018-02-08] MEDS: ATORVASTATIN CALCIUM 20 MG TABLET PO SCH (20:15)
[2018-02-09 00:01] LABS: GLUCOMETER DEV NAME(LOC) 3EI C; GLUCOSE,POINT OF CARE 227 MG/DL (70-110)
[2018-02-09] MEDS: HALOPERIDOL 5 MG TABLET PO PRN (03:42)
[2018-02-09] MEDS: LORazepam 2 MG TABLET PO PRN (03:42)
[2018-02-09 04:06] VITALS: BP 129/57
[2018-02-09] MEDS: LEVOTHYROXINE SODIUM 75 MCG TABLET PO SCH (06:54)
[2018-02-09] MEDS: RIVAROXABAN 15 MG TABLET PO SCH ×2 (06:54→17:04)
[2018-02-09] MEDS: INSULIN LISPRO 100 UNITS/ML SQ PRN ×3 (06:57→21:37)
[2018-02-09] MEDS: LACTOBAC ACID/BULG/BIFID/THERM TABLET PO SCH (09:00)
[2018-02-09] MEDS: DIVALPROEX SODIUM 500 MG DR TABLET PO SCH ×2 (09:00→20:11)
[2018-02-09] MEDS: CARBIDOPA/LEVODOPA 25-100 MG TABLET PO SCH ×3 (09:00→17:04)
[2018-02-09] MEDS: BENZTROPINE MESYLATE 1 MG TABLET PO SCH ×2 (09:00→20:10)
[2018-02-09] MEDS: OMEPRAZOLE 20 MG CAPSULE PO SCH (09:00)
[2018-02-09] MEDS: SODIUM CHLORIDE 1 GM TABLET PO SCH ×3 (09:00→17:04)
[2018-02-09] MEDS: POTASSIUM CHLORIDE 10 MEQ ER TABLET PO SCH (09:00)
[2018-02-09] MEDS: CITALOPRAM HYDROBROMIDE 20 MG TABLET PO SCH (09:00)
[2018-02-09] MEDS: FUROSEMIDE 40 MG TABLET PO SCH ×2 (09:00→17:04)
[2018-02-09] MEDS: ASPIRIN 81 MG CHEWABLE TABLET PO SCH (09:00)
[2018-02-09] MEDS: AmLODIPine BESYLATE 10 MG TABLET PO SCH (09:00)
[2018-02-09] MEDS: PROPRANOLOL HCL 10 MG TABLET PO SCH (09:00)
[2018-02-09 09:13] LABS: GLUCOMETER DEV NAME(LOC) 3EI C; GLUCOSE,POINT OF CARE 115 MG/DL (70-110)
[2018-02-09 09:37] VITALS: BP 137/86
[2018-02-09 15:57] LABS: GLUCOMETER DEV NAME(LOC) 3EI C; GLUCOSE,POINT OF CARE 249 MG/DL (70-110)
[2018-02-09 16:19] LABS: GLUCOMETER DEV NAME(LOC) 3EI C; GLUCOSE,POINT OF CARE 179 MG/DL (70-110)
[2018-02-09 16:43] LABS: GLUCOMETER DEV NAME(LOC) 3EI C; GLUCOSE,POINT OF CARE 211 MG/DL (70-110)
[2018-02-09 16:44] LABS: GLUCOMETER DEV NAME(LOC) 3EI C; GLUCOSE,POINT OF CARE 163 MG/DL (70-110)
[2018-02-09 17:45] LABS: GLUCOMETER DEV NAME(LOC) 3EI C; GLUCOSE,POINT OF CARE 138 MG/DL (70-110)
[2018-02-09 18:05] VITALS: BP 125/59
[2018-02-09] MEDS: ATORVASTATIN CALCIUM 20 MG TABLET PO SCH (20:11)
[2018-02-09 21:05] LABS: GLUCOMETER DEV NAME(LOC) 3EI C; GLUCOSE,POINT OF CARE 242 MG/DL (70-110)
[2018-02-10 02:40] VITALS: BP_SYST 129; BP_SYST 145; BP_DIAS 67; BP_DIAS 75
[2018-02-10] MEDS: ZOLPIDEM TARTRATE 10 MG TABLET PO PRN (02:46)
[2018-02-10 05:50] LABS: GLUCOMETER DEV NAME(LOC) 3EI C; GLUCOSE,POINT OF CARE 231 MG/DL (70-110)
[2018-02-10] MEDS: RIVAROXABAN 15 MG TABLET PO SCH ×2 (06:46→16:35)
[2018-02-10] MEDS: LEVOTHYROXINE SODIUM 75 MCG TABLET PO SCH (06:46)
[2018-02-10] MEDS: INSULIN LISPRO 100 UNITS/ML SQ PRN ×3 (07:01→16:40)
[2018-02-10 08:30] VITALS: BP 115/66
[2018-02-10] MEDS: LACTOBAC ACID/BULG/BIFID/THERM TABLET PO SCH (08:55)
[2018-02-10] MEDS: CITALOPRAM HYDROBROMIDE 20 MG TABLET PO SCH (08:55)
[2018-02-10] MEDS: ASPIRIN 81 MG CHEWABLE TABLET PO SCH (08:55)
[2018-02-10] MEDS: BENZTROPINE MESYLATE 1 MG TABLET PO SCH ×2 (08:55→20:12)
[2018-02-10] MEDS: PROPRANOLOL HCL 10 MG TABLET PO SCH (08:55)
[2018-02-10] MEDS: FUROSEMIDE 40 MG TABLET PO SCH ×2 (08:56→16:35)
[2018-02-10] MEDS: CARBIDOPA/LEVODOPA 25-100 MG TABLET PO SCH ×3 (08:56→16:35)
[2018-02-10] MEDS: POTASSIUM CHLORIDE 10 MEQ ER TABLET PO SCH (08:56)
[2018-02-10] MEDS: SODIUM CHLORIDE 1 GM TABLET PO SCH ×3 (08:56→16:35)
[2018-02-10] MEDS: OMEPRAZOLE 20 MG CAPSULE PO SCH (08:56)
[2018-02-10] MEDS: DIVALPROEX SODIUM 500 MG DR TABLET PO SCH ×2 (08:56→20:12)
[2018-02-10] MEDS: AmLODIPine BESYLATE 10 MG TABLET PO SCH (08:56)
[2018-02-10] MEDS: LORazepam 2 MG TABLET PO PRN (09:50)
[2018-02-10 11:09] LABS: GLUCOMETER DEV NAME(LOC) 3EI C; GLUCOSE,POINT OF CARE 227 MG/DL (70-110)
[2018-02-10] MEDS: GlipiZIDE 10 MG TABLET PO SCH (16:35)
[2018-02-10 16:54] LABS: GLUCOMETER DEV NAME(LOC) 3EI C; GLUCOSE,POINT OF CARE 150 MG/DL (70-110)
[2018-02-10 18:26] VITALS: BP 138/67
[2018-02-10] MEDS: ATORVASTATIN CALCIUM 20 MG TABLET PO SCH (20:11)
[2018-02-10 20:20] LABS: GLUCOMETER DEV NAME(LOC) 3EI C; GLUCOSE,POINT OF CARE 58 MG/DL (70-110)
[2018-02-10 20:54] LABS: GLUCOMETER DEV NAME(LOC) 3EI C; GLUCOSE,POINT OF CARE 74 MG/DL (70-110)
[2018-02-10] MEDS ORDERED: INSULIN GLARGINE,HUM.REC.ANLOG 100 UNITS/ML SQ SCH (21:00)
[2018-02-10 22:04] LABS: GLUCOMETER DEV NAME(LOC) 3EI C; GLUCOSE,POINT OF CARE 124 MG/DL (70-110)
[2018-02-11 03:14] VITALS: BP 128/74
[2018-02-11 05:24] LABS: GLUCOMETER DEV NAME(LOC) 3EI C; GLUCOSE,POINT OF CARE 58 MG/DL (70-110)
[2018-02-11 05:54] LABS: GLUCOMETER DEV NAME(LOC) 3EI C; GLUCOSE,POINT OF CARE 109 MG/DL (70-110)
[2018-02-11] MEDS: GlipiZIDE 10 MG TABLET PO SCH ×2 (06:54→16:28)
[2018-02-11] MEDS: RIVAROXABAN 15 MG TABLET PO SCH ×2 (06:54→16:28)
[2018-02-11] MEDS: LEVOTHYROXINE SODIUM 75 MCG TABLET PO SCH (06:54)
[2018-02-11 08:15] VITALS: BP 143/63
[2018-02-11] MEDS: CITALOPRAM HYDROBROMIDE 20 MG TABLET PO SCH (09:16)
[2018-02-11] MEDS: POTASSIUM CHLORIDE 10 MEQ ER TABLET PO SCH (09:16)
[2018-02-11] MEDS: OMEPRAZOLE 20 MG CAPSULE PO SCH (09:16)
[2018-02-11] MEDS: ASPIRIN 81 MG CHEWABLE TABLET PO SCH (09:16)
[2018-02-11] MEDS: BENZTROPINE MESYLATE 1 MG TABLET PO SCH ×2 (09:16→20:23)
[2018-02-11] MEDS: LACTOBAC ACID/BULG/BIFID/THERM TABLET PO SCH (09:17)
[2018-02-11] MEDS: DIVALPROEX SODIUM 500 MG DR TABLET PO SCH ×2 (09:17→20:23)
[2018-02-11] MEDS: AmLODIPine BESYLATE 10 MG TABLET PO SCH (09:17)
[2018-02-11] MEDS: SODIUM CHLORIDE 1 GM TABLET PO SCH ×3 (09:18→16:28)
[2018-02-11] MEDS: FUROSEMIDE 40 MG TABLET PO SCH ×2 (09:18→16:28)
[2018-02-11] MEDS: CARBIDOPA/LEVODOPA 25-100 MG TABLET PO SCH ×3 (09:19→16:28)
[2018-02-11] MEDS: PROPRANOLOL HCL 10 MG TABLET PO SCH (09:19)
[2018-02-11 11:49] LABS: GLUCOMETER DEV NAME(LOC) 3EI C; GLUCOSE,POINT OF CARE 161 MG/DL (70-110)
[2018-02-11] MEDS: INSULIN LISPRO 100 UNITS/ML SQ PRN (12:21)
[2018-02-11 16:59] LABS: GLUCOMETER DEV NAME(LOC) 3EI C; GLUCOSE,POINT OF CARE 70 MG/DL (70-110)
[2018-02-11] MEDS: ATORVASTATIN CALCIUM 20 MG TABLET PO SCH (20:23)
[2018-02-11 20:44] LABS: GLUCOMETER DEV NAME(LOC) 3EI C; GLUCOSE,POINT OF CARE 136 MG/DL (70-110)
[2018-02-11 21:23] VITALS: BP 132/70
[2018-02-12 05:49] LABS: GLUCOMETER DEV NAME(LOC) 3EI C; GLUCOSE,POINT OF CARE 60 MG/DL (70-110)
[2018-02-12 06:15] LABS: GLUCOMETER DEV NAME(LOC) 3EI C; GLUCOSE,POINT OF CARE 99 MG/DL (70-110)
[2018-02-12] MEDS: RIVAROXABAN 15 MG TABLET PO SCH ×2 (06:35→16:21)
[2018-02-12] MEDS: GlipiZIDE 10 MG TABLET PO SCH ×2 (06:35→16:21)
[2018-02-12] MEDS: LEVOTHYROXINE SODIUM 100 MCG TABLET PO SCH (06:35)
[2018-02-12] MEDS: FUROSEMIDE 40 MG TABLET PO SCH ×2 (08:03→16:21)
[2018-02-12] MEDS: CITALOPRAM HYDROBROMIDE 20 MG TABLET PO SCH (08:03)
[2018-02-12] MEDS: POTASSIUM CHLORIDE 10 MEQ ER TABLET PO SCH (08:03)
[2018-02-12] MEDS: BENZTROPINE MESYLATE 1 MG TABLET PO SCH ×2 (08:03→20:09)
[2018-02-12] MEDS: DIVALPROEX SODIUM 500 MG DR TABLET PO SCH ×2 (08:03→20:10)
[2018-02-12] MEDS: OMEPRAZOLE 20 MG CAPSULE PO SCH (08:03)
[2018-02-12] MEDS: ASPIRIN 81 MG CHEWABLE TABLET PO SCH (08:04)
[2018-02-12] MEDS: CARBIDOPA/LEVODOPA 25-100 MG TABLET PO SCH ×3 (08:04→16:20)
[2018-02-12] MEDS: PROPRANOLOL HCL 10 MG TABLET PO SCH (08:05)
[2018-02-12] MEDS: LACTOBAC ACID/BULG/BIFID/THERM TABLET PO SCH (08:05)
[2018-02-12] MEDS: AmLODIPine BESYLATE 10 MG TABLET PO SCH (08:06)
[2018-02-12] MEDS: PALIPERIDONE PALMITATE 156 MG/ML SYRINGE IM SCH (09:19)
[2018-02-12 09:39] VITALS: BP 130/93
[2018-02-12 10:51] LABS: CALCIUM, TOTAL 8.6 mg/dL (8.8-10.5); CREATININE 1.46 mg/dL (0.60-1.30); PHOSPHORUS 5.4 mg/dL (2.5-4.9); POTASSIUM 4.6 mmol/L (3.5-5.1)
[2018-02-12 11:12] LABS: THYROID STIMULATING HORMONE 6.18 uIU/mL (0.36-3.74)
[2018-02-12 11:59] LABS: GLUCOMETER DEV NAME(LOC) 3EI C; GLUCOSE,POINT OF CARE 173 MG/DL (70-110)
[2018-02-12] MEDS: INSULIN LISPRO 100 UNITS/ML SQ PRN ×2 (12:22→17:25)
[2018-02-12 16:29] LABS: GLUCOMETER DEV NAME(LOC) 3EI C; GLUCOSE,POINT OF CARE 156 MG/DL (70-110)
[2018-02-12 16:35] VITALS: BP 131/69
[2018-02-12] MEDS: ATORVASTATIN CALCIUM 20 MG TABLET PO SCH (20:09)
[2018-02-12 20:13] LABS: GLUCOMETER DEV NAME(LOC) 3EI C; GLUCOSE,POINT OF CARE 121 MG/DL (70-110)
[2018-02-13 05:39] LABS: GLUCOMETER DEV NAME(LOC) 3EI C; GLUCOSE,POINT OF CARE 140 MG/DL (70-110)
[2018-02-13] MEDS: GlipiZIDE 10 MG TABLET PO SCH ×2 (07:18→16:32)
[2018-02-13] MEDS: LEVOTHYROXINE SODIUM 100 MCG TABLET PO SCH (07:19)
[2018-02-13] MEDS: RIVAROXABAN 15 MG TABLET PO SCH ×2 (07:19→16:31)
[2018-02-13] MEDS: ASPIRIN 81 MG CHEWABLE TABLET PO SCH (08:54)
[2018-02-13] MEDS: LACTOBAC ACID/BULG/BIFID/THERM TABLET PO SCH (08:54)
[2018-02-13] MEDS: DIVALPROEX SODIUM 500 MG DR TABLET PO SCH ×2 (08:55→20:25)
[2018-02-13] MEDS: CITALOPRAM HYDROBROMIDE 20 MG TABLET PO SCH (08:55)
[2018-02-13] MEDS: BENZTROPINE MESYLATE 1 MG TABLET PO SCH ×2 (08:55→20:25)
[2018-02-13] MEDS: CARBIDOPA/LEVODOPA 25-100 MG TABLET PO SCH ×3 (08:56→17:00)
[2018-02-13] MEDS: PROPRANOLOL HCL 10 MG TABLET PO SCH (08:56)
[2018-02-13] MEDS: OMEPRAZOLE 20 MG CAPSULE PO SCH (08:56)
[2018-02-13] MEDS: FUROSEMIDE 40 MG TABLET PO SCH ×2 (08:56→16:31)
[2018-02-13] MEDS: POTASSIUM CHLORIDE 10 MEQ ER TABLET PO SCH (08:56)
[2018-02-13 11:13] LABS: GLUCOMETER DEV NAME(LOC) 3EI C; GLUCOSE,POINT OF CARE 223 MG/DL (70-110)
[2018-02-13] MEDS: INSULIN LISPRO 100 UNITS/ML SQ PRN ×2 (11:39→20:27)
[2018-02-13 16:39] LABS: GLUCOMETER DEV NAME(LOC) 3EI C; GLUCOSE,POINT OF CARE 125 MG/DL (70-110)
[2018-02-13] MEDS: ATORVASTATIN CALCIUM 20 MG TABLET PO SCH (20:25)
[2018-02-13 20:28] LABS: GLUCOMETER DEV NAME(LOC) 3EI C; GLUCOSE,POINT OF CARE 145 MG/DL (70-110)
[2018-02-13 21:40] VITALS: BP 141/76
[2018-02-14 05:35] LABS: GLUCOMETER DEV NAME(LOC) 3EI C; GLUCOSE,POINT OF CARE 88 MG/DL (70-110)
[2018-02-14] MEDS: LEVOTHYROXINE SODIUM 125 MCG TABLET PO SCH (06:44)
[2018-02-14] MEDS: GlipiZIDE 10 MG TABLET PO SCH ×2 (06:45→16:31)
[2018-02-14] MEDS: INSULIN LISPRO 100 UNITS/ML SQ PRN ×3 (06:45→21:18)
[2018-02-14] MEDS: RIVAROXABAN 15 MG TABLET PO SCH ×2 (06:54→16:31)
[2018-02-14] MEDS: PROPRANOLOL HCL 10 MG TABLET PO SCH (09:20)
[2018-02-14] MEDS: CHOLECALCIFEROL (VIT D3) 1,000 UNITS TABLET PO SCH (09:20)
[2018-02-14] MEDS: ASPIRIN 81 MG CHEWABLE TABLET PO SCH (09:20)
[2018-02-14] MEDS: CITALOPRAM HYDROBROMIDE 20 MG TABLET PO SCH (09:20)
[2018-02-14] MEDS: BENZTROPINE MESYLATE 1 MG TABLET PO SCH ×2 (09:20→20:31)
[2018-02-14] MEDS: DOCUSATE SODIUM 100 MG CAPSULE PO PRN (09:20)
[2018-02-14] MEDS: POTASSIUM CHLORIDE 10 MEQ ER TABLET PO SCH (09:21)
[2018-02-14] MEDS: CARBIDOPA/LEVODOPA 25-100 MG TABLET PO SCH ×3 (09:21→16:31)
[2018-02-14] MEDS: FUROSEMIDE 40 MG TABLET PO SCH ×2 (09:21→16:31)
[2018-02-14] MEDS: OMEPRAZOLE 20 MG CAPSULE PO SCH (09:21)
[2018-02-14] MEDS: LACTOBAC ACID/BULG/BIFID/THERM TABLET PO SCH (09:21)
[2018-02-14] MEDS: DIVALPROEX SODIUM 500 MG DR TABLET PO SCH ×2 (09:24→20:31)
[2018-02-14 10:24] VITALS: BP 130/70
[2018-02-14 11:59] LABS: GLUCOMETER DEV NAME(LOC) 3EI C; GLUCOSE,POINT OF CARE 199 MG/DL (70-110)
[2018-02-14 16:19] LABS: GLUCOMETER DEV NAME(LOC) 3EI C; GLUCOSE,POINT OF CARE 127 MG/DL (70-110)
[2018-02-14 20:08] VITALS: BP 145/70
[2018-02-14] MEDS: ATORVASTATIN CALCIUM 20 MG TABLET PO SCH (20:31)
[2018-02-14 20:39] LABS: GLUCOMETER DEV NAME(LOC) 3EI C; GLUCOSE,POINT OF CARE 214 MG/DL (70-110)
[2018-02-15 04:49] VITALS: BP 139/75
[2018-02-15 05:59] LABS: GLUCOMETER DEV NAME(LOC) 3EI C; GLUCOSE,POINT OF CARE 105 MG/DL (70-110)
[2018-02-15] MEDS: LEVOTHYROXINE SODIUM 125 MCG TABLET PO SCH (07:00)
[2018-02-15] MEDS: GlipiZIDE 10 MG TABLET PO SCH ×2 (07:00→16:14)
[2018-02-15] MEDS: RIVAROXABAN 15 MG TABLET PO SCH ×2 (07:00→16:14)
[2018-02-15 07:51] LABS: CALCIUM, TOTAL 8.7 mg/dL (8.8-10.5); CREATININE 1.41 mg/dL (0.60-1.30); MAGNESIUM 2.1 mg/dL (1.80-2.40); POTASSIUM 4.6 mmol/L (3.5-5.1)
[2018-02-15 08:25] VITALS: BP 150/73
[2018-02-15] MEDS: ASPIRIN 81 MG CHEWABLE TABLET PO SCH (08:34)
[2018-02-15] MEDS: FUROSEMIDE 40 MG TABLET PO SCH ×2 (08:34→16:14)
[2018-02-15] MEDS: POTASSIUM CHLORIDE 10 MEQ ER TABLET PO SCH (08:34)
[2018-02-15] MEDS: OMEPRAZOLE 20 MG CAPSULE PO SCH (08:34)
[2018-02-15] MEDS: DIVALPROEX SODIUM 500 MG DR TABLET PO SCH ×2 (08:34→20:13)
[2018-02-15] MEDS: CITALOPRAM HYDROBROMIDE 20 MG TABLET PO SCH (08:34)
[2018-02-15] MEDS: CHOLECALCIFEROL (VIT D3) 1,000 UNITS TABLET PO SCH (08:35)
[2018-02-15] MEDS: CARBIDOPA/LEVODOPA 25-100 MG TABLET PO SCH ×3 (08:35→16:14)
[2018-02-15] MEDS: LACTOBAC ACID/BULG/BIFID/THERM TABLET PO SCH (08:35)
[2018-02-15] MEDS: BENZTROPINE MESYLATE 1 MG TABLET PO SCH ×2 (08:35→20:13)
[2018-02-15] MEDS: PROPRANOLOL HCL 10 MG TABLET PO SCH (08:35)
[2018-02-15 11:44] LABS: GLUCOMETER DEV NAME(LOC) 3EI C; GLUCOSE,POINT OF CARE 291 MG/DL (70-110)
[2018-02-15] MEDS: INSULIN LISPRO 100 UNITS/ML SQ PRN ×2 (12:42→17:42)
[2018-02-15 16:19] LABS: GLUCOMETER DEV NAME(LOC) 3EI C; GLUCOSE,POINT OF CARE 141 MG/DL (70-110)
[2018-02-15 18:12] VITALS: BP 148/79
[2018-02-15] MEDS: ATORVASTATIN CALCIUM 20 MG TABLET PO SCH (20:13)
[2018-02-15 20:24] LABS: GLUCOMETER DEV NAME(LOC) 3EI C; GLUCOSE,POINT OF CARE 135 MG/DL (70-110)
[2018-02-16 06:09] LABS: GLUCOMETER DEV NAME(LOC) 3EI C; GLUCOSE,POINT OF CARE 60 MG/DL (70-110)
[2018-02-16 06:09] LABS: GLUCOMETER DEV NAME(LOC) 3EI C; GLUCOSE,POINT OF CARE 120 MG/DL (70-110)
[2018-02-16 06:43] LABS: % IRON SATURATION 24.2 % (22-44)
[2018-02-16 06:54] LABS: CALCIUM, TOTAL 8.3 mg/dL (8.8-10.5); CREATININE 1.26 mg/dL (0.60-1.30); POTASSIUM 4.4 mmol/L (3.5-5.1)
[2018-02-16] MEDS: GlipiZIDE 10 MG TABLET PO SCH ×2 (06:57→16:43)
[2018-02-16] MEDS: LEVOTHYROXINE SODIUM 125 MCG TABLET PO SCH (06:57)
[2018-02-16] MEDS: RIVAROXABAN 15 MG TABLET PO SCH ×2 (06:57→16:43)
[2018-02-16] MEDS: BENZTROPINE MESYLATE 1 MG TABLET PO SCH ×2 (08:02→21:06)
[2018-02-16] MEDS: LORazepam 2 MG TABLET PO PRN ×2 (08:02→16:43)
[2018-02-16] MEDS: ASPIRIN 81 MG CHEWABLE TABLET PO SCH (08:02)
[2018-02-16] MEDS: CITALOPRAM HYDROBROMIDE 20 MG TABLET PO SCH (08:02)
[2018-02-16] MEDS: OMEPRAZOLE 20 MG CAPSULE PO SCH (08:03)
[2018-02-16] MEDS: PROPRANOLOL HCL 10 MG TABLET PO SCH (08:03)
[2018-02-16] MEDS: LACTOBAC ACID/BULG/BIFID/THERM TABLET PO SCH (08:03)
[2018-02-16] MEDS: CHOLECALCIFEROL (VIT D3) 1,000 UNITS TABLET PO SCH (08:03)
[2018-02-16] MEDS: FUROSEMIDE 40 MG TABLET PO SCH ×2 (08:03→16:43)
[2018-02-16] MEDS: DIVALPROEX SODIUM 500 MG DR TABLET PO SCH ×2 (08:03→21:06)
[2018-02-16] MEDS: CARBIDOPA/LEVODOPA 25-100 MG TABLET PO SCH ×3 (08:04→16:43)
[2018-02-16] MEDS: POTASSIUM CHLORIDE 10 MEQ ER TABLET PO SCH (08:06)
[2018-02-16 08:51] VITALS: BP 142/73
[2018-02-16 11:09] LABS: GLUCOMETER DEV NAME(LOC) 3EI C; GLUCOSE,POINT OF CARE 173 MG/DL (70-110)
[2018-02-16] MEDS: INSULIN LISPRO 100 UNITS/ML SQ PRN ×2 (12:30→17:30)
[2018-02-16 16:00] VITALS: BP 156/79
[2018-02-16 17:05] LABS: GLUCOMETER DEV NAME(LOC) 3EI C; GLUCOSE,POINT OF CARE 150 MG/DL (70-110)
[2018-02-16] MEDS: ATORVASTATIN CALCIUM 20 MG TABLET PO SCH (21:06)
[2018-02-16 22:44] LABS: GLUCOMETER DEV NAME(LOC) 3EI C; GLUCOSE,POINT OF CARE 90 MG/DL (70-110)
[2018-02-16 23:10] VITALS: BP 140/63
[2018-02-16 23:24] LABS: GLUCOMETER DEV NAME(LOC) 3EI C; GLUCOSE,POINT OF CARE 67 MG/DL (70-110)
[2018-02-17 00:25] LABS: GLUCOMETER DEV NAME(LOC) 3EI C; GLUCOSE,POINT OF CARE 52 MG/DL (70-110)
[2018-02-17 01:03] LABS: GLUCOMETER DEV NAME(LOC) 3EI C; GLUCOSE,POINT OF CARE 86 MG/DL (70-110)
[2018-02-17 05:34] LABS: GLUCOMETER DEV NAME(LOC) 3EI C; GLUCOSE,POINT OF CARE 89 MG/DL (70-110)
[2018-02-17] MEDS: RIVAROXABAN 15 MG TABLET PO SCH ×2 (06:46→16:29)
[2018-02-17] MEDS: GlipiZIDE 10 MG TABLET PO SCH ×2 (06:46→16:29)
[2018-02-17] MEDS: LEVOTHYROXINE SODIUM 125 MCG TABLET PO SCH (06:47)
[2018-02-17 07:05] LABS: BASOPHILS % (AUTO) 0.8 % (0.0-2.0); EOSINOPHILS % (AUTO) 2.7 % (1.0-6.0); HEMATOCRIT 24.9 % (36-46); HEMOGLOBIN 8.4 g/dL (12.0-16.0); LYMPHOCYTES # (AUTO) 0.8 K/uL (1.0-4.8); LYMPHOCYTES % (AUTO) 13.9 % (22.0-44.0); MEAN CORPUSCULAR HEMOGLOBIN 29.5 pg (26.0-34.0); MEAN CORPUSCULAR HGB CONC 33.9 G/dL (31.0-37.0); MEAN CORPUSCULAR VOLUME 87 fL (80-100); MONOCYTES # (AUTO) 1.1 K/uL (0.1-1.0); MONOCYTES % (AUTO) 17.8 % (2.0-9.0); NEUTROPHILS # (AUTO) 3.8 K/uL (1.8-7.7); NEUTROPHILS % (AUTO) 64.8 % (40.0-70.0); PLATELET COUNT (AUTO) 197 K/uL (150-450); RED BLOOD CELL COUNT(AUTO) 2.86 MIL/uL (4.00-5.20); RED CELL DISTRIBUTION WIDTH 16.3 % (11.5-14.5)
[2018-02-17 07:12] LABS: CALCIUM, TOTAL 8.3 mg/dL (8.8-10.5); CREATININE 1.23 mg/dL (0.60-1.30); POTASSIUM 4.4 mmol/L (3.5-5.1)
[2018-02-17 08:30] VITALS: BP 159/86
[2018-02-17 09:31] LABS: PHOSPHORUS 4.6 mg/dL (2.5-4.9)
[2018-02-17] MEDS: ASPIRIN 81 MG CHEWABLE TABLET PO SCH (10:07)
[2018-02-17] MEDS: CARBIDOPA/LEVODOPA 25-100 MG TABLET PO SCH ×3 (10:11→16:29)
[2018-02-17] MEDS: DIVALPROEX SODIUM 500 MG DR TABLET PO SCH ×2 (10:11→20:10)
[2018-02-17] MEDS: OMEPRAZOLE 20 MG CAPSULE PO SCH (10:11)
[2018-02-17] MEDS: BENZTROPINE MESYLATE 1 MG TABLET PO SCH ×2 (10:12→20:10)
[2018-02-17] MEDS: LACTOBAC ACID/BULG/BIFID/THERM TABLET PO SCH (10:12)
[2018-02-17] MEDS: FUROSEMIDE 40 MG TABLET PO SCH ×2 (10:12→15:45)
[2018-02-17] MEDS: POTASSIUM CHLORIDE 10 MEQ ER TABLET PO SCH (10:12)
[2018-02-17] MEDS: CITALOPRAM HYDROBROMIDE 20 MG TABLET PO SCH (10:13)
[2018-02-17] MEDS: CHOLECALCIFEROL (VIT D3) 1,000 UNITS TABLET PO SCH (10:13)
[2018-02-17] MEDS: PROPRANOLOL HCL 10 MG TABLET PO SCH (10:13)
[2018-02-17 11:39] LABS: GLUCOMETER DEV NAME(LOC) 3EI C; GLUCOSE,POINT OF CARE 189 MG/DL (70-110)
[2018-02-17] MEDS: INSULIN LISPRO 100 UNITS/ML SQ PRN ×2 (11:57→17:28)
[2018-02-17] MEDS: FERROUS SULFATE 325 MG EC TABLET PO SCH (16:29)
[2018-02-17 16:54] VITALS: BP 147/78
[2018-02-17 17:05] LABS: GLUCOMETER DEV NAME(LOC) 3EI C; GLUCOSE,POINT OF CARE 190 MG/DL (70-110)
[2018-02-17] MEDS: ATORVASTATIN CALCIUM 20 MG TABLET PO SCH (20:10)
[2018-02-17 21:14] LABS: GLUCOMETER DEV NAME(LOC) 3EI C; GLUCOSE,POINT OF CARE 139 MG/DL (70-110)
[2018-02-18 05:55] LABS: GLUCOMETER DEV NAME(LOC) 3EI C; GLUCOSE,POINT OF CARE 109 MG/DL (70-110)
[2018-02-18 06:25] LABS: CALCIUM, TOTAL 8.4 mg/dL (8.8-10.5); CREATININE 1.18 mg/dL (0.60-1.30); MAGNESIUM 1.9 mg/dL (1.80-2.40); PHOSPHORUS 3.8 mg/dL (2.5-4.9); POTASSIUM 4.2 mmol/L (3.5-5.1)
[2018-02-18] MEDS: LEVOTHYROXINE SODIUM 125 MCG TABLET PO SCH (06:51)
[2018-02-18] MEDS: FERROUS SULFATE 325 MG EC TABLET PO SCH ×2 (06:51→18:00)
[2018-02-18] MEDS: GlipiZIDE 10 MG TABLET PO SCH ×2 (06:51→16:21)
[2018-02-18 09:00] VITALS: BP 138/64
[2018-02-18] MEDS: BENZTROPINE MESYLATE 1 MG TABLET PO SCH ×2 (10:49→20:33)
[2018-02-18] MEDS: POTASSIUM CHLORIDE 10 MEQ ER TABLET PO SCH (10:50)
[2018-02-18] MEDS: DIVALPROEX SODIUM 500 MG DR TABLET PO SCH ×2 (10:50→20:34)
[2018-02-18] MEDS: ASPIRIN 81 MG CHEWABLE TABLET PO SCH (10:50)
[2018-02-18] MEDS: PROPRANOLOL HCL 10 MG TABLET PO SCH (10:50)
[2018-02-18] MEDS: CITALOPRAM HYDROBROMIDE 20 MG TABLET PO SCH (10:50)
[2018-02-18] MEDS: OMEPRAZOLE 20 MG CAPSULE PO SCH (10:50)
[2018-02-18] MEDS: LACTOBAC ACID/BULG/BIFID/THERM TABLET PO SCH (10:50)
[2018-02-18] MEDS: CARBIDOPA/LEVODOPA 25-100 MG TABLET PO SCH ×3 (10:51→16:21)
[2018-02-18] MEDS: CHOLECALCIFEROL (VIT D3) 1,000 UNITS TABLET PO SCH (10:51)
[2018-02-18] MEDS: FUROSEMIDE 40 MG TABLET PO SCH ×2 (10:52→15:10)
[2018-02-18 11:35] LABS: GLUCOMETER DEV NAME(LOC) 3EI C; GLUCOSE,POINT OF CARE 118 MG/DL (70-110)
[2018-02-18 16:51] VITALS: BP 169/70
[2018-02-18] MEDS: INSULIN LISPRO 100 UNITS/ML SQ PRN (17:43)
[2018-02-18] MEDS: RIVAROXABAN 20 MG TABLET PO SCH (18:00)
[2018-02-18 18:24] LABS: GLUCOMETER DEV NAME(LOC) 3EI C; GLUCOSE,POINT OF CARE 246 MG/DL (70-110)
[2018-02-18 20:30] VITALS: BP 110/58
[2018-02-18] MEDS: ACETAMINOPHEN 325 MG TABLET PO PRN (20:33)
[2018-02-18] MEDS: ATORVASTATIN CALCIUM 20 MG TABLET PO SCH (20:33)
[2018-02-18 21:14] LABS: GLUCOMETER DEV NAME(LOC) 3EI C; GLUCOSE,POINT OF CARE 57 MG/DL (70-110)
[2018-02-18 21:19] LABS: GLUCOMETER DEV NAME(LOC) 3EI C; GLUCOSE,POINT OF CARE 131 MG/DL (70-110)
[2018-02-19 05:40] LABS: GLUCOMETER DEV NAME(LOC) 3EI C; GLUCOSE,POINT OF CARE 86 MG/DL (70-110)
[2018-02-19 06:15] LABS: BAND NEUTROPHILS % (MANUAL) 0 % (0-5)
[2018-02-19 06:58] LABS: CALCIUM, TOTAL 8.1 mg/dL (8.8-10.5); CREATININE 1.43 mg/dL (0.60-1.30); MAGNESIUM 2.1 mg/dL (1.80-2.40); PHOSPHORUS 5.1 mg/dL (2.5-4.9); POTASSIUM 4.3 mmol/L (3.5-5.1)
[2018-02-19 07:02] LABS: HEMATOCRIT 24.2 % (36-46); HEMOGLOBIN 8.3 g/dL (12.0-16.0); MEAN CORPUSCULAR HEMOGLOBIN 29.9 pg (26.0-34.0); MEAN CORPUSCULAR HGB CONC 34.3 G/dL (31.0-37.0); MEAN CORPUSCULAR VOLUME 87 fL (80-100); PLATELET COUNT (AUTO) 201 K/uL (150-450); RED BLOOD CELL COUNT(AUTO) 2.78 MIL/uL (4.00-5.20); RED CELL DISTRIBUTION WIDTH 16.2 % (11.5-14.5)
[2018-02-19] MEDS: GlipiZIDE 10 MG TABLET PO SCH ×2 (07:23→16:42)
[2018-02-19] MEDS: FERROUS SULFATE 325 MG EC TABLET PO SCH ×2 (07:23→16:42)
[2018-02-19] MEDS: LEVOTHYROXINE SODIUM 125 MCG TABLET PO SCH (07:23)
[2018-02-19 08:52] LABS: EOSINOPHILS % (MANUAL) 1 % (1-6); LYMPHOCYTES % (MANUAL) 31 % (22-44); MONOCYTES % (MANUAL) 14 % (2-9); SEGMENTED NEUTROPHILS % 54 % (40-70)
[2018-02-19] MEDS ORDERED: FUROSEMIDE 40 MG TABLET PO SCH (09:00)
[2018-02-19] MEDS: ASPIRIN 81 MG CHEWABLE TABLET PO SCH (10:28)
[2018-02-19] MEDS: CARBIDOPA/LEVODOPA 25-100 MG TABLET PO SCH ×3 (10:29→16:42)
[2018-02-19] MEDS: LACTOBAC ACID/BULG/BIFID/THERM TABLET PO SCH (10:29)
[2018-02-19] MEDS: OMEPRAZOLE 20 MG CAPSULE PO SCH (10:34)
[2018-02-19] MEDS: CITALOPRAM HYDROBROMIDE 20 MG TABLET PO SCH (10:34)
[2018-02-19] MEDS: BENZTROPINE MESYLATE 1 MG TABLET PO SCH ×2 (10:34→20:27)
[2018-02-19] MEDS: POTASSIUM CHLORIDE 10 MEQ ER TABLET PO SCH (10:34)
[2018-02-19] MEDS: DIVALPROEX SODIUM 500 MG DR TABLET PO SCH ×2 (10:34→20:27)
[2018-02-19] MEDS: CHOLECALCIFEROL (VIT D3) 1,000 UNITS TABLET PO SCH (10:35)
[2018-02-19] MEDS: PROPRANOLOL HCL 10 MG TABLET PO SCH (10:36)
[2018-02-19 10:53] VITALS: BP 138/58
[2018-02-19 11:34] LABS: GLUCOMETER DEV NAME(LOC) 3EI C; GLUCOSE,POINT OF CARE 76 MG/DL (70-110)
[2018-02-19] MEDS: FUROSEMIDE 40 MG TABLET PO SCH (15:09)
[2018-02-19] MEDS: RIVAROXABAN 20 MG TABLET PO SCH (16:42)
[2018-02-19 16:50] LABS: GLUCOMETER DEV NAME(LOC) 3EI C; GLUCOSE,POINT OF CARE 142 MG/DL (70-110)
[2018-02-19 17:19] VITALS: BP 144/68
[2018-02-19] MEDS: INSULIN LISPRO 100 UNITS/ML SQ PRN (17:39)
[2018-02-19] MEDS: ATORVASTATIN CALCIUM 20 MG TABLET PO SCH (20:27)
[2018-02-19] MEDS: ZOLPIDEM TARTRATE 10 MG TABLET PO PRN (20:31)
[2018-02-19 20:39] LABS: GLUCOMETER DEV NAME(LOC) 3EI C; GLUCOSE,POINT OF CARE 111 MG/DL (70-110)
[2018-02-20 06:30] LABS: CALCIUM, TOTAL 8.1 mg/dL (8.8-10.5); CREATININE 1.29 mg/dL (0.60-1.30); PHOSPHORUS 4.5 mg/dL (2.5-4.9); POTASSIUM 4.3 mmol/L (3.5-5.1)
[2018-02-20] MEDS: FERROUS SULFATE 325 MG EC TABLET PO SCH ×2 (06:50→16:35)
[2018-02-20] MEDS: LEVOTHYROXINE SODIUM 125 MCG TABLET PO SCH (06:50)
[2018-02-20] MEDS: GlipiZIDE 10 MG TABLET PO SCH ×2 (06:50→16:36)
[2018-02-20 07:08] LABS: GLUCOMETER DEV NAME(LOC) 3EI C; GLUCOSE,POINT OF CARE 137 MG/DL (70-110)
[2018-02-20] MEDS: EPOETIN ALFA 10,000 UNITS/ML VIAL SQ SCH (09:00)
[2018-02-20 09:20] VITALS: BP 156/72
[2018-02-20] MEDS: CITALOPRAM HYDROBROMIDE 20 MG TABLET PO SCH (09:56)
[2018-02-20] MEDS: PROPRANOLOL HCL 10 MG TABLET PO SCH (09:56)
[2018-02-20] MEDS: LACTOBAC ACID/BULG/BIFID/THERM TABLET PO SCH (09:56)
[2018-02-20] MEDS: ASPIRIN 81 MG CHEWABLE TABLET PO SCH (09:56)
[2018-02-20] MEDS: POTASSIUM CHLORIDE 10 MEQ ER TABLET PO SCH (09:57)
[2018-02-20] MEDS: CARBIDOPA/LEVODOPA 25-100 MG TABLET PO SCH ×3 (09:57→16:35)
[2018-02-20] MEDS: CHOLECALCIFEROL (VIT D3) 1,000 UNITS TABLET PO SCH (09:57)
[2018-02-20] MEDS: DIVALPROEX SODIUM 500 MG DR TABLET PO SCH ×2 (09:57→20:35)
[2018-02-20] MEDS: BENZTROPINE MESYLATE 1 MG TABLET PO SCH ×2 (09:58→20:35)
[2018-02-20] MEDS: FUROSEMIDE 40 MG TABLET PO SCH ×2 (10:00→16:35)
[2018-02-20] MEDS: OMEPRAZOLE 20 MG CAPSULE PO SCH (10:00)
[2018-02-20 11:54] LABS: GLUCOMETER DEV NAME(LOC) 3EI C; GLUCOSE,POINT OF CARE 217 MG/DL (70-110)
[2018-02-20] MEDS: INSULIN LISPRO 100 UNITS/ML SQ PRN ×2 (12:09→17:05)
[2018-02-20 13:59] VITALS: BP 115/71
[2018-02-20] MEDS: ACETAMINOPHEN 325 MG TABLET PO PRN (13:59)
[2018-02-20 16:02] VITALS: BP 122/60
[2018-02-20 16:35] LABS: GLUCOMETER DEV NAME(LOC) 3EI C; GLUCOSE,POINT OF CARE 143 MG/DL (70-110)
[2018-02-20] MEDS: RIVAROXABAN 20 MG TABLET PO SCH (16:35)
[2018-02-20 20:24] LABS: GLUCOMETER DEV NAME(LOC) 3EI C; GLUCOSE,POINT OF CARE 134 MG/DL (70-110)
[2018-02-20] MEDS: ZOLPIDEM TARTRATE 10 MG TABLET PO PRN (20:35)
[2018-02-20] MEDS: ATORVASTATIN CALCIUM 20 MG TABLET PO SCH (20:35)
[2018-02-21 01:30] VITALS: BP 169/68
[2018-02-21 05:59] LABS: GLUCOMETER DEV NAME(LOC) 3EI C; GLUCOSE,POINT OF CARE 99 MG/DL (70-110)
[2018-02-21] MEDS: FERROUS SULFATE 325 MG EC TABLET PO SCH ×2 (06:47→16:37)
[2018-02-21] MEDS: LEVOTHYROXINE SODIUM 125 MCG TABLET PO SCH (06:47)
[2018-02-21] MEDS: GlipiZIDE 10 MG TABLET PO SCH ×2 (06:48→16:39)
[2018-02-21 07:23] LABS: CALCIUM, TOTAL 8.2 mg/dL (8.8-10.5); CREATININE 1.5 mg/dL (0.60-1.30); PHOSPHORUS 5.4 mg/dL (2.5-4.9); POTASSIUM 4.5 mmol/L (3.5-5.1)
[2018-02-21 08:00] VITALS: BP 148/67
[2018-02-21] MEDS: BENZTROPINE MESYLATE 1 MG TABLET PO SCH ×2 (09:20→20:21)
[2018-02-21] MEDS: CITALOPRAM HYDROBROMIDE 20 MG TABLET PO SCH (09:20)
[2018-02-21] MEDS: CHOLECALCIFEROL (VIT D3) 1,000 UNITS TABLET PO SCH (09:21)
[2018-02-21] MEDS: DIVALPROEX SODIUM 500 MG DR TABLET PO SCH ×2 (09:21→20:21)
[2018-02-21] MEDS: ASPIRIN 81 MG CHEWABLE TABLET PO SCH (09:21)
[2018-02-21] MEDS: OMEPRAZOLE 20 MG CAPSULE PO SCH (09:21)
[2018-02-21] MEDS: POTASSIUM CHLORIDE 10 MEQ ER TABLET PO SCH (09:21)
[2018-02-21] MEDS: PROPRANOLOL HCL 10 MG TABLET PO SCH (09:21)
[2018-02-21] MEDS: CARBIDOPA/LEVODOPA 25-100 MG TABLET PO SCH ×3 (09:22→17:26)
[2018-02-21] MEDS: LACTOBAC ACID/BULG/BIFID/THERM TABLET PO SCH (09:23)
[2018-02-21] MEDS: FUROSEMIDE 40 MG TABLET PO SCH ×2 (09:25→16:37)
[2018-02-21 11:54] LABS: GLUCOMETER DEV NAME(LOC) 3EI C; GLUCOSE,POINT OF CARE 212 MG/DL (70-110)
[2018-02-21] MEDS: INSULIN LISPRO 100 UNITS/ML SQ PRN ×2 (12:51→21:15)
[2018-02-21 16:36] VITALS: BP 140/68
[2018-02-21] MEDS: RIVAROXABAN 20 MG TABLET PO SCH (16:37)
[2018-02-21 17:54] LABS: GLUCOMETER DEV NAME(LOC) 3EI C; GLUCOSE,POINT OF CARE 119 MG/DL (70-110)
[2018-02-21] MEDS: HALOPERIDOL 5 MG TABLET PO PRN (19:42)
[2018-02-21] MEDS: LORazepam 2 MG TABLET PO PRN (19:42)
[2018-02-21] MEDS: ATORVASTATIN CALCIUM 20 MG TABLET PO SCH (20:21)
[2018-02-21 20:29] LABS: GLUCOMETER DEV NAME(LOC) 3EI C; GLUCOSE,POINT OF CARE 177 MG/DL (70-110)
[2018-02-22 06:34] LABS: GLUCOMETER DEV NAME(LOC) 3EI C; GLUCOSE,POINT OF CARE 87 MG/DL (70-110)
[2018-02-22] MEDS: LEVOTHYROXINE SODIUM 125 MCG TABLET PO SCH (06:45)
[2018-02-22] MEDS: GlipiZIDE 10 MG TABLET PO SCH ×2 (06:45→17:09)
[2018-02-22] MEDS: FERROUS SULFATE 325 MG EC TABLET PO SCH ×2 (06:45→17:09)
[2018-02-22 06:53] LABS: CALCIUM, TOTAL 8.5 mg/dL (8.8-10.5); CREATININE 1.5 mg/dL (0.60-1.30); MAGNESIUM 2.2 mg/dL (1.80-2.40); PHOSPHORUS 5.4 mg/dL (2.5-4.9); POTASSIUM 4.3 mmol/L (3.5-5.1)
[2018-02-22] MEDS: EPOETIN ALFA 10,000 UNITS/ML VIAL SQ SCH (09:00)
[2018-02-22] MEDS: POTASSIUM CHLORIDE 10 MEQ ER TABLET PO SCH (10:15)
[2018-02-22] MEDS: PROPRANOLOL HCL 10 MG TABLET PO SCH (10:15)
[2018-02-22] MEDS: CITALOPRAM HYDROBROMIDE 20 MG TABLET PO SCH (10:15)
[2018-02-22] MEDS: CHOLECALCIFEROL (VIT D3) 1,000 UNITS TABLET PO SCH (10:15)
[2018-02-22] MEDS: ASPIRIN 81 MG CHEWABLE TABLET PO SCH (10:15)
[2018-02-22] MEDS: BENZTROPINE MESYLATE 1 MG TABLET PO SCH ×2 (10:15→20:25)
[2018-02-22] MEDS: CARBIDOPA/LEVODOPA 25-100 MG TABLET PO SCH ×3 (10:15→16:13)
[2018-02-22] MEDS: LACTOBAC ACID/BULG/BIFID/THERM TABLET PO SCH (10:15)
[2018-02-22] MEDS: DIVALPROEX SODIUM 500 MG DR TABLET PO SCH ×2 (10:15→20:25)
[2018-02-22] MEDS: FUROSEMIDE 40 MG TABLET PO SCH ×2 (10:17→16:14)
[2018-02-22] MEDS: OMEPRAZOLE 20 MG CAPSULE PO SCH (10:17)
[2018-02-22 10:53] VITALS: BP 149/79
[2018-02-22 11:34] LABS: GLUCOMETER DEV NAME(LOC) 3EI C; GLUCOSE,POINT OF CARE 139 MG/DL (70-110)
[2018-02-22] MEDS: INSULIN LISPRO 100 UNITS/ML SQ PRN (11:44)
[2018-02-22] MEDS: LORazepam 2 MG TABLET PO PRN (16:12)
[2018-02-22] MEDS: HALOPERIDOL 5 MG TABLET PO PRN (16:12)
[2018-02-22 16:15] VITALS: BP 149/98
[2018-02-22 16:18] LABS: GLUCOMETER DEV NAME(LOC) 3EI C; GLUCOSE,POINT OF CARE 129 MG/DL (70-110)
[2018-02-22] MEDS: RIVAROXABAN 20 MG TABLET PO SCH (17:09)
[2018-02-22] MEDS: ZOLPIDEM TARTRATE 10 MG TABLET PO PRN (20:25)
[2018-02-22] MEDS: ATORVASTATIN CALCIUM 20 MG TABLET PO SCH (20:25)
[2018-02-22 20:29] LABS: GLUCOMETER DEV NAME(LOC) 3EI C; GLUCOSE,POINT OF CARE 119 MG/DL (70-110)
[2018-02-23 05:34] LABS: GLUCOMETER DEV NAME(LOC) 3EI C; GLUCOSE,POINT OF CARE 79 MG/DL (70-110)
[2018-02-23] MEDS: FERROUS SULFATE 325 MG EC TABLET PO SCH ×2 (06:49→17:49)
[2018-02-23] MEDS: INSULIN LISPRO 100 UNITS/ML SQ PRN ×3 (06:49→21:35)
[2018-02-23] MEDS: GlipiZIDE 10 MG TABLET PO SCH ×2 (06:49→16:25)
[2018-02-23] MEDS: LEVOTHYROXINE SODIUM 125 MCG TABLET PO SCH (06:49)
[2018-02-23] MEDS: PROPRANOLOL HCL 10 MG TABLET PO SCH (08:16)
[2018-02-23] MEDS: CARBIDOPA/LEVODOPA 25-100 MG TABLET PO SCH ×3 (08:16→16:25)
[2018-02-23] MEDS: CITALOPRAM HYDROBROMIDE 20 MG TABLET PO SCH (08:16)
[2018-02-23] MEDS: LACTOBAC ACID/BULG/BIFID/THERM TABLET PO SCH (08:16)
[2018-02-23] MEDS: ASPIRIN 81 MG CHEWABLE TABLET PO SCH (08:16)
[2018-02-23] MEDS: BENZTROPINE MESYLATE 1 MG TABLET PO SCH ×2 (08:16→20:11)
[2018-02-23] MEDS: DIVALPROEX SODIUM 500 MG DR TABLET PO SCH ×2 (08:17→20:11)
[2018-02-23] MEDS: FUROSEMIDE 40 MG TABLET PO SCH ×2 (08:17→16:25)
[2018-02-23] MEDS: OMEPRAZOLE 20 MG CAPSULE PO SCH (08:17)
[2018-02-23] MEDS: CHOLECALCIFEROL (VIT D3) 1,000 UNITS TABLET PO SCH (08:17)
[2018-02-23] MEDS: POTASSIUM CHLORIDE 10 MEQ ER TABLET PO SCH (08:19)
[2018-02-23 09:38] VITALS: BP 124/68
[2018-02-23 11:28] LABS: GLUCOMETER DEV NAME(LOC) 3EI C; GLUCOSE,POINT OF CARE 141 MG/DL (70-110)
[2018-02-23 16:19] LABS: GLUCOMETER DEV NAME(LOC) 3EI C; GLUCOSE,POINT OF CARE 135 MG/DL (70-110)
[2018-02-23] MEDS: RIVAROXABAN 20 MG TABLET PO SCH (17:49)
[2018-02-23 18:32] VITALS: BP 129/69
[2018-02-23] MEDS: ATORVASTATIN CALCIUM 20 MG TABLET PO SCH (20:10)
[2018-02-23 20:18] LABS: GLUCOMETER DEV NAME(LOC) 3EI C; GLUCOSE,POINT OF CARE 174 MG/DL (70-110)
[2018-02-23] MEDS: ZOLPIDEM TARTRATE 10 MG TABLET PO PRN (21:35)
[2018-02-24 05:43] LABS: CALCIUM, TOTAL 8.1 mg/dL (8.8-10.5); CREATININE 1.43 mg/dL (0.60-1.30); PHOSPHORUS 5.3 mg/dL (2.5-4.9); POTASSIUM 4.1 mmol/L (3.5-5.1)
[2018-02-24] MEDS: LEVOTHYROXINE SODIUM 125 MCG TABLET PO SCH (06:50)
[2018-02-24] MEDS: FERROUS SULFATE 325 MG EC TABLET PO SCH ×2 (06:50→16:19)
[2018-02-24] MEDS: GlipiZIDE 10 MG TABLET PO SCH ×2 (06:50→16:19)
[2018-02-24 06:59] LABS: GLUCOMETER DEV NAME(LOC) 3EI C; GLUCOSE,POINT OF CARE 77 MG/DL (70-110)
[2018-02-24 08:55] VITALS: BP 161/81
[2018-02-24] MEDS: PROPRANOLOL HCL 10 MG TABLET PO SCH (09:00)
[2018-02-24] MEDS: CHOLECALCIFEROL (VIT D3) 1,000 UNITS TABLET PO SCH (09:00)
[2018-02-24] MEDS: ASPIRIN 81 MG CHEWABLE TABLET PO SCH (09:00)
[2018-02-24] MEDS: LACTOBAC ACID/BULG/BIFID/THERM TABLET PO SCH (09:00)
[2018-02-24] MEDS: CARBIDOPA/LEVODOPA 25-100 MG TABLET PO SCH ×3 (09:00→16:19)
[2018-02-24] MEDS: CITALOPRAM HYDROBROMIDE 20 MG TABLET PO SCH (09:00)
[2018-02-24] MEDS: BENZTROPINE MESYLATE 1 MG TABLET PO SCH ×2 (09:00→20:06)
[2018-02-24] MEDS: OMEPRAZOLE 20 MG CAPSULE PO SCH (09:00)
[2018-02-24] MEDS: POTASSIUM CHLORIDE 10 MEQ ER TABLET PO SCH (09:00)
[2018-02-24] MEDS: DIVALPROEX SODIUM 500 MG DR TABLET PO SCH ×2 (09:00→20:06)
[2018-02-24] MEDS: FUROSEMIDE 40 MG TABLET PO SCH ×2 (09:00→16:19)
[2018-02-24 11:20] LABS: GLUCOMETER DEV NAME(LOC) 3EI C; GLUCOSE,POINT OF CARE 97 MG/DL (70-110)
[2018-02-24] MEDS: INSULIN LISPRO 100 UNITS/ML SQ PRN ×2 (12:57→17:39)
[2018-02-24] MEDS: RIVAROXABAN 20 MG TABLET PO SCH (16:19)
[2018-02-24 16:40] LABS: GLUCOMETER DEV NAME(LOC) 3EI C; GLUCOSE,POINT OF CARE 161 MG/DL (70-110)
[2018-02-24] MEDS: ATORVASTATIN CALCIUM 20 MG TABLET PO SCH (20:06)
[2018-02-24 21:10] LABS: GLUCOMETER DEV NAME(LOC) 3EI C; GLUCOSE,POINT OF CARE 89 MG/DL (70-110)
[2018-02-25 05:49] LABS: GLUCOMETER DEV NAME(LOC) 3EI C; GLUCOSE,POINT OF CARE 91 MG/DL (70-110)
[2018-02-25] MEDS: GlipiZIDE 10 MG TABLET PO SCH ×2 (06:40→16:10)
[2018-02-25] MEDS: LEVOTHYROXINE SODIUM 125 MCG TABLET PO SCH (06:40)
[2018-02-25] MEDS: FERROUS SULFATE 325 MG EC TABLET PO SCH ×2 (06:40→16:10)
[2018-02-25 06:52] LABS: CALCIUM, TOTAL 8.2 mg/dL (8.8-10.5); CREATININE 1.44 mg/dL (0.60-1.30); MAGNESIUM 2.1 mg/dL (1.80-2.40); PHOSPHORUS 5.3 mg/dL (2.5-4.9); POTASSIUM 4.6 mmol/L (3.5-5.1)
[2018-02-25 08:30] VITALS: BP 154/81
[2018-02-25] MEDS: EPOETIN ALFA 10,000 UNITS/ML VIAL SQ SCH (09:00)
[2018-02-25] MEDS: ASPIRIN 81 MG CHEWABLE TABLET PO SCH (10:35)
[2018-02-25] MEDS: BENZTROPINE MESYLATE 1 MG TABLET PO SCH ×2 (10:35→20:11)
[2018-02-25] MEDS: POTASSIUM CHLORIDE 10 MEQ ER TABLET PO SCH (10:35)
[2018-02-25] MEDS: OMEPRAZOLE 20 MG CAPSULE PO SCH (10:35)
[2018-02-25] MEDS: CITALOPRAM HYDROBROMIDE 20 MG TABLET PO SCH (10:35)
[2018-02-25] MEDS: FUROSEMIDE 40 MG TABLET PO SCH ×2 (10:35→16:09)
[2018-02-25] MEDS: CHOLECALCIFEROL (VIT D3) 1,000 UNITS TABLET PO SCH (10:35)
[2018-02-25] MEDS: PROPRANOLOL HCL 10 MG TABLET PO SCH (10:36)
[2018-02-25] MEDS: LACTOBAC ACID/BULG/BIFID/THERM TABLET PO SCH (10:36)
[2018-02-25] MEDS: CARBIDOPA/LEVODOPA 25-100 MG TABLET PO SCH ×3 (10:36→16:10)
[2018-02-25] MEDS: DIVALPROEX SODIUM 500 MG DR TABLET PO SCH ×2 (10:47→20:11)
[2018-02-25 11:49] LABS: GLUCOMETER DEV NAME(LOC) 3EI C; GLUCOSE,POINT OF CARE 153 MG/DL (70-110)
[2018-02-25] MEDS: INSULIN LISPRO 100 UNITS/ML SQ PRN ×2 (11:58→17:45)
[2018-02-25] MEDS: RIVAROXABAN 20 MG TABLET PO SCH (16:10)
[2018-02-25 16:39] LABS: GLUCOMETER DEV NAME(LOC) 3EI C; GLUCOSE,POINT OF CARE 150 MG/DL (70-110)
[2018-02-25 18:42] VITALS: BP 125/67
[2018-02-25] MEDS: ATORVASTATIN CALCIUM 20 MG TABLET PO SCH (20:11)
[2018-02-25 21:47] LABS: GLUCOMETER DEV NAME(LOC) 3EI C; GLUCOSE,POINT OF CARE 115 MG/DL (70-110)
[2018-02-26 05:54] LABS: GLUCOMETER DEV NAME(LOC) 3EI C; GLUCOSE,POINT OF CARE 93 MG/DL (70-110)
[2018-02-26 06:24] LABS: BASOPHILS % (AUTO) 0.7 % (0.0-2.0); EOSINOPHILS % (AUTO) 4.1 % (1.0-6.0); HEMATOCRIT 26.4 % (36-46); HEMOGLOBIN 8.8 g/dL (12.0-16.0); LYMPHOCYTES # (AUTO) 2.3 K/uL (1.0-4.8); LYMPHOCYTES % (AUTO) 37.9 % (22.0-44.0); MEAN CORPUSCULAR HEMOGLOBIN 29.9 pg (26.0-34.0); MEAN CORPUSCULAR HGB CONC 33.4 G/dL (31.0-37.0); MEAN CORPUSCULAR VOLUME 90 fL (80-100); MONOCYTES # (AUTO) 1.1 K/uL (0.1-1.0); MONOCYTES % (AUTO) 17.9 % (2.0-9.0); NEUTROPHILS # (AUTO) 2.4 K/uL (1.8-7.7); NEUTROPHILS % (AUTO) 39.4 % (40.0-70.0); PLATELET COUNT (AUTO) 205 K/uL (150-450); RED BLOOD CELL COUNT(AUTO) 2.94 MIL/uL (4.00-5.20); RED CELL DISTRIBUTION WIDTH 16.9 % (11.5-14.5)
[2018-02-26] MEDS: GlipiZIDE 10 MG TABLET PO SCH ×2 (06:50→16:17)
[2018-02-26] MEDS: LEVOTHYROXINE SODIUM 125 MCG TABLET PO SCH (06:50)
[2018-02-26] MEDS: FERROUS SULFATE 325 MG EC TABLET PO SCH ×2 (06:50→17:06)
[2018-02-26 06:51] LABS: CALCIUM, TOTAL 8.3 mg/dL (8.8-10.5); CREATININE 1.4 mg/dL (0.60-1.30); MAGNESIUM 2.1 mg/dL (1.80-2.40); PHOSPHORUS 5.3 mg/dL (2.5-4.9); POTASSIUM 4.7 mmol/L (3.5-5.1)
[2018-02-26 08:30] VITALS: BP 134/64
[2018-02-26] MEDS: DIVALPROEX SODIUM 500 MG DR TABLET PO SCH ×2 (09:07→20:20)
[2018-02-26] MEDS: CITALOPRAM HYDROBROMIDE 20 MG TABLET PO SCH (09:07)
[2018-02-26] MEDS: BENZTROPINE MESYLATE 1 MG TABLET PO SCH ×2 (09:07→20:20)
[2018-02-26] MEDS: FUROSEMIDE 40 MG TABLET PO SCH ×2 (09:07→16:17)
[2018-02-26] MEDS: OMEPRAZOLE 20 MG CAPSULE PO SCH (09:07)
[2018-02-26] MEDS: CARBIDOPA/LEVODOPA 25-100 MG TABLET PO SCH ×2 (09:07→16:17)
[2018-02-26] MEDS: CHOLECALCIFEROL (VIT D3) 1,000 UNITS TABLET PO SCH (09:07)
[2018-02-26] MEDS: ASPIRIN 81 MG CHEWABLE TABLET PO SCH (09:07)
[2018-02-26] MEDS: POTASSIUM CHLORIDE 10 MEQ ER TABLET PO SCH (09:07)
[2018-02-26] MEDS: PROPRANOLOL HCL 10 MG TABLET PO SCH (09:07)
[2018-02-26] MEDS: LACTOBAC ACID/BULG/BIFID/THERM TABLET PO SCH (09:42)
[2018-02-26 12:44] LABS: GLUCOMETER DEV NAME(LOC) 3EI C; GLUCOSE,POINT OF CARE 106 MG/DL (70-110)
[2018-02-26] MEDS: ACETAMINOPHEN 325 MG TABLET PO PRN (13:27)
[2018-02-26 16:18] LABS: GLUCOMETER DEV NAME(LOC) 3EI C; GLUCOSE,POINT OF CARE 132 MG/DL (70-110)
[2018-02-26 16:30] VITALS: BP 132/74
[2018-02-26] MEDS: RIVAROXABAN 20 MG TABLET PO SCH (17:06)
[2018-02-26] MEDS: ATORVASTATIN CALCIUM 20 MG TABLET PO SCH (20:21)
[2018-02-26 20:50] LABS: GLUCOMETER DEV NAME(LOC) 3EI C; GLUCOSE,POINT OF CARE 189 MG/DL (70-110)
[2018-02-26] MEDS: INSULIN LISPRO 100 UNITS/ML SQ PRN (21:14)
[2018-02-27 06:29] LABS: GLUCOMETER DEV NAME(LOC) 3EI C; GLUCOSE,POINT OF CARE 66 MG/DL (70-110)
[2018-02-27 06:29] LABS: GLUCOMETER DEV NAME(LOC) 3EI C; GLUCOSE,POINT OF CARE 92 MG/DL (70-110)
[2018-02-27] MEDS: GlipiZIDE 10 MG TABLET PO SCH ×2 (06:53→16:32)
[2018-02-27] MEDS: LEVOTHYROXINE SODIUM 125 MCG TABLET PO SCH (06:53)
[2018-02-27] MEDS: FERROUS SULFATE 325 MG EC TABLET PO SCH ×2 (06:53→16:32)
[2018-02-27] MEDS: EPOETIN ALFA 10,000 UNITS/ML VIAL SQ SCH (09:00)
[2018-02-27 09:16] VITALS: BP 106/72
[2018-02-27] MEDS: ASPIRIN 81 MG CHEWABLE TABLET PO SCH (09:45)
[2018-02-27] MEDS: PROPRANOLOL HCL 10 MG TABLET PO SCH (09:45)
[2018-02-27] MEDS: CITALOPRAM HYDROBROMIDE 20 MG TABLET PO SCH (09:45)
[2018-02-27] MEDS: CARBIDOPA/LEVODOPA 25-100 MG TABLET PO SCH ×2 (09:45→16:32)
[2018-02-27] MEDS: POTASSIUM CHLORIDE 10 MEQ ER TABLET PO SCH (09:45)
[2018-02-27] MEDS: CHOLECALCIFEROL (VIT D3) 1,000 UNITS TABLET PO SCH (09:45)
[2018-02-27] MEDS: BENZTROPINE MESYLATE 1 MG TABLET PO SCH ×2 (09:45→21:02)
[2018-02-27] MEDS: OMEPRAZOLE 20 MG CAPSULE PO SCH (09:46)
[2018-02-27] MEDS: FUROSEMIDE 40 MG TABLET PO SCH ×2 (09:46→16:32)
[2018-02-27] MEDS: LACTOBAC ACID/BULG/BIFID/THERM TABLET PO SCH (09:46)
[2018-02-27] MEDS: DIVALPROEX SODIUM 500 MG DR TABLET PO SCH ×2 (09:46→21:02)
[2018-02-27 11:19] LABS: GLUCOMETER DEV NAME(LOC) 3EI C; GLUCOSE,POINT OF CARE 68 MG/DL (70-110)
[2018-02-27] MEDS: RIVAROXABAN 20 MG TABLET PO SCH (16:32)
[2018-02-27 17:00] LABS: GLUCOMETER DEV NAME(LOC) 3EI C; GLUCOSE,POINT OF CARE 227 MG/DL (70-110)
[2018-02-27] MEDS: INSULIN LISPRO 100 UNITS/ML SQ PRN ×2 (17:08→21:35)
[2018-02-27 18:06] VITALS: BP 153/71
[2018-02-27] MEDS: ATORVASTATIN CALCIUM 20 MG TABLET PO SCH (21:02)
[2018-02-27 21:09] LABS: GLUCOMETER DEV NAME(LOC) 3EI C; GLUCOSE,POINT OF CARE 181 MG/DL (70-110)
[2018-02-28 05:45] LABS: GLUCOMETER DEV NAME(LOC) 3EI C; GLUCOSE,POINT OF CARE 106 MG/DL (70-110)
[2018-02-28] MEDS: LEVOTHYROXINE SODIUM 125 MCG TABLET PO SCH (06:37)
[2018-02-28] MEDS: GlipiZIDE 10 MG TABLET PO SCH ×2 (06:37→16:14)
[2018-02-28] MEDS: FERROUS SULFATE 325 MG EC TABLET PO SCH ×2 (06:44→16:14)
[2018-02-28 08:36] LABS: CALCIUM, TOTAL 8.3 mg/dL (8.8-10.5); CREATININE 1.53 mg/dL (0.60-1.30); POTASSIUM 4.5 mmol/L (3.5-5.1)
[2018-02-28] MEDS: DIVALPROEX SODIUM 500 MG DR TABLET PO SCH ×2 (08:45→20:21)
[2018-02-28] MEDS: CITALOPRAM HYDROBROMIDE 20 MG TABLET PO SCH (08:45)
[2018-02-28] MEDS: OMEPRAZOLE 20 MG CAPSULE PO SCH (08:45)
[2018-02-28] MEDS: BENZTROPINE MESYLATE 1 MG TABLET PO SCH ×2 (08:45→20:21)
[2018-02-28] MEDS: POTASSIUM CHLORIDE 10 MEQ ER TABLET PO SCH (08:45)
[2018-02-28] MEDS: ASPIRIN 81 MG CHEWABLE TABLET PO SCH (08:45)
[2018-02-28] MEDS: FUROSEMIDE 40 MG TABLET PO SCH (08:45)
[2018-02-28] MEDS: CHOLECALCIFEROL (VIT D3) 1,000 UNITS TABLET PO SCH (08:45)
[2018-02-28] MEDS: CARBIDOPA/LEVODOPA 25-100 MG TABLET PO SCH ×2 (08:46→16:14)
[2018-02-28] MEDS: LACTOBAC ACID/BULG/BIFID/THERM TABLET PO SCH (08:47)
[2018-02-28] MEDS: PROPRANOLOL HCL 10 MG TABLET PO SCH (08:47)
[2018-02-28 09:24] VITALS: BP 139/80
[2018-02-28] MEDS: RIVAROXABAN 20 MG TABLET PO SCH (16:14)
[2018-02-28 16:18] LABS: GLUCOMETER DEV NAME(LOC) 3EI C; GLUCOSE,POINT OF CARE 135 MG/DL (70-110)
[2018-02-28 16:18] LABS: GLUCOMETER DEV NAME(LOC) 3EI C; GLUCOSE,POINT OF CARE 128 MG/DL (70-110)
[2018-02-28 17:00] VITALS: BP 151/62
[2018-02-28] MEDS: ATORVASTATIN CALCIUM 20 MG TABLET PO SCH (20:21)
[2018-02-28 20:23] LABS: GLUCOMETER DEV NAME(LOC) 3EI C; GLUCOSE,POINT OF CARE 167 MG/DL (70-110)
[2018-02-28] MEDS: INSULIN LISPRO 100 UNITS/ML SQ PRN (21:40)
[2018-03-01 06:48] LABS: GLUCOMETER DEV NAME(LOC) 3EI C; GLUCOSE,POINT OF CARE 47 MG/DL (70-110)
[2018-03-01 06:48] LABS: GLUCOMETER DEV NAME(LOC) 3EI C; GLUCOSE,POINT OF CARE 97 MG/DL (70-110)
[2018-03-01] MEDS: LEVOTHYROXINE SODIUM 125 MCG TABLET PO SCH (07:01)
[2018-03-01] MEDS: FERROUS SULFATE 325 MG EC TABLET PO SCH ×2 (07:01→16:32)
[2018-03-01] MEDS: GlipiZIDE 10 MG TABLET PO SCH ×2 (07:01→16:31)
[2018-03-01 07:41] LABS: CALCIUM, TOTAL 8.6 mg/dL (8.8-10.5); CREATININE 1.58 mg/dL (0.60-1.30); MAGNESIUM 2.3 mg/dL (1.80-2.40); POTASSIUM 4.5 mmol/L (3.5-5.1)
[2018-03-01] MEDS: LACTOBAC ACID/BULG/BIFID/THERM TABLET PO SCH (08:58)
[2018-03-01] MEDS: PROPRANOLOL HCL 10 MG TABLET PO SCH (08:58)
[2018-03-01] MEDS: FUROSEMIDE 40 MG TABLET PO SCH (08:58)
[2018-03-01] MEDS: BENZTROPINE MESYLATE 1 MG TABLET PO SCH ×2 (08:58→20:15)
[2018-03-01] MEDS: DIVALPROEX SODIUM 500 MG DR TABLET PO SCH ×2 (08:58→20:15)
[2018-03-01] MEDS: CITALOPRAM HYDROBROMIDE 20 MG TABLET PO SCH (08:58)
[2018-03-01] MEDS: OMEPRAZOLE 20 MG CAPSULE PO SCH (08:58)
[2018-03-01] MEDS: ASPIRIN 81 MG CHEWABLE TABLET PO SCH (08:59)
[2018-03-01] MEDS: CHOLECALCIFEROL (VIT D3) 1,000 UNITS TABLET PO SCH (08:59)
[2018-03-01 09:00] VITALS: BP 157/75
[2018-03-01] MEDS: ACETAMINOPHEN 325 MG TABLET PO PRN (09:01)
[2018-03-01] MEDS: EPOETIN ALFA 10,000 UNITS/ML VIAL SQ SCH (09:26)
[2018-03-01 11:23] LABS: GLUCOMETER DEV NAME(LOC) 3EI C; GLUCOSE,POINT OF CARE 132 MG/DL (70-110)
[2018-03-01] MEDS: INSULIN LISPRO 100 UNITS/ML SQ PRN ×2 (11:59→20:18)
[2018-03-01] MEDS: CARBIDOPA/LEVODOPA 25-100 MG TABLET PO SCH (12:13)
[2018-03-01] MEDS: RIVAROXABAN 20 MG TABLET PO SCH (16:32)
[2018-03-01 16:53] LABS: GLUCOMETER DEV NAME(LOC) 3EI C; GLUCOSE,POINT OF CARE 125 MG/DL (70-110)
[2018-03-01 19:20] VITALS: BP 143/59
[2018-03-01] MEDS: ATORVASTATIN CALCIUM 20 MG TABLET PO SCH (20:15)
[2018-03-01 20:22] LABS: GLUCOMETER DEV NAME(LOC) 3EI C; GLUCOSE,POINT OF CARE 166 MG/DL (70-110)
[2018-03-02 05:58] LABS: GLUCOMETER DEV NAME(LOC) 3EI C; GLUCOSE,POINT OF CARE 137 MG/DL (70-110)
[2018-03-02] MEDS: FERROUS SULFATE 325 MG EC TABLET PO SCH ×2 (06:55→16:16)
[2018-03-02] MEDS: LEVOTHYROXINE SODIUM 125 MCG TABLET PO SCH (06:55)
[2018-03-02] MEDS: GlipiZIDE 5 MG TABLET PO SCH ×2 (06:55→16:16)
[2018-03-02 08:30] VITALS: BP 142/84
[2018-03-02] MEDS: CITALOPRAM HYDROBROMIDE 20 MG TABLET PO SCH (10:02)
[2018-03-02] MEDS: BENZTROPINE MESYLATE 1 MG TABLET PO SCH ×2 (10:02→20:15)
[2018-03-02] MEDS: FUROSEMIDE 40 MG TABLET PO SCH (10:03)
[2018-03-02] MEDS: OMEPRAZOLE 20 MG CAPSULE PO SCH (10:03)
[2018-03-02] MEDS: CHOLECALCIFEROL (VIT D3) 1,000 UNITS TABLET PO SCH (10:03)
[2018-03-02] MEDS: ASPIRIN 81 MG CHEWABLE TABLET PO SCH (10:03)
[2018-03-02] MEDS: DIVALPROEX SODIUM 500 MG DR TABLET PO SCH ×2 (10:04→20:15)
[2018-03-02] MEDS: PROPRANOLOL HCL 10 MG TABLET PO SCH (10:04)
[2018-03-02] MEDS: LACTOBAC ACID/BULG/BIFID/THERM TABLET PO SCH (10:06)
[2018-03-02] MEDS: CARBIDOPA/LEVODOPA 25-100 MG TABLET PO SCH (10:06)
[2018-03-02 11:53] LABS: GLUCOMETER DEV NAME(LOC) 3EI C; GLUCOSE,POINT OF CARE 157 MG/DL (70-110)
[2018-03-02] MEDS: INSULIN LISPRO 100 UNITS/ML SQ PRN ×2 (13:11→16:18)
[2018-03-02] MEDS: RIVAROXABAN 20 MG TABLET PO SCH (16:16)
[2018-03-02 16:23] LABS: GLUCOMETER DEV NAME(LOC) 3EI C; GLUCOSE,POINT OF CARE 207 MG/DL (70-110)
[2018-03-02 18:38] VITALS: BP 100/58
[2018-03-02] MEDS: ATORVASTATIN CALCIUM 20 MG TABLET PO SCH (20:15)
[2018-03-02 20:32] LABS: GLUCOMETER DEV NAME(LOC) 3EI C; GLUCOSE,POINT OF CARE 61 MG/DL (70-110)
[2018-03-02 20:58] LABS: GLUCOMETER DEV NAME(LOC) 3EI C; GLUCOSE,POINT OF CARE 95 MG/DL (70-110)
[2018-03-03 05:53] LABS: GLUCOMETER DEV NAME(LOC) 3EI C; GLUCOSE,POINT OF CARE 119 MG/DL (70-110)
[2018-03-03] MEDS: GlipiZIDE 5 MG TABLET PO SCH ×2 (06:52→16:57)
[2018-03-03] MEDS: LEVOTHYROXINE SODIUM 125 MCG TABLET PO SCH (06:52)
[2018-03-03] MEDS: FERROUS SULFATE 325 MG EC TABLET PO SCH ×2 (06:52→16:57)
[2018-03-03 07:29] LABS: CALCIUM, TOTAL 8.7 mg/dL (8.8-10.5); CREATININE 1.41 mg/dL (0.60-1.30); POTASSIUM 4.6 mmol/L (3.5-5.1)
[2018-03-03] MEDS: DIVALPROEX SODIUM 500 MG DR TABLET PO SCH ×2 (08:14→21:05)
[2018-03-03] MEDS: BENZTROPINE MESYLATE 1 MG TABLET PO SCH ×2 (08:14→21:05)
[2018-03-03] MEDS: FUROSEMIDE 40 MG TABLET PO SCH (08:14)
[2018-03-03] MEDS: OMEPRAZOLE 20 MG CAPSULE PO SCH (08:14)
[2018-03-03] MEDS: CARBIDOPA/LEVODOPA 25-100 MG TABLET PO SCH (08:14)
[2018-03-03] MEDS: CHOLECALCIFEROL (VIT D3) 1,000 UNITS TABLET PO SCH (08:14)
[2018-03-03] MEDS: ASPIRIN 81 MG CHEWABLE TABLET PO SCH (08:14)
[2018-03-03] MEDS: CITALOPRAM HYDROBROMIDE 20 MG TABLET PO SCH (08:15)
[2018-03-03] MEDS: PROPRANOLOL HCL 10 MG TABLET PO SCH (08:15)
[2018-03-03] MEDS: LACTOBAC ACID/BULG/BIFID/THERM TABLET PO SCH (08:15)
[2018-03-03 11:23] LABS: GLUCOMETER DEV NAME(LOC) 3EI C; GLUCOSE,POINT OF CARE 178 MG/DL (70-110)
[2018-03-03] MEDS: INSULIN LISPRO 100 UNITS/ML SQ PRN ×2 (11:23→17:04)
[2018-03-03 12:43] VITALS: BP 145/89
[2018-03-03] MEDS: RIVAROXABAN 20 MG TABLET PO SCH (16:57)
[2018-03-03 17:13] LABS: GLUCOMETER DEV NAME(LOC) 3EI C; GLUCOSE,POINT OF CARE 196 MG/DL (70-110)
[2018-03-03 19:29] VITALS: BP 164/90
[2018-03-03] MEDS: ATORVASTATIN CALCIUM 20 MG TABLET PO SCH (21:05)
[2018-03-03 21:14] LABS: GLUCOMETER DEV NAME(LOC) 3EI C; GLUCOSE,POINT OF CARE 82 MG/DL (70-110)
[2018-03-04 03:28] VITALS: BP 167/73
[2018-03-04 06:13] LABS: GLUCOMETER DEV NAME(LOC) 3EI C; GLUCOSE,POINT OF CARE 166 MG/DL (70-110)
[2018-03-04] MEDS: INSULIN LISPRO 100 UNITS/ML SQ PRN ×3 (07:01→20:20)
[2018-03-04] MEDS: LEVOTHYROXINE SODIUM 125 MCG TABLET PO SCH (07:03)
[2018-03-04] MEDS: FERROUS SULFATE 325 MG EC TABLET PO SCH ×2 (07:03→16:29)
[2018-03-04] MEDS: GlipiZIDE 5 MG TABLET PO SCH ×2 (07:03→16:30)
[2018-03-04 08:00] VITALS: BP 110/70
[2018-03-04] MEDS: PROPRANOLOL HCL 10 MG TABLET PO SCH (08:55)
[2018-03-04] MEDS: CHOLECALCIFEROL (VIT D3) 1,000 UNITS TABLET PO SCH (08:55)
[2018-03-04] MEDS: FUROSEMIDE 40 MG TABLET PO SCH (08:55)
[2018-03-04] MEDS: LACTOBAC ACID/BULG/BIFID/THERM TABLET PO SCH (08:55)
[2018-03-04] MEDS: OMEPRAZOLE 20 MG CAPSULE PO SCH (08:55)
[2018-03-04] MEDS: CITALOPRAM HYDROBROMIDE 20 MG TABLET PO SCH (08:55)
[2018-03-04] MEDS: ASPIRIN 81 MG CHEWABLE TABLET PO SCH (08:56)
[2018-03-04] MEDS: BENZTROPINE MESYLATE 1 MG TABLET PO SCH ×2 (08:56→20:15)
[2018-03-04] MEDS: DIVALPROEX SODIUM 500 MG DR TABLET PO SCH ×2 (08:56→20:15)
[2018-03-04 11:23] LABS: GLUCOMETER DEV NAME(LOC) 3EI C; GLUCOSE,POINT OF CARE 179 MG/DL (70-110)
[2018-03-04] MEDS: EPOETIN ALFA 10,000 UNITS/ML VIAL SQ SCH (12:11)
[2018-03-04] MEDS: RIVAROXABAN 20 MG TABLET PO SCH (16:29)
[2018-03-04 16:30] VITALS: BP 139/78
[2018-03-04 16:48] LABS: GLUCOMETER DEV NAME(LOC) 3EI C; GLUCOSE,POINT OF CARE 136 MG/DL (70-110)
[2018-03-04] MEDS: ATORVASTATIN CALCIUM 20 MG TABLET PO SCH (20:15)
[2018-03-04 20:39] LABS: GLUCOMETER DEV NAME(LOC) 3EI C; GLUCOSE,POINT OF CARE 176 MG/DL (70-110)
[2018-03-05] MEDS: ACETAMINOPHEN 325 MG TABLET PO PRN (05:19)
[2018-03-05 05:20] VITALS: BP 135/81
[2018-03-05 06:23] LABS: GLUCOMETER DEV NAME(LOC) 3EI C; GLUCOSE,POINT OF CARE 99 MG/DL (70-110)
[2018-03-05] MEDS: FERROUS SULFATE 325 MG EC TABLET PO SCH ×2 (06:53→16:42)
[2018-03-05] MEDS: GlipiZIDE 5 MG TABLET PO SCH ×2 (06:53→16:42)
[2018-03-05] MEDS: LEVOTHYROXINE SODIUM 125 MCG TABLET PO SCH (06:53)
[2018-03-05] MEDS: CHOLECALCIFEROL (VIT D3) 1,000 UNITS TABLET PO SCH (09:14)
[2018-03-05] MEDS: FUROSEMIDE 40 MG TABLET PO SCH (09:14)
[2018-03-05] MEDS: LACTOBAC ACID/BULG/BIFID/THERM TABLET PO SCH (09:14)
[2018-03-05] MEDS: OMEPRAZOLE 20 MG CAPSULE PO SCH (09:14)
[2018-03-05] MEDS: ASPIRIN 81 MG CHEWABLE TABLET PO SCH (09:14)
[2018-03-05] MEDS: BENZTROPINE MESYLATE 1 MG TABLET PO SCH ×2 (09:14→20:18)
[2018-03-05] MEDS: DIVALPROEX SODIUM 500 MG DR TABLET PO SCH ×2 (09:15→20:18)
[2018-03-05] MEDS: PROPRANOLOL HCL 10 MG TABLET PO SCH (09:15)
[2018-03-05] MEDS: CITALOPRAM HYDROBROMIDE 20 MG TABLET PO SCH (09:15)
[2018-03-05 10:06] VITALS: BP 144/91
[2018-03-05 11:48] LABS: GLUCOMETER DEV NAME(LOC) 3EI C; GLUCOSE,POINT OF CARE 129 MG/DL (70-110)
[2018-03-05] MEDS: INSULIN LISPRO 100 UNITS/ML SQ PRN (14:11)
[2018-03-05 16:38] LABS: GLUCOMETER DEV NAME(LOC) 3EI C; GLUCOSE,POINT OF CARE 89 MG/DL (70-110)
[2018-03-05] MEDS: RIVAROXABAN 20 MG TABLET PO SCH (16:42)
[2018-03-05 20:00] VITALS: BP 159/73
[2018-03-05] MEDS: ATORVASTATIN CALCIUM 20 MG TABLET PO SCH (20:18)
[2018-03-05 21:04] LABS: GLUCOMETER DEV NAME(LOC) 3EI C; GLUCOSE,POINT OF CARE 114 MG/DL (70-110)
[2018-03-06 05:39] LABS: GLUCOMETER DEV NAME(LOC) 3EI C; GLUCOSE,POINT OF CARE 100 MG/DL (70-110)
[2018-03-06 06:31] LABS: EOSINOPHILS % (AUTO) 5.4 % (1.0-6.0); HEMATOCRIT 29.1 % (36-46); HEMOGLOBIN 9.9 g/dL (12.0-16.0); LYMPHOCYTES # (AUTO) 1.8 K/uL (1.0-4.8); LYMPHOCYTES % (AUTO) 33.6 % (22.0-44.0); MEAN CORPUSCULAR HEMOGLOBIN 30.4 pg (26.0-34.0); MEAN CORPUSCULAR VOLUME 89 fL (80-100); MONOCYTES # (AUTO) 0.9 K/uL (0.1-1.0); MONOCYTES % (AUTO) 16.1 % (2.0-9.0); NEUTROPHILS # (AUTO) 2.4 K/uL (1.8-7.7); NEUTROPHILS % (AUTO) 43.9 % (40.0-70.0); PLATELET COUNT (AUTO) 217 K/uL (150-450); RED BLOOD CELL COUNT(AUTO) 3.26 MIL/uL (4.00-5.20); RED CELL DISTRIBUTION WIDTH 16.6 % (11.5-14.5)
[2018-03-06 06:41] LABS: CALCIUM, TOTAL 8.4 mg/dL (8.8-10.5); CREATININE 1.39 mg/dL (0.60-1.30); PHOSPHORUS 4.8 mg/dL (2.5-4.9); POTASSIUM 4.4 mmol/L (3.5-5.1)
[2018-03-06] MEDS: LEVOTHYROXINE SODIUM 125 MCG TABLET PO SCH (06:52)
[2018-03-06] MEDS: FERROUS SULFATE 325 MG EC TABLET PO SCH ×2 (06:52→16:23)
[2018-03-06] MEDS: GlipiZIDE 5 MG TABLET PO SCH ×2 (06:52→16:23)
[2018-03-06] MEDS: CHOLECALCIFEROL (VIT D3) 1,000 UNITS TABLET PO SCH (09:12)
[2018-03-06] MEDS: DIVALPROEX SODIUM 500 MG DR TABLET PO SCH ×2 (09:12→20:02)
[2018-03-06] MEDS: CITALOPRAM HYDROBROMIDE 20 MG TABLET PO SCH (09:12)
[2018-03-06] MEDS: BENZTROPINE MESYLATE 1 MG TABLET PO SCH ×2 (09:12→20:02)
[2018-03-06] MEDS: OMEPRAZOLE 20 MG CAPSULE PO SCH (09:12)
[2018-03-06] MEDS: FUROSEMIDE 40 MG TABLET PO SCH (09:12)
[2018-03-06] MEDS: ASPIRIN 81 MG CHEWABLE TABLET PO SCH (09:12)
[2018-03-06] MEDS: PROPRANOLOL HCL 10 MG TABLET PO SCH (09:13)
[2018-03-06] MEDS: LACTOBAC ACID/BULG/BIFID/THERM TABLET PO SCH (09:13)
[2018-03-06 09:14] VITALS: BP 144/75
[2018-03-06 11:19] LABS: GLUCOMETER DEV NAME(LOC) 3EI C; GLUCOSE,POINT OF CARE 87 MG/DL (70-110)
[2018-03-06] MEDS: INSULIN LISPRO 100 UNITS/ML SQ PRN ×2 (11:21→18:07)
[2018-03-06] MEDS: EPOETIN ALFA 10,000 UNITS/ML VIAL SQ SCH (11:36)
[2018-03-06 16:18] VITALS: BP 134/77
[2018-03-06] MEDS: RIVAROXABAN 20 MG TABLET PO SCH (16:23)
[2018-03-06 16:28] LABS: GLUCOMETER DEV NAME(LOC) 3EI C; GLUCOSE,POINT OF CARE 155 MG/DL (70-110)
[2018-03-06] MEDS: ATORVASTATIN CALCIUM 20 MG TABLET PO SCH (20:02)
[2018-03-06 20:13] LABS: GLUCOMETER DEV NAME(LOC) 3EI C; GLUCOSE,POINT OF CARE 118 MG/DL (70-110)
[2018-03-07 05:58] LABS: GLUCOMETER DEV NAME(LOC) 3EI C; GLUCOSE,POINT OF CARE 126 MG/DL (70-110)
[2018-03-07] MEDS: LEVOTHYROXINE SODIUM 125 MCG TABLET PO SCH (06:50)
[2018-03-07] MEDS: GlipiZIDE 5 MG TABLET PO SCH ×2 (06:50→16:11)
[2018-03-07] MEDS: FERROUS SULFATE 325 MG EC TABLET PO SCH ×2 (06:50→16:48)
[2018-03-07] MEDS: INSULIN LISPRO 100 UNITS/ML SQ PRN ×3 (07:13→16:39)
[2018-03-07] MEDS: CHOLECALCIFEROL (VIT D3) 1,000 UNITS TABLET PO SCH (08:04)
[2018-03-07] MEDS: ASPIRIN 81 MG CHEWABLE TABLET PO SCH (08:04)
[2018-03-07] MEDS: DIVALPROEX SODIUM 500 MG DR TABLET PO SCH ×2 (08:04→20:07)
[2018-03-07] MEDS: OMEPRAZOLE 20 MG CAPSULE PO SCH (08:04)
[2018-03-07] MEDS: CITALOPRAM HYDROBROMIDE 20 MG TABLET PO SCH (08:04)
[2018-03-07] MEDS: FUROSEMIDE 40 MG TABLET PO SCH (08:05)
[2018-03-07] MEDS: LACTOBAC ACID/BULG/BIFID/THERM TABLET PO SCH (08:05)
[2018-03-07] MEDS: PROPRANOLOL HCL 10 MG TABLET PO SCH (08:05)
[2018-03-07] MEDS: BENZTROPINE MESYLATE 1 MG TABLET PO SCH ×2 (08:05→20:07)
[2018-03-07 10:43] LABS: GLUCOMETER DEV NAME(LOC) 3EI C; GLUCOSE,POINT OF CARE 114 MG/DL (70-110)
[2018-03-07 10:56] VITALS: BP 101/61
[2018-03-07] MEDS: RIVAROXABAN 20 MG TABLET PO SCH (16:48)
[2018-03-07 17:03] LABS: GLUCOMETER DEV NAME(LOC) 3EI C; GLUCOSE,POINT OF CARE 156 MG/DL (70-110)
[2018-03-07 17:05] VITALS: BP 149/72
[2018-03-07] MEDS: ATORVASTATIN CALCIUM 20 MG TABLET PO SCH (20:07)
[2018-03-07 20:08] LABS: GLUCOMETER DEV NAME(LOC) 3EI C; GLUCOSE,POINT OF CARE 135 MG/DL (70-110)
[2018-03-08 06:28] LABS: GLUCOMETER DEV NAME(LOC) 3EI C; GLUCOSE,POINT OF CARE 110 MG/DL (70-110)
[2018-03-08] MEDS: LEVOTHYROXINE SODIUM 125 MCG TABLET PO SCH (07:02)
[2018-03-08] MEDS: FERROUS SULFATE 325 MG EC TABLET PO SCH ×2 (07:02→16:39)
[2018-03-08] MEDS: GlipiZIDE 5 MG TABLET PO SCH ×2 (07:02→16:13)
[2018-03-08] MEDS: INSULIN LISPRO 100 UNITS/ML SQ PRN ×2 (07:03→20:38)
[2018-03-08 08:30] VITALS: BP 125/67
[2018-03-08 09:29] LABS: CALCIUM, TOTAL 8.3 mg/dL (8.8-10.5); CREATININE 1.57 mg/dL (0.60-1.30); MAGNESIUM 2.1 mg/dL (1.80-2.40); PHOSPHORUS 4.5 mg/dL (2.5-4.9); POTASSIUM 4.4 mmol/L (3.5-5.1); THYROID STIMULATING HORMONE 1.24 uIU/mL (0.36-3.74)
[2018-03-08] MEDS: ASPIRIN 81 MG CHEWABLE TABLET PO SCH (09:48)
[2018-03-08] MEDS: PROPRANOLOL HCL 10 MG TABLET PO SCH (09:49)
[2018-03-08] MEDS: FUROSEMIDE 40 MG TABLET PO SCH (09:49)
[2018-03-08] MEDS: CHOLECALCIFEROL (VIT D3) 1,000 UNITS TABLET PO SCH (09:49)
[2018-03-08] MEDS: CITALOPRAM HYDROBROMIDE 20 MG TABLET PO SCH (09:49)
[2018-03-08] MEDS: DIVALPROEX SODIUM 500 MG DR TABLET PO SCH ×2 (09:49→20:38)
[2018-03-08] MEDS: BENZTROPINE MESYLATE 1 MG TABLET PO SCH ×2 (09:49→20:39)
[2018-03-08] MEDS: OMEPRAZOLE 20 MG CAPSULE PO SCH (09:49)
[2018-03-08] MEDS: LACTOBAC ACID/BULG/BIFID/THERM TABLET PO SCH (09:49)
[2018-03-08] MEDS: EPOETIN ALFA 10,000 UNITS/ML VIAL SQ SCH (09:50)
[2018-03-08 11:38] LABS: GLUCOMETER DEV NAME(LOC) 3EI C; GLUCOSE,POINT OF CARE 138 MG/DL (70-110)
[2018-03-08 16:33] LABS: GLUCOMETER DEV NAME(LOC) 3EI C; GLUCOSE,POINT OF CARE 91 MG/DL (70-110)
[2018-03-08] MEDS: RIVAROXABAN 20 MG TABLET PO SCH (16:39)
[2018-03-08 17:39] VITALS: BP 148/91
[2018-03-08] MEDS ORDERED: INSULIN LISPRO 100 UNITS/ML SQ ONE (18:45)
[2018-03-08] MEDS ORDERED: INSULIN LISPRO 100 UNITS/ML SQ PRN (19:00)
[2018-03-08 20:38] LABS: GLUCOMETER DEV NAME(LOC) 3EI C; GLUCOSE,POINT OF CARE 167 MG/DL (70-110)
[2018-03-08] MEDS: ATORVASTATIN CALCIUM 20 MG TABLET PO SCH (20:38)
[2018-03-09 05:33] LABS: GLUCOMETER DEV NAME(LOC) 3EI C; GLUCOSE,POINT OF CARE 110 MG/DL (70-110)
[2018-03-09] MEDS: LEVOTHYROXINE SODIUM 125 MCG TABLET PO SCH (06:40)
[2018-03-09] MEDS: FERROUS SULFATE 325 MG EC TABLET PO SCH ×2 (06:40→16:59)
[2018-03-09] MEDS: INSULIN LISPRO 100 UNITS/ML SQ PRN (06:40)
[2018-03-09] MEDS: GlipiZIDE 5 MG TABLET PO SCH ×2 (06:40→16:23)
[2018-03-09 06:45] LABS: CALCIUM, TOTAL 8.8 mg/dL (8.8-10.5); CREATININE 1.45 mg/dL (0.60-1.30); POTASSIUM 4.1 mmol/L (3.5-5.1)
[2018-03-09] MEDS: LACTOBAC ACID/BULG/BIFID/THERM TABLET PO SCH (08:26)
[2018-03-09] MEDS: OMEPRAZOLE 20 MG CAPSULE PO SCH (08:26)
[2018-03-09] MEDS: ASPIRIN 81 MG CHEWABLE TABLET PO SCH (08:26)
[2018-03-09] MEDS: CHOLECALCIFEROL (VIT D3) 1,000 UNITS TABLET PO SCH (08:27)
[2018-03-09] MEDS: CITALOPRAM HYDROBROMIDE 20 MG TABLET PO SCH (08:27)
[2018-03-09] MEDS: BENZTROPINE MESYLATE 1 MG TABLET PO SCH ×2 (08:27→21:13)
[2018-03-09] MEDS: DIVALPROEX SODIUM 500 MG DR TABLET PO SCH ×2 (08:27→21:13)
[2018-03-09] MEDS: PROPRANOLOL HCL 10 MG TABLET PO SCH (08:28)
[2018-03-09 08:30] VITALS: BP 159/69
[2018-03-09 11:39] LABS: GLUCOMETER DEV NAME(LOC) 3EI C; GLUCOSE,POINT OF CARE 138 MG/DL (70-110)
[2018-03-09 16:28] LABS: GLUCOMETER DEV NAME(LOC) 3EI C; GLUCOSE,POINT OF CARE 94 MG/DL (70-110)
[2018-03-09] MEDS: RIVAROXABAN 20 MG TABLET PO SCH (16:59)
[2018-03-09 19:17] VITALS: BP 162/91
[2018-03-09 20:43] LABS: GLUCOMETER DEV NAME(LOC) 3EI C; GLUCOSE,POINT OF CARE 98 MG/DL (70-110)
[2018-03-09] MEDS: ATORVASTATIN CALCIUM 20 MG TABLET PO SCH (21:12)
[2018-03-10 05:28] LABS: GLUCOMETER DEV NAME(LOC) 3EI C; GLUCOSE,POINT OF CARE 125 MG/DL (70-110)
[2018-03-10] MEDS: LEVOTHYROXINE SODIUM 125 MCG TABLET PO SCH (06:47)
[2018-03-10] MEDS: GlipiZIDE 5 MG TABLET PO SCH ×2 (06:47→16:09)
[2018-03-10] MEDS: FERROUS SULFATE 325 MG EC TABLET PO SCH ×2 (06:48→16:09)
[2018-03-10] MEDS: INSULIN LISPRO 100 UNITS/ML SQ PRN (06:48)
[2018-03-10] MEDS: CHOLECALCIFEROL (VIT D3) 1,000 UNITS TABLET PO SCH (09:07)
[2018-03-10] MEDS: CITALOPRAM HYDROBROMIDE 20 MG TABLET PO SCH (09:07)
[2018-03-10] MEDS: BENZTROPINE MESYLATE 1 MG TABLET PO SCH ×2 (09:07→20:26)
[2018-03-10] MEDS: OMEPRAZOLE 20 MG CAPSULE PO SCH (09:07)
[2018-03-10] MEDS: DIVALPROEX SODIUM 500 MG DR TABLET PO SCH ×2 (09:07→20:26)
[2018-03-10] MEDS: FUROSEMIDE 40 MG TABLET PO SCH (09:07)
[2018-03-10] MEDS: LACTOBAC ACID/BULG/BIFID/THERM TABLET PO SCH (09:08)
[2018-03-10] MEDS: PROPRANOLOL HCL 10 MG TABLET PO SCH (09:09)
[2018-03-10] MEDS: ASPIRIN 81 MG CHEWABLE TABLET PO SCH (09:09)
[2018-03-10 10:24] VITALS: BP 150/91
[2018-03-10 11:23] LABS: GLUCOMETER DEV NAME(LOC) 3EI C; GLUCOSE,POINT OF CARE 96 MG/DL (70-110)
[2018-03-10] MEDS: LISINOPRIL 10 MG TABLET PO SCH (12:25)
[2018-03-10] MEDS: RIVAROXABAN 20 MG TABLET PO SCH (16:09)
[2018-03-10 16:18] LABS: GLUCOMETER DEV NAME(LOC) 3EI C; GLUCOSE,POINT OF CARE 117 MG/DL (70-110)
[2018-03-10 16:30] VITALS: BP 142/57
[2018-03-10] MEDS: ATORVASTATIN CALCIUM 20 MG TABLET PO SCH (20:25)
[2018-03-10 21:13] LABS: GLUCOMETER DEV NAME(LOC) 3EI C; GLUCOSE,POINT OF CARE 87 MG/DL (70-110)
[2018-03-11 05:33] LABS: GLUCOMETER DEV NAME(LOC) 3EI C; GLUCOSE,POINT OF CARE 98 MG/DL (70-110)
[2018-03-11 06:42] LABS: BASOPHILS % (AUTO) 0.6 % (0.0-2.0); EOSINOPHILS % (AUTO) 4.4 % (1.0-6.0); HEMATOCRIT 34.1 % (36-46); HEMOGLOBIN 11.2 g/dL (12.0-16.0); LYMPHOCYTES % (AUTO) 31.3 % (22.0-44.0); MEAN CORPUSCULAR HEMOGLOBIN 30.3 pg (26.0-34.0); MEAN CORPUSCULAR HGB CONC 32.9 G/dL (31.0-37.0); MEAN CORPUSCULAR VOLUME 92 fL (80-100); MONOCYTES # (AUTO) 0.9 K/uL (0.1-1.0); MONOCYTES % (AUTO) 14.4 % (2.0-9.0); NEUTROPHILS # (AUTO) 3.1 K/uL (1.8-7.7); NEUTROPHILS % (AUTO) 49.3 % (40.0-70.0); PLATELET COUNT (AUTO) 257 K/uL (150-450); RED BLOOD CELL COUNT(AUTO) 3.71 MIL/uL (4.00-5.20); RED CELL DISTRIBUTION WIDTH 17.6 % (11.5-14.5)
[2018-03-11 06:53] LABS: CALCIUM, TOTAL 8.5 mg/dL (8.8-10.5); CREATININE 1.25 mg/dL (0.60-1.30); POTASSIUM 4.4 mmol/L (3.5-5.1)
[2018-03-11] MEDS: LEVOTHYROXINE SODIUM 125 MCG TABLET PO SCH (06:54)
[2018-03-11] MEDS: FERROUS SULFATE 325 MG EC TABLET PO SCH ×2 (06:54→16:47)
[2018-03-11] MEDS: GlipiZIDE 5 MG TABLET PO SCH ×2 (06:55→16:46)
[2018-03-11] MEDS: PROPRANOLOL HCL 10 MG TABLET PO SCH (08:04)
[2018-03-11] MEDS: LACTOBAC ACID/BULG/BIFID/THERM TABLET PO SCH (08:04)
[2018-03-11] MEDS: BENZTROPINE MESYLATE 1 MG TABLET PO SCH ×2 (08:05→20:27)
[2018-03-11] MEDS: OMEPRAZOLE 20 MG CAPSULE PO SCH (08:05)
[2018-03-11] MEDS: ASPIRIN 81 MG CHEWABLE TABLET PO SCH (08:05)
[2018-03-11] MEDS: LISINOPRIL 10 MG TABLET PO SCH (08:05)
[2018-03-11] MEDS: DIVALPROEX SODIUM 500 MG DR TABLET PO SCH ×2 (08:05→20:27)
[2018-03-11] MEDS: CHOLECALCIFEROL (VIT D3) 1,000 UNITS TABLET PO SCH (08:05)
[2018-03-11] MEDS: EPOETIN ALFA 10,000 UNITS/ML VIAL SQ SCH (08:05)
[2018-03-11] MEDS: CITALOPRAM HYDROBROMIDE 20 MG TABLET PO SCH (08:06)
[2018-03-11 09:02] VITALS: BP 134/56
[2018-03-11] MEDS: ACETAMINOPHEN 325 MG TABLET PO PRN (09:05)
[2018-03-11 11:23] LABS: GLUCOMETER DEV NAME(LOC) 3EI C; GLUCOSE,POINT OF CARE 163 MG/DL (70-110)
[2018-03-11] MEDS: INSULIN LISPRO 100 UNITS/ML SQ PRN (11:35)
[2018-03-11 16:48] LABS: GLUCOMETER DEV NAME(LOC) 3EI C; GLUCOSE,POINT OF CARE 76 MG/DL (70-110)
[2018-03-11 16:58] VITALS: BP 155/66
[2018-03-11] MEDS: RIVAROXABAN 20 MG TABLET PO SCH (18:11)
[2018-03-11] MEDS: ATORVASTATIN CALCIUM 20 MG TABLET PO SCH (20:27)
[2018-03-11 21:22] LABS: GLUCOMETER DEV NAME(LOC) 3EI C; GLUCOSE,POINT OF CARE 138 MG/DL (70-110)
[2018-03-12 06:48] LABS: GLUCOMETER DEV NAME(LOC) 3EI C; GLUCOSE,POINT OF CARE 120 MG/DL (70-110)
[2018-03-12] MEDS: LEVOTHYROXINE SODIUM 125 MCG TABLET PO SCH (06:48)
[2018-03-12] MEDS: GlipiZIDE 5 MG TABLET PO SCH ×2 (06:48→17:07)
[2018-03-12] MEDS: FERROUS SULFATE 325 MG EC TABLET PO SCH ×2 (06:50→17:09)
[2018-03-12 08:05] VITALS: BP 135/81
[2018-03-12] MEDS: CITALOPRAM HYDROBROMIDE 20 MG TABLET PO SCH (09:08)
[2018-03-12] MEDS: LACTOBAC ACID/BULG/BIFID/THERM TABLET PO SCH (09:08)
[2018-03-12] MEDS: BENZTROPINE MESYLATE 1 MG TABLET PO SCH ×2 (09:08→21:40)
[2018-03-12] MEDS: FUROSEMIDE 40 MG TABLET PO SCH (09:08)
[2018-03-12] MEDS: DIVALPROEX SODIUM 500 MG DR TABLET PO SCH ×2 (09:08→21:40)
[2018-03-12] MEDS: OMEPRAZOLE 20 MG CAPSULE PO SCH (09:08)
[2018-03-12] MEDS: PROPRANOLOL HCL 10 MG TABLET PO SCH (09:09)
[2018-03-12] MEDS: ASPIRIN 81 MG CHEWABLE TABLET PO SCH (09:09)
[2018-03-12] MEDS: CHOLECALCIFEROL (VIT D3) 1,000 UNITS TABLET PO SCH (09:10)
[2018-03-12] MEDS: LISINOPRIL 10 MG TABLET PO SCH (09:13)
[2018-03-12] MEDS: PALIPERIDONE PALMITATE 156 MG/ML SYRINGE IM SCH (09:26)
[2018-03-12 11:23] LABS: GLUCOMETER DEV NAME(LOC) 3EI C; GLUCOSE,POINT OF CARE 96 MG/DL (70-110)
[2018-03-12 15:58] LABS: GLUCOMETER DEV NAME(LOC) 3EI C; GLUCOSE,POINT OF CARE 145 MG/DL (70-110)
[2018-03-12 16:30] VITALS: BP 135/65
[2018-03-12] MEDS: INSULIN LISPRO 100 UNITS/ML SQ PRN (16:49)
[2018-03-12] MEDS: RIVAROXABAN 20 MG TABLET PO SCH (17:09)
[2018-03-12 21:06] LABS: GLUCOMETER DEV NAME(LOC) 3EI C; GLUCOSE,POINT OF CARE 87 MG/DL (70-110)
[2018-03-12] MEDS: ATORVASTATIN CALCIUM 20 MG TABLET PO SCH (21:40)
[2018-03-13 06:34] LABS: GLUCOMETER DEV NAME(LOC) 3EI C; GLUCOSE,POINT OF CARE 126 MG/DL (70-110)
[2018-03-13] MEDS: GlipiZIDE 5 MG TABLET PO SCH ×2 (06:49→17:03)
[2018-03-13] MEDS: LEVOTHYROXINE SODIUM 125 MCG TABLET PO SCH (06:49)
[2018-03-13] MEDS: FERROUS SULFATE 325 MG EC TABLET PO SCH ×2 (06:49→17:03)
[2018-03-13 07:01] LABS: CALCIUM, TOTAL 8.6 mg/dL (8.8-10.5); CREATININE 1.5 mg/dL (0.60-1.30); POTASSIUM 4.7 mmol/L (3.5-5.1)
[2018-03-13 08:05] VITALS: BP 144/60
[2018-03-13] MEDS: BENZTROPINE MESYLATE 1 MG TABLET PO SCH ×2 (08:15→20:07)
[2018-03-13] MEDS: LISINOPRIL 10 MG TABLET PO SCH (08:15)
[2018-03-13] MEDS: PROPRANOLOL HCL 10 MG TABLET PO SCH (08:15)
[2018-03-13] MEDS: LACTOBAC ACID/BULG/BIFID/THERM TABLET PO SCH (08:15)
[2018-03-13] MEDS: CITALOPRAM HYDROBROMIDE 20 MG TABLET PO SCH (08:15)
[2018-03-13] MEDS: CHOLECALCIFEROL (VIT D3) 1,000 UNITS TABLET PO SCH (08:15)
[2018-03-13] MEDS: OMEPRAZOLE 20 MG CAPSULE PO SCH (08:15)
[2018-03-13] MEDS: DIVALPROEX SODIUM 500 MG DR TABLET PO SCH ×2 (08:15→20:07)
[2018-03-13] MEDS: ASPIRIN 81 MG CHEWABLE TABLET PO SCH (08:16)
[2018-03-13] MEDS: EPOETIN ALFA 10,000 UNITS/ML VIAL SQ SCH (08:16)
[2018-03-13] MEDS: INSULIN LISPRO 100 UNITS/ML SQ PRN ×2 (11:48→21:15)
[2018-03-13 11:49] LABS: GLUCOMETER DEV NAME(LOC) 3EI C; GLUCOSE,POINT OF CARE 146 MG/DL (70-110)
[2018-03-13] MEDS: RIVAROXABAN 20 MG TABLET PO SCH (17:03)
[2018-03-13 17:08] LABS: GLUCOMETER DEV NAME(LOC) 3EI C; GLUCOSE,POINT OF CARE 96 MG/DL (70-110)
[2018-03-13 17:59] VITALS: BP 156/75
[2018-03-13] MEDS: ATORVASTATIN CALCIUM 20 MG TABLET PO SCH (20:07)
[2018-03-13 21:08] LABS: GLUCOMETER DEV NAME(LOC) 3EI C; GLUCOSE,POINT OF CARE 147 MG/DL (70-110)
[2018-03-14 05:48] LABS: GLUCOMETER DEV NAME(LOC) 3EI C; GLUCOSE,POINT OF CARE 99 MG/DL (70-110)
[2018-03-14] MEDS: GlipiZIDE 5 MG TABLET PO SCH ×2 (06:47→16:00)
[2018-03-14] MEDS: LEVOTHYROXINE SODIUM 125 MCG TABLET PO SCH (06:47)
[2018-03-14] MEDS: FERROUS SULFATE 325 MG EC TABLET PO SCH ×2 (06:48→16:01)
[2018-03-14] MEDS: ASPIRIN 81 MG CHEWABLE TABLET PO SCH (08:01)
[2018-03-14] MEDS: CHOLECALCIFEROL (VIT D3) 1,000 UNITS TABLET PO SCH (08:01)
[2018-03-14] MEDS: BENZTROPINE MESYLATE 1 MG TABLET PO SCH ×2 (08:01→20:03)
[2018-03-14] MEDS: PROPRANOLOL HCL 10 MG TABLET PO SCH (08:01)
[2018-03-14] MEDS: LACTOBAC ACID/BULG/BIFID/THERM TABLET PO SCH (08:01)
[2018-03-14] MEDS: CITALOPRAM HYDROBROMIDE 20 MG TABLET PO SCH (08:01)
[2018-03-14] MEDS: OMEPRAZOLE 20 MG CAPSULE PO SCH (08:04)
[2018-03-14] MEDS: DIVALPROEX SODIUM 500 MG DR TABLET PO SCH ×2 (08:04→20:03)
[2018-03-14] MEDS: LISINOPRIL 10 MG TABLET PO SCH ×2 (08:05→16:01)
[2018-03-14] MEDS: FUROSEMIDE 40 MG TABLET PO SCH (08:06)
[2018-03-14 09:00] VITALS: BP 148/67
[2018-03-14 11:34] LABS: GLUCOMETER DEV NAME(LOC) 3EI C; GLUCOSE,POINT OF CARE 109 MG/DL (70-110)
[2018-03-14] MEDS: RIVAROXABAN 20 MG TABLET PO SCH (16:00)
[2018-03-14 16:13] LABS: GLUCOMETER DEV NAME(LOC) 3EI C; GLUCOSE,POINT OF CARE 104 MG/DL (70-110)
[2018-03-14] MEDS: ATORVASTATIN CALCIUM 20 MG TABLET PO SCH (20:03)
[2018-03-14 20:17] LABS: GLUCOMETER DEV NAME(LOC) 3EI C; GLUCOSE,POINT OF CARE 116 MG/DL (70-110)
[2018-03-14 22:05] VITALS: BP 158/77
[2018-03-15] MEDS: HALOPERIDOL 5 MG TABLET PO PRN (02:20)
[2018-03-15] MEDS: ZOLPIDEM TARTRATE 10 MG TABLET PO PRN (02:20)
[2018-03-15 05:28] LABS: GLUCOMETER DEV NAME(LOC) 3EI C; GLUCOSE,POINT OF CARE 108 MG/DL (70-110)
[2018-03-15] MEDS: FERROUS SULFATE 325 MG EC TABLET PO SCH ×2 (06:38→16:32)
[2018-03-15] MEDS: GlipiZIDE 5 MG TABLET PO SCH ×2 (06:38→16:32)
[2018-03-15] MEDS: LEVOTHYROXINE SODIUM 125 MCG TABLET PO SCH (06:38)
[2018-03-15 08:24] LABS: BASOPHILS % (AUTO) 0.9 % (0.0-2.0); EOSINOPHILS % (AUTO) 4.5 % (1.0-6.0); HEMATOCRIT 37.9 % (36-46); HEMOGLOBIN 12.6 g/dL (12.0-16.0); LYMPHOCYTES # (AUTO) 1.6 K/uL (1.0-4.8); LYMPHOCYTES % (AUTO) 30.1 % (22.0-44.0); MEAN CORPUSCULAR HEMOGLOBIN 31.4 pg (26.0-34.0); MEAN CORPUSCULAR HGB CONC 33.3 G/dL (31.0-37.0); MEAN CORPUSCULAR VOLUME 94 fL (80-100); MONOCYTES # (AUTO) 0.8 K/uL (0.1-1.0); MONOCYTES % (AUTO) 15.8 % (2.0-9.0); NEUTROPHILS # (AUTO) 2.6 K/uL (1.8-7.7); NEUTROPHILS % (AUTO) 48.7 % (40.0-70.0); PLATELET COUNT (AUTO) 220 K/uL (150-450); RED BLOOD CELL COUNT(AUTO) 4.02 MIL/uL (4.00-5.20); RED CELL DISTRIBUTION WIDTH 19.7 % (11.5-14.5)
[2018-03-15 08:30] VITALS: BP 142/72
[2018-03-15] MEDS: OMEPRAZOLE 20 MG CAPSULE PO SCH (08:52)
[2018-03-15] MEDS: CHOLECALCIFEROL (VIT D3) 1,000 UNITS TABLET PO SCH (08:52)
[2018-03-15] MEDS: CITALOPRAM HYDROBROMIDE 20 MG TABLET PO SCH (08:52)
[2018-03-15] MEDS: ASPIRIN 81 MG CHEWABLE TABLET PO SCH (08:52)
[2018-03-15] MEDS: LISINOPRIL 10 MG TABLET PO SCH ×2 (08:52→16:33)
[2018-03-15] MEDS: BENZTROPINE MESYLATE 1 MG TABLET PO SCH ×2 (08:52→20:48)
[2018-03-15] MEDS: DIVALPROEX SODIUM 500 MG DR TABLET PO SCH ×2 (08:52→20:48)
[2018-03-15] MEDS: PROPRANOLOL HCL 10 MG TABLET PO SCH (08:53)
[2018-03-15] MEDS: LACTOBAC ACID/BULG/BIFID/THERM TABLET PO SCH (08:53)
[2018-03-15] MEDS: EPOETIN ALFA 10,000 UNITS/ML VIAL SQ SCH (08:54)
[2018-03-15 09:25] LABS: CALCIUM, TOTAL 8.5 mg/dL (8.8-10.5); CREATININE 1.53 mg/dL (0.60-1.30); POTASSIUM 4.6 mmol/L (3.5-5.1)
[2018-03-15] MEDS: INSULIN LISPRO 100 UNITS/ML SQ PRN ×2 (11:22→21:30)
[2018-03-15 11:24] LABS: GLUCOMETER DEV NAME(LOC) 3EI C; GLUCOSE,POINT OF CARE 175 MG/DL (70-110)
[2018-03-15 16:13] LABS: GLUCOMETER DEV NAME(LOC) 3EI C; GLUCOSE,POINT OF CARE 112 MG/DL (70-110)
[2018-03-15] MEDS: RIVAROXABAN 20 MG TABLET PO SCH (16:33)
[2018-03-15 17:25] VITALS: BP 136/66
[2018-03-15] MEDS: ATORVASTATIN CALCIUM 20 MG TABLET PO SCH (20:48)
[2018-03-15 21:33] LABS: GLUCOMETER DEV NAME(LOC) 3EI C; GLUCOSE,POINT OF CARE 142 MG/DL (70-110)
[2018-03-16 06:19] LABS: GLUCOMETER DEV NAME(LOC) 3EI C; GLUCOSE,POINT OF CARE 75 MG/DL (70-110)
[2018-03-16] MEDS: INSULIN LISPRO 100 UNITS/ML SQ PRN ×2 (06:53→11:35)
[2018-03-16] MEDS: LEVOTHYROXINE SODIUM 125 MCG TABLET PO SCH (06:54)
[2018-03-16] MEDS: GlipiZIDE 5 MG TABLET PO SCH ×2 (06:54→16:49)
[2018-03-16] MEDS: FERROUS SULFATE 325 MG EC TABLET PO SCH ×2 (06:57→16:50)
[2018-03-16 07:18] LABS: CALCIUM, TOTAL 8.1 mg/dL (8.8-10.5); CREATININE 1.5 mg/dL (0.60-1.30); MAGNESIUM 2.1 mg/dL (1.80-2.40); PHOSPHORUS 5.2 mg/dL (2.5-4.9); POTASSIUM 4.7 mmol/L (3.5-5.1)
[2018-03-16 08:29] VITALS: BP 133/92
[2018-03-16] MEDS: BENZTROPINE MESYLATE 1 MG TABLET PO SCH ×2 (08:50→21:18)
[2018-03-16] MEDS: OMEPRAZOLE 20 MG CAPSULE PO SCH (08:50)
[2018-03-16] MEDS: LACTOBAC ACID/BULG/BIFID/THERM TABLET PO SCH (08:50)
[2018-03-16] MEDS: DIVALPROEX SODIUM 500 MG DR TABLET PO SCH ×2 (08:50→21:18)
[2018-03-16] MEDS: CITALOPRAM HYDROBROMIDE 20 MG TABLET PO SCH (08:50)
[2018-03-16] MEDS: ASPIRIN 81 MG CHEWABLE TABLET PO SCH (08:50)
[2018-03-16] MEDS: LISINOPRIL 10 MG TABLET PO SCH ×2 (08:50→16:50)
[2018-03-16] MEDS: CHOLECALCIFEROL (VIT D3) 1,000 UNITS TABLET PO SCH (08:50)
[2018-03-16] MEDS: PROPRANOLOL HCL 10 MG TABLET PO SCH (08:51)
[2018-03-16 11:24] LABS: GLUCOMETER DEV NAME(LOC) 3EI C; GLUCOSE,POINT OF CARE 146 MG/DL (70-110)
[2018-03-16] MEDS: RIVAROXABAN 20 MG TABLET PO SCH (16:49)
[2018-03-16 16:53] LABS: GLUCOMETER DEV NAME(LOC) 3EI C; GLUCOSE,POINT OF CARE 103 MG/DL (70-110)
[2018-03-16 17:07] VITALS: BP 148/75
[2018-03-16] MEDS: ATORVASTATIN CALCIUM 20 MG TABLET PO SCH (21:18)
[2018-03-16 21:58] LABS: GLUCOMETER DEV NAME(LOC) 3EI C; GLUCOSE,POINT OF CARE 103 MG/DL (70-110)
[2018-03-17 06:28] LABS: GLUCOMETER DEV NAME(LOC) 3EI C; GLUCOSE,POINT OF CARE 67 MG/DL (70-110)
[2018-03-17 06:29] LABS: GLUCOMETER DEV NAME(LOC) 3EI C; GLUCOSE,POINT OF CARE 87 MG/DL (70-110)
[2018-03-17] MEDS: INSULIN LISPRO 100 UNITS/ML SQ PRN (06:58)
[2018-03-17] MEDS: LEVOTHYROXINE SODIUM 125 MCG TABLET PO SCH (06:59)
[2018-03-17] MEDS: FERROUS SULFATE 325 MG EC TABLET PO SCH ×2 (06:59→16:56)
[2018-03-17] MEDS: GlipiZIDE 5 MG TABLET PO SCH ×2 (06:59→16:14)
[2018-03-17 07:06] VITALS: BP 167/91
[2018-03-17] MEDS: CHOLECALCIFEROL (VIT D3) 1,000 UNITS TABLET PO SCH (08:16)
[2018-03-17] MEDS: LISINOPRIL 10 MG TABLET PO SCH ×2 (08:16→16:14)
[2018-03-17] MEDS: BENZTROPINE MESYLATE 1 MG TABLET PO SCH ×2 (08:16→20:57)
[2018-03-17] MEDS: CITALOPRAM HYDROBROMIDE 20 MG TABLET PO SCH (08:16)
[2018-03-17] MEDS: DIVALPROEX SODIUM 500 MG DR TABLET PO SCH ×2 (08:16→20:57)
[2018-03-17] MEDS: OMEPRAZOLE 20 MG CAPSULE PO SCH (08:16)
[2018-03-17] MEDS: FUROSEMIDE 40 MG TABLET PO SCH (08:16)
[2018-03-17] MEDS: PROPRANOLOL HCL 10 MG TABLET PO SCH (08:17)
[2018-03-17] MEDS: LACTOBAC ACID/BULG/BIFID/THERM TABLET PO SCH (08:17)
[2018-03-17] MEDS: ASPIRIN 81 MG CHEWABLE TABLET PO SCH (08:21)
[2018-03-17 08:27] LABS: CALCIUM, TOTAL 8.7 mg/dL (8.8-10.5); CREATININE 1.23 mg/dL (0.60-1.30); MAGNESIUM 2.1 mg/dL (1.80-2.40); PHOSPHORUS 5.1 mg/dL (2.5-4.9)
[2018-03-17 09:19] VITALS: BP 130/73
[2018-03-17 11:17] LABS: GLUCOMETER DEV NAME(LOC) 3EI C; GLUCOSE,POINT OF CARE 116 MG/DL (70-110)
[2018-03-17 16:28] VITALS: BP 155/95
[2018-03-17] MEDS: RIVAROXABAN 20 MG TABLET PO SCH (16:56)
[2018-03-17 17:34] LABS: GLUCOMETER DEV NAME(LOC) 3EI C; GLUCOSE,POINT OF CARE 101 MG/DL (70-110)
[2018-03-17] MEDS: ATORVASTATIN CALCIUM 20 MG TABLET PO SCH (20:57)
[2018-03-17 21:43] LABS: GLUCOMETER DEV NAME(LOC) 3EI C; GLUCOSE,POINT OF CARE 127 MG/DL (70-110)
[2018-03-18 05:29] LABS: GLUCOMETER DEV NAME(LOC) 3EI C; GLUCOSE,POINT OF CARE 152 MG/DL (70-110)
[2018-03-18] MEDS: FERROUS SULFATE 325 MG EC TABLET PO SCH ×2 (06:47→16:54)
[2018-03-18] MEDS: LEVOTHYROXINE SODIUM 125 MCG TABLET PO SCH (06:47)
[2018-03-18] MEDS: GlipiZIDE 5 MG TABLET PO SCH ×2 (06:47→16:54)
[2018-03-18] MEDS: INSULIN LISPRO 100 UNITS/ML SQ PRN (06:57)
[2018-03-18] MEDS: ASPIRIN 81 MG CHEWABLE TABLET PO SCH (07:58)
[2018-03-18] MEDS: OMEPRAZOLE 20 MG CAPSULE PO SCH (07:58)
[2018-03-18] MEDS: DIVALPROEX SODIUM 500 MG DR TABLET PO SCH ×2 (07:58→21:36)
[2018-03-18] MEDS: BENZTROPINE MESYLATE 1 MG TABLET PO SCH ×2 (07:59→21:36)
[2018-03-18] MEDS: CITALOPRAM HYDROBROMIDE 20 MG TABLET PO SCH (07:59)
[2018-03-18] MEDS: LACTOBAC ACID/BULG/BIFID/THERM TABLET PO SCH (07:59)
[2018-03-18] MEDS: CHOLECALCIFEROL (VIT D3) 1,000 UNITS TABLET PO SCH (07:59)
[2018-03-18] MEDS: LISINOPRIL 10 MG TABLET PO SCH (07:59)
[2018-03-18] MEDS: PROPRANOLOL HCL 10 MG TABLET PO SCH (08:00)
[2018-03-18 08:02] VITALS: BP 145/83
[2018-03-18] MEDS: EPOETIN ALFA 10,000 UNITS/ML VIAL SQ SCH (10:15)
[2018-03-18 11:43] LABS: GLUCOMETER DEV NAME(LOC) 3EI C; GLUCOSE,POINT OF CARE 123 MG/DL (70-110)
[2018-03-18 16:18] LABS: GLUCOMETER DEV NAME(LOC) 3EI C; GLUCOSE,POINT OF CARE 128 MG/DL (70-110)
[2018-03-18] MEDS: RIVAROXABAN 20 MG TABLET PO SCH (16:54)
[2018-03-18 16:59] VITALS: BP 144/68
[2018-03-18] MEDS ORDERED: LISINOPRIL 10 MG TABLET PO SCH (17:00)
[2018-03-18] MEDS: ATORVASTATIN CALCIUM 20 MG TABLET PO SCH (21:36)
[2018-03-18 22:13] LABS: GLUCOMETER DEV NAME(LOC) 3EI C; GLUCOSE,POINT OF CARE 94 MG/DL (70-110)
[2018-03-19 06:19] LABS: GLUCOMETER DEV NAME(LOC) 3EI C; GLUCOSE,POINT OF CARE 77 MG/DL (70-110)
[2018-03-19 06:35] LABS: CALCIUM, TOTAL 8.2 mg/dL (8.8-10.5); CREATININE 1.42 mg/dL (0.60-1.30); POTASSIUM 5.5 mmol/L (3.5-5.1)
[2018-03-19] MEDS: LEVOTHYROXINE SODIUM 125 MCG TABLET PO SCH (06:52)
[2018-03-19] MEDS: GlipiZIDE 5 MG TABLET PO SCH ×2 (06:53→16:22)
[2018-03-19] MEDS: FERROUS SULFATE 325 MG EC TABLET PO SCH ×2 (06:53→16:22)
[2018-03-19] MEDS ORDERED: SODIUM POLYSTYRENE SULFONATE 15 GM/60 ML SUSPENSION BOTTLE PO ONE ×2 (08:00→08:15)
[2018-03-19 08:48] VITALS: BP 151/79
[2018-03-19] MEDS: LACTOBAC ACID/BULG/BIFID/THERM TABLET PO SCH (09:47)
[2018-03-19] MEDS: OMEPRAZOLE 20 MG CAPSULE PO SCH (09:47)
[2018-03-19] MEDS: CITALOPRAM HYDROBROMIDE 20 MG TABLET PO SCH (09:47)
[2018-03-19] MEDS: CHOLECALCIFEROL (VIT D3) 1,000 UNITS TABLET PO SCH (09:47)
[2018-03-19] MEDS: FUROSEMIDE 40 MG TABLET PO SCH (09:47)
[2018-03-19] MEDS: PROPRANOLOL HCL 10 MG TABLET PO SCH (09:48)
[2018-03-19] MEDS: DIVALPROEX SODIUM 500 MG DR TABLET PO SCH ×2 (09:48→20:25)
[2018-03-19] MEDS: ASPIRIN 81 MG CHEWABLE TABLET PO SCH (09:48)
[2018-03-19] MEDS: BENZTROPINE MESYLATE 1 MG TABLET PO SCH ×2 (09:48→20:25)
[2018-03-19 11:33] LABS: GLUCOMETER DEV NAME(LOC) 3EI C; GLUCOSE,POINT OF CARE 154 MG/DL (70-110)
[2018-03-19] MEDS: INSULIN LISPRO 100 UNITS/ML SQ PRN (11:38)
[2018-03-19] MEDS: RIVAROXABAN 20 MG TABLET PO SCH (16:22)
[2018-03-19 16:34] LABS: GLUCOMETER DEV NAME(LOC) 3EI C; GLUCOSE,POINT OF CARE 113 MG/DL (70-110)
[2018-03-19 18:00] VITALS: BP 116/68
[2018-03-19] MEDS: ATORVASTATIN CALCIUM 20 MG TABLET PO SCH (20:24)
[2018-03-19 20:33] LABS: GLUCOMETER DEV NAME(LOC) 3EI C; GLUCOSE,POINT OF CARE 89 MG/DL (70-110)
[2018-03-19 21:18] LABS: GLUCOMETER DEV NAME(LOC) 3EI C; GLUCOSE,POINT OF CARE 154 MG/DL (70-110)
[2018-03-20 06:08] LABS: GLUCOMETER DEV NAME(LOC) 3EI C; GLUCOSE,POINT OF CARE 148 MG/DL (70-110)
[2018-03-20 06:41] LABS: CALCIUM, TOTAL 8.3 mg/dL (8.8-10.5); CREATININE 1.46 mg/dL (0.60-1.30); PHOSPHORUS 4.8 mg/dL (2.5-4.9)
[2018-03-20] MEDS: FERROUS SULFATE 325 MG EC TABLET PO SCH (06:45)
[2018-03-20] MEDS: LEVOTHYROXINE SODIUM 125 MCG TABLET PO SCH (06:45)
[2018-03-20] MEDS: GlipiZIDE 5 MG TABLET PO SCH (06:45)
[2018-03-20] MEDS: INSULIN LISPRO 100 UNITS/ML SQ PRN (06:53)
[2018-03-20] MEDS: ASPIRIN 81 MG CHEWABLE TABLET PO SCH (08:19)
[2018-03-20] MEDS: DIVALPROEX SODIUM 500 MG DR TABLET PO SCH (08:19)
[2018-03-20] MEDS: BENZTROPINE MESYLATE 1 MG TABLET PO SCH (08:19)
[2018-03-20] MEDS: CHOLECALCIFEROL (VIT D3) 1,000 UNITS TABLET PO SCH (08:19)
[2018-03-20] MEDS: LACTOBAC ACID/BULG/BIFID/THERM TABLET PO SCH (08:20)
[2018-03-20] MEDS: PROPRANOLOL HCL 10 MG TABLET PO SCH (08:20)
[2018-03-20] MEDS: OMEPRAZOLE 20 MG CAPSULE PO SCH (08:20)
[2018-03-20] MEDS: CITALOPRAM HYDROBROMIDE 20 MG TABLET PO SCH (08:20)
[2018-03-20 11:53] LABS: GLUCOMETER DEV NAME(LOC) 3EI C; GLUCOSE,POINT OF CARE 108 MG/DL (70-110)
[2018-03-20] MEDS ORDERED: DIVA-78 PO (12:24)
[2018-03-20] MEDS ORDERED: BENZ1TAB10 PO (12:25)
[2018-03-20] MEDS ORDERED: PALI156D IM (12:28)
[2018-03-20] MEDS ORDERED: RIVA20TA PO (12:30)
[2018-03-20] MEDS ORDERED: LEVO125T95 PO (12:31)
[2018-03-20] MEDS ORDERED: FERR-89 PO (12:32)
[2018-03-20] MEDS ORDERED: PROP10TA73 PO (12:33)
[2018-03-20] MEDS ORDERED: VITAD1000 PO (12:35)
[2018-03-20] MEDS ORDERED: BACI1CAP PO (12:35)
[2018-03-20] MEDS ORDERED: FURO40 PO (12:37)
== END 2018-03-20 14:30 | disposition home or self-care (01) | DRG 750 ==
LOC: 3EI 18:15
DX: F25.1 Schizoaffective disorder, depressive type (principal); E11.22 Type 2 diabetes mellitus with diabetic chronic kidney disease; I82.412 Acute embolism and thrombosis of left femoral vein; E11.65 Type 2 diabetes mellitus with hyperglycemia; Q87.1 Congenital malformation syndromes predominantly associated with short stature; F79 Unspecified intellectual disabilities; F41.9 Anxiety disorder, unspecified; J44.9 Chronic obstructive pulmonary disease, unspecified; I10 Essential (primary) hypertension; F17.200 Nicotine dependence, unspecified, uncomplicated; E03.9 Hypothyroidism, unspecified; M19.90 Unspecified osteoarthritis, unspecified site; G47.00 Insomnia, unspecified; R19.7 Diarrhea, unspecified; D64.9 Anemia, unspecified; E87.5 Hyperkalemia; I82.432 Acute embolism and thrombosis of left popliteal vein; I12.9 Hypertensive chronic kidney disease with stage 1 through stage 4 chronic kidney disease, or unspecified chronic kidney disease; N18.9 Chronic kidney disease, unspecified; R62.52 Short stature (child); R41.89 Other symptoms and signs involving cognitive functions and awareness; R45.87 Impulsiveness; Z68.29 Body mass index [BMI] 29.0-29.9, adult; Z56.0 Unemployment, unspecified; Z71.6 Tobacco abuse counseling; Z78.1 Physical restraint status; Z91.83 Wandering in diseases classified elsewhere; Z79.84 Long term (current) use of oral hypoglycemic drugs; Z79.01 Long term (current) use of anticoagulants; Z79.82 Long term (current) use of aspirin; Z23 Encounter for immunization; Z79.899 Other long term (current) drug therapy
CPT/HCPCS: 70450; 70551; 76770; 82271; 82306; 82670; 82679; 83036; 83540; 83550; 83735; 84100; 84132; 84295; 84403; 84443; 85007; 87081; 87177; 87324; 87449; 90686; 93970; 93971; J0885; J1815

== ENCOUNTER 2018-05-28 18:52 | Inpatient (IN) | payer MEDICAID ==
[~2018-05-28] VITALS: Ht 154.9 cm; Wt 78.6 kg
[~2018-05-28 18:52] MED LIST changes: -AMLO-512 PO; +BACI1CAP PO; -BENZ0.5T44 PO; +BENZ1TAB10 PO; -CITA20TA17 PO; +DIVA-78 PO; +FERR-89 PO; -FURO20 PO; +FURO40 PO; +LEVO125T95 PO; -LEVO50 PO; -MAGOX PO; -MEGE400O4 PO; -METF-960 PO; +PALI156D IM; +PROP10TA73 PO; -RISP1 PO; -RIVA15T PO; +VITAD1000 PO
[2018-05-28 19:54] LABS: GLUCOSE,POINT OF CARE 195 MG/DL (70-110)
[2018-05-28 20:43] LABS: GLUCOSE,POINT OF CARE 198 MG/DL (70-110)
[2018-05-28 21:04] LABS: BASOPHILS % (AUTO) 0.8 % (0.0-2.0); EOSINOPHILS % (AUTO) 3.8 % (1.0-6.0); HEMATOCRIT 33.4 % (36-46); HEMOGLOBIN 11.3 g/dL (12.0-16.0); LYMPHOCYTES # (AUTO) 2.1 K/uL (1.0-4.8); LYMPHOCYTES % (AUTO) 31.7 % (22.0-44.0); MEAN CORPUSCULAR HEMOGLOBIN 30.3 pg (26.0-34.0); MEAN CORPUSCULAR HGB CONC 33.9 G/dL (31.0-37.0); MEAN CORPUSCULAR VOLUME 89 fL (80-100); MONOCYTES # (AUTO) 0.9 K/uL (0.1-1.0); MONOCYTES % (AUTO) 14.6 % (2.0-9.0); NEUTROPHILS # (AUTO) 3.2 K/uL (1.8-7.7); NEUTROPHILS % (AUTO) 49.1 % (40.0-70.0); PLATELET COUNT (AUTO) 176 K/uL (150-450); RED BLOOD CELL COUNT(AUTO) 3.73 MIL/uL (4.00-5.20); RED CELL DISTRIBUTION WIDTH 15.2 % (11.5-14.5)
[2018-05-28 21:13] LABS: ANION GAP 8 mmol/L (8-16); CALCIUM, TOTAL 8.3 mg/dL (8.8-10.5); CARBON DIOXIDE 29 mmol/L (22-29); CHLORIDE 98 mmol/L (98-107); GLOMERULAR FILTR. RATE CALC 35 mL/min (>60); GLUCOSE,RANDOM 207 mg/dL (70-110); POTASSIUM 4.3 mmol/L (3.5-5.1); SODIUM SERUM 135 mmol/L (136-145); UREA NITROGEN, BLOOD 40 mg/dL (7-18)
[2018-05-28 21:19] LABS: ALANINE AMINOTRANSFERASE 27 U/L (12-78); ALBUMIN 3.1 g/dL (3.4-5.0); ALKALINE PHOSPHATASE 71 U/L (46-116); ASPARTATE AMINOTRANSFERASE 24 U/L (15-37); BILIRUBIN,TOTAL 0.2 mg/dL (0.1-1.0); TOTAL PROTEIN, SERUM 6.9 g/dL (6.4-8.2)
[2018-05-28 21:24] LABS: AMPHET/METH SCREEN,URINE NEGATIVE (NEGATIVE); BARBITURATE SCREEN, URINE NEGATIVE (NEGATIVE); BENZODIAZEPINES SCREEN,URINE NEGATIVE (NEGATIVE); CANNABINOID SCREEN,URINE NEGATIVE (NEGATIVE); COCAINE SCREEN,URINE NEGATIVE (NEGATIVE); METHADONE SCREEN, URINE NEGATIVE (NEGATIVE); OPIATE SCREEN,URINE NEGATIVE (NEGATIVE); PHENCYCLIDINE SCREEN,URINE NEGATIVE (NEGATIVE)
[2018-05-29 00:30] VITALS: BP 145/75
[2018-05-29] MEDS ORDERED: -PHARMACY VACCINE NOTE- MISC ONE (01:15)
[2018-05-29] MEDS ORDERED: PNEUMOCOCCAL VACCINE POLYVALENT 0.5 ML VIAL [PPSV23] IM ONE (03:30)
[2018-05-29 06:45] LABS: GLUCOMETER DEV NAME(LOC) BV3S.; GLUCOSE,POINT OF CARE 153 MG/DL (70-110)
[2018-05-29 08:04] VITALS: BP 155/85
[2018-05-29 08:30] LABS: HEMOGLOBIN A1C 7.6 % (4.5-6.2)
[2018-05-29] MEDS ORDERED: BENZOCAINE/MENTHOL LOZENGE MM PRN (08:45)
[2018-05-29] MEDS ORDERED: PETROLATUM,WHITE 71 GM JELLY TP PRN (08:45)
[2018-05-29] MEDS ORDERED: ACETAMINOPHEN 325 MG TABLET PO PRN (08:45)
[2018-05-29] MEDS ORDERED: ONDANSETRON HCL 4 MG TABLET PO PRN (08:45)
[2018-05-29] MEDS ORDERED: BACITRACIN 28.4 GM OINTMENT TP PRN (08:45)
[2018-05-29] MEDS ORDERED: MAG HYDROX/AL HYDROX/SIMETH ES 30 ML SUSPENSION UDCUP PO PRN (08:45)
[2018-05-29] MEDS ORDERED: ALBUTEROL SULFATE HFA 90 MCG/PUFF 8 GM INHALER IH PRN (08:45)
[2018-05-29] MEDS ORDERED: MAGNESIUM HYDROXIDE SUSPENSION 30 ML UDCUP PO PRN (08:45)
[2018-05-29] MEDS ORDERED: IBUPROFEN 600 MG TABLET PO PRN (08:45)
[2018-05-29] MEDS ORDERED: CloNIDine HCL 0.1 MG TABLET PO PRN (08:45)
[2018-05-29 08:48] LABS: CHOL/HDL RATIO 3.3 (3.9-5.7)
[2018-05-29] MEDS ORDERED: OMEPRAZOLE 20 MG CAPSULE PO SCH ×2 (09:00)
[2018-05-29] MEDS: DOCUSATE SODIUM 100 MG CAPSULE PO SCH (09:03)
[2018-05-29] MEDS: CHOLECALCIFEROL (VIT D3) 1,000 UNITS TABLET PO SCH (09:03)
[2018-05-29] MEDS: ASPIRIN 81 MG CHEWABLE TABLET PO SCH (09:03)
[2018-05-29] MEDS: PROPRANOLOL HCL 10 MG TABLET PO SCH (09:04)
[2018-05-29] MEDS: OMEPRAZOLE 20 MG CAPSULE PO SCH (09:34)
[2018-05-29 10:04] VITALS: BP 132/86
[2018-05-29] MEDS: FERROUS SULFATE 325 MG EC TABLET PO SCH (16:17)
[2018-05-29] MEDS: GlipiZIDE 5 MG TABLET PO SCH (16:17)
[2018-05-29 16:53] VITALS: BP 116/60
[2018-05-29] MEDS: DIVALPROEX SODIUM 500 MG DR TABLET PO SCH (20:11)
[2018-05-29] MEDS: ATORVASTATIN CALCIUM 20 MG TABLET PO SCH (20:11)
[2018-05-30] MEDS: GlipiZIDE 5 MG TABLET PO SCH ×2 (06:28→16:25)
[2018-05-30] MEDS: LEVOTHYROXINE SODIUM 125 MCG TABLET PO SCH (06:42)
[2018-05-30] MEDS: FERROUS SULFATE 325 MG EC TABLET PO SCH ×2 (06:45→17:04)
[2018-05-30 06:46] VITALS: BP 140/69
[2018-05-30 08:10] VITALS: BP 131/68
[2018-05-30] MEDS ORDERED: GLUCAGON,HUMAN RECOMBINANT 1 MG VIAL IM PRN (08:30)
[2018-05-30] MEDS: FUROSEMIDE 40 MG TABLET PO SCH (09:19)
[2018-05-30] MEDS: RisperiDONE 1 MG TABLET PO SCH ×2 (09:19→17:04)
[2018-05-30] MEDS: PROPRANOLOL HCL 10 MG TABLET PO SCH (09:19)
[2018-05-30] MEDS: DIVALPROEX SODIUM 500 MG DR TABLET PO SCH ×2 (09:19→20:08)
[2018-05-30] MEDS: OMEPRAZOLE 20 MG CAPSULE PO SCH (09:20)
[2018-05-30] MEDS: DOCUSATE SODIUM 100 MG CAPSULE PO SCH (09:20)
[2018-05-30] MEDS: CHOLECALCIFEROL (VIT D3) 1,000 UNITS TABLET PO SCH (09:20)
[2018-05-30] MEDS: ASPIRIN 81 MG CHEWABLE TABLET PO SCH (09:20)
[2018-05-30 13:23] LABS: GLUCOMETER DEV NAME(LOC) BV3S.; GLUCOSE,POINT OF CARE 215 MG/DL (70-110)
[2018-05-30] MEDS: INSULIN LISPRO 100 UNITS/ML SQ PRN ×3 (13:27→21:12)
[2018-05-30 13:29] VITALS: BP 155/80
[2018-05-30 14:44] LABS: GLUCOMETER DEV NAME(LOC) BV3S.; GLUCOSE,POINT OF CARE 189 MG/DL (70-110)
[2018-05-30 16:07] VITALS: BP 133/78
[2018-05-30] MEDS: RIVAROXABAN 20 MG TABLET PO SCH (17:04)
[2018-05-30] MEDS: ATORVASTATIN CALCIUM 20 MG TABLET PO SCH (20:08)
[2018-05-30 20:34] LABS: GLUCOMETER DEV NAME(LOC) BV3N.; GLUCOSE,POINT OF CARE 205 MG/DL (70-110)
[2018-05-31 05:35] LABS: GLUCOMETER DEV NAME(LOC) BV3S.; GLUCOSE,POINT OF CARE 190 MG/DL (70-110)
[2018-05-31 06:14] VITALS: BP 121/69
[2018-05-31] MEDS: FERROUS SULFATE 325 MG EC TABLET PO SCH ×2 (06:45→16:31)
[2018-05-31] MEDS: LEVOTHYROXINE SODIUM 125 MCG TABLET PO SCH (06:45)
[2018-05-31] MEDS: GlipiZIDE 5 MG TABLET PO SCH ×2 (06:45→16:32)
[2018-05-31 08:21] VITALS: BP 164/67
[2018-05-31] MEDS: CHOLECALCIFEROL (VIT D3) 1,000 UNITS TABLET PO SCH (08:22)
[2018-05-31] MEDS: DIVALPROEX SODIUM 500 MG DR TABLET PO SCH ×2 (08:22→20:37)
[2018-05-31] MEDS: RisperiDONE 1 MG TABLET PO SCH ×2 (08:22→16:31)
[2018-05-31] MEDS: PROPRANOLOL HCL 10 MG TABLET PO SCH (08:23)
[2018-05-31] MEDS: ASPIRIN 81 MG CHEWABLE TABLET PO SCH (08:23)
[2018-05-31] MEDS: OMEPRAZOLE 20 MG CAPSULE PO SCH (08:23)
[2018-05-31] MEDS: DOCUSATE SODIUM 100 MG CAPSULE PO SCH (08:23)
[2018-05-31 16:10] VITALS: BP 127/95
[2018-05-31] MEDS: RIVAROXABAN 20 MG TABLET PO SCH (16:31)
[2018-05-31] MEDS: INSULIN LISPRO 100 UNITS/ML SQ PRN (16:47)
[2018-05-31 16:54] LABS: GLUCOMETER DEV NAME(LOC) BV3S.; GLUCOSE,POINT OF CARE 225 MG/DL (70-110)
[2018-05-31] MEDS: ATORVASTATIN CALCIUM 20 MG TABLET PO SCH (20:37)
[2018-05-31 21:09] LABS: GLUCOMETER DEV NAME(LOC) BV3S.; GLUCOSE,POINT OF CARE 100 MG/DL (70-110)
[2018-06-01 06:25] VITALS: BP 121/84
[2018-06-01 06:29] LABS: GLUCOMETER DEV NAME(LOC) BV3S.; GLUCOSE,POINT OF CARE 116 MG/DL (70-110)
[2018-06-01] MEDS: FERROUS SULFATE 325 MG EC TABLET PO SCH ×2 (06:43→16:42)
[2018-06-01] MEDS: GlipiZIDE 5 MG TABLET PO SCH ×2 (06:43→16:20)
[2018-06-01] MEDS: LEVOTHYROXINE SODIUM 125 MCG TABLET PO SCH (06:43)
[2018-06-01 08:27] VITALS: BP 160/79
[2018-06-01] MEDS: PROPRANOLOL HCL 10 MG TABLET PO SCH (09:01)
[2018-06-01] MEDS: OMEPRAZOLE 20 MG CAPSULE PO SCH (09:01)
[2018-06-01] MEDS: ASPIRIN 81 MG CHEWABLE TABLET PO SCH (09:01)
[2018-06-01] MEDS: CHOLECALCIFEROL (VIT D3) 1,000 UNITS TABLET PO SCH (09:01)
[2018-06-01] MEDS: DIVALPROEX SODIUM 500 MG DR TABLET PO SCH ×2 (09:01→20:16)
[2018-06-01] MEDS: RisperiDONE 1 MG TABLET PO SCH ×2 (09:02→16:42)
[2018-06-01] MEDS: DOCUSATE SODIUM 100 MG CAPSULE PO SCH (09:02)
[2018-06-01 10:00] VITALS: BP 160/79
[2018-06-01 11:30] VITALS: BP 156/86
[2018-06-01 11:44] LABS: GLUCOMETER DEV NAME(LOC) BV3S.; GLUCOSE,POINT OF CARE 114 MG/DL (70-110)
[2018-06-01 16:29] LABS: GLUCOMETER DEV NAME(LOC) BV3S.; GLUCOSE,POINT OF CARE 185 MG/DL (70-110)
[2018-06-01] MEDS: RIVAROXABAN 20 MG TABLET PO SCH (16:43)
[2018-06-01] MEDS: INSULIN LISPRO 100 UNITS/ML SQ PRN ×2 (17:01→20:29)
[2018-06-01 17:20] VITALS: BP 152/88
[2018-06-01] MEDS: ATORVASTATIN CALCIUM 20 MG TABLET PO SCH (20:16)
[2018-06-01 20:19] LABS: GLUCOMETER DEV NAME(LOC) BV3S.; GLUCOSE,POINT OF CARE 234 MG/DL (70-110)
[2018-06-02] MEDS: LEVOTHYROXINE SODIUM 125 MCG TABLET PO SCH (06:32)
[2018-06-02] MEDS: FERROUS SULFATE 325 MG EC TABLET PO SCH ×2 (06:32→17:17)
[2018-06-02] MEDS: GlipiZIDE 5 MG TABLET PO SCH ×2 (06:32→16:35)
[2018-06-02 06:35] LABS: GLUCOMETER DEV NAME(LOC) BV3S.; GLUCOSE,POINT OF CARE 100 MG/DL (70-110)
[2018-06-02 07:32] VITALS: BP 148/78
[2018-06-02 08:05] VITALS: BP 163/88
[2018-06-02] MEDS: DIVALPROEX SODIUM 500 MG DR TABLET PO SCH ×2 (08:46→20:12)
[2018-06-02] MEDS: ASPIRIN 81 MG CHEWABLE TABLET PO SCH (08:46)
[2018-06-02] MEDS: OMEPRAZOLE 20 MG CAPSULE PO SCH (08:47)
[2018-06-02] MEDS: FUROSEMIDE 40 MG TABLET PO SCH (08:47)
[2018-06-02] MEDS: RisperiDONE 1 MG TABLET PO SCH ×2 (08:47→17:17)
[2018-06-02] MEDS: DOCUSATE SODIUM 100 MG CAPSULE PO SCH (08:47)
[2018-06-02] MEDS: CHOLECALCIFEROL (VIT D3) 1,000 UNITS TABLET PO SCH (08:47)
[2018-06-02] MEDS: PROPRANOLOL HCL 10 MG TABLET PO SCH (08:47)
[2018-06-02] MEDS: LISINOPRIL 20 MG TABLET PO SCH (08:51)
[2018-06-02 09:39] LABS: CALCIUM, TOTAL 9.6 mg/dL (8.8-10.5); CREATININE 1.1 mg/dL (0.60-1.30); POTASSIUM 4.6 mmol/L (3.5-5.1)
[2018-06-02 11:54] LABS: GLUCOMETER DEV NAME(LOC) BV3S.; GLUCOSE,POINT OF CARE 144 MG/DL (70-110)
[2018-06-02 12:00] VITALS: BP 113/61
[2018-06-02] MEDS: INSULIN LISPRO 100 UNITS/ML SQ PRN ×3 (12:21→20:35)
[2018-06-02 16:21] VITALS: BP_SYST 114; BP_SYST 144; BP_DIAS 66; BP_DIAS 72
[2018-06-02 17:04] LABS: GLUCOMETER DEV NAME(LOC) BV3S.; GLUCOSE,POINT OF CARE 244 MG/DL (70-110)
[2018-06-02] MEDS: RIVAROXABAN 20 MG TABLET PO SCH (17:17)
[2018-06-02] MEDS: ATORVASTATIN CALCIUM 20 MG TABLET PO SCH (20:12)
[2018-06-02 20:39] LABS: GLUCOMETER DEV NAME(LOC) BV3S.; GLUCOSE,POINT OF CARE 153 MG/DL (70-110)
[2018-06-03 06:25] LABS: GLUCOMETER DEV NAME(LOC) BV3S.; GLUCOSE,POINT OF CARE 105 MG/DL (70-110)
[2018-06-03] MEDS: GlipiZIDE 5 MG TABLET PO SCH ×2 (06:49→17:01)
[2018-06-03] MEDS: FERROUS SULFATE 325 MG EC TABLET PO SCH ×2 (06:49→17:01)
[2018-06-03] MEDS: LEVOTHYROXINE SODIUM 125 MCG TABLET PO SCH (06:49)
[2018-06-03 07:14] VITALS: BP 120/75
[2018-06-03 08:06] VITALS: BP 131/75
[2018-06-03] MEDS: DIVALPROEX SODIUM 500 MG DR TABLET PO SCH ×2 (08:30→21:14)
[2018-06-03] MEDS: DOCUSATE SODIUM 100 MG CAPSULE PO SCH (08:30)
[2018-06-03] MEDS: RisperiDONE 1 MG TABLET PO SCH ×2 (08:30→17:01)
[2018-06-03] MEDS: CHOLECALCIFEROL (VIT D3) 1,000 UNITS TABLET PO SCH (08:30)
[2018-06-03] MEDS: LISINOPRIL 20 MG TABLET PO SCH (08:30)
[2018-06-03] MEDS: OMEPRAZOLE 20 MG CAPSULE PO SCH (08:31)
[2018-06-03] MEDS: PROPRANOLOL HCL 10 MG TABLET PO SCH (08:31)
[2018-06-03] MEDS: ASPIRIN 81 MG CHEWABLE TABLET PO SCH (08:31)
[2018-06-03 11:54] LABS: GLUCOMETER DEV NAME(LOC) BV3S.; GLUCOSE,POINT OF CARE 194 MG/DL (70-110)
[2018-06-03 16:04] VITALS: BP 137/66
[2018-06-03 16:38] LABS: GLUCOMETER DEV NAME(LOC) BV3S.; GLUCOSE,POINT OF CARE 269 MG/DL (70-110)
[2018-06-03] MEDS: INSULIN LISPRO 100 UNITS/ML SQ PRN (16:56)
[2018-06-03] MEDS: RIVAROXABAN 20 MG TABLET PO SCH (17:01)
[2018-06-03 20:53] LABS: GLUCOMETER DEV NAME(LOC) BV3S.; GLUCOSE,POINT OF CARE 104 MG/DL (70-110)
[2018-06-03] MEDS: ATORVASTATIN CALCIUM 20 MG TABLET PO SCH (21:14)
[2018-06-03] MEDS: ZOLPIDEM TARTRATE 10 MG TABLET PO PRN (21:15)
[2018-06-04 00:30] VITALS: BP 132/82
[2018-06-04] MEDS: GlipiZIDE 5 MG TABLET PO SCH ×2 (06:30→16:55)
[2018-06-04] MEDS: FERROUS SULFATE 325 MG EC TABLET PO SCH ×2 (06:31→16:55)
[2018-06-04] MEDS: LEVOTHYROXINE SODIUM 125 MCG TABLET PO SCH (06:34)
[2018-06-04 06:35] LABS: GLUCOMETER DEV NAME(LOC) BV3S.; GLUCOSE,POINT OF CARE 75 MG/DL (70-110)
[2018-06-04 08:12] VITALS: BP 162/89
[2018-06-04] MEDS: PROPRANOLOL HCL 10 MG TABLET PO SCH (08:41)
[2018-06-04] MEDS: OMEPRAZOLE 20 MG CAPSULE PO SCH (08:41)
[2018-06-04] MEDS: DOCUSATE SODIUM 100 MG CAPSULE PO SCH (08:41)
[2018-06-04] MEDS: CHOLECALCIFEROL (VIT D3) 1,000 UNITS TABLET PO SCH (08:41)
[2018-06-04] MEDS: FUROSEMIDE 40 MG TABLET PO SCH (08:41)
[2018-06-04] MEDS: DIVALPROEX SODIUM 500 MG DR TABLET PO SCH ×2 (08:41→20:19)
[2018-06-04] MEDS: RisperiDONE 1 MG TABLET PO SCH ×2 (08:41→16:55)
[2018-06-04] MEDS: ASPIRIN 81 MG CHEWABLE TABLET PO SCH (08:41)
[2018-06-04] MEDS: LISINOPRIL 20 MG TABLET PO SCH (08:41)
[2018-06-04 12:04] LABS: GLUCOMETER DEV NAME(LOC) BV3S.; GLUCOSE,POINT OF CARE 112 MG/DL (70-110)
[2018-06-04 14:57] VITALS: BP 114/60
[2018-06-04 16:08] VITALS: BP 131/62
[2018-06-04 16:44] LABS: GLUCOMETER DEV NAME(LOC) BV3S.; GLUCOSE,POINT OF CARE 172 MG/DL (70-110)
[2018-06-04] MEDS: RIVAROXABAN 20 MG TABLET PO SCH (16:55)
[2018-06-04] MEDS: INSULIN LISPRO 100 UNITS/ML SQ PRN (17:00)
[2018-06-04] MEDS: ATORVASTATIN CALCIUM 20 MG TABLET PO SCH (20:19)
[2018-06-04] MEDS: ZOLPIDEM TARTRATE 10 MG TABLET PO PRN (20:19)
[2018-06-04 20:24] LABS: GLUCOMETER DEV NAME(LOC) BV3S.; GLUCOSE,POINT OF CARE 91 MG/DL (70-110)
[2018-06-05 06:30] LABS: GLUCOMETER DEV NAME(LOC) BV3S.; GLUCOSE,POINT OF CARE 134 MG/DL (70-110)
[2018-06-05 06:57] VITALS: BP 125/65
[2018-06-05] MEDS: GlipiZIDE 5 MG TABLET PO SCH ×2 (07:03→16:38)
[2018-06-05] MEDS: LEVOTHYROXINE SODIUM 125 MCG TABLET PO SCH (07:03)
[2018-06-05] MEDS: FERROUS SULFATE 325 MG EC TABLET PO SCH ×2 (07:03→16:38)
[2018-06-05 08:09] VITALS: BP 113/60
[2018-06-05] MEDS: RisperiDONE 1 MG TABLET PO SCH ×2 (08:54→16:38)
[2018-06-05] MEDS: ASPIRIN 81 MG CHEWABLE TABLET PO SCH (08:54)
[2018-06-05] MEDS: CHOLECALCIFEROL (VIT D3) 1,000 UNITS TABLET PO SCH (08:54)
[2018-06-05] MEDS: OMEPRAZOLE 20 MG CAPSULE PO SCH (08:54)
[2018-06-05] MEDS: PROPRANOLOL HCL 10 MG TABLET PO SCH (08:54)
[2018-06-05] MEDS: DOCUSATE SODIUM 100 MG CAPSULE PO SCH (08:54)
[2018-06-05] MEDS: DIVALPROEX SODIUM 500 MG DR TABLET PO SCH ×2 (08:54→21:22)
[2018-06-05] MEDS: LISINOPRIL 20 MG TABLET PO SCH (08:54)
[2018-06-05] MEDS: INSULIN LISPRO 100 UNITS/ML SQ PRN ×2 (11:45→21:00)
[2018-06-05 11:54] LABS: GLUCOMETER DEV NAME(LOC) BV3S.; GLUCOSE,POINT OF CARE 198 MG/DL (70-110)
[2018-06-05] MEDS: RIVAROXABAN 20 MG TABLET PO SCH (16:38)
[2018-06-05 16:44] LABS: GLUCOMETER DEV NAME(LOC) BV3S.; GLUCOSE,POINT OF CARE 126 MG/DL (70-110)
[2018-06-05 16:48] VITALS: BP 116/75
[2018-06-05 19:54] LABS: GLUCOMETER DEV NAME(LOC) BV3S.; GLUCOSE,POINT OF CARE 296 MG/DL (70-110)
[2018-06-05] MEDS: ATORVASTATIN CALCIUM 20 MG TABLET PO SCH (21:22)
[2018-06-05] MEDS: ZOLPIDEM TARTRATE 10 MG TABLET PO PRN (21:22)
[2018-06-06 06:15] LABS: GLUCOMETER DEV NAME(LOC) BV3S.; GLUCOSE,POINT OF CARE 84 MG/DL (70-110)
[2018-06-06] MEDS: FERROUS SULFATE 325 MG EC TABLET PO SCH ×2 (06:41→16:50)
[2018-06-06] MEDS: LEVOTHYROXINE SODIUM 125 MCG TABLET PO SCH (06:41)
[2018-06-06] MEDS: GlipiZIDE 5 MG TABLET PO SCH ×2 (06:41→16:38)
[2018-06-06 06:48] VITALS: BP 120/67
[2018-06-06 08:11] VITALS: BP 153/57
[2018-06-06] MEDS: HALOPERIDOL 5 MG TABLET PO PRN (09:31)
[2018-06-06] MEDS: LORazepam 2 MG TABLET PO PRN (09:31)
[2018-06-06] MEDS: DOCUSATE SODIUM 100 MG CAPSULE PO SCH (09:31)
[2018-06-06] MEDS: FUROSEMIDE 40 MG TABLET PO SCH (09:31)
[2018-06-06] MEDS: LISINOPRIL 20 MG TABLET PO SCH (09:31)
[2018-06-06] MEDS: CHOLECALCIFEROL (VIT D3) 1,000 UNITS TABLET PO SCH (09:32)
[2018-06-06] MEDS: OMEPRAZOLE 20 MG CAPSULE PO SCH (09:32)
[2018-06-06] MEDS: ASPIRIN 81 MG CHEWABLE TABLET PO SCH (09:32)
[2018-06-06] MEDS: PROPRANOLOL HCL 10 MG TABLET PO SCH (09:32)
[2018-06-06] MEDS: RisperiDONE 1 MG TABLET PO SCH ×2 (09:32→16:50)
[2018-06-06] MEDS: DIVALPROEX SODIUM 500 MG DR TABLET PO SCH ×2 (09:32→20:20)
[2018-06-06 13:24] LABS: GLUCOMETER DEV NAME(LOC) BV3S.; GLUCOSE,POINT OF CARE 157 MG/DL (70-110)
[2018-06-06] MEDS: INSULIN LISPRO 100 UNITS/ML SQ PRN ×2 (13:26→20:37)
[2018-06-06 16:17] VITALS: BP 127/88
[2018-06-06] MEDS: RIVAROXABAN 20 MG TABLET PO SCH (16:50)
[2018-06-06 17:09] LABS: GLUCOMETER DEV NAME(LOC) BV3S.; GLUCOSE,POINT OF CARE 131 MG/DL (70-110)
[2018-06-06] MEDS: ATORVASTATIN CALCIUM 20 MG TABLET PO SCH (20:20)
[2018-06-06 20:44] LABS: GLUCOMETER DEV NAME(LOC) BV3S.; GLUCOSE,POINT OF CARE 183 MG/DL (70-110)
[2018-06-06] MEDS: ZOLPIDEM TARTRATE 10 MG TABLET PO PRN (21:03)
[2018-06-07] MEDS: FERROUS SULFATE 325 MG EC TABLET PO SCH ×2 (06:34→17:13)
[2018-06-07] MEDS: LEVOTHYROXINE SODIUM 125 MCG TABLET PO SCH (06:34)
[2018-06-07] MEDS: GlipiZIDE 5 MG TABLET PO SCH ×2 (06:34→17:13)
[2018-06-07 06:40] LABS: GLUCOMETER DEV NAME(LOC) BV3S.; GLUCOSE,POINT OF CARE 129 MG/DL (70-110)
[2018-06-07 06:48] VITALS: BP 117/78
[2018-06-07 08:31] VITALS: BP 160/113
[2018-06-07] MEDS: OMEPRAZOLE 20 MG CAPSULE PO SCH (08:46)
[2018-06-07] MEDS: DOCUSATE SODIUM 100 MG CAPSULE PO SCH (08:46)
[2018-06-07] MEDS: ASPIRIN 81 MG CHEWABLE TABLET PO SCH (08:47)
[2018-06-07] MEDS: PROPRANOLOL HCL 10 MG TABLET PO SCH (08:47)
[2018-06-07] MEDS: DIVALPROEX SODIUM 500 MG DR TABLET PO SCH ×2 (08:48→20:30)
[2018-06-07] MEDS: RisperiDONE 1 MG TABLET PO SCH ×2 (08:48→17:13)
[2018-06-07] MEDS ORDERED: TUBERCULIN, PURIFIED PROTEIN DERIVATIVE 5 TU/0.1 ML SYG ID ONE (09:00)
[2018-06-07] MEDS: CHOLECALCIFEROL (VIT D3) 1,000 UNITS TABLET PO SCH (09:14)
[2018-06-07] MEDS: LISINOPRIL 20 MG TABLET PO SCH (09:15)
[2018-06-07 09:54] VITALS: BP 130/57
[2018-06-07 12:40] LABS: GLUCOMETER DEV NAME(LOC) BV3S.; GLUCOSE,POINT OF CARE 177 MG/DL (70-110)
[2018-06-07] MEDS: INSULIN LISPRO 100 UNITS/ML SQ PRN ×2 (14:54→20:17)
[2018-06-07 16:08] VITALS: BP 138/105
[2018-06-07 16:44] LABS: GLUCOMETER DEV NAME(LOC) BV3S.; GLUCOSE,POINT OF CARE 71 MG/DL (70-110)
[2018-06-07] MEDS: RIVAROXABAN 20 MG TABLET PO SCH (17:13)
[2018-06-07 20:04] LABS: GLUCOMETER DEV NAME(LOC) BV3S.; GLUCOSE,POINT OF CARE 160 MG/DL (70-110)
[2018-06-07] MEDS: ATORVASTATIN CALCIUM 20 MG TABLET PO SCH (20:30)
[2018-06-07] MEDS: ZOLPIDEM TARTRATE 10 MG TABLET PO PRN (22:33)
[2018-06-07] MEDS: LOPERAMIDE HCL 2 MG CAPSULE PO PRN (22:33)
[2018-06-08 00:09] VITALS: BP 145/92
[2018-06-08 06:54] LABS: GLUCOMETER DEV NAME(LOC) BV3S.; GLUCOSE,POINT OF CARE 99 MG/DL (70-110)
[2018-06-08] MEDS: GlipiZIDE 5 MG TABLET PO SCH ×2 (07:09→16:19)
[2018-06-08] MEDS: FERROUS SULFATE 325 MG EC TABLET PO SCH ×2 (07:10→16:19)
[2018-06-08] MEDS: LEVOTHYROXINE SODIUM 125 MCG TABLET PO SCH (07:10)
[2018-06-08] MEDS: DIVALPROEX SODIUM 500 MG DR TABLET PO SCH ×2 (08:04→20:28)
[2018-06-08] MEDS: DOCUSATE SODIUM 100 MG CAPSULE PO SCH (08:04)
[2018-06-08] MEDS: OMEPRAZOLE 20 MG CAPSULE PO SCH (08:04)
[2018-06-08] MEDS: ASPIRIN 81 MG CHEWABLE TABLET PO SCH (08:04)
[2018-06-08] MEDS: LISINOPRIL 20 MG TABLET PO SCH (08:04)
[2018-06-08] MEDS: PROPRANOLOL HCL 10 MG TABLET PO SCH (08:04)
[2018-06-08] MEDS: CHOLECALCIFEROL (VIT D3) 1,000 UNITS TABLET PO SCH (08:04)
[2018-06-08] MEDS: RisperiDONE 1 MG TABLET PO SCH ×2 (08:04→16:19)
[2018-06-08 08:08] VITALS: BP 146/89
[2018-06-08 12:30] LABS: GLUCOMETER DEV NAME(LOC) BV3S.; GLUCOSE,POINT OF CARE 75 MG/DL (70-110)
[2018-06-08 12:30] LABS: GLUCOMETER DEV NAME(LOC) BV3S.; GLUCOSE,POINT OF CARE 64 MG/DL (70-110)
[2018-06-08 16:03] VITALS: BP 142/74
[2018-06-08] MEDS: RIVAROXABAN 20 MG TABLET PO SCH (16:19)
[2018-06-08] MEDS: INSULIN LISPRO 100 UNITS/ML SQ PRN ×2 (17:19→20:41)
[2018-06-08 17:34] LABS: GLUCOMETER DEV NAME(LOC) BV3S.; GLUCOSE,POINT OF CARE 186 MG/DL (70-110)
[2018-06-08] MEDS: HALOPERIDOL 5 MG TABLET PO PRN (18:47)
[2018-06-08] MEDS: LORazepam 2 MG TABLET PO PRN (18:47)
[2018-06-08] MEDS: ATORVASTATIN CALCIUM 20 MG TABLET PO SCH (20:28)
[2018-06-08] MEDS: ZOLPIDEM TARTRATE 10 MG TABLET PO PRN (20:28)
[2018-06-08 20:45] LABS: GLUCOMETER DEV NAME(LOC) BV3S.; GLUCOSE,POINT OF CARE 157 MG/DL (70-110)
[2018-06-09 04:43] VITALS: BP 138/83
[2018-06-09] MEDS: LEVOTHYROXINE SODIUM 125 MCG TABLET PO SCH (06:59)
[2018-06-09] MEDS: GlipiZIDE 5 MG TABLET PO SCH (06:59)
[2018-06-09] MEDS: FERROUS SULFATE 325 MG EC TABLET PO SCH (06:59)
[2018-06-09 07:09] LABS: GLUCOMETER DEV NAME(LOC) BV3S.; GLUCOSE,POINT OF CARE 86 MG/DL (70-110)
[2018-06-09 08:12] VITALS: BP 140/86
[2018-06-09] MEDS: PROPRANOLOL HCL 10 MG TABLET PO SCH (08:12)
[2018-06-09] MEDS: LISINOPRIL 20 MG TABLET PO SCH (08:13)
[2018-06-09] MEDS: FUROSEMIDE 40 MG TABLET PO SCH (08:13)
[2018-06-09] MEDS: ASPIRIN 81 MG CHEWABLE TABLET PO SCH (08:13)
[2018-06-09] MEDS: DOCUSATE SODIUM 100 MG CAPSULE PO SCH (08:13)
[2018-06-09] MEDS: DIVALPROEX SODIUM 500 MG DR TABLET PO SCH (08:13)
[2018-06-09] MEDS: OMEPRAZOLE 20 MG CAPSULE PO SCH (08:13)
[2018-06-09] MEDS: CHOLECALCIFEROL (VIT D3) 1,000 UNITS TABLET PO SCH (08:13)
[2018-06-09] MEDS: RisperiDONE 1 MG TABLET PO SCH (08:13)
[2018-06-09] MEDS: LOPERAMIDE HCL 2 MG CAPSULE PO PRN (10:57)
[2018-06-09 12:15] LABS: GLUCOMETER DEV NAME(LOC) BV3S.; GLUCOSE,POINT OF CARE 128 MG/DL (70-110)
[2018-06-09] MEDS ORDERED: LISI-662 PO (12:24)
[2018-06-09] MEDS ORDERED: RISP1 PO (12:24)
== END 2018-06-09 15:10 | DRG 750 ==
LOC: EMS 18:53 → B3A 21:00
PROVIDERS: ADMIT Psychiatry & Neurology Psychiatry; ATTEND Psychiatry & Neurology Psychiatry
DX: F20.0 Paranoid schizophrenia (principal); E11.65 Type 2 diabetes mellitus with hyperglycemia; J44.9 Chronic obstructive pulmonary disease, unspecified; E03.9 Hypothyroidism, unspecified; E78.00 Pure hypercholesterolemia, unspecified; F17.200 Nicotine dependence, unspecified, uncomplicated; G47.00 Insomnia, unspecified; I10 Essential (primary) hypertension; M19.90 Unspecified osteoarthritis, unspecified site; F32.9 Major depressive disorder, single episode, unspecified; Z79.899 Other long term (current) drug therapy; Z86.718 Personal history of other venous thrombosis and embolism; Z71.6 Tobacco abuse counseling
CPT/HCPCS: 83036; 87081; G0480

== ENCOUNTER 2018-06-23 00:38 | Emergency (ER) | payer MEDICAID ==
[~2018-06-23] VITALS: Ht 154.9 cm; Wt 83.6 kg
[~2018-06-23 00:38] MED LIST changes: -ASPI-825 PO; -BACI1CAP PO; -BENZ1TAB10 PO; -CITA-106 PO; -FERR-89 PO; +LISI-662 PO; -OMEP20 PO; -PALI156D IM; +RISP1 PO; -VITAD1000 PO
[2018-06-23 01:19] LABS: GLUCOSE,POINT OF CARE 121 MG/DL (70-110)
[2018-06-23 02:12] LABS: BASOPHILS % (AUTO) 0.4 % (0.0-2.0); EOSINOPHILS % (AUTO) 2.2 % (1.0-6.0); HEMATOCRIT 29.1 % (36-46); HEMOGLOBIN 9.9 g/dL (12.0-16.0); MEAN CORPUSCULAR HEMOGLOBIN 30.4 pg (26.0-34.0); MEAN CORPUSCULAR HGB CONC 33.9 G/dL (31.0-37.0); MEAN CORPUSCULAR VOLUME 90 fL (80-100); MONOCYTES # (AUTO) 0.9 K/uL (0.1-1.0); MONOCYTES % (AUTO) 15.5 % (2.0-9.0); NEUTROPHILS # (AUTO) 2.9 K/uL (1.8-7.7); NEUTROPHILS % (AUTO) 47.9 % (40.0-70.0); PLATELET COUNT (AUTO) 187 K/uL (150-450); RED BLOOD CELL COUNT(AUTO) 3.25 MIL/uL (4.00-5.20); RED CELL DISTRIBUTION WIDTH 14.5 % (11.5-14.5)
[2018-06-23 02:21] LABS: CALCIUM, TOTAL 8.4 mg/dL (8.8-10.5); CREATININE 1.26 mg/dL (0.60-1.30); POTASSIUM 4.3 mmol/L (3.5-5.1)
[2018-06-23 02:27] LABS: ALBUMIN 3.3 g/dL (3.4-5.0); BILIRUBIN,TOTAL 0.3 mg/dL (0.1-1.0); TOTAL PROTEIN, SERUM 6.7 g/dL (6.4-8.2)
[2018-06-23 02:40] LABS: APPEARANCE,URINE CLEAR (CLEAR); BILIRUBIN,URINE NEGATIVE (NEGATIVE); GLUCOSE, URINE (UA) NEGATIVE (NEGATIVE); KETONES,URINE NEGATIVE (NEGATIVE); LEUKOCYTE ESTERASE ,URINE NEGATIVE (NEGATIVE); NITRATE,URINE NEGATIVE (NEGATIVE); OCCULT BLOOD,URINE TRACE (NEGATIVE); PROTEIN,URINE NEGATIVE (NEGATIVE); UROBILINOGEN,URINE 0.2 mg/dL (<=1.0)
[2018-06-23] MEDS ORDERED: DiphenhydrAMINE HCL 25 MG CAPSULE PO ONE (02:45)
[2018-06-23] MEDS ORDERED: LORazepam 2 MG TABLET PO ONE (02:45)
[2018-06-23 02:47] LABS: AMPHET/METH SCREEN,URINE NEGATIVE (NEGATIVE); BARBITURATE SCREEN, URINE NEGATIVE (NEGATIVE); BENZODIAZEPINES SCREEN,URINE NEGATIVE (NEGATIVE); CANNABINOID SCREEN,URINE NEGATIVE (NEGATIVE); COCAINE SCREEN,URINE NEGATIVE (NEGATIVE); METHADONE SCREEN, URINE NEGATIVE (NEGATIVE); OPIATE SCREEN,URINE NEGATIVE (NEGATIVE)
[2018-06-23 02:48] LABS: PHENCYCLIDINE SCREEN,URINE NEGATIVE (NEGATIVE)
[2018-06-23 02:49] LABS: BACTERIA,URINE None Seen /HPF (None Seen); RBC,URINE 0-2 /HPF (0-2)
[2018-06-23 02:50] LABS: SQUAMOUS EPITHELIAL CELL,UR Rare /LPF (None Seen)
[2018-06-23] MEDS ORDERED: DiphenhydrAMINE HCL 50 MG/ML VIAL IM ONE (03:00)
[2018-06-23] MEDS ORDERED: LORazepam 2 MG/ML VIAL IM ONE (03:00)
[2018-06-23] MEDS ORDERED: SODIUM CHLORIDE 0.9% 1,000 ML IV ONE (03:15)
[2018-06-23 06:12] VITALS: BP 138/66
== END 2018-06-23 06:42 | disposition home or self-care (01) ==
LOC: EMS 00:39
DX: E86.0 Dehydration (principal); F31.9 Bipolar disorder, unspecified; F20.9 Schizophrenia, unspecified; E11.9 Type 2 diabetes mellitus without complications; E78.00 Pure hypercholesterolemia, unspecified; I10 Essential (primary) hypertension; Z79.899 Other long term (current) drug therapy
CPT/HCPCS: 36415; 80053; 80307; 81001; 82962; 85025; 87086; 93005; 96360; 96372; 99284; J1200; J2060; J7030; 51701

== ENCOUNTER 2018-07-16 18:30 | Inpatient (IN) | payer MEDICAID ==
[~2018-07-16] VITALS: Ht 157.5 cm; Wt 76.7 kg
[~2018-07-16 18:30] MED LIST changes: +INSU100V SQ; +LORA1TAB3 PO; -RISP1 PO; +RISP3 PO; +ZOLP10TA7 PO
[2018-07-16] MEDS ORDERED: ONDANSETRON HCL 4 MG TABLET PO PRN (19:15)
[2018-07-16] MEDS ORDERED: DOCUSATE SODIUM 100 MG CAPSULE PO PRN (19:15)
[2018-07-16] MEDS ORDERED: GuaiFENesin/D-METHORPHAN [SUGAR-FREE] 200-20MG/10 ML SYRUP UDCUP PO PRN (19:15)
[2018-07-16] MEDS ORDERED: PETROLATUM,WHITE 28 GM JELLY TP PRN (19:15)
[2018-07-16] MEDS ORDERED: DEXTROSE 50%-WATER 25 GM/50 ML SYRINGE IVP PRN (19:15)
[2018-07-16] MEDS ORDERED: NICOTINE 14 MG/24 HOUR PATCH TD PRN (19:15)
[2018-07-16] MEDS ORDERED: ALBUTEROL SULFATE HFA 90 MCG/PUFF 8 GM INHALER IH PRN (19:15)
[2018-07-16] MEDS: SODIUM CHLORIDE 1 GM TABLET PO SCH (21:20)
[2018-07-16] MEDS: DIVALPROEX SODIUM 500 MG DR TABLET PO SCH (21:21)
[2018-07-16] MEDS: RisperiDONE 1 MG TABLET PO SCH (21:21)
[2018-07-16] MEDS: INSULIN LISPRO 100 UNITS/ML SQ PRN (21:35)
[2018-07-16 21:38] LABS: GLUCOMETER DEV NAME(LOC) 3E.I; GLUCOSE,POINT OF CARE 222 MG/DL (70-110)
[2018-07-16 21:40] VITALS: BP 151/62
[2018-07-17 00:43] VITALS: BP 119/66
[2018-07-17] MEDS: HALOPERIDOL 5 MG TABLET PO PRN ×2 (00:48→08:25)
[2018-07-17] MEDS: LORazepam 1 MG TABLET PO PRN ×2 (00:48→08:25)
[2018-07-17 05:54] LABS: GLUCOMETER DEV NAME(LOC) 3E.I; GLUCOSE,POINT OF CARE 135 MG/DL (70-110)
[2018-07-17 06:11] LABS: BASOPHILS % (AUTO) 0.7 % (0.0-2.0); EOSINOPHILS % (AUTO) 2.5 % (1.0-6.0); HEMATOCRIT 29.8 % (36-46); LYMPHOCYTES # (AUTO) 1.8 K/uL (1.0-4.8); LYMPHOCYTES % (AUTO) 35.7 % (22.0-44.0); MEAN CORPUSCULAR HEMOGLOBIN 30.9 pg (26.0-34.0); MEAN CORPUSCULAR HGB CONC 33.5 G/dL (31.0-37.0); MEAN CORPUSCULAR VOLUME 92 fL (80-100); MONOCYTES # (AUTO) 0.5 K/uL (0.1-1.0); MONOCYTES % (AUTO) 9.9 % (2.0-9.0); NEUTROPHILS # (AUTO) 2.6 K/uL (1.8-7.7); NEUTROPHILS % (AUTO) 51.2 % (40.0-70.0); PLATELET COUNT (AUTO) 238 K/uL (150-450); RED BLOOD CELL COUNT(AUTO) 3.23 MIL/uL (4.00-5.20); RED CELL DISTRIBUTION WIDTH 15.3 % (11.5-14.5)
[2018-07-17 06:19] LABS: HEMOGLOBIN A1C 7.6 % (4.5-6.2)
[2018-07-17 06:35] LABS: ALBUMIN 3.5 g/dL (3.4-5.0); BILIRUBIN,TOTAL 0.4 mg/dL (0.1-1.0); CALCIUM, TOTAL 8.9 mg/dL (8.8-10.5); CHOL/HDL RATIO 2.2 (3.9-5.7); CREATININE 1.23 mg/dL (0.60-1.30); POTASSIUM 4.8 mmol/L (3.5-5.1); THYROID STIMULATING HORMONE 3.98 uIU/mL (0.36-3.74); TOTAL PROTEIN, SERUM 7.4 g/dL (6.4-8.2)
[2018-07-17 08:20] VITALS: BP 116/74
[2018-07-17] MEDS: RIVAROXABAN 15 MG TABLET PO SCH ×2 (08:25→16:39)
[2018-07-17] MEDS: SODIUM CHLORIDE 1 GM TABLET PO SCH ×2 (08:25→16:39)
[2018-07-17] MEDS: RisperiDONE 1 MG TABLET PO SCH ×2 (08:25→16:39)
[2018-07-17] MEDS: DIVALPROEX SODIUM 500 MG DR TABLET PO SCH ×2 (08:25→16:39)
[2018-07-17 16:44] LABS: GLUCOMETER DEV NAME(LOC) 3E.I; GLUCOSE,POINT OF CARE 106 MG/DL (70-110)
[2018-07-17 17:40] VITALS: BP 142/97
[2018-07-17] MEDS: INSULIN LISPRO 100 UNITS/ML SQ PRN (21:16)
[2018-07-17 21:24] LABS: GLUCOMETER DEV NAME(LOC) 3E.I; GLUCOSE,POINT OF CARE 151 MG/DL (70-110)
[2018-07-18 06:52] LABS: CALCIUM, TOTAL 8.9 mg/dL (8.8-10.5); CREATININE 1.15 mg/dL (0.60-1.30); FREE T4 (FREE THYROXINE) 0.91 ng/dL (0.76-1.46); POTASSIUM 4.9 mmol/L (3.5-5.1)
[2018-07-18] MEDS: DIVALPROEX SODIUM 500 MG DR TABLET PO SCH ×2 (10:48→16:55)
[2018-07-18] MEDS: RisperiDONE 1 MG TABLET PO SCH ×2 (10:48→16:55)
[2018-07-18] MEDS: SODIUM CHLORIDE 1 GM TABLET PO SCH ×2 (10:48→16:55)
[2018-07-18 12:03] LABS: GLUCOMETER DEV NAME(LOC) 3E.I; GLUCOSE,POINT OF CARE 131 MG/DL (70-110)
[2018-07-18] MEDS: LORazepam 1 MG TABLET PO PRN ×2 (16:55→22:12)
[2018-07-18] MEDS: RIVAROXABAN 15 MG TABLET PO SCH (16:55)
[2018-07-18 16:58] LABS: GLUCOMETER DEV NAME(LOC) 3E.I; GLUCOSE,POINT OF CARE 216 MG/DL (70-110)
[2018-07-18] MEDS: INSULIN LISPRO 100 UNITS/ML SQ PRN (17:42)
[2018-07-18 21:18] VITALS: BP 140/90
[2018-07-19] MEDS: LORazepam 1 MG TABLET PO PRN ×4 (02:16→19:30)
[2018-07-19 06:10] LABS: GLUCOMETER DEV NAME(LOC) 3E.I; GLUCOSE,POINT OF CARE 112 MG/DL (70-110)
[2018-07-19 09:47] VITALS: BP 154/76
[2018-07-19] MEDS: RisperiDONE 1 MG TABLET PO SCH ×2 (10:16→16:55)
[2018-07-19] MEDS: DIVALPROEX SODIUM 500 MG DR TABLET PO SCH ×2 (10:16→16:54)
[2018-07-19] MEDS: SODIUM CHLORIDE 1 GM TABLET PO SCH (10:16)
[2018-07-19 12:19] LABS: GLUCOMETER DEV NAME(LOC) 3E.I; GLUCOSE,POINT OF CARE 141 MG/DL (70-110)
[2018-07-19] MEDS: INSULIN LISPRO 100 UNITS/ML SQ PRN ×2 (13:14→17:41)
[2018-07-19] MEDS: HALOPERIDOL 5 MG TABLET PO PRN (16:25)
[2018-07-19 16:49] LABS: GLUCOMETER DEV NAME(LOC) 3E.I; GLUCOSE,POINT OF CARE 183 MG/DL (70-110)
[2018-07-19] MEDS: RIVAROXABAN 15 MG TABLET PO SCH (16:55)
[2018-07-19 19:19] VITALS: BP 122/73
[2018-07-19] MEDS: ZOLPIDEM TARTRATE 10 MG TABLET PO PRN (21:39)
[2018-07-20] MEDS: LORazepam 1 MG TABLET PO PRN (00:40)
[2018-07-20 02:45] VITALS: BP 188/66
[2018-07-20 05:48] LABS: GLUCOMETER DEV NAME(LOC) 3E.I; GLUCOSE,POINT OF CARE 164 MG/DL (70-110)
[2018-07-20] MEDS: INSULIN LISPRO 100 UNITS/ML SQ PRN ×2 (07:03→12:43)
[2018-07-20] MEDS ORDERED: PROPRANOLOL HCL 10 MG TABLET PO SCH (09:00)
[2018-07-20 09:56] LABS: CALCIUM, TOTAL 9.6 mg/dL (8.8-10.5); CREATININE 1.28 mg/dL (0.60-1.30); POTASSIUM 4.4 mmol/L (3.5-5.1)
[2018-07-20 11:29] LABS: GLUCOMETER DEV NAME(LOC) 3E.I; GLUCOSE,POINT OF CARE 144 MG/DL (70-110)
[2018-07-20] MEDS: DIVALPROEX SODIUM 500 MG DR TABLET PO SCH ×2 (12:36→16:38)
[2018-07-20] MEDS: RisperiDONE 1 MG TABLET PO SCH ×2 (12:36→16:38)
[2018-07-20] MEDS: PROPRANOLOL HCL 80 MG PO SCH (12:43)
[2018-07-20] MEDS: RIVAROXABAN 15 MG TABLET PO SCH (16:38)
[2018-07-20 17:49] LABS: GLUCOMETER DEV NAME(LOC) 3E.C; GLUCOSE,POINT OF CARE 151 MG/DL (70-110)
[2018-07-20 19:12] VITALS: BP 147/84
[2018-07-20] MEDS: IBUPROFEN 400 MG TABLET PO PRN (19:12)
[2018-07-21] MEDS: HALOPERIDOL 5 MG TABLET PO PRN ×2 (01:36→17:26)
[2018-07-21] MEDS: LORazepam 1 MG TABLET PO PRN ×3 (01:36→21:05)
[2018-07-21 02:08] VITALS: BP 144/77
[2018-07-21 05:34] LABS: GLUCOMETER DEV NAME(LOC) 3E.I; GLUCOSE,POINT OF CARE 138 MG/DL (70-110)
[2018-07-21 06:38] LABS: CALCIUM, TOTAL 9.1 mg/dL (8.8-10.5); CREATININE 1.22 mg/dL (0.60-1.30); POTASSIUM 4.6 mmol/L (3.5-5.1)
[2018-07-21 09:19] VITALS: BP 138/82
[2018-07-21] MEDS: RisperiDONE 1 MG TABLET PO SCH ×2 (10:04→17:25)
[2018-07-21] MEDS: PROPRANOLOL HCL 80 MG PO SCH (10:04)
[2018-07-21] MEDS: DIVALPROEX SODIUM 500 MG DR TABLET PO SCH ×2 (10:04→17:25)
[2018-07-21 11:49] LABS: GLUCOMETER DEV NAME(LOC) 3E.I; GLUCOSE,POINT OF CARE 136 MG/DL (70-110)
[2018-07-21 16:43] LABS: GLUCOMETER DEV NAME(LOC) 3E.I; GLUCOSE,POINT OF CARE 245 MG/DL (70-110)
[2018-07-21] MEDS: RIVAROXABAN 15 MG TABLET PO SCH (17:25)
[2018-07-21 17:39] VITALS: BP 137/88
[2018-07-21] MEDS: INSULIN LISPRO 100 UNITS/ML SQ PRN (17:53)
[2018-07-21 21:38] LABS: GLUCOMETER DEV NAME(LOC) 3E.I; GLUCOSE,POINT OF CARE 119 MG/DL (70-110)
[2018-07-21 21:38] LABS: GLUCOMETER DEV NAME(LOC) 3E.I; GLUCOSE,POINT OF CARE 56 MG/DL (70-110)
[2018-07-22] MEDS: LORazepam 1 MG TABLET PO PRN ×2 (01:52→08:55)
[2018-07-22 05:54] LABS: GLUCOMETER DEV NAME(LOC) 3E.I; GLUCOSE,POINT OF CARE 184 MG/DL (70-110)
[2018-07-22] MEDS: INSULIN LISPRO 100 UNITS/ML SQ PRN ×3 (06:50→21:30)
[2018-07-22 08:56] VITALS: BP 117/68
[2018-07-22] MEDS: ACETAMINOPHEN 325 MG TABLET PO PRN (08:56)
[2018-07-22] MEDS: DIVALPROEX SODIUM 500 MG DR TABLET PO SCH ×2 (08:56→16:46)
[2018-07-22] MEDS: PROPRANOLOL HCL 80 MG PO SCH (08:56)
[2018-07-22] MEDS: RisperiDONE 1 MG TABLET PO SCH ×2 (08:56→16:46)
[2018-07-22 11:34] LABS: GLUCOMETER DEV NAME(LOC) 3E.I; GLUCOSE,POINT OF CARE 166 MG/DL (70-110)
[2018-07-22 16:29] LABS: GLUCOMETER DEV NAME(LOC) 3E.I; GLUCOSE,POINT OF CARE 131 MG/DL (70-110)
[2018-07-22] MEDS: RIVAROXABAN 15 MG TABLET PO SCH (16:47)
[2018-07-22 19:04] VITALS: BP 129/76
[2018-07-22 21:01] LABS: GLUCOMETER DEV NAME(LOC) 3E.I; GLUCOSE,POINT OF CARE 162 MG/DL (70-110)
[2018-07-23 06:24] LABS: GLUCOMETER DEV NAME(LOC) 3E.I; GLUCOSE,POINT OF CARE 170 MG/DL (70-110)
[2018-07-23 07:14] LABS: CREATININE 1.2 mg/dL (0.60-1.30); MAGNESIUM 2.3 mg/dL (1.80-2.40); PHOSPHORUS 3.8 mg/dL (2.5-4.9); POTASSIUM 4.4 mmol/L (3.5-5.1)
[2018-07-23] MEDS: INSULIN LISPRO 100 UNITS/ML SQ PRN ×3 (07:17→17:14)
[2018-07-23 08:22] VITALS: BP 118/59
[2018-07-23] MEDS: RisperiDONE 1 MG TABLET PO SCH ×2 (09:00→16:10)
[2018-07-23] MEDS: PROPRANOLOL HCL 80 MG PO SCH (09:00)
[2018-07-23] MEDS: DIVALPROEX SODIUM 500 MG DR TABLET PO SCH ×2 (09:00→16:10)
[2018-07-23 11:39] LABS: GLUCOMETER DEV NAME(LOC) 3E.I; GLUCOSE,POINT OF CARE 110 MG/DL (70-110)
[2018-07-23] MEDS: RIVAROXABAN 15 MG TABLET PO SCH (16:10)
[2018-07-23 16:34] LABS: GLUCOMETER DEV NAME(LOC) 3E.I; GLUCOSE,POINT OF CARE 281 MG/DL (70-110)
[2018-07-23 17:00] VITALS: BP 116/67
[2018-07-23 20:59] LABS: GLUCOMETER DEV NAME(LOC) 3E.I; GLUCOSE,POINT OF CARE 100 MG/DL (70-110)
[2018-07-24 05:48] LABS: GLUCOMETER DEV NAME(LOC) 3E.I; GLUCOSE,POINT OF CARE 294 MG/DL (70-110)
[2018-07-24] MEDS: INSULIN LISPRO 100 UNITS/ML SQ PRN ×4 (06:51→21:22)
[2018-07-24] MEDS: RisperiDONE 1 MG TABLET PO SCH ×2 (08:13→18:10)
[2018-07-24] MEDS: DIVALPROEX SODIUM 500 MG DR TABLET PO SCH ×2 (08:13→18:10)
[2018-07-24] MEDS: LORazepam 1 MG TABLET PO PRN (08:13)
[2018-07-24] MEDS: PROPRANOLOL HCL 80 MG PO SCH (08:14)
[2018-07-24] MEDS: LOPERAMIDE HCL 2 MG CAPSULE PO PRN (08:47)
[2018-07-24 09:39] VITALS: BP 130/68
[2018-07-24 11:28] LABS: GLUCOMETER DEV NAME(LOC) 3E.I; GLUCOSE,POINT OF CARE 154 MG/DL (70-110)
[2018-07-24 16:34] LABS: GLUCOMETER DEV NAME(LOC) 3E.I; GLUCOSE,POINT OF CARE 188 MG/DL (70-110)
[2018-07-24] MEDS: RIVAROXABAN 15 MG TABLET PO SCH (18:10)
[2018-07-24 23:09] LABS: GLUCOMETER DEV NAME(LOC) 3E.C; GLUCOSE,POINT OF CARE 226 MG/DL (70-110)
[2018-07-25 05:54] LABS: GLUCOMETER DEV NAME(LOC) 3E.I; GLUCOSE,POINT OF CARE 179 MG/DL (70-110)
[2018-07-25] MEDS: INSULIN LISPRO 100 UNITS/ML SQ PRN ×4 (06:44→20:34)
[2018-07-25 08:11] VITALS: BP 160/97
[2018-07-25 08:27] LABS: CALCIUM, TOTAL 9.6 mg/dL (8.8-10.5); CREATININE 1.16 mg/dL (0.60-1.30); MAGNESIUM 2.1 mg/dL (1.80-2.40); PHOSPHORUS 3.2 mg/dL (2.5-4.9); POTASSIUM 4.5 mmol/L (3.5-5.1)
[2018-07-25] MEDS: RisperiDONE 1 MG TABLET PO SCH ×2 (08:36→16:39)
[2018-07-25] MEDS: DIVALPROEX SODIUM 500 MG DR TABLET PO SCH ×2 (08:36→16:39)
[2018-07-25] MEDS: LORazepam 1 MG TABLET PO PRN (08:36)
[2018-07-25] MEDS: PROPRANOLOL HCL 80 MG PO SCH (08:36)
[2018-07-25 11:29] LABS: GLUCOMETER DEV NAME(LOC) 3E.I; GLUCOSE,POINT OF CARE 228 MG/DL (70-110)
[2018-07-25 12:00] VITALS: BP 115/57
[2018-07-25 16:20] VITALS: BP 142/72
[2018-07-25] MEDS: RIVAROXABAN 15 MG TABLET PO SCH (16:39)
[2018-07-25] MEDS: HALOPERIDOL 5 MG TABLET PO PRN ×2 (17:17→22:22)
[2018-07-25] MEDS: MAGNESIUM HYDROXIDE SUSPENSION 30 ML UDCUP PO PRN (17:44)
[2018-07-25 20:54] LABS: GLUCOMETER DEV NAME(LOC) 3E.I; GLUCOSE,POINT OF CARE 171 MG/DL (70-110)
[2018-07-26 05:34] LABS: GLUCOMETER DEV NAME(LOC) 3E.I; GLUCOSE,POINT OF CARE 180 MG/DL (70-110)
[2018-07-26 08:43] VITALS: BP 108/67
[2018-07-26] MEDS: DIVALPROEX SODIUM 500 MG DR TABLET PO SCH ×2 (08:54→17:38)
[2018-07-26] MEDS: PROPRANOLOL HCL 80 MG PO SCH (08:55)
[2018-07-26] MEDS: RisperiDONE 1 MG TABLET PO SCH ×2 (08:55→17:38)
[2018-07-26 11:29] LABS: GLUCOMETER DEV NAME(LOC) 3E.I; GLUCOSE,POINT OF CARE 216 MG/DL (70-110)
[2018-07-26] MEDS: INSULIN LISPRO 100 UNITS/ML SQ PRN ×3 (11:32→21:16)
[2018-07-26 16:13] LABS: GLUCOMETER DEV NAME(LOC) 3E.I; GLUCOSE,POINT OF CARE 188 MG/DL (70-110)
[2018-07-26 16:29] VITALS: BP 123/82
[2018-07-26] MEDS: RIVAROXABAN 15 MG TABLET PO SCH (17:38)
[2018-07-26 20:48] LABS: GLUCOMETER DEV NAME(LOC) 3E.I; GLUCOSE,POINT OF CARE 165 MG/DL (70-110)
[2018-07-26] MEDS: HALOPERIDOL 5 MG TABLET PO PRN (20:59)
[2018-07-26] MEDS: LORazepam 1 MG TABLET PO PRN (22:48)
[2018-07-27] MEDS: INSULIN LISPRO 100 UNITS/ML SQ PRN ×3 (06:48→17:29)
[2018-07-27] MEDS: DIVALPROEX SODIUM 500 MG DR TABLET PO SCH ×2 (08:50→16:02)
[2018-07-27] MEDS: RisperiDONE 1 MG TABLET PO SCH ×2 (08:50→16:02)
[2018-07-27] MEDS: PROPRANOLOL HCL 80 MG PO SCH (08:50)
[2018-07-27 11:19] LABS: GLUCOMETER DEV NAME(LOC) 3E.I; GLUCOSE,POINT OF CARE 199 MG/DL (70-110)
[2018-07-27 12:59] VITALS: BP 149/98
[2018-07-27] MEDS: RIVAROXABAN 15 MG TABLET PO SCH (16:02)
[2018-07-27 16:14] LABS: GLUCOMETER DEV NAME(LOC) 3E.I; GLUCOSE,POINT OF CARE 217 MG/DL (70-110)
[2018-07-27 16:33] VITALS: BP 120/70
[2018-07-27] MEDS: LORazepam 1 MG TABLET PO PRN (16:47)
[2018-07-27] MEDS: HALOPERIDOL 5 MG TABLET PO PRN (16:47)
[2018-07-28] MEDS: LORazepam 1 MG TABLET PO PRN (03:07)
[2018-07-28] MEDS: HALOPERIDOL 5 MG TABLET PO PRN (03:07)
[2018-07-28 03:31] VITALS: BP 129/72
[2018-07-28 05:24] LABS: GLUCOMETER DEV NAME(LOC) 3E.I; GLUCOSE,POINT OF CARE 209 MG/DL (70-110)
[2018-07-28] MEDS: INSULIN LISPRO 100 UNITS/ML SQ PRN ×4 (06:42→21:13)
[2018-07-28 07:07] LABS: CALCIUM, TOTAL 9.7 mg/dL (8.8-10.5); CREATININE 1.07 mg/dL (0.60-1.30); MAGNESIUM 2.3 mg/dL (1.80-2.40); PHOSPHORUS 4.3 mg/dL (2.5-4.9); POTASSIUM 5.1 mmol/L (3.5-5.1)
[2018-07-28 08:05] VITALS: BP 144/90
[2018-07-28] MEDS: PROPRANOLOL HCL 80 MG PO SCH (08:38)
[2018-07-28] MEDS: RisperiDONE 1 MG TABLET PO SCH ×2 (08:38→16:47)
[2018-07-28] MEDS: DIVALPROEX SODIUM 500 MG DR TABLET PO SCH ×2 (08:38→16:47)
[2018-07-28 09:05] VITALS: BP 142/84
[2018-07-28] MEDS: ACETAMINOPHEN 325 MG TABLET PO PRN (09:05)
[2018-07-28 09:59] LABS: GLUCOMETER DEV NAME(LOC) 3E.I; GLUCOSE,POINT OF CARE 156 MG/DL (70-110)
[2018-07-28 09:59] LABS: GLUCOMETER DEV NAME(LOC) 3E.I; GLUCOSE,POINT OF CARE 182 MG/DL (70-110)
[2018-07-28 10:05] VITALS: BP 140/86
[2018-07-28 11:39] LABS: GLUCOMETER DEV NAME(LOC) 3E.I; GLUCOSE,POINT OF CARE 208 MG/DL (70-110)
[2018-07-28] MEDS: RIVAROXABAN 15 MG TABLET PO SCH (17:12)
[2018-07-28 17:27] VITALS: BP 128/70
[2018-07-28 17:44] LABS: GLUCOMETER DEV NAME(LOC) 3E.I; GLUCOSE,POINT OF CARE 192 MG/DL (70-110)
[2018-07-28 21:14] LABS: GLUCOMETER DEV NAME(LOC) 3E.I; GLUCOSE,POINT OF CARE 151 MG/DL (70-110)
[2018-07-29 02:58] VITALS: BP 140/71
[2018-07-29 06:19] LABS: GLUCOMETER DEV NAME(LOC) 3E.I; GLUCOSE,POINT OF CARE 188 MG/DL (70-110)
[2018-07-29] MEDS: INSULIN LISPRO 100 UNITS/ML SQ PRN ×4 (06:54→20:09)
[2018-07-29] MEDS: LORazepam 1 MG TABLET PO PRN ×2 (08:09→20:12)
[2018-07-29] MEDS: RisperiDONE 1 MG TABLET PO SCH ×2 (08:09→16:36)
[2018-07-29] MEDS: DIVALPROEX SODIUM 500 MG DR TABLET PO SCH ×2 (08:09→16:36)
[2018-07-29] MEDS: PROPRANOLOL HCL 80 MG PO SCH (08:09)
[2018-07-29 10:00] VITALS: BP 129/78
[2018-07-29 11:14] LABS: GLUCOMETER DEV NAME(LOC) 3E.I; GLUCOSE,POINT OF CARE 255 MG/DL (70-110)
[2018-07-29 16:30] VITALS: BP 132/80
[2018-07-29] MEDS: RIVAROXABAN 15 MG TABLET PO SCH (16:36)
[2018-07-29 17:14] LABS: GLUCOMETER DEV NAME(LOC) 3E.I; GLUCOSE,POINT OF CARE 159 MG/DL (70-110)
[2018-07-29] MEDS: HALOPERIDOL 5 MG TABLET PO PRN (20:12)
[2018-07-29 20:23] LABS: GLUCOMETER DEV NAME(LOC) 3E.I; GLUCOSE,POINT OF CARE 179 MG/DL (70-110)
[2018-07-30 00:40] VITALS: BP 150/74
[2018-07-30] MEDS: INSULIN LISPRO 100 UNITS/ML SQ PRN ×4 (06:44→21:30)
[2018-07-30 06:49] LABS: GLUCOMETER DEV NAME(LOC) 3E.I; GLUCOSE,POINT OF CARE 202 MG/DL (70-110)
[2018-07-30] MEDS: PROPRANOLOL HCL 80 MG PO SCH (08:27)
[2018-07-30] MEDS: RisperiDONE 1 MG TABLET PO SCH ×2 (08:27→17:30)
[2018-07-30] MEDS: DIVALPROEX SODIUM 500 MG DR TABLET PO SCH ×2 (08:27→17:30)
[2018-07-30 09:28] VITALS: BP 114/74
[2018-07-30 09:38] LABS: CALCIUM, TOTAL 9.1 mg/dL (8.8-10.5); CREATININE 1.11 mg/dL (0.60-1.30); POTASSIUM 4.4 mmol/L (3.5-5.1)
[2018-07-30 11:09] LABS: GLUCOMETER DEV NAME(LOC) 3E.I; GLUCOSE,POINT OF CARE 176 MG/DL (70-110)
[2018-07-30 16:43] LABS: GLUCOMETER DEV NAME(LOC) 3E.I; GLUCOSE,POINT OF CARE 174 MG/DL (70-110)
[2018-07-30] MEDS: RIVAROXABAN 15 MG TABLET PO SCH (17:30)
[2018-07-30 20:29] LABS: GLUCOMETER DEV NAME(LOC) 3E.I; GLUCOSE,POINT OF CARE 264 MG/DL (70-110)
[2018-07-30 22:55] VITALS: BP 125/82
[2018-07-31 05:10] VITALS: BP 129/80
[2018-07-31 05:59] LABS: GLUCOMETER DEV NAME(LOC) 3E.I; GLUCOSE,POINT OF CARE 192 MG/DL (70-110)
[2018-07-31] MEDS: INSULIN LISPRO 100 UNITS/ML SQ PRN ×3 (06:44→21:39)
[2018-07-31] MEDS: PROPRANOLOL HCL 80 MG PO SCH (09:05)
[2018-07-31] MEDS: DIVALPROEX SODIUM 500 MG DR TABLET PO SCH ×2 (09:05→16:10)
[2018-07-31] MEDS: RisperiDONE 1 MG TABLET PO SCH ×2 (09:05→16:10)
[2018-07-31 12:35] VITALS: BP 114/84
[2018-07-31] MEDS: RIVAROXABAN 15 MG TABLET PO SCH (16:10)
[2018-07-31 16:14] LABS: GLUCOMETER DEV NAME(LOC) 3E.I; GLUCOSE,POINT OF CARE 253 MG/DL (70-110)
[2018-07-31 16:44] VITALS: BP 123/73
[2018-07-31 21:44] LABS: GLUCOMETER DEV NAME(LOC) 3E.I; GLUCOSE,POINT OF CARE 191 MG/DL (70-110)
[2018-08-01 06:00] LABS: BASOPHILS % (AUTO) 0.9 % (0.0-2.0); EOSINOPHILS % (AUTO) 3.7 % (1.0-6.0); HEMATOCRIT 31.2 % (36-46); HEMOGLOBIN 10.3 g/dL (12.0-16.0); LYMPHOCYTES # (AUTO) 1.5 K/uL (1.0-4.8); LYMPHOCYTES % (AUTO) 29.3 % (22.0-44.0); MEAN CORPUSCULAR HEMOGLOBIN 30.7 pg (26.0-34.0); MEAN CORPUSCULAR VOLUME 93 fL (80-100); MONOCYTES # (AUTO) 0.7 K/uL (0.1-1.0); MONOCYTES % (AUTO) 13.9 % (2.0-9.0); NEUTROPHILS # (AUTO) 2.7 K/uL (1.8-7.7); NEUTROPHILS % (AUTO) 52.2 % (40.0-70.0); PLATELET COUNT (AUTO) 211 K/uL (150-450); RED BLOOD CELL COUNT(AUTO) 3.35 MIL/uL (4.00-5.20); RED CELL DISTRIBUTION WIDTH 15.3 % (11.5-14.5)
[2018-08-01 06:10] LABS: CALCIUM, TOTAL 8.9 mg/dL (8.8-10.5); CREATININE 1.18 mg/dL (0.60-1.30); POTASSIUM 5.1 mmol/L (3.5-5.1)
[2018-08-01 06:14] LABS: GLUCOMETER DEV NAME(LOC) 3E.I; GLUCOSE,POINT OF CARE 239 MG/DL (70-110)
[2018-08-01] MEDS: INSULIN LISPRO 100 UNITS/ML SQ PRN ×4 (06:21→20:29)
[2018-08-01 06:43] VITALS: BP 119/69
[2018-08-01] MEDS: HALOPERIDOL 5 MG TABLET PO PRN (07:56)
[2018-08-01] MEDS: RisperiDONE 1 MG TABLET PO SCH ×2 (07:56→16:26)
[2018-08-01] MEDS: DIVALPROEX SODIUM 500 MG DR TABLET PO SCH ×2 (07:56→16:26)
[2018-08-01] MEDS: PROPRANOLOL HCL 80 MG PO SCH (07:57)
[2018-08-01 08:05] VITALS: BP 155/57
[2018-08-01 11:59] LABS: GLUCOMETER DEV NAME(LOC) 3E.I; GLUCOSE,POINT OF CARE 171 MG/DL (70-110)
[2018-08-01] MEDS: RIVAROXABAN 15 MG TABLET PO SCH (16:26)
[2018-08-01 16:44] LABS: GLUCOMETER DEV NAME(LOC) 3E.I; GLUCOSE,POINT OF CARE 240 MG/DL (70-110)
[2018-08-01] MEDS: ATORVASTATIN CALCIUM 20 MG TABLET PO SCH (20:28)
[2018-08-01 22:50] VITALS: BP 123/73
[2018-08-01 23:04] LABS: GLUCOMETER DEV NAME(LOC) 3E.I; GLUCOSE,POINT OF CARE 228 MG/DL (70-110)
[2018-08-02] MEDS: ZOLPIDEM TARTRATE 10 MG TABLET PO PRN ×2 (00:14→20:13)
[2018-08-02 03:39] VITALS: BP 131/75
[2018-08-02] MEDS ORDERED: GLUCAGON,HUMAN RECOMBINANT 1 MG VIAL IM PRN (05:15)
[2018-08-02] MEDS: GlipiZIDE 5 MG TABLET PO SCH ×2 (06:54→16:18)
[2018-08-02 06:59] LABS: GLUCOMETER DEV NAME(LOC) BV2X.; GLUCOSE,POINT OF CARE 226 MG/DL (70-110)
[2018-08-02] MEDS: INSULIN LISPRO 100 UNITS/ML SQ PRN ×2 (06:59→16:59)
[2018-08-02] MEDS: DIVALPROEX SODIUM 500 MG DR TABLET PO SCH ×2 (08:34→16:18)
[2018-08-02] MEDS: PROPRANOLOL HCL 80 MG PO SCH (08:35)
[2018-08-02] MEDS: RisperiDONE 1 MG TABLET PO SCH ×2 (08:35→16:18)
[2018-08-02 09:46] VITALS: BP 124/77
[2018-08-02] MEDS: RIVAROXABAN 15 MG TABLET PO SCH (16:18)
[2018-08-02 16:32] VITALS: BP 121/63
[2018-08-02] MEDS: ATORVASTATIN CALCIUM 20 MG TABLET PO SCH (20:13)
[2018-08-02] MEDS: HALOPERIDOL 5 MG TABLET PO PRN (20:33)
[2018-08-02] MEDS: LORazepam 1 MG TABLET PO PRN (20:34)
[2018-08-03] MEDS: LORazepam 1 MG TABLET PO PRN (03:36)
[2018-08-03 06:24] LABS: GLUCOMETER DEV NAME(LOC) BV2X.; GLUCOSE,POINT OF CARE 174 MG/DL (70-110)
[2018-08-03] MEDS: GlipiZIDE 5 MG TABLET PO SCH ×2 (06:49→16:17)
[2018-08-03] MEDS: INSULIN LISPRO 100 UNITS/ML SQ PRN ×2 (07:07→11:59)
[2018-08-03 08:32] LABS: CALCIUM, TOTAL 9.1 mg/dL (8.8-10.5); CREATININE 1.2 mg/dL (0.60-1.30); POTASSIUM 4.7 mmol/L (3.5-5.1)
[2018-08-03] MEDS: DIVALPROEX SODIUM 500 MG DR TABLET PO SCH ×2 (08:40→16:17)
[2018-08-03] MEDS: PROPRANOLOL HCL 80 MG PO SCH (08:40)
[2018-08-03] MEDS: RisperiDONE 1 MG TABLET PO SCH ×2 (08:40→16:17)
[2018-08-03 09:32] VITALS: BP 117/84
[2018-08-03 10:20] VITALS: BP 120/76
[2018-08-03 10:35] VITALS: BP 119/72
[2018-08-03 11:29] LABS: GLUCOMETER DEV NAME(LOC) BV2X.; GLUCOSE,POINT OF CARE 172 MG/DL (70-110)
[2018-08-03] MEDS: RIVAROXABAN 15 MG TABLET PO SCH (16:17)
[2018-08-03 16:34] LABS: GLUCOMETER DEV NAME(LOC) BV2X.; GLUCOSE,POINT OF CARE 124 MG/DL (70-110)
[2018-08-03 17:51] VITALS: BP 119/60
[2018-08-03] MEDS: ATORVASTATIN CALCIUM 20 MG TABLET PO SCH (20:25)
[2018-08-03 20:39] LABS: GLUCOMETER DEV NAME(LOC) BV2X.; GLUCOSE,POINT OF CARE 119 MG/DL (70-110)
[2018-08-03] MEDS: ZOLPIDEM TARTRATE 10 MG TABLET PO PRN (21:40)
[2018-08-04 03:27] VITALS: BP 118/85
[2018-08-04 03:36] VITALS: BP 118/85
[2018-08-04] MEDS: LORazepam 1 MG TABLET PO PRN ×3 (03:42→16:39)
[2018-08-04] MEDS: INSULIN LISPRO 100 UNITS/ML SQ PRN ×4 (06:24→20:43)
[2018-08-04] MEDS: GlipiZIDE 5 MG TABLET PO SCH ×2 (06:59→16:39)
[2018-08-04 07:24] LABS: GLUCOMETER DEV NAME(LOC) BV2X.; GLUCOSE,POINT OF CARE 152 MG/DL (70-110)
[2018-08-04 08:00] VITALS: BP 125/71
[2018-08-04] MEDS: RisperiDONE 1 MG TABLET PO SCH ×2 (08:44→16:39)
[2018-08-04] MEDS: DIVALPROEX SODIUM 500 MG DR TABLET PO SCH ×2 (08:44→16:39)
[2018-08-04] MEDS: PROPRANOLOL HCL 80 MG PO SCH (08:45)
[2018-08-04 11:19] LABS: GLUCOMETER DEV NAME(LOC) BV2X.; GLUCOSE,POINT OF CARE 161 MG/DL (70-110)
[2018-08-04 16:21] VITALS: BP 118/86
[2018-08-04] MEDS: RIVAROXABAN 15 MG TABLET PO SCH (16:39)
[2018-08-04 16:49] LABS: GLUCOMETER DEV NAME(LOC) BV2X.; GLUCOSE,POINT OF CARE 208 MG/DL (70-110)
[2018-08-04] MEDS: HALOPERIDOL 5 MG TABLET PO PRN (18:21)
[2018-08-04] MEDS: ZOLPIDEM TARTRATE 10 MG TABLET PO PRN (20:43)
[2018-08-04] MEDS: ATORVASTATIN CALCIUM 20 MG TABLET PO SCH (20:43)
[2018-08-04 21:54] LABS: GLUCOMETER DEV NAME(LOC) BV2X.; GLUCOSE,POINT OF CARE 202 MG/DL (70-110)
[2018-08-05 04:56] VITALS: BP 124/85
[2018-08-05] MEDS: INSULIN LISPRO 100 UNITS/ML SQ PRN ×2 (06:23→17:23)
[2018-08-05] MEDS: GlipiZIDE 5 MG TABLET PO SCH ×2 (07:03→16:16)
[2018-08-05 07:14] LABS: GLUCOMETER DEV NAME(LOC) BV2X.; GLUCOSE,POINT OF CARE 141 MG/DL (70-110)
[2018-08-05] MEDS: PROPRANOLOL HCL 80 MG PO SCH (08:04)
[2018-08-05] MEDS: RisperiDONE 1 MG TABLET PO SCH ×2 (08:04→16:16)
[2018-08-05] MEDS: DIVALPROEX SODIUM 500 MG DR TABLET PO SCH ×2 (08:04→16:16)
[2018-08-05] MEDS: LORazepam 1 MG TABLET PO PRN (08:39)
[2018-08-05 08:57] VITALS: BP 106/81
[2018-08-05] MEDS: IBUPROFEN 400 MG TABLET PO PRN (10:24)
[2018-08-05 11:14] LABS: GLUCOMETER DEV NAME(LOC) BV2X.; GLUCOSE,POINT OF CARE 134 MG/DL (70-110)
[2018-08-05] MEDS: RIVAROXABAN 15 MG TABLET PO SCH (16:16)
[2018-08-05 16:28] VITALS: BP 130/64
[2018-08-05 17:20] LABS: GLUCOMETER DEV NAME(LOC) BV2X.; GLUCOSE,POINT OF CARE 216 MG/DL (70-110)
[2018-08-05] MEDS: ZOLPIDEM TARTRATE 10 MG TABLET PO PRN (20:45)
[2018-08-05] MEDS: ATORVASTATIN CALCIUM 20 MG TABLET PO SCH (21:00)
[2018-08-05 21:12] LABS: GLUCOMETER DEV NAME(LOC) BV2X.; GLUCOSE,POINT OF CARE 148 MG/DL (70-110)
[2018-08-06 05:53] VITALS: BP 131/76
[2018-08-06] MEDS: INSULIN LISPRO 100 UNITS/ML SQ PRN ×4 (06:33→20:47)
[2018-08-06] MEDS: GlipiZIDE 5 MG TABLET PO SCH ×2 (06:49→16:37)
[2018-08-06 07:20] LABS: GLUCOMETER DEV NAME(LOC) BV2X.; GLUCOSE,POINT OF CARE 163 MG/DL (70-110)
[2018-08-06 08:00] VITALS: BP 125/91
[2018-08-06] MEDS: LORazepam 1 MG TABLET PO PRN ×2 (08:30→16:37)
[2018-08-06] MEDS: PROPRANOLOL HCL 80 MG PO SCH (09:19)
[2018-08-06] MEDS: RisperiDONE 1 MG TABLET PO SCH (09:20)
[2018-08-06] MEDS: DIVALPROEX SODIUM 500 MG DR TABLET PO SCH ×2 (09:20→16:37)
[2018-08-06 09:49] LABS: CALCIUM, TOTAL 8.9 mg/dL (8.8-10.5); CREATININE 1.2 mg/dL (0.60-1.30); POTASSIUM 4.7 mmol/L (3.5-5.1)
[2018-08-06 11:14] LABS: GLUCOMETER DEV NAME(LOC) BV2X.; GLUCOSE,POINT OF CARE 180 MG/DL (70-110)
[2018-08-06 16:01] VITALS: BP 121/66
[2018-08-06] MEDS: RIVAROXABAN 15 MG TABLET PO SCH (16:37)
[2018-08-06 17:24] LABS: GLUCOMETER DEV NAME(LOC) BV2X.; GLUCOSE,POINT OF CARE 240 MG/DL (70-110)
[2018-08-06] MEDS: ATORVASTATIN CALCIUM 20 MG TABLET PO SCH (20:50)
[2018-08-06] MEDS: RisperiDONE 2 MG TABLET PO SCH (20:51)
[2018-08-06 20:59] LABS: GLUCOMETER DEV NAME(LOC) BV2X.; GLUCOSE,POINT OF CARE 245 MG/DL (70-110)
[2018-08-07 06:37] VITALS: BP 118/54
[2018-08-07] MEDS: INSULIN LISPRO 100 UNITS/ML SQ PRN ×3 (06:49→22:03)
[2018-08-07] MEDS: GlipiZIDE 5 MG TABLET PO SCH ×2 (07:04→17:01)
[2018-08-07 07:34] LABS: GLUCOMETER DEV NAME(LOC) BV2X.; GLUCOSE,POINT OF CARE 160 MG/DL (70-110)
[2018-08-07 08:38] VITALS: BP 148/70
[2018-08-07] MEDS: DIVALPROEX SODIUM 500 MG DR TABLET PO SCH ×2 (09:03→17:22)
[2018-08-07] MEDS: RisperiDONE 1 MG TABLET PO SCH (09:03)
[2018-08-07] MEDS: LORazepam 1 MG TABLET PO PRN ×2 (09:03→14:47)
[2018-08-07] MEDS: PROPRANOLOL HCL 80 MG PO SCH (09:03)
[2018-08-07 10:56] VITALS: BP 133/91
[2018-08-07 11:24] LABS: GLUCOMETER DEV NAME(LOC) BV2X.; GLUCOSE,POINT OF CARE 135 MG/DL (70-110)
[2018-08-07 16:11] VITALS: BP 121/82
[2018-08-07 16:54] LABS: GLUCOMETER DEV NAME(LOC) BV2X.; GLUCOSE,POINT OF CARE 195 MG/DL (70-110)
[2018-08-07] MEDS: RIVAROXABAN 15 MG TABLET PO SCH (17:02)
[2018-08-07] MEDS: ATORVASTATIN CALCIUM 20 MG TABLET PO SCH (20:45)
[2018-08-07] MEDS: RisperiDONE 2 MG TABLET PO SCH (20:45)
[2018-08-07 20:49] LABS: GLUCOMETER DEV NAME(LOC) BV2X.; GLUCOSE,POINT OF CARE 181 MG/DL (70-110)
[2018-08-08 05:33] VITALS: BP 165/86
[2018-08-08 06:54] LABS: GLUCOMETER DEV NAME(LOC) BV2X.; GLUCOSE,POINT OF CARE 242 MG/DL (70-110)
[2018-08-08] MEDS: GlipiZIDE 5 MG TABLET PO SCH ×2 (07:08→16:36)
[2018-08-08] MEDS: INSULIN LISPRO 100 UNITS/ML SQ PRN ×4 (07:09→20:48)
[2018-08-08 08:03] VITALS: BP 124/77
[2018-08-08] MEDS: RisperiDONE 1 MG TABLET PO SCH (08:20)
[2018-08-08] MEDS: PROPRANOLOL HCL 80 MG PO SCH (08:20)
[2018-08-08] MEDS: DIVALPROEX SODIUM 500 MG DR TABLET PO SCH ×2 (08:20→16:37)
[2018-08-08 11:19] LABS: GLUCOMETER DEV NAME(LOC) BV2X.; GLUCOSE,POINT OF CARE 150 MG/DL (70-110)
[2018-08-08 16:32] VITALS: BP 125/88
[2018-08-08] MEDS: RIVAROXABAN 15 MG TABLET PO SCH (16:36)
[2018-08-08] MEDS: LORazepam 1 MG TABLET PO PRN (17:50)
[2018-08-08] MEDS: RisperiDONE 2 MG TABLET PO SCH (20:37)
[2018-08-08] MEDS: ATORVASTATIN CALCIUM 20 MG TABLET PO SCH (20:37)
[2018-08-08 20:49] LABS: GLUCOMETER DEV NAME(LOC) BV2X.; GLUCOSE,POINT OF CARE 244 MG/DL (70-110)
[2018-08-08 20:49] LABS: GLUCOMETER DEV NAME(LOC) BV2X.; GLUCOSE,POINT OF CARE 154 MG/DL (70-110)
[2018-08-09 03:44] VITALS: BP 122/80
[2018-08-09 06:19] LABS: GLUCOMETER DEV NAME(LOC) BV2X.; GLUCOSE,POINT OF CARE 142 MG/DL (70-110)
[2018-08-09] MEDS: GlipiZIDE 5 MG TABLET PO SCH ×2 (06:49→16:06)
[2018-08-09] MEDS: INSULIN LISPRO 100 UNITS/ML SQ PRN ×4 (06:50→21:18)
[2018-08-09 07:38] LABS: CALCIUM, TOTAL 8.8 mg/dL (8.8-10.5); CREATININE 1.18 mg/dL (0.60-1.30); POTASSIUM 5.2 mmol/L (3.5-5.1)
[2018-08-09] MEDS ORDERED: SODIUM POLYSTYRENE SULFONATE 15 GM/60 ML SUSPENSION BOTTLE PO ONE (08:30)
[2018-08-09] MEDS: RisperiDONE 1 MG TABLET PO SCH (08:34)
[2018-08-09] MEDS: PROPRANOLOL HCL 80 MG PO SCH (08:34)
[2018-08-09] MEDS: DIVALPROEX SODIUM 500 MG DR TABLET PO SCH ×2 (08:34→16:06)
[2018-08-09] MEDS: LORazepam 1 MG TABLET PO PRN ×2 (08:37→15:44)
[2018-08-09 08:45] VITALS: BP 124/78
[2018-08-09 11:04] LABS: GLUCOMETER DEV NAME(LOC) BV2X.; GLUCOSE,POINT OF CARE 164 MG/DL (70-110)
[2018-08-09] MEDS: IBUPROFEN 400 MG TABLET PO PRN (14:17)
[2018-08-09] MEDS: HALOPERIDOL 5 MG TABLET PO PRN (16:00)
[2018-08-09 16:06] VITALS: BP 125/61
[2018-08-09] MEDS: RIVAROXABAN 15 MG TABLET PO SCH (16:06)
[2018-08-09 16:34] LABS: GLUCOMETER DEV NAME(LOC) BV2X.; GLUCOSE,POINT OF CARE 203 MG/DL (70-110)
[2018-08-09] MEDS: MAGNESIUM HYDROXIDE SUSPENSION 30 ML UDCUP PO PRN (16:38)
[2018-08-09] MEDS: ATORVASTATIN CALCIUM 20 MG TABLET PO SCH (19:41)
[2018-08-09] MEDS: RisperiDONE 2 MG TABLET PO SCH (19:41)
[2018-08-09] MEDS: ZOLPIDEM TARTRATE 10 MG TABLET PO PRN (20:40)
[2018-08-09 21:19] LABS: GLUCOMETER DEV NAME(LOC) BV2X.; GLUCOSE,POINT OF CARE 166 MG/DL (70-110)
[2018-08-10 02:28] VITALS: BP 126/82
[2018-08-10] MEDS: GlipiZIDE 5 MG TABLET PO SCH ×2 (06:59→16:22)
[2018-08-10 07:19] LABS: GLUCOMETER DEV NAME(LOC) BV3S.; GLUCOSE,POINT OF CARE 138 MG/DL (70-110)
[2018-08-10 08:08] VITALS: BP 131/59
[2018-08-10] MEDS: PROPRANOLOL HCL 80 MG PO SCH (08:17)
[2018-08-10] MEDS: DIVALPROEX SODIUM 500 MG DR TABLET PO SCH ×2 (08:17→16:21)
[2018-08-10] MEDS: RisperiDONE 1 MG TABLET PO SCH (08:17)
[2018-08-10] MEDS: LORazepam 1 MG TABLET PO PRN (08:17)
[2018-08-10] MEDS: HALOPERIDOL 5 MG TABLET PO PRN (08:46)
[2018-08-10 11:14] LABS: GLUCOMETER DEV NAME(LOC) BV3S.; GLUCOSE,POINT OF CARE 182 MG/DL (70-110)
[2018-08-10] MEDS: INSULIN LISPRO 100 UNITS/ML SQ PRN (11:55)
[2018-08-10] MEDS: RIVAROXABAN 15 MG TABLET PO SCH (16:21)
[2018-08-10 17:09] LABS: GLUCOMETER DEV NAME(LOC) BV3S.; GLUCOSE,POINT OF CARE 256 MG/DL (70-110)
[2018-08-10 17:23] VITALS: BP 128/79
[2018-08-10] MEDS: RisperiDONE 2 MG TABLET PO SCH (20:09)
[2018-08-10 21:32] LABS: GLUCOMETER DEV NAME(LOC) BV3S.; GLUCOSE,POINT OF CARE 127 MG/DL (70-110)
[2018-08-10] MEDS: ATORVASTATIN CALCIUM 20 MG TABLET PO SCH (21:58)
[2018-08-10 22:43] VITALS: BP 134/80
[2018-08-10] MEDS: ACETAMINOPHEN 325 MG TABLET PO PRN (22:46)
[2018-08-11 05:58] VITALS: BP 124/79
[2018-08-11 06:24] LABS: GLUCOMETER DEV NAME(LOC) BV3S.; GLUCOSE,POINT OF CARE 117 MG/DL (70-110)
[2018-08-11] MEDS: GlipiZIDE 5 MG TABLET PO SCH ×2 (06:46→16:47)
[2018-08-11] MEDS: MAG HYDROX/AL HYDROX/SIMETH ES 30 ML SUSPENSION UDCUP PO PRN (07:29)
[2018-08-11 09:10] LABS: CALCIUM, TOTAL 8.6 mg/dL (8.8-10.5); CREATININE 1.16 mg/dL (0.60-1.30); POTASSIUM 4.8 mmol/L (3.5-5.1)
[2018-08-11] MEDS: LORazepam 1 MG TABLET PO PRN ×2 (09:36→18:43)
[2018-08-11] MEDS: PROPRANOLOL HCL 80 MG PO SCH (09:36)
[2018-08-11] MEDS: RisperiDONE 1 MG TABLET PO SCH (09:36)
[2018-08-11] MEDS: DIVALPROEX SODIUM 500 MG DR TABLET PO SCH ×2 (09:36→16:52)
[2018-08-11 11:40] LABS: GLUCOMETER DEV NAME(LOC) BV3S.; GLUCOSE,POINT OF CARE 211 MG/DL (70-110)
[2018-08-11] MEDS: INSULIN LISPRO 100 UNITS/ML SQ PRN ×3 (11:45→21:54)
[2018-08-11] MEDS: ACETAMINOPHEN 325 MG TABLET PO PRN (11:47)
[2018-08-11 13:52] VITALS: BP 128/82
[2018-08-11 16:35] VITALS: BP 134/67
[2018-08-11] MEDS: RIVAROXABAN 15 MG TABLET PO SCH (16:52)
[2018-08-11 17:20] LABS: GLUCOMETER DEV NAME(LOC) BV3S.; GLUCOSE,POINT OF CARE 251 MG/DL (70-110)
[2018-08-11] MEDS: IBUPROFEN 400 MG TABLET PO PRN (18:43)
[2018-08-11] MEDS: RisperiDONE 2 MG TABLET PO SCH (20:33)
[2018-08-11] MEDS: ATORVASTATIN CALCIUM 20 MG TABLET PO SCH (20:39)
[2018-08-11 21:34] LABS: GLUCOMETER DEV NAME(LOC) BV3N.; GLUCOSE,POINT OF CARE 160 MG/DL (70-110)
[2018-08-12 00:30] VITALS: BP 136/52
[2018-08-12] MEDS: ZOLPIDEM TARTRATE 10 MG TABLET PO PRN (01:37)
[2018-08-12 06:20] LABS: GLUCOMETER DEV NAME(LOC) BV3S.; GLUCOSE,POINT OF CARE 135 MG/DL (70-110)
[2018-08-12] MEDS: GlipiZIDE 5 MG TABLET PO SCH ×2 (07:04→16:16)
[2018-08-12 08:12] VITALS: BP 170/93
[2018-08-12] MEDS: RisperiDONE 1 MG TABLET PO SCH (08:33)
[2018-08-12] MEDS: PROPRANOLOL HCL 80 MG PO SCH (08:33)
[2018-08-12] MEDS: DIVALPROEX SODIUM 500 MG DR TABLET PO SCH ×2 (08:33→16:16)
[2018-08-12] MEDS: LORazepam 1 MG TABLET PO PRN ×2 (08:34→16:16)
[2018-08-12] MEDS: HALOPERIDOL 5 MG TABLET PO PRN (09:05)
[2018-08-12] MEDS: MAGNESIUM HYDROXIDE SUSPENSION 30 ML UDCUP PO PRN (09:48)
[2018-08-12 11:15] LABS: GLUCOMETER DEV NAME(LOC) BV3S.; GLUCOSE,POINT OF CARE 232 MG/DL (70-110)
[2018-08-12] MEDS: INSULIN LISPRO 100 UNITS/ML SQ PRN ×3 (11:54→21:15)
[2018-08-12 14:26] VITALS: BP 140/82
[2018-08-12] MEDS: RIVAROXABAN 15 MG TABLET PO SCH (16:17)
[2018-08-12] MEDS: LOPERAMIDE HCL 2 MG CAPSULE PO PRN (17:20)
[2018-08-12 17:35] LABS: GLUCOMETER DEV NAME(LOC) BV3S.; GLUCOSE,POINT OF CARE 172 MG/DL (70-110)
[2018-08-12 20:01] VITALS: BP 170/84
[2018-08-12] MEDS: CloNIDine HCL 0.1 MG TABLET PO PRN (20:27)
[2018-08-12] MEDS: RisperiDONE 2 MG TABLET PO SCH (20:28)
[2018-08-12] MEDS: ATORVASTATIN CALCIUM 20 MG TABLET PO SCH (20:34)
[2018-08-12] MEDS: IBUPROFEN 400 MG TABLET PO PRN (20:48)
[2018-08-12 22:05] VITALS: BP 142/81
[2018-08-12 22:26] LABS: GLUCOMETER DEV NAME(LOC) BV3S.; GLUCOSE,POINT OF CARE 176 MG/DL (70-110)
[2018-08-13 00:16] VITALS: BP 138/49
[2018-08-13 06:25] LABS: GLUCOMETER DEV NAME(LOC) BV3S.; GLUCOSE,POINT OF CARE 122 MG/DL (70-110)
[2018-08-13] MEDS: GlipiZIDE 5 MG TABLET PO SCH ×2 (06:37→17:18)
[2018-08-13 08:00] VITALS: BP 133/64
[2018-08-13] MEDS: PROPRANOLOL HCL 80 MG PO SCH (08:26)
[2018-08-13] MEDS: RisperiDONE 1 MG TABLET PO SCH (08:27)
[2018-08-13] MEDS: DIVALPROEX SODIUM 500 MG DR TABLET PO SCH ×2 (08:27→17:02)
[2018-08-13] MEDS: LORazepam 1 MG TABLET PO PRN ×2 (08:35→14:11)
[2018-08-13] MEDS: HALOPERIDOL 5 MG TABLET PO PRN ×2 (08:54→14:11)
[2018-08-13] MEDS: INSULIN LISPRO 100 UNITS/ML SQ PRN ×3 (10:47→21:32)
[2018-08-13 11:05] LABS: GLUCOMETER DEV NAME(LOC) BV2X.; GLUCOSE,POINT OF CARE 212 MG/DL (70-110)
[2018-08-13] MEDS: IBUPROFEN 400 MG TABLET PO PRN (14:12)
[2018-08-13] MEDS: RIVAROXABAN 15 MG TABLET PO SCH (17:18)
[2018-08-13 17:25] LABS: GLUCOMETER DEV NAME(LOC) BV2X.; GLUCOSE,POINT OF CARE 243 MG/DL (70-110)
[2018-08-13] MEDS: MAGNESIUM HYDROXIDE SUSPENSION 30 ML UDCUP PO PRN (19:00)
[2018-08-13 19:12] VITALS: BP 136/70
[2018-08-13] MEDS: RisperiDONE 2 MG TABLET PO SCH (20:44)
[2018-08-13] MEDS: ATORVASTATIN CALCIUM 20 MG TABLET PO SCH (20:44)
[2018-08-14 00:21] LABS: GLUCOMETER DEV NAME(LOC) BV2X.; GLUCOSE,POINT OF CARE 204 MG/DL (70-110)
[2018-08-14 06:19] LABS: GLUCOMETER DEV NAME(LOC) BV2X.; GLUCOSE,POINT OF CARE 146 MG/DL (70-110)
[2018-08-14] MEDS: INSULIN LISPRO 100 UNITS/ML SQ PRN ×2 (06:22→16:32)
[2018-08-14 07:13] VITALS: BP 134/68
[2018-08-14] MEDS: GlipiZIDE 5 MG TABLET PO SCH ×2 (07:13→16:25)
[2018-08-14 08:10] VITALS: BP 124/55
[2018-08-14] MEDS: HALOPERIDOL 5 MG TABLET PO PRN ×2 (08:22→12:37)
[2018-08-14] MEDS: LORazepam 1 MG TABLET PO PRN ×2 (08:22→12:37)
[2018-08-14] MEDS: DIVALPROEX SODIUM 500 MG DR TABLET PO SCH ×2 (08:22→16:25)
[2018-08-14] MEDS: RisperiDONE 1 MG TABLET PO SCH (08:23)
[2018-08-14] MEDS: PROPRANOLOL HCL 80 MG PO SCH (08:23)
[2018-08-14] MEDS: IBUPROFEN 400 MG TABLET PO PRN (10:10)
[2018-08-14] MEDS: LOPERAMIDE HCL 2 MG CAPSULE PO PRN (10:22)
[2018-08-14 10:49] LABS: GLUCOMETER DEV NAME(LOC) BV2X.; GLUCOSE,POINT OF CARE 93 MG/DL (70-110)
[2018-08-14 13:15] VITALS: BP 106/70
[2018-08-14] MEDS: RIVAROXABAN 15 MG TABLET PO SCH (16:25)
[2018-08-14 16:39] LABS: GLUCOMETER DEV NAME(LOC) BV2X.; GLUCOSE,POINT OF CARE 225 MG/DL (70-110)
[2018-08-14 16:51] VITALS: BP 122/76
[2018-08-14] MEDS: RisperiDONE 2 MG TABLET PO SCH (20:13)
[2018-08-14] MEDS: ATORVASTATIN CALCIUM 20 MG TABLET PO SCH (20:13)
[2018-08-14 20:14] LABS: GLUCOMETER DEV NAME(LOC) BV2X.; GLUCOSE,POINT OF CARE 140 MG/DL (70-110)
[2018-08-14] MEDS: ZOLPIDEM TARTRATE 10 MG TABLET PO PRN (20:54)
[2018-08-15 05:41] VITALS: BP 123/66
[2018-08-15 06:44] LABS: GLUCOMETER DEV NAME(LOC) BV2X.; GLUCOSE,POINT OF CARE 171 MG/DL (70-110)
[2018-08-15] MEDS: GlipiZIDE 5 MG TABLET PO SCH ×2 (07:00→16:37)
[2018-08-15] MEDS: INSULIN LISPRO 100 UNITS/ML SQ PRN ×4 (07:02→21:26)
[2018-08-15] MEDS: PROPRANOLOL HCL 80 MG PO SCH (08:33)
[2018-08-15] MEDS: DIVALPROEX SODIUM 500 MG DR TABLET PO SCH ×2 (08:33→16:37)
[2018-08-15 08:34] VITALS: BP 123/76
[2018-08-15] MEDS: RisperiDONE 1 MG TABLET PO SCH (08:34)
[2018-08-15 08:48] LABS: CALCIUM, TOTAL 9.3 mg/dL (8.8-10.5); CREATININE 1.3 mg/dL (0.60-1.30); POTASSIUM 4.9 mmol/L (3.5-5.1)
[2018-08-15 10:55] LABS: GLUCOMETER DEV NAME(LOC) BV2X.; GLUCOSE,POINT OF CARE 166 MG/DL (70-110)
[2018-08-15] MEDS: MAG HYDROX/AL HYDROX/SIMETH ES 30 ML SUSPENSION UDCUP PO PRN (13:10)
[2018-08-15 16:05] VITALS: BP 124/62
[2018-08-15] MEDS: RIVAROXABAN 15 MG TABLET PO SCH (16:37)
[2018-08-15 16:54] LABS: GLUCOMETER DEV NAME(LOC) BV2X.; GLUCOSE,POINT OF CARE 232 MG/DL (70-110)
[2018-08-15] MEDS: RisperiDONE 2 MG TABLET PO SCH (20:14)
[2018-08-15] MEDS: ATORVASTATIN CALCIUM 20 MG TABLET PO SCH (20:14)
[2018-08-15 21:24] LABS: GLUCOMETER DEV NAME(LOC) BV2X.; GLUCOSE,POINT OF CARE 218 MG/DL (70-110)
[2018-08-15] MEDS: LORazepam 1 MG TABLET PO PRN (23:14)
[2018-08-16 06:45] LABS: GLUCOMETER DEV NAME(LOC) BV2X.; GLUCOSE,POINT OF CARE 118 MG/DL (70-110)
[2018-08-16] MEDS: GlipiZIDE 5 MG TABLET PO SCH ×2 (06:55→16:45)
[2018-08-16 07:00] VITALS: BP 120/78
[2018-08-16] MEDS: DIVALPROEX SODIUM 500 MG DR TABLET PO SCH ×2 (08:17→17:06)
[2018-08-16] MEDS: LORazepam 1 MG TABLET PO PRN ×3 (08:17→13:16)
[2018-08-16] MEDS: PROPRANOLOL HCL 80 MG PO SCH (08:17)
[2018-08-16] MEDS: HALOPERIDOL 5 MG TABLET PO PRN ×3 (08:17→13:16)
[2018-08-16] MEDS: RisperiDONE 1 MG TABLET PO SCH (08:17)
[2018-08-16 08:24] VITALS: BP 113/55
[2018-08-16] MEDS: INSULIN LISPRO 100 UNITS/ML SQ PRN ×3 (10:51→20:37)
[2018-08-16 10:59] LABS: GLUCOMETER DEV NAME(LOC) BV2X.; GLUCOSE,POINT OF CARE 166 MG/DL (70-110)
[2018-08-16] MEDS: IBUPROFEN 400 MG TABLET PO PRN (11:27)
[2018-08-16] MEDS: MAG HYDROX/AL HYDROX/SIMETH ES 30 ML SUSPENSION UDCUP PO PRN (13:58)
[2018-08-16 16:21] VITALS: BP 116/90
[2018-08-16 16:45] LABS: GLUCOMETER DEV NAME(LOC) BV2X.; GLUCOSE,POINT OF CARE 295 MG/DL (70-110)
[2018-08-16] MEDS: RIVAROXABAN 15 MG TABLET PO SCH (17:06)
[2018-08-16] MEDS: RisperiDONE 2 MG TABLET PO SCH (20:34)
[2018-08-16] MEDS: ATORVASTATIN CALCIUM 20 MG TABLET PO SCH (20:34)
[2018-08-16 21:24] LABS: GLUCOMETER DEV NAME(LOC) BV2X.; GLUCOSE,POINT OF CARE 183 MG/DL (70-110)
[2018-08-16] MEDS: ZOLPIDEM TARTRATE 10 MG TABLET PO PRN (22:33)
[2018-08-17 00:07] VITALS: BP 114/60
[2018-08-17] MEDS: MAG HYDROX/AL HYDROX/SIMETH ES 30 ML SUSPENSION UDCUP PO PRN (06:22)
[2018-08-17] MEDS: GlipiZIDE 5 MG TABLET PO SCH ×2 (06:52→17:11)
[2018-08-17 07:24] LABS: GLUCOMETER DEV NAME(LOC) BV2X.; GLUCOSE,POINT OF CARE 117 MG/DL (70-110)
[2018-08-17 08:10] VITALS: BP 121/78
[2018-08-17] MEDS: RisperiDONE 1 MG TABLET PO SCH (08:24)
[2018-08-17] MEDS: DIVALPROEX SODIUM 500 MG DR TABLET PO SCH ×2 (08:24→17:11)
[2018-08-17] MEDS: PROPRANOLOL HCL 80 MG PO SCH (08:24)
[2018-08-17] MEDS: LORazepam 1 MG TABLET PO PRN ×3 (08:38→14:54)
[2018-08-17] MEDS: HALOPERIDOL 5 MG TABLET PO PRN ×2 (08:56→17:11)
[2018-08-17] MEDS: INSULIN LISPRO 100 UNITS/ML SQ PRN (10:55)
[2018-08-17 11:04] LABS: GLUCOMETER DEV NAME(LOC) BV2X.; GLUCOSE,POINT OF CARE 238 MG/DL (70-110)
[2018-08-17] MEDS: IBUPROFEN 400 MG TABLET PO PRN (12:39)
[2018-08-17 16:27] VITALS: BP 123/75
[2018-08-17 16:54] LABS: GLUCOMETER DEV NAME(LOC) BV2X.; GLUCOSE,POINT OF CARE 131 MG/DL (70-110)
[2018-08-17] MEDS: RIVAROXABAN 15 MG TABLET PO SCH (17:11)
[2018-08-17] MEDS: RisperiDONE 2 MG TABLET PO SCH (21:35)
[2018-08-17] MEDS: ATORVASTATIN CALCIUM 20 MG TABLET PO SCH (21:35)
[2018-08-17] MEDS: ZOLPIDEM TARTRATE 10 MG TABLET PO PRN (21:36)
[2018-08-17 21:59] LABS: GLUCOMETER DEV NAME(LOC) BV2X.; GLUCOSE,POINT OF CARE 135 MG/DL (70-110)
[2018-08-18 00:44] VITALS: BP 115/71
[2018-08-18] MEDS: MAG HYDROX/AL HYDROX/SIMETH ES 30 ML SUSPENSION UDCUP PO PRN (00:47)
[2018-08-18] MEDS: LORazepam 1 MG TABLET PO PRN ×3 (00:47→12:19)
[2018-08-18] MEDS: GlipiZIDE 5 MG TABLET PO SCH ×2 (06:53→16:44)
[2018-08-18 07:24] LABS: GLUCOMETER DEV NAME(LOC) BV2X.; GLUCOSE,POINT OF CARE 126 MG/DL (70-110)
[2018-08-18 08:05] VITALS: BP 120/72
[2018-08-18] MEDS: DIVALPROEX SODIUM 500 MG DR TABLET PO SCH ×2 (08:09→16:44)
[2018-08-18] MEDS: RisperiDONE 1 MG TABLET PO SCH (08:09)
[2018-08-18] MEDS: PROPRANOLOL HCL 80 MG PO SCH (08:09)
[2018-08-18] MEDS: HALOPERIDOL 5 MG TABLET PO PRN ×2 (08:10→12:19)
[2018-08-18] MEDS: IBUPROFEN 400 MG TABLET PO PRN (09:29)
[2018-08-18] MEDS: INSULIN LISPRO 100 UNITS/ML SQ PRN ×3 (10:58→21:57)
[2018-08-18 11:19] LABS: GLUCOMETER DEV NAME(LOC) BV2X.; GLUCOSE,POINT OF CARE 161 MG/DL (70-110)
[2018-08-18 16:03] VITALS: BP 128/71
[2018-08-18] MEDS: RIVAROXABAN 15 MG TABLET PO SCH (16:44)
[2018-08-18 16:50] LABS: GLUCOMETER DEV NAME(LOC) BV2X.; GLUCOSE,POINT OF CARE 248 MG/DL (70-110)
[2018-08-18] MEDS: ATORVASTATIN CALCIUM 20 MG TABLET PO SCH (20:50)
[2018-08-18] MEDS: RisperiDONE 2 MG TABLET PO SCH (20:54)
[2018-08-18] MEDS: ZOLPIDEM TARTRATE 10 MG TABLET PO PRN (20:54)
[2018-08-18 22:00] LABS: GLUCOMETER DEV NAME(LOC) BV2X.; GLUCOSE,POINT OF CARE 152 MG/DL (70-110)
[2018-08-19 05:36] VITALS: BP 126/77
[2018-08-19 06:20] LABS: GLUCOMETER DEV NAME(LOC) BV2X.; GLUCOSE,POINT OF CARE 134 MG/DL (70-110)
[2018-08-19] MEDS: GlipiZIDE 5 MG TABLET PO SCH ×2 (06:58→16:20)
[2018-08-19 08:04] VITALS: BP 112/96
[2018-08-19] MEDS: DIVALPROEX SODIUM 500 MG DR TABLET PO SCH ×2 (09:06→16:20)
[2018-08-19] MEDS: PROPRANOLOL HCL 80 MG PO SCH (09:06)
[2018-08-19] MEDS: RisperiDONE 1 MG TABLET PO SCH (09:06)
[2018-08-19] MEDS: INSULIN LISPRO 100 UNITS/ML SQ PRN ×3 (11:08→21:11)
[2018-08-19 11:27] LABS: GLUCOMETER DEV NAME(LOC) BV2X.; GLUCOSE,POINT OF CARE 182 MG/DL (70-110)
[2018-08-19] MEDS: MAG HYDROX/AL HYDROX/SIMETH ES 30 ML SUSPENSION UDCUP PO PRN (12:00)
[2018-08-19 15:40] VITALS: BP 122/77
[2018-08-19] MEDS: IBUPROFEN 400 MG TABLET PO PRN (15:40)
[2018-08-19 16:00] VITALS: BP 115/86
[2018-08-19] MEDS: RIVAROXABAN 15 MG TABLET PO SCH (16:21)
[2018-08-19 16:24] LABS: GLUCOMETER DEV NAME(LOC) BV2X.; GLUCOSE,POINT OF CARE 160 MG/DL (70-110)
[2018-08-19] MEDS: RisperiDONE 2 MG TABLET PO SCH (20:43)
[2018-08-19] MEDS: ATORVASTATIN CALCIUM 20 MG TABLET PO SCH (20:43)
[2018-08-19 21:28] LABS: GLUCOMETER DEV NAME(LOC) BV2X.; GLUCOSE,POINT OF CARE 208 MG/DL (70-110)
[2018-08-19] MEDS: ZOLPIDEM TARTRATE 10 MG TABLET PO PRN (22:14)
[2018-08-20 05:42] VITALS: BP 122/74
[2018-08-20 06:29] LABS: GLUCOMETER DEV NAME(LOC) BV2X.; GLUCOSE,POINT OF CARE 108 MG/DL (70-110)
[2018-08-20] MEDS: GlipiZIDE 5 MG TABLET PO SCH ×2 (06:57→16:23)
[2018-08-20 08:18] LABS: CALCIUM, TOTAL 8.7 mg/dL (8.8-10.5); CREATININE 1.29 mg/dL (0.60-1.30); POTASSIUM 5.1 mmol/L (3.5-5.1)
[2018-08-20] MEDS: DIVALPROEX SODIUM 500 MG DR TABLET PO SCH ×2 (08:50→16:22)
[2018-08-20] MEDS: PROPRANOLOL HCL 80 MG PO SCH (08:50)
[2018-08-20] MEDS: RisperiDONE 1 MG TABLET PO SCH (08:50)
[2018-08-20] MEDS ORDERED: RisperiDONE 1 MG TABLET PO SCH (09:00)
[2018-08-20 11:29] LABS: GLUCOMETER DEV NAME(LOC) BV2X.; GLUCOSE,POINT OF CARE 156 MG/DL (70-110)
[2018-08-20] MEDS: INSULIN LISPRO 100 UNITS/ML SQ PRN ×3 (11:42→21:29)
[2018-08-20 12:17] VITALS: BP 154/81
[2018-08-20] MEDS: MAG HYDROX/AL HYDROX/SIMETH ES 30 ML SUSPENSION UDCUP PO PRN (16:01)
[2018-08-20] MEDS: RIVAROXABAN 15 MG TABLET PO SCH (16:22)
[2018-08-20 16:30] LABS: GLUCOMETER DEV NAME(LOC) BV2X.; GLUCOSE,POINT OF CARE 190 MG/DL (70-110)
[2018-08-20] MEDS: RisperiDONE 2 MG TABLET PO SCH (20:10)
[2018-08-20] MEDS: ATORVASTATIN CALCIUM 20 MG TABLET PO SCH (20:10)
[2018-08-20 20:34] VITALS: BP 103/66
[2018-08-20 20:34] LABS: GLUCOMETER DEV NAME(LOC) BV2X.; GLUCOSE,POINT OF CARE 170 MG/DL (70-110)
[2018-08-20] MEDS: ZOLPIDEM TARTRATE 10 MG TABLET PO PRN (21:03)
[2018-08-21 00:15] VITALS: BP 110/68
[2018-08-21] MEDS: LORazepam 1 MG TABLET PO PRN ×2 (02:04→13:40)
[2018-08-21] MEDS: HALOPERIDOL 5 MG TABLET PO PRN (02:04)
[2018-08-21 06:25] LABS: GLUCOMETER DEV NAME(LOC) BV2X.; GLUCOSE,POINT OF CARE 161 MG/DL (70-110)
[2018-08-21] MEDS: GlipiZIDE 5 MG TABLET PO SCH ×2 (06:55→16:26)
[2018-08-21] MEDS: INSULIN LISPRO 100 UNITS/ML SQ PRN ×3 (06:56→20:32)
[2018-08-21 08:17] VITALS: BP 130/62
[2018-08-21] MEDS: RisperiDONE 1 MG TABLET PO SCH (11:02)
[2018-08-21] MEDS: PROPRANOLOL HCL 80 MG PO SCH (11:02)
[2018-08-21] MEDS: DIVALPROEX SODIUM 500 MG DR TABLET PO SCH ×2 (11:02→16:26)
[2018-08-21 11:10] LABS: GLUCOMETER DEV NAME(LOC) BV2X.; GLUCOSE,POINT OF CARE 135 MG/DL (70-110)
[2018-08-21 14:59] VITALS: BP 136/80
[2018-08-21] MEDS: IBUPROFEN 400 MG TABLET PO PRN (14:59)
[2018-08-21 16:06] VITALS: BP 108/66
[2018-08-21] MEDS: RIVAROXABAN 15 MG TABLET PO SCH (16:26)
[2018-08-21 16:29] LABS: GLUCOMETER DEV NAME(LOC) BV2X.; GLUCOSE,POINT OF CARE 210 MG/DL (70-110)
[2018-08-21] MEDS: MAG HYDROX/AL HYDROX/SIMETH ES 30 ML SUSPENSION UDCUP PO PRN (16:50)
[2018-08-21] MEDS: ACETAMINOPHEN 325 MG TABLET PO PRN (18:51)
[2018-08-21 18:53] VITALS: BP 115/65
[2018-08-21] MEDS: ATORVASTATIN CALCIUM 20 MG TABLET PO SCH (20:28)
[2018-08-21] MEDS: RisperiDONE 2 MG TABLET PO SCH (20:29)
[2018-08-21 20:34] LABS: GLUCOMETER DEV NAME(LOC) BV2X.; GLUCOSE,POINT OF CARE 211 MG/DL (70-110)
[2018-08-22 04:07] VITALS: BP 123/98
[2018-08-22] MEDS: IBUPROFEN 400 MG TABLET PO PRN (04:10)
[2018-08-22] MEDS: GlipiZIDE 5 MG TABLET PO SCH ×2 (07:07→16:35)
[2018-08-22 07:19] LABS: GLUCOMETER DEV NAME(LOC) BV2X.; GLUCOSE,POINT OF CARE 99 MG/DL (70-110)
[2018-08-22] MEDS: LORazepam 1 MG TABLET PO PRN ×2 (07:22→12:14)
[2018-08-22] MEDS: RisperiDONE 1 MG TABLET PO SCH (08:12)
[2018-08-22] MEDS: DIVALPROEX SODIUM 500 MG DR TABLET PO SCH ×2 (08:12→16:35)
[2018-08-22] MEDS: PROPRANOLOL HCL 80 MG PO SCH (08:12)
[2018-08-22] MEDS: LOPERAMIDE HCL 2 MG CAPSULE PO PRN (09:11)
[2018-08-22] MEDS: HALOPERIDOL 5 MG TABLET PO PRN (11:13)
[2018-08-22] MEDS: INSULIN LISPRO 100 UNITS/ML SQ PRN ×2 (11:16→20:47)
[2018-08-22 11:30] LABS: GLUCOMETER DEV NAME(LOC) BV2X.; GLUCOSE,POINT OF CARE 228 MG/DL (70-110)
[2018-08-22 12:48] VITALS: BP 121/70
[2018-08-22 16:17] VITALS: BP 140/71
[2018-08-22] MEDS: RIVAROXABAN 15 MG TABLET PO SCH (16:35)
[2018-08-22 16:44] LABS: GLUCOMETER DEV NAME(LOC) BV2X.; GLUCOSE,POINT OF CARE 114 MG/DL (70-110)
[2018-08-22] MEDS: MAG HYDROX/AL HYDROX/SIMETH ES 30 ML SUSPENSION UDCUP PO PRN (17:42)
[2018-08-22] MEDS: RisperiDONE 2 MG TABLET PO SCH (20:49)
[2018-08-22] MEDS: ATORVASTATIN CALCIUM 20 MG TABLET PO SCH (20:49)
[2018-08-22 20:59] LABS: GLUCOMETER DEV NAME(LOC) BV2X.; GLUCOSE,POINT OF CARE 150 MG/DL (70-110)
[2018-08-22] MEDS: ZOLPIDEM TARTRATE 10 MG TABLET PO PRN (22:13)
[2018-08-23 00:15] VITALS: BP 118/70
[2018-08-23 06:39] LABS: GLUCOMETER DEV NAME(LOC) BV2X.; GLUCOSE,POINT OF CARE 117 MG/DL (70-110)
[2018-08-23] MEDS: GlipiZIDE 5 MG TABLET PO SCH ×2 (06:42→16:41)
[2018-08-23 08:03] VITALS: BP 122/84
[2018-08-23] MEDS: DIVALPROEX SODIUM 500 MG DR TABLET PO SCH ×2 (08:17→16:40)
[2018-08-23] MEDS: RisperiDONE 1 MG TABLET PO SCH (08:17)
[2018-08-23] MEDS: MAGNESIUM HYDROXIDE SUSPENSION 30 ML UDCUP PO PRN (08:17)
[2018-08-23] MEDS: PROPRANOLOL HCL 80 MG PO SCH (08:18)
[2018-08-23 08:58] LABS: CALCIUM, TOTAL 9.1 mg/dL (8.8-10.5); CREATININE 1.22 mg/dL (0.60-1.30); POTASSIUM 4.9 mmol/L (3.5-5.1)
[2018-08-23] MEDS: INSULIN LISPRO 100 UNITS/ML SQ PRN ×3 (11:50→20:55)
[2018-08-23 13:34] LABS: GLUCOMETER DEV NAME(LOC) BV2X.; GLUCOSE,POINT OF CARE 196 MG/DL (70-110)
[2018-08-23 16:28] VITALS: BP 123/83
[2018-08-23 16:39] LABS: GLUCOMETER DEV NAME(LOC) BV2X.; GLUCOSE,POINT OF CARE 219 MG/DL (70-110)
[2018-08-23] MEDS: RIVAROXABAN 15 MG TABLET PO SCH (16:40)
[2018-08-23] MEDS: MAG HYDROX/AL HYDROX/SIMETH ES 30 ML SUSPENSION UDCUP PO PRN (18:28)
[2018-08-23] MEDS: LORazepam 1 MG TABLET PO PRN ×2 (19:00→21:21)
[2018-08-23] MEDS: HALOPERIDOL 5 MG TABLET PO PRN (19:01)
[2018-08-23] MEDS: ATORVASTATIN CALCIUM 20 MG TABLET PO SCH (20:54)
[2018-08-23] MEDS: RisperiDONE 2 MG TABLET PO SCH (20:54)
[2018-08-23 20:55] LABS: GLUCOMETER DEV NAME(LOC) BV2X.; GLUCOSE,POINT OF CARE 155 MG/DL (70-110)
[2018-08-24 00:42] VITALS: BP 118/70
[2018-08-24] MEDS: LOPERAMIDE HCL 2 MG CAPSULE PO PRN (04:15)
[2018-08-24] MEDS: GlipiZIDE 5 MG TABLET PO SCH ×2 (06:36→16:06)
[2018-08-24 07:19] LABS: GLUCOMETER DEV NAME(LOC) BV2X.; GLUCOSE,POINT OF CARE 124 MG/DL (70-110)
[2018-08-24] MEDS: HALOPERIDOL 5 MG TABLET PO PRN (07:54)
[2018-08-24] MEDS: LORazepam 1 MG TABLET PO PRN ×2 (07:54→12:24)
[2018-08-24] MEDS: RisperiDONE 1 MG TABLET PO SCH (07:54)
[2018-08-24] MEDS: DIVALPROEX SODIUM 500 MG DR TABLET PO SCH ×2 (07:54→16:06)
[2018-08-24] MEDS: PROPRANOLOL HCL 80 MG PO SCH (07:58)
[2018-08-24 08:10] VITALS: BP 146/85
[2018-08-24 11:59] LABS: GLUCOMETER DEV NAME(LOC) BV2X.; GLUCOSE,POINT OF CARE 134 MG/DL (70-110)
[2018-08-24 16:02] VITALS: BP 127/64
[2018-08-24] MEDS: RIVAROXABAN 15 MG TABLET PO SCH (16:08)
[2018-08-24 16:45] LABS: GLUCOMETER DEV NAME(LOC) BV2X.; GLUCOSE,POINT OF CARE 158 MG/DL (70-110)
[2018-08-24] MEDS: INSULIN LISPRO 100 UNITS/ML SQ PRN ×2 (16:48→21:26)
[2018-08-24] MEDS: RisperiDONE 2 MG TABLET PO SCH (20:05)
[2018-08-24] MEDS: ATORVASTATIN CALCIUM 20 MG TABLET PO SCH (20:05)
[2018-08-25 06:34] VITALS: BP 125/76
[2018-08-25] MEDS: GlipiZIDE 5 MG TABLET PO SCH ×2 (06:38→16:10)
[2018-08-25 07:34] LABS: GLUCOMETER DEV NAME(LOC) BV2X.; GLUCOSE,POINT OF CARE 105 MG/DL (70-110)
[2018-08-25 07:34] LABS: GLUCOMETER DEV NAME(LOC) BV2X.; GLUCOSE,POINT OF CARE 242 MG/DL (70-110)
[2018-08-25 08:42] LABS: BILIRUBIN,URINE NEGATIVE (NEGATIVE); GLUCOSE, URINE (UA) 100 mg/dL (NEGATIVE); KETONES,URINE NEGATIVE (NEGATIVE); LEUKOCYTE ESTERASE ,URINE SMALL (NEGATIVE); NITRATE,URINE NEGATIVE (NEGATIVE); OCCULT BLOOD,URINE NEGATIVE (NEGATIVE); PROTEIN,URINE NEGATIVE (NEGATIVE); UROBILINOGEN,URINE 0.2 mg/dL (<=1.0)
[2018-08-25 09:07] LABS: APPEARANCE,URINE SLIGHTLY CLOUDY (CLEAR)
[2018-08-25 09:08] LABS: BACTERIA,URINE Moderate /HPF (None Seen); RBC,URINE 0-2 /HPF (0-2); SQUAMOUS EPITHELIAL CELL,UR Many /LPF (None Seen)
[2018-08-25] MEDS: RisperiDONE 1 MG TABLET PO SCH (10:11)
[2018-08-25] MEDS: PROPRANOLOL HCL 80 MG PO SCH (10:11)
[2018-08-25] MEDS: DIVALPROEX SODIUM 500 MG DR TABLET PO SCH ×2 (10:12→16:10)
[2018-08-25 10:24] LABS: GLUCOMETER DEV NAME(LOC) BV2X.; GLUCOSE,POINT OF CARE 121 MG/DL (70-110)
[2018-08-25 10:59] VITALS: BP 128/72
[2018-08-25] MEDS: MAG HYDROX/AL HYDROX/SIMETH ES 30 ML SUSPENSION UDCUP PO PRN (10:59)
[2018-08-25] MEDS: IBUPROFEN 400 MG TABLET PO PRN (12:57)
[2018-08-25 12:59] LABS: GLUCOMETER DEV NAME(LOC) BV2X.; GLUCOSE,POINT OF CARE 153 MG/DL (70-110)
[2018-08-25] MEDS: INSULIN LISPRO 100 UNITS/ML SQ PRN ×3 (13:02→20:51)
[2018-08-25] MEDS: RIVAROXABAN 15 MG TABLET PO SCH (16:10)
[2018-08-25] MEDS: LORazepam 1 MG TABLET PO PRN (16:10)
[2018-08-25] MEDS: HALOPERIDOL 5 MG TABLET PO PRN (16:10)
[2018-08-25 16:18] VITALS: BP 122/90
[2018-08-25 16:50] LABS: GLUCOMETER DEV NAME(LOC) BV2X.; GLUCOSE,POINT OF CARE 244 MG/DL (70-110)
[2018-08-25] MEDS: RisperiDONE 2 MG TABLET PO SCH (20:03)
[2018-08-25] MEDS: ZOLPIDEM TARTRATE 10 MG TABLET PO PRN (20:03)
[2018-08-25] MEDS: ATORVASTATIN CALCIUM 20 MG TABLET PO SCH (20:03)
[2018-08-25 20:44] LABS: GLUCOMETER DEV NAME(LOC) BV2X.; GLUCOSE,POINT OF CARE 158 MG/DL (70-110)
[2018-08-26 02:30] VITALS: BP 127/88
[2018-08-26] MEDS: LORazepam 1 MG TABLET PO PRN ×2 (02:38→16:30)
[2018-08-26] MEDS: HALOPERIDOL 5 MG TABLET PO PRN (02:38)
[2018-08-26] MEDS: GlipiZIDE 5 MG TABLET PO SCH ×2 (06:45→16:29)
[2018-08-26 07:40] LABS: GLUCOMETER DEV NAME(LOC) BV2X.; GLUCOSE,POINT OF CARE 124 MG/DL (70-110)
[2018-08-26 08:53] VITALS: BP 155/107
[2018-08-26] MEDS: DIVALPROEX SODIUM 500 MG DR TABLET PO SCH ×2 (09:27→16:29)
[2018-08-26] MEDS: RisperiDONE 1 MG TABLET PO SCH (09:27)
[2018-08-26] MEDS: PROPRANOLOL HCL 80 MG PO SCH (09:27)
[2018-08-26] MEDS: INSULIN LISPRO 100 UNITS/ML SQ PRN ×2 (11:17→17:17)
[2018-08-26 11:19] LABS: GLUCOMETER DEV NAME(LOC) BV2S.; GLUCOSE,POINT OF CARE 144 MG/DL (70-110)
[2018-08-26 15:13] VITALS: BP 110/65
[2018-08-26 15:59] VITALS: BP 125/67
[2018-08-26 16:29] LABS: GLUCOMETER DEV NAME(LOC) BV2S.; GLUCOSE,POINT OF CARE 199 MG/DL (70-110)
[2018-08-26] MEDS: RIVAROXABAN 15 MG TABLET PO SCH (16:29)
[2018-08-26 16:30] VITALS: BP 126/72
[2018-08-26] MEDS: IBUPROFEN 400 MG TABLET PO PRN (16:30)
[2018-08-26] MEDS: RisperiDONE 2 MG TABLET PO SCH (20:15)
[2018-08-26] MEDS: ATORVASTATIN CALCIUM 20 MG TABLET PO SCH (20:15)
[2018-08-26 20:29] LABS: GLUCOMETER DEV NAME(LOC) BV2S.; GLUCOSE,POINT OF CARE 138 MG/DL (70-110)
[2018-08-27] MEDS: HALOPERIDOL 5 MG TABLET PO PRN (00:02)
[2018-08-27] MEDS: LORazepam 1 MG TABLET PO PRN ×2 (00:02→21:59)
[2018-08-27] MEDS: IBUPROFEN 400 MG TABLET PO PRN (00:35)
[2018-08-27 01:31] VITALS: BP 122/81
[2018-08-27] MEDS: GlipiZIDE 5 MG TABLET PO SCH ×2 (06:42→16:33)
[2018-08-27 07:10] LABS: GLUCOMETER DEV NAME(LOC) BV2S.; GLUCOSE,POINT OF CARE 113 MG/DL (70-110)
[2018-08-27 08:58] LABS: CALCIUM, TOTAL 9.1 mg/dL (8.8-10.5); CREATININE 1.12 mg/dL (0.60-1.30); POTASSIUM 4.7 mmol/L (3.5-5.1)
[2018-08-27] MEDS: PROPRANOLOL HCL 80 MG PO SCH (11:33)
[2018-08-27] MEDS: RisperiDONE 1 MG TABLET PO SCH (11:33)
[2018-08-27] MEDS: DIVALPROEX SODIUM 500 MG DR TABLET PO SCH ×2 (11:33→16:33)
[2018-08-27 11:49] LABS: GLUCOMETER DEV NAME(LOC) BV2S.; GLUCOSE,POINT OF CARE 122 MG/DL (70-110)
[2018-08-27] MEDS: MAG HYDROX/AL HYDROX/SIMETH ES 30 ML SUSPENSION UDCUP PO PRN (13:45)
[2018-08-27 14:11] VITALS: BP 126/78
[2018-08-27 16:30] VITALS: BP 153/75
[2018-08-27] MEDS: RIVAROXABAN 15 MG TABLET PO SCH (16:32)
[2018-08-27 16:34] LABS: GLUCOMETER DEV NAME(LOC) BV2S.; GLUCOSE,POINT OF CARE 159 MG/DL (70-110)
[2018-08-27] MEDS: INSULIN LISPRO 100 UNITS/ML SQ PRN ×2 (17:06→20:15)
[2018-08-27] MEDS: RisperiDONE 2 MG TABLET PO SCH (20:07)
[2018-08-27] MEDS: ATORVASTATIN CALCIUM 20 MG TABLET PO SCH (20:07)
[2018-08-27 20:19] LABS: GLUCOMETER DEV NAME(LOC) BV2S.; GLUCOSE,POINT OF CARE 281 MG/DL (70-110)
[2018-08-28] MEDS: ZOLPIDEM TARTRATE 10 MG TABLET PO PRN (00:09)
[2018-08-28 00:21] VITALS: BP 140/72
[2018-08-28] MEDS: LORazepam 1 MG TABLET PO PRN ×4 (01:10→12:36)
[2018-08-28] MEDS: GlipiZIDE 5 MG TABLET PO SCH ×2 (07:17→16:27)
[2018-08-28 07:45] LABS: GLUCOMETER DEV NAME(LOC) BV2S.; GLUCOSE,POINT OF CARE 131 MG/DL (70-110)
[2018-08-28 08:00] VITALS: BP 98/57
[2018-08-28] MEDS: PROPRANOLOL HCL 80 MG PO SCH (08:00)
[2018-08-28] MEDS: DIVALPROEX SODIUM 500 MG DR TABLET PO SCH ×2 (08:00→16:29)
[2018-08-28] MEDS: RisperiDONE 1 MG TABLET PO SCH (08:00)
[2018-08-28] MEDS: HALOPERIDOL 5 MG TABLET PO PRN ×2 (08:01→12:36)
[2018-08-28] MEDS: INSULIN LISPRO 100 UNITS/ML SQ PRN ×3 (10:55→21:37)
[2018-08-28 11:09] LABS: GLUCOMETER DEV NAME(LOC) BV2S.; GLUCOSE,POINT OF CARE 177 MG/DL (70-110)
[2018-08-28 11:36] VITALS: BP 102/61
[2018-08-28 16:03] VITALS: BP 151/69
[2018-08-28] MEDS: MAG HYDROX/AL HYDROX/SIMETH ES 30 ML SUSPENSION UDCUP PO PRN (16:27)
[2018-08-28] MEDS: RIVAROXABAN 15 MG TABLET PO SCH (16:29)
[2018-08-28 16:50] LABS: GLUCOMETER DEV NAME(LOC) BV2S.; GLUCOSE,POINT OF CARE 164 MG/DL (70-110)
[2018-08-28] MEDS: ATORVASTATIN CALCIUM 20 MG TABLET PO SCH (20:44)
[2018-08-28] MEDS: RisperiDONE 2 MG TABLET PO SCH (20:44)
[2018-08-28 21:24] LABS: GLUCOMETER DEV NAME(LOC) BV2S.; GLUCOSE,POINT OF CARE 251 MG/DL (70-110)
[2018-08-29 00:10] VITALS: BP 116/58
[2018-08-29] MEDS: LORazepam 1 MG TABLET PO PRN ×2 (00:26→20:40)
[2018-08-29] MEDS: ZOLPIDEM TARTRATE 10 MG TABLET PO PRN ×2 (00:26→21:08)
[2018-08-29] MEDS: GlipiZIDE 5 MG TABLET PO SCH ×2 (06:50→16:07)
[2018-08-29 07:14] LABS: GLUCOMETER DEV NAME(LOC) BV2S.; GLUCOSE,POINT OF CARE 128 MG/DL (70-110)
[2018-08-29 08:47] VITALS: BP 113/74
[2018-08-29] MEDS: DIVALPROEX SODIUM 500 MG DR TABLET PO SCH ×2 (08:49→16:06)
[2018-08-29] MEDS: PROPRANOLOL HCL 80 MG PO SCH (08:49)
[2018-08-29] MEDS: RisperiDONE 1 MG TABLET PO SCH (08:49)
[2018-08-29 10:59] LABS: GLUCOMETER DEV NAME(LOC) BV2S.; GLUCOSE,POINT OF CARE 193 MG/DL (70-110)
[2018-08-29] MEDS: INSULIN LISPRO 100 UNITS/ML SQ PRN ×2 (11:23→17:27)
[2018-08-29 16:04] VITALS: BP 126/74
[2018-08-29] MEDS: RIVAROXABAN 15 MG TABLET PO SCH (16:06)
[2018-08-29 17:09] LABS: GLUCOMETER DEV NAME(LOC) BV2S.; GLUCOSE,POINT OF CARE 173 MG/DL (70-110)
[2018-08-29] MEDS: RisperiDONE 2 MG TABLET PO SCH (20:40)
[2018-08-29] MEDS: ATORVASTATIN CALCIUM 20 MG TABLET PO SCH (20:40)
[2018-08-29 22:19] LABS: GLUCOMETER DEV NAME(LOC) BV2S.; GLUCOSE,POINT OF CARE 180 MG/DL (70-110)
[2018-08-30 00:39] VITALS: BP 118/70
[2018-08-30] MEDS: GlipiZIDE 5 MG TABLET PO SCH ×2 (07:16→16:26)
[2018-08-30 07:29] LABS: GLUCOMETER DEV NAME(LOC) BV2S.; GLUCOSE,POINT OF CARE 101 MG/DL (70-110)
[2018-08-30] MEDS: PROPRANOLOL HCL 80 MG PO SCH (09:01)
[2018-08-30] MEDS: DIVALPROEX SODIUM 500 MG DR TABLET PO SCH ×2 (09:01→16:26)
[2018-08-30] MEDS: RisperiDONE 1 MG TABLET PO SCH (09:01)
[2018-08-30 09:19] VITALS: BP 111/62
[2018-08-30] MEDS: HALOPERIDOL 5 MG TABLET PO PRN (10:26)
[2018-08-30] MEDS: LORazepam 1 MG TABLET PO PRN (10:27)
[2018-08-30] MEDS: INSULIN LISPRO 100 UNITS/ML SQ PRN ×3 (11:01→21:30)
[2018-08-30 11:45] LABS: GLUCOMETER DEV NAME(LOC) BV2S.; GLUCOSE,POINT OF CARE 170 MG/DL (70-110)
[2018-08-30] MEDS: ACETAMINOPHEN 325 MG TABLET PO PRN (12:18)
[2018-08-30 16:10] VITALS: BP 128/65
[2018-08-30] MEDS: RIVAROXABAN 15 MG TABLET PO SCH (16:26)
[2018-08-30 16:34] LABS: GLUCOMETER DEV NAME(LOC) BV2S.; GLUCOSE,POINT OF CARE 152 MG/DL (70-110)
[2018-08-30] MEDS: ATORVASTATIN CALCIUM 20 MG TABLET PO SCH (20:03)
[2018-08-30] MEDS: RisperiDONE 2 MG TABLET PO SCH (20:17)
[2018-08-30 21:19] LABS: GLUCOMETER DEV NAME(LOC) BV2S.; GLUCOSE,POINT OF CARE 164 MG/DL (70-110)
[2018-08-31 00:04] VITALS: BP 135/63
[2018-08-31] MEDS: LORazepam 1 MG TABLET PO PRN ×5 (00:04→21:47)
[2018-08-31] MEDS: HALOPERIDOL 5 MG TABLET PO PRN ×3 (00:04→21:47)
[2018-08-31] MEDS: GlipiZIDE 5 MG TABLET PO SCH ×2 (06:51→16:09)
[2018-08-31 07:24] LABS: GLUCOMETER DEV NAME(LOC) BV2S.; GLUCOSE,POINT OF CARE 116 MG/DL (70-110)
[2018-08-31 08:26] VITALS: BP 114/74
[2018-08-31] MEDS: DIVALPROEX SODIUM 500 MG DR TABLET PO SCH ×2 (08:28→16:09)
[2018-08-31] MEDS: PROPRANOLOL HCL 80 MG PO SCH (08:28)
[2018-08-31] MEDS: RisperiDONE 1 MG TABLET PO SCH (08:29)
[2018-08-31] MEDS: INSULIN LISPRO 100 UNITS/ML SQ PRN ×3 (10:38→21:11)
[2018-08-31 10:54] LABS: GLUCOMETER DEV NAME(LOC) BV2S.; GLUCOSE,POINT OF CARE 209 MG/DL (70-110)
[2018-08-31] MEDS: ACETAMINOPHEN 325 MG TABLET PO PRN (14:02)
[2018-08-31 16:01] VITALS: BP 120/81
[2018-08-31] MEDS: RIVAROXABAN 15 MG TABLET PO SCH (16:09)
[2018-08-31 16:34] LABS: GLUCOMETER DEV NAME(LOC) BV2S.; GLUCOSE,POINT OF CARE 180 MG/DL (70-110)
[2018-08-31] MEDS: MAG HYDROX/AL HYDROX/SIMETH ES 30 ML SUSPENSION UDCUP PO PRN (18:33)
[2018-08-31] MEDS: ATORVASTATIN CALCIUM 20 MG TABLET PO SCH (20:10)
[2018-08-31] MEDS: RisperiDONE 2 MG TABLET PO SCH (20:10)
[2018-08-31 20:55] LABS: GLUCOMETER DEV NAME(LOC) BV2S.; GLUCOSE,POINT OF CARE 169 MG/DL (70-110)
[2018-09-01 00:03] VITALS: BP 105/60
[2018-09-01] MEDS: ZOLPIDEM TARTRATE 10 MG TABLET PO PRN ×2 (00:44→20:15)
[2018-09-01] MEDS: LORazepam 1 MG TABLET PO PRN ×3 (00:44→11:04)
[2018-09-01] MEDS: GlipiZIDE 5 MG TABLET PO SCH ×2 (06:49→16:39)
[2018-09-01 07:24] LABS: GLUCOMETER DEV NAME(LOC) BV2S.; GLUCOSE,POINT OF CARE 94 MG/DL (70-110)
[2018-09-01] MEDS: RisperiDONE 1 MG TABLET PO SCH (08:31)
[2018-09-01] MEDS: LOPERAMIDE HCL 2 MG CAPSULE PO PRN ×3 (08:31→12:48)
[2018-09-01] MEDS: PROPRANOLOL HCL 80 MG PO SCH (08:31)
[2018-09-01] MEDS: DIVALPROEX SODIUM 500 MG DR TABLET PO SCH ×2 (08:31→16:39)
[2018-09-01] MEDS: HALOPERIDOL 5 MG TABLET PO PRN ×2 (08:32→14:42)
[2018-09-01 09:10] VITALS: BP 163/97
[2018-09-01] MEDS: ACETAMINOPHEN 325 MG TABLET PO PRN (09:11)
[2018-09-01 10:39] LABS: GLUCOMETER DEV NAME(LOC) BV2S.; GLUCOSE,POINT OF CARE 156 MG/DL (70-110)
[2018-09-01] MEDS: INSULIN LISPRO 100 UNITS/ML SQ PRN ×2 (10:39→16:44)
[2018-09-01] MEDS: MAG HYDROX/AL HYDROX/SIMETH ES 30 ML SUSPENSION UDCUP PO PRN (12:51)
[2018-09-01] MEDS: RIVAROXABAN 15 MG TABLET PO SCH (16:39)
[2018-09-01 16:42] VITALS: BP 127/77
[2018-09-01 16:54] LABS: GLUCOMETER DEV NAME(LOC) BV2S.; GLUCOSE,POINT OF CARE 231 MG/DL (70-110)
[2018-09-01] MEDS: ATORVASTATIN CALCIUM 20 MG TABLET PO SCH (20:15)
[2018-09-01] MEDS: RisperiDONE 2 MG TABLET PO SCH (20:15)
[2018-09-01 20:49] LABS: GLUCOMETER DEV NAME(LOC) BV2S.; GLUCOSE,POINT OF CARE 122 MG/DL (70-110)
[2018-09-02 04:37] VITALS: BP 141/84
[2018-09-02 06:25] LABS: GLUCOMETER DEV NAME(LOC) BV2S.; GLUCOSE,POINT OF CARE 109 MG/DL (70-110)
[2018-09-02] MEDS: GlipiZIDE 5 MG TABLET PO SCH ×2 (06:39→16:54)
[2018-09-02] MEDS: HALOPERIDOL 5 MG TABLET PO PRN ×2 (08:15→21:15)
[2018-09-02] MEDS: LORazepam 1 MG TABLET PO PRN ×2 (08:15→16:54)
[2018-09-02 08:50] VITALS: BP 140/65
[2018-09-02] MEDS: PROPRANOLOL HCL 80 MG PO SCH (08:52)
[2018-09-02] MEDS: DIVALPROEX SODIUM 500 MG DR TABLET PO SCH ×2 (08:53→16:53)
[2018-09-02] MEDS: RisperiDONE 1 MG TABLET PO SCH (08:53)
[2018-09-02 08:58] LABS: CALCIUM, TOTAL 8.8 mg/dL (8.8-10.5); CREATININE 1.33 mg/dL (0.60-1.30)
[2018-09-02] MEDS: INSULIN LISPRO 100 UNITS/ML SQ PRN (10:45)
[2018-09-02 10:49] LABS: GLUCOMETER DEV NAME(LOC) BV2S.; GLUCOSE,POINT OF CARE 236 MG/DL (70-110)
[2018-09-02 16:37] VITALS: BP 121/74
[2018-09-02 16:49] LABS: GLUCOMETER DEV NAME(LOC) BV2S.; GLUCOSE,POINT OF CARE 125 MG/DL (70-110)
[2018-09-02] MEDS: RIVAROXABAN 15 MG TABLET PO SCH (16:54)
[2018-09-02] MEDS: MAG HYDROX/AL HYDROX/SIMETH ES 30 ML SUSPENSION UDCUP PO PRN (18:04)
[2018-09-02 20:44] LABS: GLUCOMETER DEV NAME(LOC) BV2S.; GLUCOSE,POINT OF CARE 129 MG/DL (70-110)
[2018-09-02] MEDS: RisperiDONE 2 MG TABLET PO SCH (21:15)
[2018-09-02] MEDS: ATORVASTATIN CALCIUM 20 MG TABLET PO SCH (21:15)
[2018-09-02] MEDS: ZOLPIDEM TARTRATE 10 MG TABLET PO PRN (21:15)
[2018-09-03 02:16] VITALS: BP 141/71
[2018-09-03] MEDS: LORazepam 1 MG TABLET PO PRN ×3 (02:25→22:23)
[2018-09-03] MEDS: GlipiZIDE 5 MG TABLET PO SCH ×2 (06:39→16:10)
[2018-09-03 08:00] VITALS: BP 146/72
[2018-09-03] MEDS: DIVALPROEX SODIUM 500 MG DR TABLET PO SCH ×2 (08:16→16:09)
[2018-09-03] MEDS: RisperiDONE 1 MG TABLET PO SCH (08:16)
[2018-09-03] MEDS: PROPRANOLOL HCL 80 MG PO SCH (08:16)
[2018-09-03] MEDS: HALOPERIDOL 5 MG TABLET PO PRN ×2 (09:06→22:23)
[2018-09-03 11:17] LABS: GLUCOMETER DEV NAME(LOC) BV2S.; GLUCOSE,POINT OF CARE 154 MG/DL (70-110)
[2018-09-03] MEDS: INSULIN LISPRO 100 UNITS/ML SQ PRN ×3 (11:45→21:00)
[2018-09-03 15:51] VITALS: BP 127/81
[2018-09-03 16:00] VITALS: BP 127/81
[2018-09-03] MEDS: RIVAROXABAN 15 MG TABLET PO SCH (16:10)
[2018-09-03 16:20] LABS: GLUCOMETER DEV NAME(LOC) BV2S.; GLUCOSE,POINT OF CARE 239 MG/DL (70-110)
[2018-09-03] MEDS: RisperiDONE 2 MG TABLET PO SCH (20:22)
[2018-09-03] MEDS: ATORVASTATIN CALCIUM 20 MG TABLET PO SCH (20:22)
[2018-09-03 21:50] LABS: GLUCOMETER DEV NAME(LOC) BV2S.; GLUCOSE,POINT OF CARE 165 MG/DL (70-110)
[2018-09-03 22:23] VITALS: BP 144/78
[2018-09-03] MEDS: ZOLPIDEM TARTRATE 10 MG TABLET PO PRN (22:23)
[2018-09-04 06:24] LABS: GLUCOMETER DEV NAME(LOC) BV3S.; GLUCOSE,POINT OF CARE 99 MG/DL (70-110)
[2018-09-04] MEDS: GlipiZIDE 5 MG TABLET PO SCH ×2 (06:42→16:38)
[2018-09-04 08:00] VITALS: BP 143/96
[2018-09-04] MEDS: DIVALPROEX SODIUM 500 MG DR TABLET PO SCH ×2 (08:11→17:05)
[2018-09-04] MEDS: RisperiDONE 1 MG TABLET PO SCH (08:11)
[2018-09-04] MEDS: PROPRANOLOL HCL 80 MG PO SCH (08:12)
[2018-09-04] MEDS: HALOPERIDOL 5 MG TABLET PO PRN (08:48)
[2018-09-04] MEDS: LORazepam 1 MG TABLET PO PRN ×2 (08:48→21:35)
[2018-09-04] MEDS: INSULIN LISPRO 100 UNITS/ML SQ PRN ×2 (11:47→17:39)
[2018-09-04 11:49] LABS: GLUCOMETER DEV NAME(LOC) BV3S.; GLUCOSE,POINT OF CARE 141 MG/DL (70-110)
[2018-09-04] MEDS: MAG HYDROX/AL HYDROX/SIMETH ES 30 ML SUSPENSION UDCUP PO PRN (14:28)
[2018-09-04 16:00] VITALS: BP 173/77
[2018-09-04] MEDS: CloNIDine HCL 0.1 MG TABLET PO PRN (16:02)
[2018-09-04 17:02] VITALS: BP 123/67
[2018-09-04] MEDS: RIVAROXABAN 15 MG TABLET PO SCH (17:05)
[2018-09-04 17:34] LABS: GLUCOMETER DEV NAME(LOC) BV3S.; GLUCOSE,POINT OF CARE 185 MG/DL (70-110)
[2018-09-04] MEDS: ATORVASTATIN CALCIUM 20 MG TABLET PO SCH (21:35)
[2018-09-04] MEDS: RisperiDONE 2 MG TABLET PO SCH (21:35)
[2018-09-04] MEDS: ZOLPIDEM TARTRATE 10 MG TABLET PO PRN (21:58)
[2018-09-04 22:05] LABS: GLUCOMETER DEV NAME(LOC) BV3S.; GLUCOSE,POINT OF CARE 103 MG/DL (70-110)
[2018-09-05] MEDS: LORazepam 1 MG TABLET PO PRN (04:47)
[2018-09-05 05:59] VITALS: BP 143/96
[2018-09-05] MEDS: GlipiZIDE 5 MG TABLET PO SCH ×2 (06:27→16:21)
[2018-09-05 06:30] LABS: GLUCOMETER DEV NAME(LOC) BV3S.; GLUCOSE,POINT OF CARE 134 MG/DL (70-110)
[2018-09-05 08:12] VITALS: BP 130/71
[2018-09-05] MEDS: PROPRANOLOL HCL 80 MG PO SCH (08:37)
[2018-09-05] MEDS: RisperiDONE 1 MG TABLET PO SCH (08:37)
[2018-09-05] MEDS: DIVALPROEX SODIUM 500 MG DR TABLET PO SCH ×2 (08:37→16:21)
[2018-09-05] MEDS: INSULIN LISPRO 100 UNITS/ML SQ PRN ×3 (11:49→21:14)
[2018-09-05 12:04] LABS: GLUCOMETER DEV NAME(LOC) BV3S.; GLUCOSE,POINT OF CARE 195 MG/DL (70-110)
[2018-09-05 16:12] VITALS: BP 146/86
[2018-09-05] MEDS: RIVAROXABAN 15 MG TABLET PO SCH (16:21)
[2018-09-05 17:10] LABS: GLUCOMETER DEV NAME(LOC) BV3S.; GLUCOSE,POINT OF CARE 149 MG/DL (70-110)
[2018-09-05] MEDS: RisperiDONE 2 MG TABLET PO SCH (20:26)
[2018-09-05] MEDS: ZOLPIDEM TARTRATE 10 MG TABLET PO PRN (20:26)
[2018-09-05 20:39] LABS: GLUCOMETER DEV NAME(LOC) BV3S.; GLUCOSE,POINT OF CARE 201 MG/DL (70-110)
[2018-09-05] MEDS: ATORVASTATIN CALCIUM 20 MG TABLET PO SCH (21:11)
[2018-09-06] MEDS: GlipiZIDE 5 MG TABLET PO SCH ×2 (06:37→17:37)
[2018-09-06 06:39] LABS: GLUCOMETER DEV NAME(LOC) BV3N.; GLUCOSE,POINT OF CARE 90 MG/DL (70-110)
[2018-09-06 08:18] VITALS: BP 180/110
[2018-09-06] MEDS: LORazepam 1 MG TABLET PO PRN ×2 (08:22→18:23)
[2018-09-06] MEDS: HALOPERIDOL 5 MG TABLET PO PRN (08:22)
[2018-09-06] MEDS: DIVALPROEX SODIUM 500 MG DR TABLET PO SCH ×2 (08:23→17:38)
[2018-09-06] MEDS: RisperiDONE 1 MG TABLET PO SCH (08:23)
[2018-09-06] MEDS: PROPRANOLOL HCL 80 MG PO SCH (09:58)
[2018-09-06] MEDS: INSULIN LISPRO 100 UNITS/ML SQ PRN ×2 (12:33→17:43)
[2018-09-06 13:30] LABS: GLUCOMETER DEV NAME(LOC) BV2S.; GLUCOSE,POINT OF CARE 181 MG/DL (70-110)
[2018-09-06 16:16] VITALS: BP 128/78
[2018-09-06 16:34] LABS: GLUCOMETER DEV NAME(LOC) BV2S.; GLUCOSE,POINT OF CARE 263 MG/DL (70-110)
[2018-09-06] MEDS: RIVAROXABAN 15 MG TABLET PO SCH (17:38)
[2018-09-06 21:04] LABS: GLUCOMETER DEV NAME(LOC) BV2S.; GLUCOSE,POINT OF CARE 73 MG/DL (70-110)
[2018-09-06] MEDS: RisperiDONE 2 MG TABLET PO SCH (21:27)
[2018-09-06] MEDS: ATORVASTATIN CALCIUM 20 MG TABLET PO SCH (21:27)
[2018-09-06] MEDS: ZOLPIDEM TARTRATE 10 MG TABLET PO PRN (21:39)
[2018-09-07 00:06] VITALS: BP 116/75
[2018-09-07] MEDS: LORazepam 1 MG TABLET PO PRN (00:21)
[2018-09-07] MEDS: HALOPERIDOL 5 MG TABLET PO PRN (00:21)
[2018-09-07] MEDS: IBUPROFEN 400 MG TABLET PO PRN ×2 (00:50→12:19)
[2018-09-07 06:04] LABS: GLUCOMETER DEV NAME(LOC) BV2S.; GLUCOSE,POINT OF CARE 140 MG/DL (70-110)
[2018-09-07] MEDS: GlipiZIDE 5 MG TABLET PO SCH ×2 (06:44→16:01)
[2018-09-07] MEDS: MAG HYDROX/AL HYDROX/SIMETH ES 30 ML SUSPENSION UDCUP PO PRN (06:54)
[2018-09-07] MEDS: RisperiDONE 1 MG TABLET PO SCH (08:06)
[2018-09-07] MEDS: DIVALPROEX SODIUM 500 MG DR TABLET PO SCH ×2 (08:06→16:01)
[2018-09-07] MEDS: PROPRANOLOL HCL 80 MG PO SCH (08:07)
[2018-09-07 08:17] VITALS: BP 120/74
[2018-09-07 12:19] VITALS: BP 146/76
[2018-09-07 12:55] LABS: GLUCOMETER DEV NAME(LOC) BV2S.; GLUCOSE,POINT OF CARE 119 MG/DL (70-110)
[2018-09-07] MEDS: RIVAROXABAN 15 MG TABLET PO SCH (16:01)
[2018-09-07 16:19] LABS: GLUCOMETER DEV NAME(LOC) BV2S.; GLUCOSE,POINT OF CARE 175 MG/DL (70-110)
[2018-09-07 16:40] VITALS: BP 100/60
[2018-09-07] MEDS: INSULIN LISPRO 100 UNITS/ML SQ PRN (17:07)
[2018-09-07] MEDS: RisperiDONE 2 MG TABLET PO SCH (21:27)
[2018-09-07] MEDS: ATORVASTATIN CALCIUM 20 MG TABLET PO SCH (21:27)
[2018-09-07 21:59] LABS: GLUCOMETER DEV NAME(LOC) BV2S.; GLUCOSE,POINT OF CARE 140 MG/DL (70-110)
[2018-09-07] MEDS: ZOLPIDEM TARTRATE 10 MG TABLET PO PRN (22:27)
[2018-09-08 03:24] VITALS: BP 102/70
[2018-09-08 06:19] LABS: GLUCOMETER DEV NAME(LOC) BV2S.; GLUCOSE,POINT OF CARE 123 MG/DL (70-110)
[2018-09-08] MEDS: GlipiZIDE 5 MG TABLET PO SCH ×2 (07:00→16:42)
[2018-09-08 08:00] VITALS: BP 101/74
[2018-09-08] MEDS: DIVALPROEX SODIUM 500 MG DR TABLET PO SCH ×2 (09:21→16:43)
[2018-09-08] MEDS: LORazepam 1 MG TABLET PO PRN ×3 (09:21→21:51)
[2018-09-08] MEDS: PROPRANOLOL HCL 80 MG PO SCH (09:21)
[2018-09-08] MEDS: RisperiDONE 1 MG TABLET PO SCH (09:21)
[2018-09-08 10:15] LABS: GLUCOMETER DEV NAME(LOC) BV2S.; GLUCOSE,POINT OF CARE 168 MG/DL (70-110)
[2018-09-08] MEDS: INSULIN LISPRO 100 UNITS/ML SQ PRN ×3 (11:07→20:44)
[2018-09-08] MEDS: IBUPROFEN 400 MG TABLET PO PRN (16:04)
[2018-09-08 16:05] VITALS: BP 137/82
[2018-09-08] MEDS: RIVAROXABAN 15 MG TABLET PO SCH (16:42)
[2018-09-08 17:05] LABS: GLUCOMETER DEV NAME(LOC) BV2S.; GLUCOSE,POINT OF CARE 168 MG/DL (70-110)
[2018-09-08 17:41] LABS: GLUCOMETER DEV NAME(LOC) BV2S.; GLUCOSE,POINT OF CARE 228 MG/DL (70-110)
[2018-09-08] MEDS: HALOPERIDOL 5 MG TABLET PO PRN (17:57)
[2018-09-08] MEDS: ATORVASTATIN CALCIUM 20 MG TABLET PO SCH (20:22)
[2018-09-08] MEDS: ZOLPIDEM TARTRATE 10 MG TABLET PO PRN (20:23)
[2018-09-08] MEDS: RisperiDONE 2 MG TABLET PO SCH (20:23)
[2018-09-08 20:44] LABS: GLUCOMETER DEV NAME(LOC) BV2S.; GLUCOSE,POINT OF CARE 167 MG/DL (70-110)
[2018-09-09] MEDS: GlipiZIDE 5 MG TABLET PO SCH ×2 (06:23→16:21)
[2018-09-09 06:30] LABS: GLUCOMETER DEV NAME(LOC) BV2S.; GLUCOSE,POINT OF CARE 104 MG/DL (70-110)
[2018-09-09 06:55] VITALS: BP 144/64
[2018-09-09] MEDS: RisperiDONE 1 MG TABLET PO SCH (09:51)
[2018-09-09] MEDS: DIVALPROEX SODIUM 500 MG DR TABLET PO SCH ×2 (09:51→16:21)
[2018-09-09] MEDS: PROPRANOLOL HCL 80 MG PO SCH (09:51)
[2018-09-09 11:41] LABS: GLUCOMETER DEV NAME(LOC) BV2S.; GLUCOSE,POINT OF CARE 128 MG/DL (70-110)
[2018-09-09 16:15] LABS: GLUCOMETER DEV NAME(LOC) BV2S.; GLUCOSE,POINT OF CARE 164 MG/DL (70-110)
[2018-09-09 16:17] VITALS: BP 150/78
[2018-09-09] MEDS: RIVAROXABAN 15 MG TABLET PO SCH (16:21)
[2018-09-09] MEDS: INSULIN LISPRO 100 UNITS/ML SQ PRN ×2 (17:07→20:11)
[2018-09-09 20:10] VITALS: BP 124/74
[2018-09-09 20:10] LABS: GLUCOMETER DEV NAME(LOC) BV2S.; GLUCOSE,POINT OF CARE 174 MG/DL (70-110)
[2018-09-09] MEDS: RisperiDONE 2 MG TABLET PO SCH (20:10)
[2018-09-09] MEDS: ATORVASTATIN CALCIUM 20 MG TABLET PO SCH (20:10)
[2018-09-09] MEDS: IBUPROFEN 400 MG TABLET PO PRN (20:10)
[2018-09-10 02:31] VITALS: BP 139/63
[2018-09-10] MEDS: GlipiZIDE 5 MG TABLET PO SCH ×2 (06:55→16:31)
[2018-09-10 07:09] LABS: GLUCOMETER DEV NAME(LOC) BV2S.; GLUCOSE,POINT OF CARE 84 MG/DL (70-110)
[2018-09-10 08:14] VITALS: BP 140/84
[2018-09-10] MEDS: RisperiDONE 1 MG TABLET PO SCH (08:37)
[2018-09-10] MEDS: DIVALPROEX SODIUM 500 MG DR TABLET PO SCH ×2 (08:37→16:31)
[2018-09-10] MEDS: PROPRANOLOL HCL 80 MG PO SCH (08:38)
[2018-09-10] MEDS: LORazepam 1 MG TABLET PO PRN (09:02)
[2018-09-10] MEDS: HALOPERIDOL 5 MG TABLET PO PRN (09:02)
[2018-09-10] MEDS: INSULIN LISPRO 100 UNITS/ML SQ PRN ×3 (11:48→22:23)
[2018-09-10 12:00] LABS: GLUCOMETER DEV NAME(LOC) BV2S.; GLUCOSE,POINT OF CARE 147 MG/DL (70-110)
[2018-09-10] MEDS: LOPERAMIDE HCL 2 MG CAPSULE PO PRN (13:39)
[2018-09-10 16:20] VITALS: BP 122/64
[2018-09-10] MEDS: RIVAROXABAN 15 MG TABLET PO SCH (16:30)
[2018-09-10 17:19] LABS: GLUCOMETER DEV NAME(LOC) BV2S.; GLUCOSE,POINT OF CARE 192 MG/DL (70-110)
[2018-09-10] MEDS: ATORVASTATIN CALCIUM 20 MG TABLET PO SCH (20:26)
[2018-09-10] MEDS: RisperiDONE 2 MG TABLET PO SCH (20:26)
[2018-09-10 20:59] LABS: GLUCOMETER DEV NAME(LOC) BV2S.; GLUCOSE,POINT OF CARE 221 MG/DL (70-110)
[2018-09-11] MEDS: GlipiZIDE 5 MG TABLET PO SCH ×2 (06:55→16:59)
[2018-09-11 07:01] VITALS: BP 117/67
[2018-09-11 07:09] LABS: GLUCOMETER DEV NAME(LOC) BV2S.; GLUCOSE,POINT OF CARE 88 MG/DL (70-110)
[2018-09-11] MEDS: DIVALPROEX SODIUM 500 MG DR TABLET PO SCH ×2 (08:24→16:59)
[2018-09-11] MEDS: RisperiDONE 1 MG TABLET PO SCH (08:24)
[2018-09-11] MEDS: PROPRANOLOL HCL 80 MG PO SCH (08:24)
[2018-09-11] MEDS: HALOPERIDOL 5 MG TABLET PO PRN ×2 (08:25→16:59)
[2018-09-11] MEDS: LORazepam 1 MG TABLET PO PRN ×3 (08:25→16:59)
[2018-09-11 08:37] VITALS: BP 122/75
[2018-09-11] MEDS: INSULIN LISPRO 100 UNITS/ML SQ PRN ×2 (10:46→17:44)
[2018-09-11 10:53] LABS: GLUCOMETER DEV NAME(LOC) BV2S.; GLUCOSE,POINT OF CARE 246 MG/DL (70-110)
[2018-09-11 16:07] VITALS: BP 140/76
[2018-09-11 16:59] LABS: GLUCOMETER DEV NAME(LOC) BV2S.; GLUCOSE,POINT OF CARE 226 MG/DL (70-110)
[2018-09-11] MEDS: RIVAROXABAN 15 MG TABLET PO SCH (16:59)
[2018-09-11] MEDS: RisperiDONE 2 MG TABLET PO SCH (21:31)
[2018-09-11] MEDS: ATORVASTATIN CALCIUM 20 MG TABLET PO SCH (21:31)
[2018-09-12] MEDS: GlipiZIDE 5 MG TABLET PO SCH ×2 (07:19→16:16)
[2018-09-12] MEDS: INSULIN LISPRO 100 UNITS/ML SQ PRN ×2 (07:21→17:19)
[2018-09-12 07:39] LABS: GLUCOMETER DEV NAME(LOC) BV2S.; GLUCOSE,POINT OF CARE 142 MG/DL (70-110)
[2018-09-12 08:20] VITALS: BP 125/74
[2018-09-12] MEDS: RisperiDONE 1 MG TABLET PO SCH (08:43)
[2018-09-12] MEDS: PROPRANOLOL HCL 80 MG PO SCH (08:43)
[2018-09-12] MEDS: DIVALPROEX SODIUM 500 MG DR TABLET PO SCH ×2 (08:43→16:16)
[2018-09-12] MEDS: RIVAROXABAN 15 MG TABLET PO SCH (16:16)
[2018-09-12 16:52] VITALS: BP 155/78
[2018-09-12] MEDS: ATORVASTATIN CALCIUM 20 MG TABLET PO SCH (20:58)
[2018-09-12] MEDS: RisperiDONE 2 MG TABLET PO SCH (20:58)
[2018-09-12 21:05] LABS: GLUCOMETER DEV NAME(LOC) BV2S.; GLUCOSE,POINT OF CARE 278 MG/DL (70-110)
[2018-09-12 21:05] LABS: GLUCOMETER DEV NAME(LOC) BV2S.; GLUCOSE,POINT OF CARE 94 MG/DL (70-110)
[2018-09-13 01:20] VITALS: BP 142/79
[2018-09-13] MEDS: ZOLPIDEM TARTRATE 10 MG TABLET PO PRN (01:25)
[2018-09-13 06:54] LABS: GLUCOMETER DEV NAME(LOC) BV2S.; GLUCOSE,POINT OF CARE 184 MG/DL (70-110)
[2018-09-13] MEDS: INSULIN LISPRO 100 UNITS/ML SQ PRN ×3 (07:13→21:09)
[2018-09-13] MEDS: GlipiZIDE 5 MG TABLET PO SCH ×2 (07:20→16:13)
[2018-09-13] MEDS: LORazepam 1 MG TABLET PO PRN ×2 (08:05→22:03)
[2018-09-13] MEDS: DIVALPROEX SODIUM 500 MG DR TABLET PO SCH ×2 (08:05→16:13)
[2018-09-13] MEDS: RisperiDONE 1 MG TABLET PO SCH (08:05)
[2018-09-13] MEDS: PROPRANOLOL HCL 80 MG PO SCH (08:05)
[2018-09-13] MEDS: HALOPERIDOL 5 MG TABLET PO PRN ×2 (08:06→22:03)
[2018-09-13 08:43] VITALS: BP 131/68
[2018-09-13 10:34] LABS: GLUCOMETER DEV NAME(LOC) BV2S.; GLUCOSE,POINT OF CARE 126 MG/DL (70-110)
[2018-09-13 16:05] VITALS: BP 121/76
[2018-09-13] MEDS: RIVAROXABAN 15 MG TABLET PO SCH (16:13)
[2018-09-13 16:25] LABS: GLUCOMETER DEV NAME(LOC) BV2S.; GLUCOSE,POINT OF CARE 161 MG/DL (70-110)
[2018-09-13] MEDS: RisperiDONE 2 MG TABLET PO SCH (20:10)
[2018-09-13] MEDS: ATORVASTATIN CALCIUM 20 MG TABLET PO SCH (20:10)
[2018-09-13 20:19] LABS: GLUCOMETER DEV NAME(LOC) BV2S.; GLUCOSE,POINT OF CARE 200 MG/DL (70-110)
[2018-09-14 03:00] VITALS: BP 154/76
[2018-09-14] MEDS: HALOPERIDOL 5 MG TABLET PO PRN (03:14)
[2018-09-14] MEDS: LORazepam 1 MG TABLET PO PRN (04:00)
[2018-09-14] MEDS: GlipiZIDE 5 MG TABLET PO SCH ×2 (06:56→16:37)
[2018-09-14 08:10] VITALS: BP 118/81
[2018-09-14] MEDS: DIVALPROEX SODIUM 500 MG DR TABLET PO SCH ×2 (09:42→16:39)
[2018-09-14] MEDS: PROPRANOLOL HCL 80 MG PO SCH (09:42)
[2018-09-14] MEDS: RisperiDONE 1 MG TABLET PO SCH (09:43)
[2018-09-14 11:04] LABS: GLUCOMETER DEV NAME(LOC) BV2S.; GLUCOSE,POINT OF CARE 125 MG/DL (70-110)
[2018-09-14 11:04] LABS: GLUCOMETER DEV NAME(LOC) BV2S.; GLUCOSE,POINT OF CARE 203 MG/DL (70-110)
[2018-09-14] MEDS: INSULIN LISPRO 100 UNITS/ML SQ PRN (11:05)
[2018-09-14 16:23] VITALS: BP 167/90
[2018-09-14] MEDS: RIVAROXABAN 15 MG TABLET PO SCH (16:37)
[2018-09-14 16:49] LABS: GLUCOMETER DEV NAME(LOC) BV2S.; GLUCOSE,POINT OF CARE 140 MG/DL (70-110)
[2018-09-14 20:18] LABS: GLUCOMETER DEV NAME(LOC) BV2S.; GLUCOSE,POINT OF CARE 110 MG/DL (70-110)
[2018-09-14] MEDS: ATORVASTATIN CALCIUM 20 MG TABLET PO SCH (20:33)
[2018-09-14] MEDS: RisperiDONE 2 MG TABLET PO SCH (20:36)
[2018-09-14] MEDS: ZOLPIDEM TARTRATE 10 MG TABLET PO PRN (21:29)
[2018-09-15 05:59] LABS: GLUCOMETER DEV NAME(LOC) BV2S.; GLUCOSE,POINT OF CARE 104 MG/DL (70-110)
[2018-09-15 06:22] VITALS: BP 125/76
[2018-09-15] MEDS: GlipiZIDE 5 MG TABLET PO SCH ×2 (06:51→16:47)
[2018-09-15] MEDS: PROPRANOLOL HCL 80 MG PO SCH (08:28)
[2018-09-15] MEDS: LORazepam 1 MG TABLET PO PRN ×2 (08:28→16:51)
[2018-09-15] MEDS: RisperiDONE 1 MG TABLET PO SCH (08:28)
[2018-09-15] MEDS: DIVALPROEX SODIUM 500 MG DR TABLET PO SCH ×2 (08:28→16:51)
[2018-09-15] MEDS: HALOPERIDOL 5 MG TABLET PO PRN (08:29)
[2018-09-15 08:30] VITALS: BP 132/86
[2018-09-15 10:50] LABS: GLUCOMETER DEV NAME(LOC) BV2S.; GLUCOSE,POINT OF CARE 218 MG/DL (70-110)
[2018-09-15] MEDS: INSULIN LISPRO 100 UNITS/ML SQ PRN ×2 (11:45→17:00)
[2018-09-15 16:24] LABS: GLUCOMETER DEV NAME(LOC) BV2S.; GLUCOSE,POINT OF CARE 190 MG/DL (70-110)
[2018-09-15 16:34] VITALS: BP 122/83
[2018-09-15] MEDS: RIVAROXABAN 15 MG TABLET PO SCH (16:47)
[2018-09-15] MEDS: RisperiDONE 2 MG TABLET PO SCH (20:45)
[2018-09-15] MEDS: ATORVASTATIN CALCIUM 20 MG TABLET PO SCH (20:45)
[2018-09-15 21:19] LABS: GLUCOMETER DEV NAME(LOC) BV3S.; GLUCOSE,POINT OF CARE 167 MG/DL (70-110)
[2018-09-16] MEDS: HALOPERIDOL 5 MG TABLET PO PRN ×2 (00:14→20:52)
[2018-09-16] MEDS: LORazepam 1 MG TABLET PO PRN (00:14)
[2018-09-16] MEDS: GlipiZIDE 5 MG TABLET PO SCH ×2 (06:40→16:41)
[2018-09-16 06:44] LABS: GLUCOMETER DEV NAME(LOC) BV3S.; GLUCOSE,POINT OF CARE 120 MG/DL (70-110)
[2018-09-16 06:51] VITALS: BP 171/90
[2018-09-16] MEDS: CloNIDine HCL 0.1 MG TABLET PO PRN (07:00)
[2018-09-16 08:09] VITALS: BP 135/81
[2018-09-16] MEDS: RisperiDONE 1 MG TABLET PO SCH (08:45)
[2018-09-16] MEDS: DIVALPROEX SODIUM 500 MG DR TABLET PO SCH ×2 (08:45→16:23)
[2018-09-16] MEDS: PROPRANOLOL HCL 80 MG PO SCH (08:45)
[2018-09-16 08:53] LABS: CALCIUM, TOTAL 9.1 mg/dL (8.8-10.5); CREATININE 1.12 mg/dL (0.60-1.30)
[2018-09-16 11:40] LABS: GLUCOMETER DEV NAME(LOC) BV3S.; GLUCOSE,POINT OF CARE 203 MG/DL (70-110)
[2018-09-16] MEDS: INSULIN LISPRO 100 UNITS/ML SQ PRN ×2 (12:17→21:03)
[2018-09-16 16:31] VITALS: BP 115/85
[2018-09-16] MEDS: RIVAROXABAN 15 MG TABLET PO SCH (16:41)
[2018-09-16 17:30] LABS: GLUCOMETER DEV NAME(LOC) BV3S.; GLUCOSE,POINT OF CARE 119 MG/DL (70-110)
[2018-09-16] MEDS: ATORVASTATIN CALCIUM 20 MG TABLET PO SCH (20:07)
[2018-09-16] MEDS: RisperiDONE 2 MG TABLET PO SCH (20:08)
[2018-09-16 20:44] LABS: GLUCOMETER DEV NAME(LOC) BV3S.; GLUCOSE,POINT OF CARE 209 MG/DL (70-110)
[2018-09-17 06:21] VITALS: BP 142/71
[2018-09-17] MEDS: GlipiZIDE 5 MG TABLET PO SCH ×2 (06:40→16:05)
[2018-09-17 06:44] LABS: GLUCOMETER DEV NAME(LOC) BV3N.; GLUCOSE,POINT OF CARE 103 MG/DL (70-110)
[2018-09-17] MEDS: LORazepam 1 MG TABLET PO PRN ×2 (08:16→16:05)
[2018-09-17] MEDS: HALOPERIDOL 5 MG TABLET PO PRN ×2 (08:16→16:05)
[2018-09-17] MEDS: RisperiDONE 1 MG TABLET PO SCH (08:16)
[2018-09-17] MEDS: DIVALPROEX SODIUM 500 MG DR TABLET PO SCH ×2 (08:17→16:05)
[2018-09-17] MEDS: PROPRANOLOL HCL 80 MG PO SCH (08:17)
[2018-09-17 08:39] VITALS: BP 126/60
[2018-09-17 11:29] LABS: GLUCOMETER DEV NAME(LOC) BV3S.; GLUCOSE,POINT OF CARE 102 MG/DL (70-110)
[2018-09-17] MEDS: RIVAROXABAN 15 MG TABLET PO SCH (16:05)
[2018-09-17 16:13] VITALS: BP 140/76
[2018-09-17 16:44] LABS: GLUCOMETER DEV NAME(LOC) BV3S.; GLUCOSE,POINT OF CARE 267 MG/DL (70-110)
[2018-09-17] MEDS: INSULIN LISPRO 100 UNITS/ML SQ PRN ×3 (16:52→21:15)
[2018-09-17] MEDS: RisperiDONE 2 MG TABLET PO SCH (20:37)
[2018-09-17] MEDS: ZOLPIDEM TARTRATE 10 MG TABLET PO PRN (20:37)
[2018-09-17 21:04] LABS: GLUCOMETER DEV NAME(LOC) BV3S.; GLUCOSE,POINT OF CARE 172 MG/DL (70-110)
[2018-09-17] MEDS: ATORVASTATIN CALCIUM 20 MG TABLET PO SCH (21:05)
[2018-09-18 06:34] LABS: GLUCOMETER DEV NAME(LOC) BV3S.; GLUCOSE,POINT OF CARE 128 MG/DL (70-110)
[2018-09-18] MEDS: GlipiZIDE 5 MG TABLET PO SCH ×2 (06:37→17:03)
[2018-09-18 08:11] VITALS: BP 161/95
[2018-09-18] MEDS: DIVALPROEX SODIUM 500 MG DR TABLET PO SCH ×2 (08:49→17:03)
[2018-09-18] MEDS: RisperiDONE 1 MG TABLET PO SCH (08:49)
[2018-09-18] MEDS: PROPRANOLOL HCL 80 MG PO SCH (08:49)
[2018-09-18] MEDS: LORazepam 1 MG TABLET PO PRN ×2 (08:50→16:14)
[2018-09-18] MEDS: HALOPERIDOL 5 MG TABLET PO PRN ×2 (09:30→16:14)
[2018-09-18 10:30] VITALS: BP 138/78
[2018-09-18 13:05] LABS: GLUCOMETER DEV NAME(LOC) BV3S.; GLUCOSE,POINT OF CARE 130 MG/DL (70-110)
[2018-09-18 16:05] VITALS: BP 139/83
[2018-09-18 16:20] VITALS: BP 139/83
[2018-09-18] MEDS: RIVAROXABAN 15 MG TABLET PO SCH (17:03)
[2018-09-18 17:19] LABS: GLUCOMETER DEV NAME(LOC) BV3S.; GLUCOSE,POINT OF CARE 210 MG/DL (70-110)
[2018-09-18] MEDS: INSULIN LISPRO 100 UNITS/ML SQ PRN ×2 (17:29→21:11)
[2018-09-18] MEDS: ATORVASTATIN CALCIUM 20 MG TABLET PO SCH (20:24)
[2018-09-18] MEDS: RisperiDONE 2 MG TABLET PO SCH (20:24)
[2018-09-18 20:25] LABS: GLUCOMETER DEV NAME(LOC) BV3S.; GLUCOSE,POINT OF CARE 314 MG/DL (70-110)
[2018-09-18] MEDS: ZOLPIDEM TARTRATE 10 MG TABLET PO PRN (21:18)
[2018-09-19 00:05] VITALS: BP 140/85
[2018-09-19] MEDS: GlipiZIDE 5 MG TABLET PO SCH ×2 (06:25→16:32)
[2018-09-19 06:29] LABS: GLUCOMETER DEV NAME(LOC) BV3S.; GLUCOSE,POINT OF CARE 150 MG/DL (70-110)
[2018-09-19] MEDS: INSULIN LISPRO 100 UNITS/ML SQ PRN ×3 (06:36→20:51)
[2018-09-19 08:11] VITALS: BP 148/83
[2018-09-19] MEDS: PROPRANOLOL HCL 80 MG PO SCH (08:15)
[2018-09-19] MEDS: RisperiDONE 1 MG TABLET PO SCH (08:15)
[2018-09-19] MEDS: DIVALPROEX SODIUM 500 MG DR TABLET PO SCH ×2 (08:15→16:32)
[2018-09-19] MEDS: LORazepam 1 MG TABLET PO PRN (08:55)
[2018-09-19] MEDS: HALOPERIDOL 5 MG TABLET PO PRN (08:55)
[2018-09-19 11:09] LABS: GLUCOMETER DEV NAME(LOC) BV3S.; GLUCOSE,POINT OF CARE 157 MG/DL (70-110)
[2018-09-19 16:12] VITALS: BP 139/80
[2018-09-19] MEDS: RIVAROXABAN 15 MG TABLET PO SCH (16:32)
[2018-09-19 16:44] LABS: GLUCOMETER DEV NAME(LOC) BV3S.; GLUCOSE,POINT OF CARE 137 MG/DL (70-110)
[2018-09-19] MEDS: RisperiDONE 2 MG TABLET PO SCH (20:40)
[2018-09-19] MEDS: ATORVASTATIN CALCIUM 20 MG TABLET PO SCH (20:40)
[2018-09-19 21:04] LABS: GLUCOMETER DEV NAME(LOC) BV3S.; GLUCOSE,POINT OF CARE 163 MG/DL (70-110)
[2018-09-19] MEDS: ZOLPIDEM TARTRATE 10 MG TABLET PO PRN (23:48)
[2018-09-20] VITALS: BP 143/72
[2018-09-20 06:19] LABS: GLUCOMETER DEV NAME(LOC) BV3S.; GLUCOSE,POINT OF CARE 134 MG/DL (70-110)
[2018-09-20] MEDS: GlipiZIDE 5 MG TABLET PO SCH ×2 (06:40→16:09)
[2018-09-20 08:07] VITALS: BP 118/59
[2018-09-20] MEDS: DIVALPROEX SODIUM 500 MG DR TABLET PO SCH ×2 (08:24→16:09)
[2018-09-20] MEDS: LORazepam 1 MG TABLET PO PRN ×2 (08:24→16:09)
[2018-09-20] MEDS: RisperiDONE 1 MG TABLET PO SCH (08:24)
[2018-09-20] MEDS: PROPRANOLOL HCL 80 MG PO SCH (08:24)
[2018-09-20 12:19] LABS: GLUCOMETER DEV NAME(LOC) BV3S.; GLUCOSE,POINT OF CARE 93 MG/DL (70-110)
[2018-09-20] MEDS: RIVAROXABAN 15 MG TABLET PO SCH (16:09)
[2018-09-20 16:59] LABS: GLUCOMETER DEV NAME(LOC) BV3S.; GLUCOSE,POINT OF CARE 172 MG/DL (70-110)
[2018-09-20] MEDS: INSULIN LISPRO 100 UNITS/ML SQ PRN ×2 (17:04→21:19)
[2018-09-20 17:15] VITALS: BP 180/70
[2018-09-20] MEDS: HALOPERIDOL 5 MG TABLET PO PRN (17:24)
[2018-09-20] MEDS: CloNIDine HCL 0.1 MG TABLET PO PRN (17:25)
[2018-09-20 18:25] VITALS: BP 150/75
[2018-09-20] MEDS: ZOLPIDEM TARTRATE 10 MG TABLET PO PRN (20:33)
[2018-09-20] MEDS: ATORVASTATIN CALCIUM 20 MG TABLET PO SCH (20:33)
[2018-09-20] MEDS: RisperiDONE 2 MG TABLET PO SCH (20:33)
[2018-09-20 20:54] LABS: GLUCOMETER DEV NAME(LOC) BV3S.; GLUCOSE,POINT OF CARE 158 MG/DL (70-110)
[2018-09-21 06:22] VITALS: BP 146/80
[2018-09-21 06:30] LABS: GLUCOMETER DEV NAME(LOC) BV3S.; GLUCOSE,POINT OF CARE 107 MG/DL (70-110)
[2018-09-21] MEDS: GlipiZIDE 5 MG TABLET PO SCH ×2 (06:39→16:22)
[2018-09-21 08:06] VITALS: BP 146/90
[2018-09-21] MEDS: PROPRANOLOL HCL 80 MG PO SCH (09:01)
[2018-09-21] MEDS: LORazepam 1 MG TABLET PO PRN ×2 (09:02→17:15)
[2018-09-21] MEDS: DIVALPROEX SODIUM 500 MG DR TABLET PO SCH ×2 (09:02→16:31)
[2018-09-21] MEDS: RisperiDONE 1 MG TABLET PO SCH (09:02)
[2018-09-21] MEDS: HALOPERIDOL 5 MG TABLET PO PRN ×2 (09:52→17:15)
[2018-09-21 11:10] LABS: GLUCOMETER DEV NAME(LOC) BV3S.; GLUCOSE,POINT OF CARE 177 MG/DL (70-110)
[2018-09-21] MEDS: INSULIN LISPRO 100 UNITS/ML SQ PRN (11:43)
[2018-09-21] MEDS ORDERED: DIVALPROEX SODIUM 500 MG ER TABLET PO ONE (16:20)
[2018-09-21] MEDS: RIVAROXABAN 15 MG TABLET PO SCH (16:22)
[2018-09-21 17:15] LABS: GLUCOMETER DEV NAME(LOC) 3E.I; GLUCOSE,POINT OF CARE 111 MG/DL (70-110)
[2018-09-21 17:40] VITALS: BP 162/78
[2018-09-21] MEDS: RisperiDONE 2 MG TABLET PO SCH (20:20)
[2018-09-21] MEDS: ZOLPIDEM TARTRATE 10 MG TABLET PO PRN (20:21)
[2018-09-21 20:29] LABS: GLUCOMETER DEV NAME(LOC) 3E.I; GLUCOSE,POINT OF CARE 124 MG/DL (70-110)
[2018-09-21] MEDS: ATORVASTATIN CALCIUM 20 MG TABLET PO SCH (21:00)
[2018-09-22 00:26] VITALS: BP 143/84
[2018-09-22] MEDS: HALOPERIDOL 5 MG TABLET PO PRN ×2 (00:30→10:40)
[2018-09-22] MEDS: LORazepam 1 MG TABLET PO PRN ×2 (00:30→10:40)
[2018-09-22 06:16] LABS: GLUCOMETER DEV NAME(LOC) 3E.I; GLUCOSE,POINT OF CARE 104 MG/DL (70-110)
[2018-09-22] MEDS: GlipiZIDE 5 MG TABLET PO SCH ×2 (06:33→16:22)
[2018-09-22] MEDS: INSULIN LISPRO 100 UNITS/ML SQ PRN ×3 (06:34→20:37)
[2018-09-22 09:00] VITALS: BP 140/72
[2018-09-22] MEDS: DIVALPROEX SODIUM 500 MG DR TABLET PO SCH ×2 (10:40→16:22)
[2018-09-22] MEDS: RisperiDONE 1 MG TABLET PO SCH (10:40)
[2018-09-22 10:54] LABS: GLUCOMETER DEV NAME(LOC) 3E.I; GLUCOSE,POINT OF CARE 103 MG/DL (70-110)
[2018-09-22] MEDS: PROPRANOLOL HCL 80 MG PO SCH (13:43)
[2018-09-22 16:18] VITALS: BP 154/74
[2018-09-22] MEDS: RIVAROXABAN 15 MG TABLET PO SCH (16:22)
[2018-09-22 16:40] LABS: GLUCOMETER DEV NAME(LOC) 3E.I; GLUCOSE,POINT OF CARE 269 MG/DL (70-110)
[2018-09-22] MEDS: ATORVASTATIN CALCIUM 20 MG TABLET PO SCH (20:04)
[2018-09-22] MEDS: RisperiDONE 2 MG TABLET PO SCH (20:04)
[2018-09-22 20:19] LABS: GLUCOMETER DEV NAME(LOC) 3E.I; GLUCOSE,POINT OF CARE 143 MG/DL (70-110)
[2018-09-22] MEDS: ZOLPIDEM TARTRATE 10 MG TABLET PO PRN (21:02)
[2018-09-23 03:09] VITALS: BP 164/79
[2018-09-23 05:55] LABS: GLUCOMETER DEV NAME(LOC) 3E.I; GLUCOSE,POINT OF CARE 121 MG/DL (70-110)
[2018-09-23] MEDS: GlipiZIDE 5 MG TABLET PO SCH ×2 (06:57→17:06)
[2018-09-23 09:24] VITALS: BP 156/77
[2018-09-23] MEDS: DIVALPROEX SODIUM 500 MG DR TABLET PO SCH ×2 (09:35→17:06)
[2018-09-23] MEDS: PROPRANOLOL HCL 80 MG PO SCH (09:35)
[2018-09-23] MEDS: RisperiDONE 1 MG TABLET PO SCH (09:35)
[2018-09-23 09:39] LABS: CALCIUM, TOTAL 9.1 mg/dL (8.8-10.5); CREATININE 1.32 mg/dL (0.60-1.30); POTASSIUM 4.3 mmol/L (3.5-5.1)
[2018-09-23] MEDS: LORazepam 1 MG TABLET PO PRN ×3 (09:53→23:57)
[2018-09-23] MEDS: LOPERAMIDE HCL 2 MG CAPSULE PO PRN (09:53)
[2018-09-23] MEDS: HALOPERIDOL 5 MG TABLET PO PRN ×2 (09:53→20:37)
[2018-09-23 11:54] LABS: GLUCOMETER DEV NAME(LOC) 3E.I; GLUCOSE,POINT OF CARE 207 MG/DL (70-110)
[2018-09-23] MEDS: INSULIN LISPRO 100 UNITS/ML SQ PRN (11:55)
[2018-09-23 17:04] VITALS: BP 148/76
[2018-09-23] MEDS: RIVAROXABAN 15 MG TABLET PO SCH (17:06)
[2018-09-23 17:31] LABS: GLUCOMETER DEV NAME(LOC) 3E.I; GLUCOSE,POINT OF CARE 96 MG/DL (70-110)
[2018-09-23] MEDS: RisperiDONE 2 MG TABLET PO SCH (20:35)
[2018-09-23] MEDS: ATORVASTATIN CALCIUM 20 MG TABLET PO SCH (20:35)
[2018-09-23 20:39] LABS: GLUCOMETER DEV NAME(LOC) 3E.I; GLUCOSE,POINT OF CARE 129 MG/DL (70-110)
[2018-09-23] MEDS: ZOLPIDEM TARTRATE 10 MG TABLET PO PRN (23:57)
[2018-09-24 06:20] LABS: GLUCOMETER DEV NAME(LOC) 3E.I; GLUCOSE,POINT OF CARE 134 MG/DL (70-110)
[2018-09-24] MEDS: GlipiZIDE 5 MG TABLET PO SCH ×2 (07:08→17:30)
[2018-09-24 08:30] VITALS: BP 132/80
[2018-09-24] MEDS: PROPRANOLOL HCL 80 MG PO SCH (09:21)
[2018-09-24] MEDS: RisperiDONE 1 MG TABLET PO SCH (09:21)
[2018-09-24] MEDS: DIVALPROEX SODIUM 500 MG DR TABLET PO SCH ×2 (09:21→17:30)
[2018-09-24 12:00] LABS: GLUCOMETER DEV NAME(LOC) 3E.I; GLUCOSE,POINT OF CARE 169 MG/DL (70-110)
[2018-09-24] MEDS: INSULIN LISPRO 100 UNITS/ML SQ PRN (12:06)
[2018-09-24] MEDS: RIVAROXABAN 15 MG TABLET PO SCH (17:30)
[2018-09-24 17:34] LABS: GLUCOMETER DEV NAME(LOC) 3E.I; GLUCOSE,POINT OF CARE 73 MG/DL (70-110)
[2018-09-24 17:43] VITALS: BP 162/98
[2018-09-24] MEDS: RisperiDONE 2 MG TABLET PO SCH (20:46)
[2018-09-24] MEDS: ATORVASTATIN CALCIUM 20 MG TABLET PO SCH (20:46)
[2018-09-24 20:50] LABS: GLUCOMETER DEV NAME(LOC) 3E.I; GLUCOSE,POINT OF CARE 126 MG/DL (70-110)
[2018-09-24] MEDS: ZOLPIDEM TARTRATE 10 MG TABLET PO PRN (23:50)
[2018-09-25 00:10] VITALS: BP 141/60
[2018-09-25] MEDS: GlipiZIDE 5 MG TABLET PO SCH (06:23)
[2018-09-25 06:44] LABS: GLUCOMETER DEV NAME(LOC) 3E.C; GLUCOSE,POINT OF CARE 67 MG/DL (70-110)
[2018-09-25 06:59] LABS: GLUCOMETER DEV NAME(LOC) 3E.I; GLUCOSE,POINT OF CARE 77 MG/DL (70-110)
[2018-09-25 07:19] LABS: GLUCOMETER DEV NAME(LOC) 3E.I; GLUCOSE,POINT OF CARE 81 MG/DL (70-110)
[2018-09-25 07:33] LABS: GLUCOMETER DEV NAME(LOC) 3E.I; GLUCOSE,POINT OF CARE 110 MG/DL (70-110)
[2018-09-25 08:05] VITALS: BP 148/79
[2018-09-25] MEDS: DIVALPROEX SODIUM 500 MG DR TABLET PO SCH ×2 (08:48→16:41)
[2018-09-25] MEDS: PROPRANOLOL HCL 80 MG PO SCH (08:48)
[2018-09-25] MEDS: RisperiDONE 1 MG TABLET PO SCH (08:48)
[2018-09-25 12:00] LABS: GLUCOMETER DEV NAME(LOC) 3E.I; GLUCOSE,POINT OF CARE 102 MG/DL (70-110)
[2018-09-25] MEDS: INSULIN LISPRO 100 UNITS/ML SQ PRN ×2 (12:46→20:15)
[2018-09-25 16:00] VITALS: BP 138/76
[2018-09-25] MEDS: HALOPERIDOL 5 MG TABLET PO PRN (16:40)
[2018-09-25] MEDS: LORazepam 1 MG TABLET PO PRN (16:40)
[2018-09-25] MEDS: RIVAROXABAN 15 MG TABLET PO SCH (16:40)
[2018-09-25 17:09] LABS: GLUCOMETER DEV NAME(LOC) 3E.I; GLUCOSE,POINT OF CARE 127 MG/DL (70-110)
[2018-09-25] MEDS: ATORVASTATIN CALCIUM 20 MG TABLET PO SCH (20:10)
[2018-09-25] MEDS: RisperiDONE 2 MG TABLET PO SCH (20:10)
[2018-09-25 20:28] LABS: GLUCOMETER DEV NAME(LOC) 3E.I; GLUCOSE,POINT OF CARE 215 MG/DL (70-110)
[2018-09-26 05:35] LABS: GLUCOMETER DEV NAME(LOC) 3E.I; GLUCOSE,POINT OF CARE 98 MG/DL (70-110)
[2018-09-26] MEDS: INSULIN LISPRO 100 UNITS/ML SQ PRN ×3 (06:20→21:40)
[2018-09-26] MEDS: HALOPERIDOL 5 MG TABLET PO PRN (09:13)
[2018-09-26] MEDS: LORazepam 1 MG TABLET PO PRN ×2 (09:13→17:07)
[2018-09-26] MEDS: GlipiZIDE 5 MG TABLET PO SCH (09:14)
[2018-09-26] MEDS: DIVALPROEX SODIUM 500 MG DR TABLET PO SCH ×2 (09:14→17:06)
[2018-09-26] MEDS: PROPRANOLOL HCL 80 MG PO SCH (09:14)
[2018-09-26] MEDS: RisperiDONE 1 MG TABLET PO SCH (09:17)
[2018-09-26 11:25] LABS: GLUCOMETER DEV NAME(LOC) 3E.I; GLUCOSE,POINT OF CARE 96 MG/DL (70-110)
[2018-09-26 16:40] LABS: GLUCOMETER DEV NAME(LOC) 3E.I; GLUCOSE,POINT OF CARE 115 MG/DL (70-110)
[2018-09-26 16:42] VITALS: BP 122/69
[2018-09-26] MEDS: RIVAROXABAN 15 MG TABLET PO SCH (17:06)
[2018-09-26] MEDS: RisperiDONE 2 MG TABLET PO SCH (20:10)
[2018-09-26] MEDS: ATORVASTATIN CALCIUM 20 MG TABLET PO SCH (20:10)
[2018-09-26 21:34] LABS: GLUCOMETER DEV NAME(LOC) 3E.I; GLUCOSE,POINT OF CARE 177 MG/DL (70-110)
[2018-09-26] MEDS: ZOLPIDEM TARTRATE 10 MG TABLET PO PRN (21:49)
[2018-09-27 05:44] LABS: GLUCOMETER DEV NAME(LOC) 3E.I; GLUCOSE,POINT OF CARE 85 MG/DL (70-110)
[2018-09-27] MEDS: INSULIN LISPRO 100 UNITS/ML SQ PRN ×3 (06:48→20:19)
[2018-09-27 08:05] VITALS: BP 133/83
[2018-09-27] MEDS: GlipiZIDE 5 MG TABLET PO SCH (08:38)
[2018-09-27] MEDS: HALOPERIDOL 5 MG TABLET PO PRN ×3 (08:38→17:56)
[2018-09-27] MEDS: RisperiDONE 1 MG TABLET PO SCH (08:39)
[2018-09-27] MEDS: LORazepam 1 MG TABLET PO PRN ×3 (08:39→17:56)
[2018-09-27] MEDS: DIVALPROEX SODIUM 500 MG DR TABLET PO SCH ×2 (08:39→16:08)
[2018-09-27] MEDS: PROPRANOLOL HCL 80 MG PO SCH (08:40)
[2018-09-27] MEDS: LOPERAMIDE HCL 2 MG CAPSULE PO PRN (09:57)
[2018-09-27 11:40] LABS: GLUCOMETER DEV NAME(LOC) 3E.I; GLUCOSE,POINT OF CARE 165 MG/DL (70-110)
[2018-09-27] MEDS: RIVAROXABAN 15 MG TABLET PO SCH (16:08)
[2018-09-27 16:24] LABS: GLUCOMETER DEV NAME(LOC) 3E.I; GLUCOSE,POINT OF CARE 128 MG/DL (70-110)
[2018-09-27 18:48] VITALS: BP 147/70
[2018-09-27] MEDS: ATORVASTATIN CALCIUM 20 MG TABLET PO SCH (20:14)
[2018-09-27] MEDS: RisperiDONE 2 MG TABLET PO SCH (20:14)
[2018-09-27] MEDS: ZOLPIDEM TARTRATE 10 MG TABLET PO PRN (20:15)
[2018-09-27 20:29] LABS: GLUCOMETER DEV NAME(LOC) 3E.I; GLUCOSE,POINT OF CARE 215 MG/DL (70-110)
[2018-09-28 06:09] LABS: GLUCOMETER DEV NAME(LOC) 3E.I; GLUCOSE,POINT OF CARE 106 MG/DL (70-110)
[2018-09-28] MEDS: INSULIN LISPRO 100 UNITS/ML SQ PRN ×3 (06:40→20:21)
[2018-09-28 08:05] VITALS: BP 116/93
[2018-09-28] MEDS: DIVALPROEX SODIUM 500 MG DR TABLET PO SCH ×2 (08:33→16:23)
[2018-09-28] MEDS: LORazepam 1 MG TABLET PO PRN ×2 (08:33→16:23)
[2018-09-28] MEDS: GlipiZIDE 5 MG TABLET PO SCH (08:33)
[2018-09-28] MEDS: RisperiDONE 1 MG TABLET PO SCH (08:33)
[2018-09-28] MEDS: PROPRANOLOL HCL 80 MG PO SCH (08:33)
[2018-09-28] MEDS: HALOPERIDOL 5 MG TABLET PO PRN ×2 (08:34→16:23)
[2018-09-28 11:34] LABS: GLUCOMETER DEV NAME(LOC) 3E.I; GLUCOSE,POINT OF CARE 147 MG/DL (70-110)
[2018-09-28] MEDS: RIVAROXABAN 15 MG TABLET PO SCH (16:23)
[2018-09-28 16:34] LABS: GLUCOMETER DEV NAME(LOC) 3E.I; GLUCOSE,POINT OF CARE 87 MG/DL (70-110)
[2018-09-28 16:37] VITALS: BP 135/85
[2018-09-28] MEDS: RisperiDONE 2 MG TABLET PO SCH (20:19)
[2018-09-28] MEDS: ATORVASTATIN CALCIUM 20 MG TABLET PO SCH (20:19)
[2018-09-28 20:54] LABS: GLUCOMETER DEV NAME(LOC) 3E.I; GLUCOSE,POINT OF CARE 157 MG/DL (70-110)
[2018-09-29 05:45] LABS: GLUCOMETER DEV NAME(LOC) 3E.I; GLUCOSE,POINT OF CARE 126 MG/DL (70-110)
[2018-09-29 08:44] VITALS: BP 105/53
[2018-09-29] MEDS: DIVALPROEX SODIUM 500 MG DR TABLET PO SCH ×2 (09:37→16:02)
[2018-09-29] MEDS: LORazepam 1 MG TABLET PO PRN (09:37)
[2018-09-29] MEDS: HALOPERIDOL 5 MG TABLET PO PRN (09:37)
[2018-09-29] MEDS: RisperiDONE 1 MG TABLET PO SCH (09:37)
[2018-09-29] MEDS: PROPRANOLOL HCL 80 MG PO SCH (09:37)
[2018-09-29] MEDS: GlipiZIDE 5 MG TABLET PO SCH (09:38)
[2018-09-29 12:09] LABS: GLUCOMETER DEV NAME(LOC) 3E.I; GLUCOSE,POINT OF CARE 122 MG/DL (70-110)
[2018-09-29] MEDS: RIVAROXABAN 15 MG TABLET PO SCH (16:02)
[2018-09-29 16:39] LABS: GLUCOMETER DEV NAME(LOC) 3E.I; GLUCOSE,POINT OF CARE 125 MG/DL (70-110)
[2018-09-29 17:00] VITALS: BP 130/72
[2018-09-29] MEDS: RisperiDONE 2 MG TABLET PO SCH (20:13)
[2018-09-29] MEDS: ATORVASTATIN CALCIUM 20 MG TABLET PO SCH (20:13)
[2018-09-29] MEDS: INSULIN LISPRO 100 UNITS/ML SQ PRN (21:30)
[2018-09-29 21:34] LABS: GLUCOMETER DEV NAME(LOC) 3E.I; GLUCOSE,POINT OF CARE 263 MG/DL (70-110)
[2018-09-30 06:10] LABS: GLUCOMETER DEV NAME(LOC) 3E.I; GLUCOSE,POINT OF CARE 110 MG/DL (70-110)
[2018-09-30] MEDS: LORazepam 1 MG TABLET PO PRN ×2 (07:42→16:30)
[2018-09-30] MEDS: HALOPERIDOL 5 MG TABLET PO PRN (07:43)
[2018-09-30 08:15] VITALS: BP 147/84
[2018-09-30] MEDS: DIVALPROEX SODIUM 500 MG DR TABLET PO SCH ×2 (08:20→16:31)
[2018-09-30] MEDS: PROPRANOLOL HCL 80 MG PO SCH (08:20)
[2018-09-30] MEDS: RisperiDONE 1 MG TABLET PO SCH (08:21)
[2018-09-30] MEDS: GlipiZIDE 5 MG TABLET PO SCH (08:21)
[2018-09-30 11:34] LABS: GLUCOMETER DEV NAME(LOC) 3E.I; GLUCOSE,POINT OF CARE 154 MG/DL (70-110)
[2018-09-30] MEDS: INSULIN LISPRO 100 UNITS/ML SQ PRN ×2 (11:39→21:47)
[2018-09-30 16:14] LABS: GLUCOMETER DEV NAME(LOC) 3E.I; GLUCOSE,POINT OF CARE 79 MG/DL (70-110)
[2018-09-30] MEDS: RIVAROXABAN 15 MG TABLET PO SCH (16:30)
[2018-09-30 16:47] VITALS: BP 156/90
[2018-09-30 20:27] LABS: GLUCOMETER DEV NAME(LOC) 3E.I; GLUCOSE,POINT OF CARE 241 MG/DL (70-110)
[2018-09-30] MEDS: RisperiDONE 2 MG TABLET PO SCH (20:35)
[2018-09-30] MEDS: ATORVASTATIN CALCIUM 20 MG TABLET PO SCH (20:35)
[2018-09-30] MEDS: ZOLPIDEM TARTRATE 10 MG TABLET PO PRN (21:29)
[2018-10-01 05:50] LABS: GLUCOMETER DEV NAME(LOC) 3E.I; GLUCOSE,POINT OF CARE 182 MG/DL (70-110)
[2018-10-01] MEDS: INSULIN LISPRO 100 UNITS/ML SQ PRN ×2 (07:13→11:36)
[2018-10-01 08:49] VITALS: BP 155/70
[2018-10-01] MEDS: GlipiZIDE 5 MG TABLET PO SCH (09:16)
[2018-10-01] MEDS: PROPRANOLOL HCL 80 MG PO SCH (09:16)
[2018-10-01] MEDS: HALOPERIDOL 5 MG TABLET PO PRN (09:16)
[2018-10-01] MEDS: DIVALPROEX SODIUM 500 MG DR TABLET PO SCH ×2 (09:16→17:16)
[2018-10-01] MEDS: LORazepam 1 MG TABLET PO PRN (09:16)
[2018-10-01] MEDS: RisperiDONE 1 MG TABLET PO SCH (09:16)
[2018-10-01 11:30] LABS: GLUCOMETER DEV NAME(LOC) 3E.I; GLUCOSE,POINT OF CARE 92 MG/DL (70-110)
[2018-10-01] MEDS: RIVAROXABAN 15 MG TABLET PO SCH (17:16)
[2018-10-01 17:25] LABS: GLUCOMETER DEV NAME(LOC) 3E.I; GLUCOSE,POINT OF CARE 113 MG/DL (70-110)
[2018-10-01 18:00] VITALS: BP 150/79
[2018-10-01] MEDS: RisperiDONE 2 MG TABLET PO SCH (21:38)
[2018-10-01] MEDS: ATORVASTATIN CALCIUM 20 MG TABLET PO SCH (21:38)
[2018-10-01 22:20] LABS: GLUCOMETER DEV NAME(LOC) 3E.I; GLUCOSE,POINT OF CARE 176 MG/DL (70-110)
[2018-10-02 00:10] VITALS: BP 165/88
[2018-10-02] MEDS: ZOLPIDEM TARTRATE 10 MG TABLET PO PRN ×2 (00:42→21:01)
[2018-10-02] MEDS: LORazepam 1 MG TABLET PO PRN ×2 (01:42→16:04)
[2018-10-02] MEDS: HALOPERIDOL 5 MG TABLET PO PRN (01:42)
[2018-10-02 06:20] LABS: GLUCOMETER DEV NAME(LOC) 3E.I; GLUCOSE,POINT OF CARE 177 MG/DL (70-110)
[2018-10-02] MEDS: INSULIN LISPRO 100 UNITS/ML SQ PRN ×3 (06:28→21:22)
[2018-10-02 08:00] VITALS: BP 133/74
[2018-10-02] MEDS: GlipiZIDE 5 MG TABLET PO SCH (09:48)
[2018-10-02] MEDS: RisperiDONE 1 MG TABLET PO SCH (09:48)
[2018-10-02] MEDS: DIVALPROEX SODIUM 500 MG DR TABLET PO SCH ×2 (09:48→16:04)
[2018-10-02] MEDS: PROPRANOLOL HCL 80 MG PO SCH (09:48)
[2018-10-02 11:40] LABS: GLUCOMETER DEV NAME(LOC) 3E.I; GLUCOSE,POINT OF CARE 169 MG/DL (70-110)
[2018-10-02 16:08] LABS: GLUCOMETER DEV NAME(LOC) 3E.I; GLUCOSE,POINT OF CARE 135 MG/DL (70-110)
[2018-10-02 16:20] VITALS: BP 125/83
[2018-10-02] MEDS: RIVAROXABAN 15 MG TABLET PO SCH (16:35)
[2018-10-02] MEDS: ATORVASTATIN CALCIUM 20 MG TABLET PO SCH (20:04)
[2018-10-02] MEDS: RisperiDONE 2 MG TABLET PO SCH (20:04)
[2018-10-02 20:39] LABS: GLUCOMETER DEV NAME(LOC) 3E.I; GLUCOSE,POINT OF CARE 195 MG/DL (70-110)
[2018-10-03 06:29] LABS: GLUCOMETER DEV NAME(LOC) 3E.I; GLUCOSE,POINT OF CARE 111 MG/DL (70-110)
[2018-10-03] MEDS: INSULIN LISPRO 100 UNITS/ML SQ PRN ×4 (07:14→21:07)
[2018-10-03 08:11] VITALS: BP 154/87
[2018-10-03] MEDS: DIVALPROEX SODIUM 500 MG DR TABLET PO SCH ×2 (08:34→16:20)
[2018-10-03] MEDS: PROPRANOLOL HCL 80 MG PO SCH (08:34)
[2018-10-03] MEDS: RisperiDONE 1 MG TABLET PO SCH (08:34)
[2018-10-03] MEDS: GlipiZIDE 5 MG TABLET PO SCH (08:35)
[2018-10-03] MEDS: HALOPERIDOL 5 MG TABLET PO PRN (08:35)
[2018-10-03] MEDS: LORazepam 1 MG TABLET PO PRN ×2 (08:35→23:52)
[2018-10-03 11:24] LABS: GLUCOMETER DEV NAME(LOC) 3E.I; GLUCOSE,POINT OF CARE 153 MG/DL (70-110)
[2018-10-03] MEDS: RIVAROXABAN 15 MG TABLET PO SCH (16:20)
[2018-10-03 16:24] LABS: GLUCOMETER DEV NAME(LOC) 3E.I; GLUCOSE,POINT OF CARE 141 MG/DL (70-110)
[2018-10-03 18:47] VITALS: BP 147/75
[2018-10-03] MEDS: RisperiDONE 2 MG TABLET PO SCH (21:00)
[2018-10-03] MEDS: ATORVASTATIN CALCIUM 20 MG TABLET PO SCH (21:00)
[2018-10-03 21:14] LABS: GLUCOMETER DEV NAME(LOC) 3E.I; GLUCOSE,POINT OF CARE 159 MG/DL (70-110)
[2018-10-03 21:32] VITALS: BP 120/80
[2018-10-03] MEDS: IBUPROFEN 400 MG TABLET PO PRN (21:32)
[2018-10-03] MEDS: ZOLPIDEM TARTRATE 10 MG TABLET PO PRN (23:52)
[2018-10-04] MEDS: ZOLPIDEM TARTRATE 10 MG TABLET PO PRN ×2 (00:01→20:42)
[2018-10-04] MEDS: LORazepam 1 MG TABLET PO PRN (00:01)
[2018-10-04 01:01] VITALS: BP 153/85
[2018-10-04 06:19] LABS: GLUCOMETER DEV NAME(LOC) 3E.I; GLUCOSE,POINT OF CARE 98 MG/DL (70-110)
[2018-10-04 08:45] VITALS: BP 149/80
[2018-10-04 11:30] LABS: GLUCOMETER DEV NAME(LOC) 3E.I; GLUCOSE,POINT OF CARE 142 MG/DL (70-110)
[2018-10-04] MEDS: INSULIN LISPRO 100 UNITS/ML SQ PRN ×2 (11:39→20:41)
[2018-10-04] MEDS: DIVALPROEX SODIUM 500 MG DR TABLET PO SCH ×2 (11:44→16:31)
[2018-10-04] MEDS: PROPRANOLOL HCL 80 MG PO SCH (11:44)
[2018-10-04] MEDS: GlipiZIDE 5 MG TABLET PO SCH (11:44)
[2018-10-04] MEDS: RisperiDONE 1 MG TABLET PO SCH (11:44)
[2018-10-04] MEDS: RIVAROXABAN 15 MG TABLET PO SCH (16:31)
[2018-10-04 16:36] VITALS: BP 147/89
[2018-10-04 17:14] LABS: GLUCOMETER DEV NAME(LOC) 3E.I; GLUCOSE,POINT OF CARE 134 MG/DL (70-110)
[2018-10-04] MEDS: ATORVASTATIN CALCIUM 20 MG TABLET PO SCH (20:26)
[2018-10-04] MEDS: RisperiDONE 2 MG TABLET PO SCH (20:28)
[2018-10-04 20:40] LABS: GLUCOMETER DEV NAME(LOC) 3E.I; GLUCOSE,POINT OF CARE 177 MG/DL (70-110)
[2018-10-05 06:29] LABS: GLUCOMETER DEV NAME(LOC) 3E.I; GLUCOSE,POINT OF CARE 129 MG/DL (70-110)
[2018-10-05] MEDS: RisperiDONE 1 MG TABLET PO SCH (08:32)
[2018-10-05] MEDS: GlipiZIDE 5 MG TABLET PO SCH (08:32)
[2018-10-05] MEDS: DIVALPROEX SODIUM 500 MG DR TABLET PO SCH ×2 (08:32→16:11)
[2018-10-05] MEDS: HALOPERIDOL 5 MG TABLET PO PRN (08:33)
[2018-10-05] MEDS: LORazepam 1 MG TABLET PO PRN (08:33)
[2018-10-05] MEDS: PROPRANOLOL HCL 80 MG PO SCH (08:34)
[2018-10-05 10:37] VITALS: BP 132/89
[2018-10-05 11:19] LABS: GLUCOMETER DEV NAME(LOC) 3E.I; GLUCOSE,POINT OF CARE 152 MG/DL (70-110)
[2018-10-05] MEDS: INSULIN LISPRO 100 UNITS/ML SQ PRN ×2 (11:43→21:21)
[2018-10-05 16:14] LABS: GLUCOMETER DEV NAME(LOC) 3E.I; GLUCOSE,POINT OF CARE 111 MG/DL (70-110)
[2018-10-05 16:47] VITALS: BP 129/77
[2018-10-05] MEDS: RIVAROXABAN 15 MG TABLET PO SCH (16:53)
[2018-10-05 20:30] LABS: GLUCOMETER DEV NAME(LOC) 3E.I; GLUCOSE,POINT OF CARE 282 MG/DL (70-110)
[2018-10-05] MEDS: ATORVASTATIN CALCIUM 20 MG TABLET PO SCH (21:17)
[2018-10-05] MEDS: RisperiDONE 2 MG TABLET PO SCH (21:17)
[2018-10-05] MEDS: ZOLPIDEM TARTRATE 10 MG TABLET PO PRN (21:17)
[2018-10-06 00:42] VITALS: BP 143/86
[2018-10-06] MEDS: LORazepam 1 MG TABLET PO PRN ×3 (00:48→16:53)
[2018-10-06] MEDS: HALOPERIDOL 5 MG TABLET PO PRN ×2 (00:48→09:17)
[2018-10-06 05:55] LABS: GLUCOMETER DEV NAME(LOC) 3E.I; GLUCOSE,POINT OF CARE 133 MG/DL (70-110)
[2018-10-06 08:05] VITALS: BP 151/86
[2018-10-06] MEDS: GlipiZIDE 5 MG TABLET PO SCH (09:16)
[2018-10-06] MEDS: DIVALPROEX SODIUM 500 MG DR TABLET PO SCH ×2 (09:17→16:53)
[2018-10-06] MEDS: RisperiDONE 1 MG TABLET PO SCH (09:17)
[2018-10-06] MEDS: PROPRANOLOL HCL 80 MG PO SCH (09:18)
[2018-10-06 11:44] LABS: GLUCOMETER DEV NAME(LOC) 3E.I; GLUCOSE,POINT OF CARE 158 MG/DL (70-110)
[2018-10-06] MEDS: INSULIN LISPRO 100 UNITS/ML SQ PRN (11:56)
[2018-10-06 13:37] VITALS: BP 141/66
[2018-10-06] MEDS: IBUPROFEN 400 MG TABLET PO PRN (13:40)
[2018-10-06 16:24] LABS: GLUCOMETER DEV NAME(LOC) 3E.I; GLUCOSE,POINT OF CARE 108 MG/DL (70-110)
[2018-10-06] MEDS: RIVAROXABAN 15 MG TABLET PO SCH (16:53)
[2018-10-06 16:55] VITALS: BP 139/86
[2018-10-06] MEDS: ATORVASTATIN CALCIUM 20 MG TABLET PO SCH (20:44)
[2018-10-06] MEDS: RisperiDONE 2 MG TABLET PO SCH (20:44)
[2018-10-07 02:40] VITALS: BP 146/79
[2018-10-07] MEDS: LORazepam 1 MG TABLET PO PRN (02:41)
[2018-10-07] MEDS: ZOLPIDEM TARTRATE 10 MG TABLET PO PRN (02:41)
[2018-10-07 06:14] LABS: GLUCOMETER DEV NAME(LOC) 3E.I; GLUCOSE,POINT OF CARE 136 MG/DL (70-110)
[2018-10-07] MEDS: RisperiDONE 1 MG TABLET PO SCH (09:49)
[2018-10-07] MEDS: DIVALPROEX SODIUM 500 MG DR TABLET PO SCH ×2 (09:49→16:46)
[2018-10-07] MEDS: PROPRANOLOL HCL 80 MG PO SCH (09:50)
[2018-10-07] MEDS: GlipiZIDE 5 MG TABLET PO SCH (09:51)
[2018-10-07 10:30] VITALS: BP 124/83
[2018-10-07 12:00] LABS: GLUCOMETER DEV NAME(LOC) 3E.I; GLUCOSE,POINT OF CARE 185 MG/DL (70-110)
[2018-10-07] MEDS: INSULIN LISPRO 100 UNITS/ML SQ PRN ×3 (12:13→21:13)
[2018-10-07] MEDS: IBUPROFEN 400 MG TABLET PO PRN (14:30)
[2018-10-07] MEDS: RIVAROXABAN 15 MG TABLET PO SCH (16:46)
[2018-10-07 16:55] LABS: GLUCOMETER DEV NAME(LOC) 3E.I; GLUCOSE,POINT OF CARE 145 MG/DL (70-110)
[2018-10-07 17:00] VITALS: BP 139/86
[2018-10-07] MEDS: ATORVASTATIN CALCIUM 20 MG TABLET PO SCH (20:20)
[2018-10-07] MEDS: RisperiDONE 2 MG TABLET PO SCH (20:20)
[2018-10-07 20:45] LABS: GLUCOMETER DEV NAME(LOC) 3E.I; GLUCOSE,POINT OF CARE 149 MG/DL (70-110)
[2018-10-08] VITALS: BP 150/87
[2018-10-08] MEDS: LORazepam 1 MG TABLET PO PRN
[2018-10-08] MEDS: ZOLPIDEM TARTRATE 10 MG TABLET PO PRN (00:01)
[2018-10-08 05:45] LABS: GLUCOMETER DEV NAME(LOC) 3E.I; GLUCOSE,POINT OF CARE 126 MG/DL (70-110)
[2018-10-08] MEDS: GlipiZIDE 5 MG TABLET PO SCH (08:31)
[2018-10-08] MEDS: PROPRANOLOL HCL 80 MG PO SCH (08:31)
[2018-10-08] MEDS: RisperiDONE 1 MG TABLET PO SCH (08:32)
[2018-10-08] MEDS: DIVALPROEX SODIUM 500 MG DR TABLET PO SCH ×2 (08:32→16:34)
[2018-10-08 10:37] VITALS: BP 158/89
[2018-10-08 11:29] LABS: GLUCOMETER DEV NAME(LOC) 3E.I; GLUCOSE,POINT OF CARE 207 MG/DL (70-110)
[2018-10-08] MEDS: INSULIN LISPRO 100 UNITS/ML SQ PRN ×2 (11:48→21:33)
[2018-10-08 16:25] LABS: GLUCOMETER DEV NAME(LOC) 3E.I; GLUCOSE,POINT OF CARE 76 MG/DL (70-110)
[2018-10-08] MEDS: RIVAROXABAN 15 MG TABLET PO SCH (16:34)
[2018-10-08 18:29] VITALS: BP 140/96
[2018-10-08] MEDS: ATORVASTATIN CALCIUM 20 MG TABLET PO SCH (20:18)
[2018-10-08] MEDS: RisperiDONE 2 MG TABLET PO SCH (20:18)
[2018-10-08 21:24] LABS: GLUCOMETER DEV NAME(LOC) 3E.I; GLUCOSE,POINT OF CARE 160 MG/DL (70-110)
[2018-10-09 00:45] VITALS: BP 155/85
[2018-10-09] MEDS: LORazepam 1 MG TABLET PO PRN ×2 (00:45→10:13)
[2018-10-09] MEDS: ZOLPIDEM TARTRATE 10 MG TABLET PO PRN ×2 (00:45→21:21)
[2018-10-09 06:10] LABS: GLUCOMETER DEV NAME(LOC) 3E.I; GLUCOSE,POINT OF CARE 159 MG/DL (70-110)
[2018-10-09 06:16] LABS: CALCIUM, TOTAL 8.7 mg/dL (8.8-10.5); CREATININE 1.1 mg/dL (0.60-1.30); POTASSIUM 3.9 mmol/L (3.5-5.1)
[2018-10-09] MEDS: INSULIN LISPRO 100 UNITS/ML SQ PRN ×3 (07:15→17:41)
[2018-10-09 08:00] VITALS: BP 149/92
[2018-10-09] MEDS: DIVALPROEX SODIUM 500 MG DR TABLET PO SCH ×2 (08:51→16:09)
[2018-10-09] MEDS: PROPRANOLOL HCL 80 MG PO SCH (08:51)
[2018-10-09] MEDS: GlipiZIDE 5 MG TABLET PO SCH (08:51)
[2018-10-09] MEDS: RisperiDONE 1 MG TABLET PO SCH (08:51)
[2018-10-09] MEDS: HALOPERIDOL 5 MG TABLET PO PRN ×2 (10:13→16:09)
[2018-10-09 11:19] LABS: GLUCOMETER DEV NAME(LOC) 3E.I; GLUCOSE,POINT OF CARE 176 MG/DL (70-110)
[2018-10-09 13:13] VITALS: BP 142/92
[2018-10-09] MEDS: RIVAROXABAN 15 MG TABLET PO SCH (16:09)
[2018-10-09 16:34] LABS: GLUCOMETER DEV NAME(LOC) 3E.I; GLUCOSE,POINT OF CARE 144 MG/DL (70-110)
[2018-10-09] MEDS: MAGNESIUM HYDROXIDE SUSPENSION 30 ML UDCUP PO PRN (17:09)
[2018-10-09 17:13] VITALS: BP 160/72
[2018-10-09] MEDS: ATORVASTATIN CALCIUM 20 MG TABLET PO SCH (20:52)
[2018-10-09] MEDS: RisperiDONE 2 MG TABLET PO SCH (20:54)
[2018-10-09 21:34] LABS: GLUCOMETER DEV NAME(LOC) 3E.I; GLUCOSE,POINT OF CARE 96 MG/DL (70-110)
[2018-10-10 06:19] LABS: GLUCOMETER DEV NAME(LOC) 3E.I; GLUCOSE,POINT OF CARE 116 MG/DL (70-110)
[2018-10-10 08:53] VITALS: BP 150/78
[2018-10-10] MEDS: GlipiZIDE 5 MG TABLET PO SCH (09:22)
[2018-10-10] MEDS: RisperiDONE 1 MG TABLET PO SCH (09:22)
[2018-10-10] MEDS: PROPRANOLOL HCL 80 MG PO SCH (09:22)
[2018-10-10] MEDS: DIVALPROEX SODIUM 500 MG DR TABLET PO SCH ×2 (09:22→17:45)
[2018-10-10] MEDS: INSULIN LISPRO 100 UNITS/ML SQ PRN ×3 (11:39→21:38)
[2018-10-10 11:40] LABS: GLUCOMETER DEV NAME(LOC) 3E.I; GLUCOSE,POINT OF CARE 172 MG/DL (70-110)
[2018-10-10] MEDS: LORazepam 1 MG TABLET PO PRN ×2 (14:19→18:21)
[2018-10-10] MEDS: HALOPERIDOL 5 MG TABLET PO PRN ×2 (14:19→18:21)
[2018-10-10 16:04] LABS: GLUCOMETER DEV NAME(LOC) 3E.I; GLUCOSE,POINT OF CARE 102 MG/DL (70-110)
[2018-10-10] MEDS: RIVAROXABAN 15 MG TABLET PO SCH (17:45)
[2018-10-10] MEDS: ATORVASTATIN CALCIUM 20 MG TABLET PO SCH (20:01)
[2018-10-10] MEDS: RisperiDONE 2 MG TABLET PO SCH (20:01)
[2018-10-10 21:40] LABS: GLUCOMETER DEV NAME(LOC) 3E.I; GLUCOSE,POINT OF CARE 162 MG/DL (70-110)
[2018-10-10 21:51] VITALS: BP 143/81
[2018-10-10] MEDS: ZOLPIDEM TARTRATE 10 MG TABLET PO PRN (22:12)
[2018-10-11 06:10] LABS: GLUCOMETER DEV NAME(LOC) 3E.I; GLUCOSE,POINT OF CARE 82 MG/DL (70-110)
[2018-10-11] MEDS: GlipiZIDE 5 MG TABLET PO SCH (08:13)
[2018-10-11] MEDS: RisperiDONE 1 MG TABLET PO SCH (08:13)
[2018-10-11] MEDS: DIVALPROEX SODIUM 500 MG DR TABLET PO SCH ×2 (08:13→16:27)
[2018-10-11] MEDS: PROPRANOLOL HCL 80 MG PO SCH (08:14)
[2018-10-11 09:00] VITALS: BP 155/75
[2018-10-11 11:49] LABS: GLUCOMETER DEV NAME(LOC) 3E.I; GLUCOSE,POINT OF CARE 187 MG/DL (70-110)
[2018-10-11] MEDS: INSULIN LISPRO 100 UNITS/ML SQ PRN ×2 (11:54→22:22)
[2018-10-11] MEDS: LORazepam 1 MG TABLET PO PRN (16:27)
[2018-10-11] MEDS: RIVAROXABAN 15 MG TABLET PO SCH (16:27)
[2018-10-11 17:04] LABS: GLUCOMETER DEV NAME(LOC) 3E.I; GLUCOSE,POINT OF CARE 111 MG/DL (70-110)
[2018-10-11] MEDS: ATORVASTATIN CALCIUM 20 MG TABLET PO SCH (20:16)
[2018-10-11] MEDS: RisperiDONE 2 MG TABLET PO SCH (20:16)
[2018-10-11 22:34] LABS: GLUCOMETER DEV NAME(LOC) 3E.I; GLUCOSE,POINT OF CARE 203 MG/DL (70-110)
[2018-10-12 06:14] LABS: GLUCOMETER DEV NAME(LOC) 3E.I; GLUCOSE,POINT OF CARE 163 MG/DL (70-110)
[2018-10-12] MEDS: INSULIN LISPRO 100 UNITS/ML SQ PRN (06:30)
[2018-10-12 08:11] VITALS: BP 146/68
[2018-10-12] MEDS: DIVALPROEX SODIUM 500 MG DR TABLET PO SCH ×2 (08:42→16:31)
[2018-10-12] MEDS: RisperiDONE 1 MG TABLET PO SCH (08:42)
[2018-10-12] MEDS: PROPRANOLOL HCL 80 MG PO SCH (08:42)
[2018-10-12] MEDS: GlipiZIDE 5 MG TABLET PO SCH (08:43)
[2018-10-12 09:39] LABS: CALCIUM, TOTAL 9.1 mg/dL (8.8-10.5); CREATININE 1.2 mg/dL (0.60-1.30); POTASSIUM 4.3 mmol/L (3.5-5.1)
[2018-10-12 10:54] LABS: GLUCOMETER DEV NAME(LOC) 3E.I; GLUCOSE,POINT OF CARE 103 MG/DL (70-110)
[2018-10-12] MEDS: RIVAROXABAN 15 MG TABLET PO SCH (16:31)
[2018-10-12 16:49] LABS: GLUCOMETER DEV NAME(LOC) 3E.I; GLUCOSE,POINT OF CARE 122 MG/DL (70-110)
[2018-10-12 17:00] VITALS: BP 130/96
[2018-10-12] MEDS: ZOLPIDEM TARTRATE 10 MG TABLET PO PRN (20:22)
[2018-10-12] MEDS: ATORVASTATIN CALCIUM 20 MG TABLET PO SCH (20:22)
[2018-10-12] MEDS: RisperiDONE 2 MG TABLET PO SCH (20:22)
[2018-10-12 21:29] LABS: GLUCOMETER DEV NAME(LOC) 3E.I; GLUCOSE,POINT OF CARE 139 MG/DL (70-110)
[2018-10-13 00:20] VITALS: BP 127/54
[2018-10-13] MEDS: HALOPERIDOL 5 MG TABLET PO PRN ×2 (00:21→12:58)
[2018-10-13] MEDS: LORazepam 1 MG TABLET PO PRN ×2 (00:21→12:58)
[2018-10-13 05:30] LABS: GLUCOMETER DEV NAME(LOC) 3E.C; GLUCOSE,POINT OF CARE 125 MG/DL (70-110)
[2018-10-13 08:00] VITALS: BP 121/67
[2018-10-13] MEDS: GlipiZIDE 5 MG TABLET PO SCH (08:45)
[2018-10-13] MEDS: DIVALPROEX SODIUM 500 MG DR TABLET PO SCH ×2 (08:46→17:20)
[2018-10-13] MEDS: RisperiDONE 1 MG TABLET PO SCH (08:46)
[2018-10-13] MEDS: PROPRANOLOL HCL 80 MG PO SCH (08:46)
[2018-10-13] MEDS: INSULIN LISPRO 100 UNITS/ML SQ PRN ×2 (12:04→17:47)
[2018-10-13 12:54] LABS: GLUCOMETER DEV NAME(LOC) 3EX.; GLUCOSE,POINT OF CARE 211 MG/DL (70-110)
[2018-10-13 12:58] VITALS: BP 122/68
[2018-10-13] MEDS: IBUPROFEN 400 MG TABLET PO PRN (12:58)
[2018-10-13 13:58] VITALS: BP 120/72
[2018-10-13 17:00] VITALS: BP 138/59
[2018-10-13] MEDS: RIVAROXABAN 15 MG TABLET PO SCH (17:20)
[2018-10-13 17:29] LABS: GLUCOMETER DEV NAME(LOC) 3E.I; GLUCOSE,POINT OF CARE 83 MG/DL (70-110)
[2018-10-13] MEDS: RisperiDONE 2 MG TABLET PO SCH (20:09)
[2018-10-13] MEDS: ATORVASTATIN CALCIUM 20 MG TABLET PO SCH (20:10)
[2018-10-13 21:14] LABS: GLUCOMETER DEV NAME(LOC) 3E.C; GLUCOSE,POINT OF CARE 107 MG/DL (70-110)
[2018-10-14 07:14] LABS: GLUCOMETER DEV NAME(LOC) 3E.I; GLUCOSE,POINT OF CARE 124 MG/DL (70-110)
[2018-10-14] MEDS: PROPRANOLOL HCL 80 MG PO SCH (08:28)
[2018-10-14] MEDS: DIVALPROEX SODIUM 500 MG DR TABLET PO SCH ×2 (08:28→16:55)
[2018-10-14] MEDS: GlipiZIDE 5 MG TABLET PO SCH (08:28)
[2018-10-14] MEDS: RisperiDONE 1 MG TABLET PO SCH (08:28)
[2018-10-14 09:32] VITALS: BP 124/75
[2018-10-14 11:14] LABS: GLUCOMETER DEV NAME(LOC) 3E.I; GLUCOSE,POINT OF CARE 196 MG/DL (70-110)
[2018-10-14] MEDS: INSULIN LISPRO 100 UNITS/ML SQ PRN ×3 (12:13→21:15)
[2018-10-14 16:21] VITALS: BP 132/72
[2018-10-14 16:39] LABS: GLUCOMETER DEV NAME(LOC) 3E.I; GLUCOSE,POINT OF CARE 153 MG/DL (70-110)
[2018-10-14] MEDS: RIVAROXABAN 15 MG TABLET PO SCH (16:57)
[2018-10-14] MEDS: ATORVASTATIN CALCIUM 20 MG TABLET PO SCH (20:14)
[2018-10-14] MEDS: RisperiDONE 2 MG TABLET PO SCH (20:14)
[2018-10-14] MEDS: LORazepam 1 MG TABLET PO PRN (20:14)
[2018-10-14 20:29] LABS: GLUCOMETER DEV NAME(LOC) 3E.I; GLUCOSE,POINT OF CARE 177 MG/DL (70-110)
[2018-10-14] MEDS: ZOLPIDEM TARTRATE 10 MG TABLET PO PRN (21:30)
[2018-10-15 05:51] LABS: GLUCOMETER DEV NAME(LOC) 3E.I; GLUCOSE,POINT OF CARE 193 MG/DL (70-110)
[2018-10-15] MEDS: INSULIN LISPRO 100 UNITS/ML SQ PRN ×2 (06:47→21:19)
[2018-10-15] MEDS: DIVALPROEX SODIUM 500 MG DR TABLET PO SCH ×2 (08:32→16:10)
[2018-10-15] MEDS: PROPRANOLOL HCL 80 MG PO SCH (08:32)
[2018-10-15] MEDS: RisperiDONE 1 MG TABLET PO SCH (08:32)
[2018-10-15] MEDS: GlipiZIDE 5 MG TABLET PO SCH (08:32)
[2018-10-15 09:35] VITALS: BP 166/66
[2018-10-15 10:38] LABS: GLUCOMETER DEV NAME(LOC) 3E.I; GLUCOSE,POINT OF CARE 133 MG/DL (70-110)
[2018-10-15] MEDS: LOPERAMIDE HCL 2 MG CAPSULE PO PRN (11:36)
[2018-10-15] MEDS: LORazepam 1 MG TABLET PO PRN (14:35)
[2018-10-15] MEDS: RIVAROXABAN 15 MG TABLET PO SCH (16:10)
[2018-10-15 16:14] LABS: GLUCOMETER DEV NAME(LOC) 3E.I; GLUCOSE,POINT OF CARE 136 MG/DL (70-110)
[2018-10-15 16:43] VITALS: BP 156/81
[2018-10-15] MEDS: RisperiDONE 2 MG TABLET PO SCH (20:06)
[2018-10-15] MEDS: ATORVASTATIN CALCIUM 20 MG TABLET PO SCH (20:06)
[2018-10-15 21:25] LABS: GLUCOMETER DEV NAME(LOC) 3E.I; GLUCOSE,POINT OF CARE 255 MG/DL (70-110)
[2018-10-16 05:34] LABS: GLUCOMETER DEV NAME(LOC) 3E.I; GLUCOSE,POINT OF CARE 136 MG/DL (70-110)
[2018-10-16 08:06] VITALS: BP 162/86
[2018-10-16] MEDS: RisperiDONE 1 MG TABLET PO SCH (08:38)
[2018-10-16] MEDS: PROPRANOLOL HCL 80 MG PO SCH (08:38)
[2018-10-16] MEDS: GlipiZIDE 5 MG TABLET PO SCH (08:38)
[2018-10-16] MEDS: DIVALPROEX SODIUM 500 MG DR TABLET PO SCH ×2 (08:38→17:14)
[2018-10-16] MEDS: LORazepam 1 MG TABLET PO PRN ×2 (08:39→17:14)
[2018-10-16 10:39] LABS: GLUCOMETER DEV NAME(LOC) 3E.I; GLUCOSE,POINT OF CARE 158 MG/DL (70-110)
[2018-10-16] MEDS: INSULIN LISPRO 100 UNITS/ML SQ PRN ×2 (11:41→21:37)
[2018-10-16] MEDS: RIVAROXABAN 15 MG TABLET PO SCH (17:14)
[2018-10-16 17:20] LABS: GLUCOMETER DEV NAME(LOC) 3E.I; GLUCOSE,POINT OF CARE 104 MG/DL (70-110)
[2018-10-16 20:19] LABS: GLUCOMETER DEV NAME(LOC) 3E.I; GLUCOSE,POINT OF CARE 158 MG/DL (70-110)
[2018-10-16 20:22] VITALS: BP 152/65
[2018-10-16] MEDS: RisperiDONE 2 MG TABLET PO SCH (21:01)
[2018-10-16] MEDS: ATORVASTATIN CALCIUM 20 MG TABLET PO SCH (21:01)
[2018-10-16] MEDS: ZOLPIDEM TARTRATE 10 MG TABLET PO PRN (21:01)
[2018-10-17 03:26] VITALS: BP 157/84
[2018-10-17] MEDS: LORazepam 1 MG TABLET PO PRN (03:29)
[2018-10-17 05:42] LABS: GLUCOMETER DEV NAME(LOC) 3E.I; GLUCOSE,POINT OF CARE 170 MG/DL (70-110)
[2018-10-17] MEDS: INSULIN LISPRO 100 UNITS/ML SQ PRN ×4 (06:41→20:48)
[2018-10-17] MEDS: GlipiZIDE 5 MG TABLET PO SCH (08:32)
[2018-10-17] MEDS: RisperiDONE 1 MG TABLET PO SCH (08:32)
[2018-10-17] MEDS: PROPRANOLOL HCL 80 MG PO SCH (08:32)
[2018-10-17] MEDS: DIVALPROEX SODIUM 500 MG DR TABLET PO SCH ×2 (08:32→16:04)
[2018-10-17 11:08] LABS: GLUCOMETER DEV NAME(LOC) 3E.I; GLUCOSE,POINT OF CARE 120 MG/DL (70-110)
[2018-10-17 13:20] VITALS: BP 158/80
[2018-10-17] MEDS: RIVAROXABAN 15 MG TABLET PO SCH (16:08)
[2018-10-17 16:14] LABS: GLUCOMETER DEV NAME(LOC) 3E.I; GLUCOSE,POINT OF CARE 168 MG/DL (70-110)
[2018-10-17 17:24] VITALS: BP 150/77
[2018-10-17] MEDS: RisperiDONE 2 MG TABLET PO SCH (20:15)
[2018-10-17] MEDS: ZOLPIDEM TARTRATE 10 MG TABLET PO PRN (20:15)
[2018-10-17] MEDS: ATORVASTATIN CALCIUM 20 MG TABLET PO SCH (20:15)
[2018-10-17 20:24] LABS: GLUCOMETER DEV NAME(LOC) 3E.I; GLUCOSE,POINT OF CARE 217 MG/DL (70-110)
[2018-10-18 05:54] LABS: GLUCOMETER DEV NAME(LOC) 3E.I; GLUCOSE,POINT OF CARE 141 MG/DL (70-110)
[2018-10-18] MEDS: INSULIN LISPRO 100 UNITS/ML SQ PRN ×3 (06:39→20:08)
[2018-10-18 09:44] VITALS: BP 146/16
[2018-10-18] MEDS: DIVALPROEX SODIUM 500 MG DR TABLET PO SCH ×2 (11:32→16:30)
[2018-10-18] MEDS: GlipiZIDE 5 MG TABLET PO SCH (11:33)
[2018-10-18] MEDS: PROPRANOLOL HCL 80 MG PO SCH (11:33)
[2018-10-18] MEDS: RisperiDONE 1 MG TABLET PO SCH (11:33)
[2018-10-18 11:49] LABS: GLUCOMETER DEV NAME(LOC) 3E.I; GLUCOSE,POINT OF CARE 118 MG/DL (70-110)
[2018-10-18 16:14] LABS: GLUCOMETER DEV NAME(LOC) 3E.I; GLUCOSE,POINT OF CARE 189 MG/DL (70-110)
[2018-10-18] MEDS: RIVAROXABAN 15 MG TABLET PO SCH (16:30)
[2018-10-18 17:09] VITALS: BP 153/72
[2018-10-18] MEDS: HALOPERIDOL 5 MG TABLET PO PRN (17:52)
[2018-10-18] MEDS: LORazepam 1 MG TABLET PO PRN (17:52)
[2018-10-18] MEDS: ATORVASTATIN CALCIUM 20 MG TABLET PO SCH (20:07)
[2018-10-18] MEDS: RisperiDONE 2 MG TABLET PO SCH (20:07)
[2018-10-18] MEDS: ZOLPIDEM TARTRATE 10 MG TABLET PO PRN (20:07)
[2018-10-18 20:13] LABS: GLUCOMETER DEV NAME(LOC) 3E.I; GLUCOSE,POINT OF CARE 164 MG/DL (70-110)
[2018-10-19] MEDS: INSULIN LISPRO 100 UNITS/ML SQ PRN ×3 (05:43→20:14)
[2018-10-19 05:44] LABS: GLUCOMETER DEV NAME(LOC) 3E.I; GLUCOSE,POINT OF CARE 148 MG/DL (70-110)
[2018-10-19 08:00] VITALS: BP 129/60
[2018-10-19] MEDS: HALOPERIDOL 5 MG TABLET PO PRN ×3 (08:02→16:39)
[2018-10-19] MEDS: GlipiZIDE 5 MG TABLET PO SCH (08:02)
[2018-10-19] MEDS: PROPRANOLOL HCL 80 MG PO SCH (08:02)
[2018-10-19] MEDS: DIVALPROEX SODIUM 500 MG DR TABLET PO SCH ×2 (08:02→15:56)
[2018-10-19] MEDS: LORazepam 1 MG TABLET PO PRN ×3 (08:02→20:57)
[2018-10-19] MEDS: RisperiDONE 1 MG TABLET PO SCH (08:02)
[2018-10-19 10:54] LABS: GLUCOMETER DEV NAME(LOC) 3E.I; GLUCOSE,POINT OF CARE 134 MG/DL (70-110)
[2018-10-19 16:17] VITALS: BP 154/78
[2018-10-19] MEDS: RIVAROXABAN 15 MG TABLET PO SCH (16:39)
[2018-10-19 16:59] LABS: GLUCOMETER DEV NAME(LOC) 3E.I; GLUCOSE,POINT OF CARE 146 MG/DL (70-110)
[2018-10-19] MEDS: RisperiDONE 2 MG TABLET PO SCH (20:12)
[2018-10-19] MEDS: ATORVASTATIN CALCIUM 20 MG TABLET PO SCH (20:12)
[2018-10-19 20:19] LABS: GLUCOMETER DEV NAME(LOC) 3E.I; GLUCOSE,POINT OF CARE 174 MG/DL (70-110)
[2018-10-20 05:29] LABS: GLUCOMETER DEV NAME(LOC) 3E.I; GLUCOSE,POINT OF CARE 118 MG/DL (70-110)
[2018-10-20 08:00] VITALS: BP 135/63
[2018-10-20] MEDS: GlipiZIDE 5 MG TABLET PO SCH (08:28)
[2018-10-20] MEDS: RisperiDONE 1 MG TABLET PO SCH (08:29)
[2018-10-20] MEDS: LORazepam 1 MG TABLET PO PRN (08:29)
[2018-10-20] MEDS: DIVALPROEX SODIUM 500 MG DR TABLET PO SCH ×2 (08:29→16:54)
[2018-10-20] MEDS: PROPRANOLOL HCL 80 MG PO SCH ×2 (09:00→11:43)
[2018-10-20] MEDS: HALOPERIDOL 5 MG TABLET PO PRN (09:22)
[2018-10-20 11:34] LABS: GLUCOMETER DEV NAME(LOC) 3E.I; GLUCOSE,POINT OF CARE 187 MG/DL (70-110)
[2018-10-20 11:40] VITALS: BP 151/78
[2018-10-20] MEDS: INSULIN LISPRO 100 UNITS/ML SQ PRN ×2 (11:45→20:17)
[2018-10-20 16:19] LABS: GLUCOMETER DEV NAME(LOC) 3E.I; GLUCOSE,POINT OF CARE 118 MG/DL (70-110)
[2018-10-20] MEDS: RIVAROXABAN 15 MG TABLET PO SCH (16:54)
[2018-10-20 17:00] VITALS: BP 125/63
[2018-10-20] MEDS: RisperiDONE 2 MG TABLET PO SCH (20:00)
[2018-10-20] MEDS: ZOLPIDEM TARTRATE 10 MG TABLET PO PRN (20:00)
[2018-10-20] MEDS: ATORVASTATIN CALCIUM 20 MG TABLET PO SCH (20:00)
[2018-10-20 20:18] LABS: GLUCOMETER DEV NAME(LOC) 3E.I; GLUCOSE,POINT OF CARE 175 MG/DL (70-110)
[2018-10-21 05:46] LABS: GLUCOMETER DEV NAME(LOC) 3E.I; GLUCOSE,POINT OF CARE 152 MG/DL (70-110)
[2018-10-21 05:52] VITALS: BP 119/65
[2018-10-21] MEDS: INSULIN LISPRO 100 UNITS/ML SQ PRN ×3 (06:07→21:10)
[2018-10-21 08:00] VITALS: BP 140/74
[2018-10-21] MEDS: LORazepam 1 MG TABLET PO PRN ×2 (08:10→22:17)
[2018-10-21] MEDS: GlipiZIDE 5 MG TABLET PO SCH (08:10)
[2018-10-21] MEDS: RisperiDONE 1 MG TABLET PO SCH (08:10)
[2018-10-21] MEDS: PROPRANOLOL HCL 80 MG PO SCH (08:11)
[2018-10-21] MEDS: DIVALPROEX SODIUM 500 MG DR TABLET PO SCH ×2 (08:11→15:54)
[2018-10-21] MEDS: HALOPERIDOL 5 MG TABLET PO PRN (08:11)
[2018-10-21 11:35] LABS: GLUCOMETER DEV NAME(LOC) 3E.I; GLUCOSE,POINT OF CARE 122 MG/DL (70-110)
[2018-10-21] MEDS: GABAPENTIN 100 MG CAPSULE PO SCH (15:54)
[2018-10-21] MEDS: RisperiDONE 3 MG TABLET PO SCH (15:54)
[2018-10-21 16:05] LABS: GLUCOMETER DEV NAME(LOC) 3E.I; GLUCOSE,POINT OF CARE 92 MG/DL (70-110)
[2018-10-21] MEDS ORDERED: GABAPENTIN 100 MG CAPSULE PO SCH (17:00)
[2018-10-21] MEDS: RIVAROXABAN 15 MG TABLET PO SCH (17:21)
[2018-10-21 18:51] VITALS: BP 130/80
[2018-10-21] MEDS: ATORVASTATIN CALCIUM 20 MG TABLET PO SCH (21:08)
[2018-10-21 21:15] LABS: GLUCOMETER DEV NAME(LOC) 3E.I; GLUCOSE,POINT OF CARE 211 MG/DL (70-110)
[2018-10-22 06:14] LABS: GLUCOMETER DEV NAME(LOC) 3E.I; GLUCOSE,POINT OF CARE 138 MG/DL (70-110)
[2018-10-22 08:00] VITALS: BP 111/84
[2018-10-22] MEDS: GlipiZIDE 5 MG TABLET PO SCH (08:13)
[2018-10-22] MEDS: GABAPENTIN 100 MG CAPSULE PO SCH ×3 (09:36→16:18)
[2018-10-22] MEDS: PROPRANOLOL HCL 80 MG PO SCH (09:36)
[2018-10-22] MEDS: RisperiDONE 3 MG TABLET PO SCH ×2 (09:36→16:18)
[2018-10-22] MEDS: OLANZapine 10 MG RAPDIS TABLET PO SCH (09:36)
[2018-10-22] MEDS: DIVALPROEX SODIUM 500 MG DR TABLET PO SCH ×2 (09:36→16:18)
[2018-10-22 10:07] VITALS: BP 111/89
[2018-10-22 11:19] LABS: GLUCOMETER DEV NAME(LOC) 3E.I; GLUCOSE,POINT OF CARE 242 MG/DL (70-110)
[2018-10-22] MEDS: INSULIN LISPRO 100 UNITS/ML SQ PRN ×2 (11:32→21:09)
[2018-10-22] MEDS: RIVAROXABAN 15 MG TABLET PO SCH (16:18)
[2018-10-22 16:24] LABS: GLUCOMETER DEV NAME(LOC) 3E.I; GLUCOSE,POINT OF CARE 90 MG/DL (70-110)
[2018-10-22 20:06] VITALS: BP 131/78
[2018-10-22] MEDS: ATORVASTATIN CALCIUM 20 MG TABLET PO SCH (20:25)
[2018-10-22 21:10] LABS: GLUCOMETER DEV NAME(LOC) 3E.I; GLUCOSE,POINT OF CARE 155 MG/DL (70-110)
[2018-10-23] VITALS: BP 143/76
[2018-10-23] MEDS: ZOLPIDEM TARTRATE 10 MG TABLET PO PRN
[2018-10-23] MEDS: HALOPERIDOL 5 MG TABLET PO PRN (00:01)
[2018-10-23] MEDS: LORazepam 1 MG TABLET PO PRN (04:27)
[2018-10-23 05:25] LABS: GLUCOMETER DEV NAME(LOC) 3E.I; GLUCOSE,POINT OF CARE 174 MG/DL (70-110)
[2018-10-23] MEDS: INSULIN LISPRO 100 UNITS/ML SQ PRN ×2 (05:27→20:42)
[2018-10-23 08:00] VITALS: BP 148/75
[2018-10-23 08:24] LABS: APPEARANCE,URINE CLOUDY (CLEAR); BILIRUBIN,URINE NEGATIVE (NEGATIVE); GLUCOSE, URINE (UA) NEGATIVE (NEGATIVE); KETONES,URINE NEGATIVE (NEGATIVE); LEUKOCYTE ESTERASE ,URINE LARGE (NEGATIVE); NITRATE,URINE NEGATIVE (NEGATIVE); OCCULT BLOOD,URINE TRACE (NEGATIVE); PROTEIN,URINE NEGATIVE (NEGATIVE); UROBILINOGEN,URINE 0.2 mg/dL (<=1.0)
[2018-10-23 08:33] LABS: BACTERIA,URINE Many /HPF (None Seen); RBC,URINE 0-2 /HPF (0-2); RENAL EPITHELIAL CELLS,URINE Rare /LPF (None Seen); SQUAMOUS EPITHELIAL CELL,UR Rare /LPF (None Seen); WBC,URINE 51-100 /HPF (0-5)
[2018-10-23] MEDS: GABAPENTIN 100 MG CAPSULE PO SCH ×3 (08:39→16:15)
[2018-10-23] MEDS: PROPRANOLOL HCL 80 MG PO SCH (08:39)
[2018-10-23] MEDS: RisperiDONE 3 MG TABLET PO SCH ×2 (08:39→16:15)
[2018-10-23] MEDS: DIVALPROEX SODIUM 500 MG DR TABLET PO SCH ×2 (08:40→16:15)
[2018-10-23] MEDS: OLANZapine 10 MG RAPDIS TABLET PO SCH (08:40)
[2018-10-23] MEDS: GlipiZIDE 5 MG TABLET PO SCH (08:40)
[2018-10-23 11:19] LABS: GLUCOMETER DEV NAME(LOC) 3E.I; GLUCOSE,POINT OF CARE 127 MG/DL (70-110)
[2018-10-23] MEDS: RIVAROXABAN 15 MG TABLET PO SCH (16:15)
[2018-10-23 16:24] LABS: GLUCOMETER DEV NAME(LOC) 3E.I; GLUCOSE,POINT OF CARE 105 MG/DL (70-110)
[2018-10-23 16:30] VITALS: BP 150/98
[2018-10-23] MEDS: ATORVASTATIN CALCIUM 20 MG TABLET PO SCH (20:01)
[2018-10-23 20:49] LABS: GLUCOMETER DEV NAME(LOC) 3E.I; GLUCOSE,POINT OF CARE 201 MG/DL (70-110)
[2018-10-24] MEDS: ZOLPIDEM TARTRATE 10 MG TABLET PO PRN (00:25)
[2018-10-24] MEDS: LORazepam 1 MG TABLET PO PRN ×2 (00:25→09:00)
[2018-10-24 06:14] LABS: GLUCOMETER DEV NAME(LOC) 3E.I; GLUCOSE,POINT OF CARE 134 MG/DL (70-110)
[2018-10-24 06:17] VITALS: BP 141/80
[2018-10-24 06:48] LABS: CALCIUM, TOTAL 8.6 mg/dL (8.8-10.5); CREATININE 1.22 mg/dL (0.60-1.30); POTASSIUM 4.3 mmol/L (3.5-5.1)
[2018-10-24] MEDS: INSULIN LISPRO 100 UNITS/ML SQ PRN (06:51)
[2018-10-24 08:00] VITALS: BP 150/78
[2018-10-24] MEDS: OLANZapine 10 MG RAPDIS TABLET PO SCH (08:54)
[2018-10-24] MEDS: DIVALPROEX SODIUM 500 MG DR TABLET PO SCH (08:54)
[2018-10-24] MEDS: GlipiZIDE 5 MG TABLET PO SCH (08:54)
[2018-10-24] MEDS: GABAPENTIN 100 MG CAPSULE PO SCH ×2 (08:55→12:44)
[2018-10-24] MEDS: PROPRANOLOL HCL 80 MG PO SCH (08:55)
[2018-10-24] MEDS: RisperiDONE 3 MG TABLET PO SCH (08:55)
[2018-10-24] MEDS ORDERED: CIPROFLOXACIN HCL 500 MG TABLET PO SCH (09:00)
[2018-10-24] MEDS: IBUPROFEN 400 MG TABLET PO PRN (09:04)
[2018-10-24] MEDS ORDERED: OLAN10TA6 PO (10:50)
[2018-10-24] MEDS ORDERED: GABA-529 PO (10:50)
[2018-10-24 11:19] LABS: GLUCOMETER DEV NAME(LOC) 3E.I; GLUCOSE,POINT OF CARE 133 MG/DL (70-110)
[2018-10-24] MEDS ORDERED: PROP80SR PO (11:24)
[2018-10-24] MEDS ORDERED: CIPR-278 PO (11:25)
[2018-10-24] MEDS ORDERED: RIVA15T PO (11:25)
[2018-10-24] MEDS ORDERED: BLOO-733 (11:36)
== END 2018-10-24 13:40 | DRG 750 ==
LOC: 3EI 18:30 → B2S 08-01 20:14 → B3A 08-09 21:55 → B2S 08-13 10:26 → B3A 09-03 22:10 → B2S 09-06 08:45 → B3A 09-15 16:16 → 3EI 09-21 15:46
PROVIDERS: ADMIT Psychiatry & Neurology Psychiatry; ATTEND Psychiatry & Neurology Psychiatry
DX: F20.0 Paranoid schizophrenia (principal); N17.9 Acute kidney failure, unspecified; E22.2 Syndrome of inappropriate secretion of antidiuretic hormone; E11.9 Type 2 diabetes mellitus without complications; I82.509 Chronic embolism and thrombosis of unspecified deep veins of unspecified lower extremity; D64.9 Anemia, unspecified; E03.9 Hypothyroidism, unspecified; E66.9 Obesity, unspecified; E78.5 Hyperlipidemia, unspecified; I10 Essential (primary) hypertension; Z79.899 Other long term (current) drug therapy; Z79.01 Long term (current) use of anticoagulants; Z68.30 Body mass index [BMI] 30.0-30.9, adult
CPT/HCPCS: 83036; 83735; 84100; 84439; 84443; 87081; 87086